=== PATIENT | female | born 1985 | race Caucasian/White ===

== ENCOUNTER 2017-06-01 13:13 | Emergency (ER) | payer SELFPAY ==
--- NOTE | 2017-06-01 13:37 | ER Document Report ---
ED General - General Chief Complaint: Chest Pain Stated Complaint: ARM NUMBNESS Time Seen by Provider: 06/01/17 13:20 Mode of Arrival: Ambulatory Information source: Patient Notes: 31 yr old female with hx of severe anxiety htn unctrolled since she ran out of her lisinopril hctz . pt admits to chest tightness, notes she is shaky , denies any neuro defitics TRAVEL OUTSIDE OF THE [place] IN LAST 30 DAYS: No - HPI Onset: Other - 2 day duration Onset/Duration: Persistent Quality of pain: Achy Severity: Mild Pain Level: 1 Associated symptoms: Chest pain, Other Exacerbated by: Denies Relieved by: Denies Similar symptoms previously: Yes Recently seen / treated by doctor: Yes - Related Data Allergies/Adverse Reactions: No Known Allergies Allergy (Verified 06/01/17 13:16) Past Medical History - Social History Smoking Status: Current Some Day Smoker Cigarette use (# per day): Yes Chew tobacco use (# tins/day): No Smoking Education Provided: No Frequency of alcohol use: Occasional Drug Abuse: None Family History: Reviewed & Not Pertinent, Hypertension - Past Medical History Cardiac Medical History: Reports: Hx Hypercholesterolemia, Hx Hypertension Pulmonary Medical History: Denies: Hx Tuberculosis Neurological Medical History: Denies: Hx Cerebrovascular Accident, Hx Seizures Endocrine Medical History: Denies: Hx Diabetes Mellitus Type 2, Hx Hypothyroidism Renal/ Medical History: Denies: Hx Peritoneal Dialysis, Hx Pelvic Inflammatory Disease GI Medical History: Reports: Hx Gastroesophageal Reflux Disease Psychiatric Medical History: Reports: Hx Anxiety Past Surgical History: Reports: Hx Abdominal Surgery - iud retrieval, hernia repair. Denies: Hx Pacemaker - Immunizations Hx Diphtheria, Pertussis, Tetanus Vaccination: Yes Review of Systems - Review of Systems Notes: REVIEW OF SYSTEMS: CONSTITUTIONAL : Denies fever, chills, or sweats. Denies recent illness. EENT: Denies eye, ear, throat, or mouth pain or symptoms. Denies nasal or sinus congestion or discharge. Denies throat, tongue, or mouth swelling or difficulty swallowing. CARDIOVASCULAR: admts to chest pain RESPIRATORY: Denies cough, cold, or chest congestion. Denies shortness of breath, difficulty breathing, or wheezing. GASTROINTESTINAL: Denies abdominal pain or distention. Denies nausea, vomiting , or diarrhea. Denies blood in vomitus, stools, or per rectum. Denies black, tarry stools. Denies constipation. GENITOURINARY: Denies difficulty urinating, painful urination, burning, frequency, blood in urine, or discharge. FEMALE GENITOURINARY: Denies vaginal bleeding, heavy or abnormal periods, irregular periods. Denies vaginal discharge or odor. MUSCULOSKELETAL: Denies back or neck pain or stiffness. Denies joint pain or swelling. SKIN: Denies rash, lesions or sores. HEMATOLOGIC : Denies easy bruising or bleeding. LYMPHATIC: Denies swollen, enlarged glands. NEUROLOGICAL: Denies confusion or altered mental status. Denies passing out or loss of consciousness. Denies dizziness or lightheadedness. Denies headache. Denies weakness or paralysis or loss of use of either side. Denies problems with gait or speech. Denies sensory loss, numbness, or tingling. Denies seizures. PSYCHIATRIC: admits ot shaking anxiety . ALL OTHER SYSTEMS REVIEWED AND NEGATIVE. PHYSICAL EXAMINATION: GENERAL: Well-appearing, well-nourished and in no acute distress. HEAD: Atraumatic, normocephalic. EYES: Pupils equal round and reactive to light, extraocular movements intact, conjunctiva are normal. ENT: Nares patent, oropharynx clear without exudates. Moist mucous membranes. NECK: Normal range of motion, supple without lymphadenopathy LUNGS: Breath sounds clear to auscultation bilaterally and equal. No wheezes rales or rhonchi. HEART: Regular rate and rhythm without murmurs ABDOMEN: Soft, nontender, nondistended abdomen. No guarding, no rebound. No masses appreciated. Female : deferred Musculoskeletal: Normal range of motion, no pitting or edema. No cyanosis. NEUROLOGICAL: Cranial nerves grossly intact. Normal speech, normal gait. Normal sensory, motor exams PSYCH: jittery SKIN: Warm, Dry, normal turgor, no rashes or lesions noted. Dictation was performed using [employer] voice recognition software Course - Re-evaluation Re-evalutation: 06/01/17 13:40 i have extremely low suspicion of any life threatening issues , but given 2 days of chest pain will order a set of enzymes. labs pending ekg is normal. 06/01/17 14:31 Lab work noted no significant abnormality patient will be discharged home with prescription After performing a Medical Screening Examination, I estimate there is LOW risk for RUPTURED ESOPHAGUS, PNEUMOTHORAX, PULMONARY EMBOLISM, ACUTE CORONARY SYNDROME, OR THORACIC AORTIC DISSECTION, thus I consider the discharge disposition reasonable. I have reevaluated this patient multiple times and no significant life threatening changes are noted. The patient and I have discussed the diagnosis and risks, and we agree with discharging home with close follow-up. We also discussed returning to the Emergency Department immediately if new or worsening symptoms occur. We have discussed the symptoms which are most concerning (e.g., bloody sputum, worsening pain or shortness of breath) that necessitate immediate return. - Laboratory Result Diagrams: 06/01/17 13:40 06/01/17 13:40 Laboratory results interpreted by me: 06/01/17 06/01/17 13:40 13:40 WBC 12.4 H MCV 99 H MCH 34.6 H RDW 14.5 H Absolute Neutrophils 8.7 H Carbon Dioxide 20 L Glucose 118 H AST 46 H Discharge - Discharge Clinical Impression: HTN (hypertension) Qualifiers: Hypertension type: essential hypertension Qualified Code(s): I10 - Essential ( primary) hypertension Condition: Stable Disposition: HOME, SELF-CARE Instructions: Chest Pain of Unclear Cause ([facility]) Prescriptions: Lisinopril/Hydrochlorothiazide [Lisinopril-Hctz 20-25 mg Tab] 1 each PO DAILY # 60 tablet Referrals: VICKY CHOUDHARY MD [ACTIVE STAFF] - Follow up tomorrow
[2017-06-01 13:56] LABS: ABSOLUTE BASOPHILS # (AUTO) 0.1 10^3/uL (0.0-0.2); ABSOLUTE EOSINOPHILS # (AUTO) 0.2 10^3/uL (0.0-0.6); ABSOLUTE LYMPHOCYTES (AUTO) 2.7 10^3/uL (0.5-4.7); ABSOLUTE MONOCYTES (AUTO) 0.6 10^3/uL (0.1-1.4); ABSOLUTE NEUT (AUTO) 8.7 10^3/uL (1.7-8.2); BASOPHILS % (AUTO) 1.2 % (0-2); EOSINOPHILS % (AUTO) 1.6 % (0-6); LYMPHOCYTES % (AUTO) 21.6 % (13-45); MEAN CORPUSCULAR HEMOGLOBIN 34.6 pg (27.0-33.4); MEAN CORPUSCULAR HGB CONC 34.9 g/dL (32.0-36.0); MEAN CORPUSCULAR VOLUME 99 fl (80-97); MONOCYTES % (AUTO) 5.1 % (3-13); RED BLOOD COUNT 4.04 10^6/uL (3.72-5.28); RED CELL DISTRIBUTION WIDTH 14.5 % (11.5-14.0); SEGMENTED NEUTROPHILS % (AUTO) 70.5 % (42-78); WHITE BLOOD COUNT 12.4 10^3/uL (4.0-10.5)
[2017-06-01 14:15] LABS: ALANINE AMINOTRANSFERASE 35 U/L (9-52); ALBUMIN 4.5 g/dL (3.5-5.0); ALKALINE PHOSPHATASE 108 U/L (38-126); ANION GAP 14 (5-19); ASPARTATE AMINO TRANSFERASE 46 U/L (14-36); BILIRUBIN,DIRECT 0.4 mg/dL (0.0-0.4); BILIRUBIN,TOTAL 0.6 mg/dL (0.2-1.3); BLOOD UREA NITROGEN 15 mg/dL (7-20); CALCIUM 9.6 mg/dL (8.4-10.2); CARBON DIOXIDE 20 mmol/L (22-30); CHLORIDE 104 mmol/L (98-107); CREATINE KINASE 35 U/L (30-135); CREATININE RESULT 0.68 mg/dL (0.52-1.25); GLUCOSE 118 mg/dL (75-110); SODIUM 137.7 mmol/L (137-145); TOTAL PROTEIN 7.2 g/dL (6.3-8.2)
[2017-06-01 14:25] LABS: CREATINE KINASE MB 0.56 ng/mL (<4.55)
[2017-06-01 14:27] LABS: TROPONIN I < 0.012 ng/mL
[2017-06-01 14:54] VITALS: BP 129/89
--- NOTE | 2017-06-01 16:24 | EKG REPORT ---
SEVERITY:- OTHERWISE NORMAL ECG - SINUS TACHYCARDIA : Confirmed by: Dangelo Truong MD 01-Jun-2017 16:23:56
== END 2017-06-01 14:39 | disposition home or self-care (01) ==
LOC: ER 13:13
DX: I10 Essential (primary) hypertension (principal); R07.9 Chest pain, unspecified; R20.0 Anesthesia of skin; F17.210 Nicotine dependence, cigarettes, uncomplicated; E78.00 Pure hypercholesterolemia, unspecified
CPT/HCPCS: 36415; 80053; 82550; 82553; 84484; 85025; 93005; 93010; 99284

== ENCOUNTER 2017-08-29 13:01 | Emergency (ER) | payer SELFPAY ==
--- NOTE | 2017-08-29 14:09 | ER Document Report ---
ED General - General Chief Complaint: Palpitations Stated Complaint: ELEVATED HEART RATE Time Seen by Provider: 08/29/17 13:34 Notes: The patient is a 32-year-old female, past medical history hypertension, anxiety , presents feeling like her heart is racing that is worse after she takes a few steps. She started noticing her symptoms a few days ago. Patient denies syncope, chest pain, shortness of breath, leg swelling, OCP use, recent travel, recent surgery, back pain or increased stress or anxiety. TRAVEL OUTSIDE OF THE [place] IN LAST 30 DAYS: No - Related Data Allergies/Adverse Reactions: No Known Allergies Allergy (Verified 08/29/17 13:02) Past Medical History - General Information source: Patient - Social History Smoking Status: Current Every Day Smoker Chew tobacco use (# tins/day): No Frequency of alcohol use: Occasional Drug Abuse: None Family History: Reviewed & Not Pertinent, Hypertension Patient has suicidal ideation: No Patient has homicidal ideation: No - Past Medical History Cardiac Medical History: Reports: Hx Hypercholesterolemia, Hx Hypertension Pulmonary Medical History: Denies: Hx Tuberculosis Neurological Medical History: Denies: Hx Cerebrovascular Accident, Hx Seizures Endocrine Medical History: Denies: Hx Diabetes Mellitus Type 2, Hx Hypothyroidism Renal/ Medical History: Denies: Hx Peritoneal Dialysis, Hx Pelvic Inflammatory Disease GI Medical History: Reports: Hx Gastroesophageal Reflux Disease Psychiatric Medical History: Reports: Hx Anxiety Past Surgical History: Reports: Hx Abdominal Surgery - iud retrieval, hernia repair. Denies: Hx Pacemaker - Immunizations Hx Diphtheria, Pertussis, Tetanus Vaccination: Yes Review of Systems - Review of Systems Notes: REVIEW OF SYSTEMS: CONSTITUTIONAL: -fevers, -chills EENT: -eye pain, -difficulty swallowing, -nasal congestion CARDIOVASCULAR:-chest pain, -syncope, +palpitations RESPIRATORY: -cough, -SOB GASTROINTESTINAL: -abdominal pain, - nausea, -vomiting, -diarrhea GENITOURINARY: -dysuria, -hematuria MUSCULOSKELETAL: -back pain, -neck pain SKIN: -rash or skin lesions. HEMATOLOGIC: -easy bruising or bleeding. LYMPHATIC: -swollen, enlarged glands. NEUROLOGICAL: -altered mental status or loss of consciousness, -headache, - neurologic symptoms PSYCHIATRIC: -anxiety, -depression. ALL OTHER SYSTEMS REVIEWED AND NEGATIVE. Physical Exam - Vital signs Vitals: Temp Pulse Resp BP Pulse Ox 98.4 F 102 H 20 126/90 H 100 12/22/17 13:18 08/29/17 13:18 08/29/17 13:18 08/29/17 13:18 08/29/17 13:18 - Notes Notes: PHYSICAL EXAMINATION: GENERAL: Well-appearing, well-nourished and in no acute distress. HEAD: Atraumatic, normocephalic. EYES: Pupils equal round and reactive to light, extraocular movements intact, sclera anicteric, conjunctiva are normal. ENT: nares patent, oropharynx clear without exudates. Moist mucous membranes. NECK: Normal range of motion, supple without lymphadenopathy LUNGS: Breath sounds clear to auscultation bilaterally and equal. No wheezes rales or rhonchi. HEART: Tachycardia, regular rhythm ABDOMEN: Soft, nontender, normoactive bowel sounds. No guarding, no rebound. No masses appreciated. EXTREMITIES: Normal range of motion, no pitting or edema. No cyanosis. NEUROLOGICAL: Cranial nerves grossly intact. Normal speech, normal gait. Normal sensory and motor exams. PSYCH: Normal mood, normal affect. SKIN: Warm, Dry, normal turgor, no rashes or lesions noted. Course - Re-evaluation Re-evalutation: Patient presents with tachycardia after she is walking that quickly resolves. Her d-dimer is negative and she is in the low risk category for PE, so PE is ruled out. Her thyroid is normal and rest of blood work is unremarkable. Patient ambulated in ER and she becomes slightly tachycardic, but this quickly resolves when she is at rest. She said that she used to take propranolol for the same issue in the past, but has run out. She is requesting a refill of her propranolol refill of her blood pressure medications. She said that she will follow-up with her primary care physician and bottom steep tender this week for further evaluation and treatment. Given very strict return precautions and she understands. - Vital Signs Vital signs: Temp Pulse Resp BP Pulse Ox 98.4 F 102 H 14 112/82 98 08/29/17 13:18 08/29/17 13:18 08/29/17 15:00 08/29/17 15:00 08/29/17 15:00 - Laboratory Result Diagrams: 08/29/17 14:27 08/29/17 14:27 Laboratory results interpreted by me: 08/29/17 08/29/17 14:27 14:27 MCV 101 H MCH 35.3 H RDW 14.3 H Calcium 10.3 H - EKG Interpretation by Me EKG shows normal: Sinus rhythm, [place], Intervals, QRS Complexes, ST-T Waves Rate: Tachycardia Discharge - Discharge Clinical Impression: Palpitations Condition: Stable Disposition: HOME, SELF-CARE Additional Instructions: Take the propranolol as instructed blood pressure medications. You must follow- up with the bottom steep tender for further evaluation and treatment. Stay away from caffeine. Return to the ER if you have any worsening symptoms or any other concerns. Palpitations (Irregular/Rapid Heartrate) Irregular or rapid heartbeat is called "palpitation." To diagnose the cause of palpitation, we have to "catch it in the act" with an EKG. Sinus Tachycardia: This is a rapid (but NORMAL) rhythm that can be due to fever, pain, anxiety, lack of sleep, over-exertion, or drugs. Cold medications, caffeine, and diet pills are particularly likely to cause tachycardia. Usually , all that's required is rest, reassurance, and avoiding caffeine, alcohol, nicotine, and unnecessary medicines. Paroxysmal Atrial Tachycardia (PAT): This abnormally rapid heartbeat is caused by a "short circuit" in the electrical system of the heart. It is not dangerous, unless other heart disease is present. These attacks of PAT may occur occasionally for years. Medication is available for treatment. Paroxysmal Atrial Fibrillation or Atrial Flutter: This is irregular electrical activity in the upper heart chamber. These abnormal rhythms often occur with valve disease or in hearts damaged by hardening of the arteries. These rhythms usually require further testing, for example a cardiac echo. Premature Beats: Extra beats occur more commonly after caffeine, nicotine , alcohol, cold pills, diet pills. Emotional stress or fatigue also provoke them. Extra beats are only dangerous when heart disease is present. They usually need no treatment. If they're frequent, or if evidence of heart disease develops, medication can be given to suppress them. If we were unable to "catch" the palpitations on EKG, you should try to get an EKG immediately if the symptoms begin again. Contact the physician at once if you develop persistent lightheadedness, shortness of breath, chest pain , or swelling of the ankles. Prescriptions: Lisinopril/Hydrochlorothiazide [Lisinopril-Hctz 06-19.5 mg Tab] 1 each PO DAILY #30 tablet Propranolol HCl [Propranolol HCl ER] 60 mg PO DAILY 30 Days cap.sa.24h Referrals: ELÍAS THOMAS MD [ACTIVE STAFF] - Follow up as needed
--- NOTE | 2017-08-29 14:16 | ER Document Report ---
ED Medical Screen (RME) - General Mode of Arrival: Ambulatory Information source: Patient TRAVEL OUTSIDE OF THE [place] IN LAST 30 DAYS: No <RAMIRO LY - Last Filed: 08/29/17 14:22> <FEDE SELF - Last Filed: 08/29/17 16:31> - General Chief Complaint: Palpitations Stated Complaint: ELEVATED HEART RATE Time Seen by Provider: 08/29/17 13:34 Notes: Patient is a 32 year old female presenting to the emergency department complaining of increased heart rated onset this week. Patient states she also has associated symptoms of headaches, light headedness, shortness of breath and diaphoresis when he heart rate has increased. Patient deneis a history of blood clots, recent travel, or hormones medications. I have greeted and performed a rapid initial assessment of this patient. A comprehensive ED assessment and evaluation of the patient, analysis of test results and completion of the medical decision making process will be conducted by additional ED providers. (RAMIRO LY) - Related Data Allergies/Adverse Reactions: No Known Allergies Allergy (Verified 08/29/17 13:02) Past Medical History - Social History Chew tobacco use (# tins/day): No Frequency of alcohol use: Occasional Drug Abuse: None - Past Medical History Cardiac Medical History: Reports: Hx Hypercholesterolemia, Hx Hypertension Pulmonary Medical History: Denies: Hx Tuberculosis Neurological Medical History: Denies: Hx Cerebrovascular Accident, Hx Seizures Endocrine Medical History: Denies: Hx Diabetes Mellitus Type 2, Hx Hypothyroidism Renal/ Medical History: Denies: Hx Peritoneal Dialysis, Hx Pelvic Inflammatory Disease GI Medical History: Reports: Hx Gastroesophageal Reflux Disease Psychiatric Medical History: Reports: Hx Anxiety Past Surgical History: Reports: Hx Abdominal Surgery - iud retrieval, hernia repair. Denies: Hx Pacemaker - Immunizations Hx Diphtheria, Pertussis, Tetanus Vaccination: Yes <RAMIRO LY - Last Filed: 08/29/17 14:22> Physical Exam <RAMIRO LY - Last Filed: 08/29/17 14:22> <FEDE SELF - Last Filed: 08/29/17 16:31> - Vital signs Vitals: Temp Pulse Resp BP Pulse Ox 98.4 F 102 H 20 126/90 H 100 08/29/17 13:18 08/29/17 13:18 08/29/17 13:18 08/29/17 13:18 08/29/17 13:18 - Notes Notes: GENERAL: Alert, interacts well. No acute distress. LUNGS: Clear to auscultation bilaterally, no wheezes, rales, or rhonchi. No respiratory distress. HEART: mild tachycardia. No murmurs, gallops, or rubs. ABDOMEN: Soft, non-tender. Non-distended. Bowel sounds present in all 4 quadrants. (RAMIRO LY) Course - Laboratory Result Diagrams: 08/29/17 14:27 08/29/17 14:27 <FEDE SELF - Last Filed: 08/29/17 16:31> - Vital Signs Vital signs: Temp Pulse Resp BP Pulse Ox 98.4 F 102 H 14 112/82 98 08/29/17 13:18 08/29/17 13:18 08/29/17 15:00 08/29/17 15:00 08/29/17 15:00 - Laboratory Laboratory results interpreted by me: 08/29/17 08/29/17 14:27 14:27 MCV 101 H MCH 35.3 H RDW 14.3 H Calcium 10.3 H Doctor's Discharge <RAMIRO LY - Last Filed: 08/29/17 14:22> <FEDE SELF - Last Filed: 08/29/17 16:31> - Discharge Clinical Impression: Palpitations Condition: Stable Disposition: HOME, SELF-CARE Additional Instructions: Take the propranolol as instructed blood pressure medications. You must follow- up with the blood bank manager for further evaluation and treatment. Stay away from caffeine. Return to the ER if you have any worsening symptoms or any other concerns. Palpitations (Irregular/Rapid Heartrate) Irregular or rapid heartbeat is called "palpitation." To diagnose the cause of palpitation, we have to "catch it in the act" with an EKG. Sinus Tachycardia: This is a rapid (but NORMAL) rhythm that can be due to fever, pain, anxiety, lack of sleep, over-exertion, or drugs. Cold medications, caffeine, and diet pills are particularly likely to cause tachycardia. Usually , all that's required is rest, reassurance, and avoiding caffeine, alcohol, nicotine, and unnecessary medicines. Paroxysmal Atrial Tachycardia (PAT): This abnormally rapid heartbeat is caused by a "short circuit" in the electrical system of the heart. It is not dangerous, unless other heart disease is present. These attacks of PAT may occur occasionally for years. Medication is available for treatment. Paroxysmal Atrial Fibrillation or Atrial Flutter: This is irregular electrical activity in the upper heart chamber. These abnormal rhythms often occur with valve disease or in hearts damaged by hardening of the arteries. These rhythms usually require further testing, for example a cardiac echo. Premature Beats: Extra beats occur more commonly after caffeine, nicotine , alcohol, cold pills, diet pills. Emotional stress or fatigue also provoke them. Extra beats are only dangerous when heart disease is present. They usually need no treatment. If they're frequent, or if evidence of heart disease develops, medication can be given to suppress them. If we were unable to "catch" the palpitations on EKG, you should try to get an EKG immediately if the symptoms begin again. Contact the physician at once if you develop persistent lightheadedness, shortness of breath, chest pain , or swelling of the ankles. Prescriptions: Lisinopril/Hydrochlorothiazide [Lisinopril-Hctz 10-12.5 mg Tab] 1 each PO DAILY #30 tablet Propranolol HCl [Propranolol HCl ER] 60 mg PO DAILY 30 Days cap.sa.24h Referrals: ELÍAS THOMAS MD [ACTIVE STAFF] - Follow up as needed Scribe Documentation - Scribe Written by Radha:: Radha Brooke, 08/29/2017 14:23 acting as scribe for :: Guillermina <RAMIRO LY - Last Filed: 08/29/17 14:22>
[2017-08-29 14:45] LABS: ABSOLUTE BASOPHILS # (AUTO) 0.1 10^3/uL (0.0-0.2); ABSOLUTE EOSINOPHILS # (AUTO) 0.1 10^3/uL (0.0-0.6); ABSOLUTE LYMPHOCYTES (AUTO) 1.8 10^3/uL (0.5-4.7); ABSOLUTE MONOCYTES (AUTO) 0.7 10^3/uL (0.1-1.4); ABSOLUTE NEUT (AUTO) 7.5 10^3/uL (1.7-8.2); EOSINOPHILS % (AUTO) 0.8 % (0-6); HEMATOCRIT 40.6 % (36.0-47.0); HEMOGLOBIN 14.1 g/dL (12.0-15.5); HGB HCT DIFFERENCE 1.7; LYMPHOCYTES % (AUTO) 17.3 % (13-45); MEAN CORPUSCULAR HEMOGLOBIN 35.3 pg (27.0-33.4); MEAN CORPUSCULAR HGB CONC 34.8 g/dL (32.0-36.0); MEAN CORPUSCULAR VOLUME 101 fl (80-97); MONOCYTES % (AUTO) 6.9 % (3-13); RED BLOOD COUNT 4.01 10^6/uL (3.72-5.28); RED CELL DISTRIBUTION WIDTH 14.3 % (11.5-14.0); WHITE BLOOD COUNT 10.2 10^3/uL (4.0-10.5)
[2017-08-29 15:04] LABS: ALANINE AMINOTRANSFERASE 25 U/L (9-52); ALKALINE PHOSPHATASE 83 U/L (38-126); ANION GAP 14 (5-19); ASPARTATE AMINO TRANSFERASE 32 U/L (14-36); BILIRUBIN,DIRECT 0.3 mg/dL (0.0-0.4); BILIRUBIN,TOTAL 0.7 mg/dL (0.2-1.3); BLOOD UREA NITROGEN 12 mg/dL (7-20); CALCIUM 10.3 mg/dL (8.4-10.2); CARBON DIOXIDE 25 mmol/L (22-30); CHLORIDE 99 mmol/L (98-107); CREATININE RESULT 0.72 mg/dL (0.52-1.25); GLUCOSE 96 mg/dL (75-110); POTASSIUM 3.7 mmol/L (3.6-5.0); TOTAL PROTEIN 7.8 g/dL (6.3-8.2)
[2017-08-29 15:13] VITALS: BP 112/82
[2017-08-29 15:21] LABS: FREE T3 3.73 pg/mL (2.77-5.27)
[2017-08-29 15:35] LABS: THYROID STIMULATING HORMONE 0.64 uIU/mL (0.47-4.68)
--- NOTE | 2017-08-29 18:52 | EKG REPORT ---
SEVERITY:- NORMAL ECG - SINUS RHYTHM : Confirmed by: Dangelo Truong MD 29-Aug-2017 18:51:30
== END 2017-08-29 16:27 | disposition home or self-care (01) ==
LOC: ER 13:01
DX: R00.2 Palpitations (principal); R42 Dizziness and giddiness; R51 Headache
CPT/HCPCS: 36415; 80053; 84439; 84443; 84481; 84703; 85025; 85379; 93005; 93010; 99285

== ENCOUNTER 2017-09-19 16:46 | Emergency (ER) | payer SELFPAY ==
[2017-09-19] MEDS ORDERED: ONDANSETRON ODT 4 MG TAB (6 TAB/ER DISP) PO PRN (17:47)
[2017-09-19] MEDS ORDERED: HYDROCODONE/ACETAMINOPHEN 5-325 MG (6 TAB/ER DISP) PO PRN (17:47)
--- NOTE | 2017-09-19 17:50 | ER Document Report ---
ED Oral Problem - General Chief Complaint: Toothache Stated Complaint: TOOTH PAIN Time Seen by Provider: 09/19/17 17:33 Mode of Arrival: Ambulatory Information source: Patient Notes: Patient is a 32-year-old female who presents to the ER today for right upper dental abscess. Patient states that she has a history of multiple dental abscesses frequently and that she just has not been able to get to the dentist to get antibiotics this time. Patient states she has been taking amoxicillin for 4 days that she had leftover. She denies any fevers, chills or drainage. TRAVEL OUTSIDE OF THE [place] IN LAST 30 DAYS: No - Related Data Allergies/Adverse Reactions: No Known Allergies Allergy (Verified 09/19/17 16:47) Past Medical History - General Information source: Patient - Social History Smoking Status: Current Every Day Smoker Chew tobacco use (# tins/day): No Frequency of alcohol use: Occasional Drug Abuse: None Family History: Reviewed & Not Pertinent, Hypertension Patient has suicidal ideation: No Patient has homicidal ideation: No - Past Medical History Cardiac Medical History: Reports: Hx Hypercholesterolemia, Hx Hypertension Pulmonary Medical History: Denies: Hx Tuberculosis Neurological Medical History: Denies: Hx Cerebrovascular Accident, Hx Seizures Endocrine Medical History: Denies: Hx Diabetes Mellitus Type 2, Hx Hypothyroidism Renal/ Medical History: Denies: Hx Peritoneal Dialysis, Hx Pelvic Inflammatory Disease GI Medical History: Reports: Hx Gastroesophageal Reflux Disease Psychiatric Medical History: Reports: Hx Anxiety Past Surgical History: Reports: Hx Abdominal Surgery - iud retrieval, hernia repair. Denies: Hx Pacemaker - Immunizations Hx Diphtheria, Pertussis, Tetanus Vaccination: Yes Review of Systems - Review of Systems Constitutional: No symptoms reported EENT: See HPI Cardiovascular: No symptoms reported Respiratory: No symptoms reported Gastrointestinal: No symptoms reported Genitourinary: No symptoms reported Female Genitourinary: No symptoms reported Musculoskeletal: No symptoms reported Skin: No symptoms reported Hematologic/Lymphatic: No symptoms reported Neurological/Psychological: No symptoms reported Physical Exam - Notes Notes: PHYSICAL EXAMINATION: GENERAL: Well-appearing and in no acute distress. HEAD: Atraumatic, normocephalic. EYES: Pupils equal round and reactive to light, extraocular movements intact, sclera anicteric, conjunctiva are normal. ENT: ear canals without erythema or foreign body, TMs pearly beebe with good bony landmarks, nares patent, oropharynx clear without exudates. Moist mucous membranes. Mild edema noted to the right upper gumline at tooth #5, tender to palpation NECK: Normal range of motion, supple without lymphadenopathy LUNGS: CTAB and equal. No wheezes rales or rhonchi. HEART: Regular rate and rhythm without murmurs EXTREMITIES: Normal range of motion, no pitting edema. No cyanosis. NEUROLOGICAL: Cranial nerves grossly intact. Normal sensory/motor exams. PSYCH: Normal mood, normal affect. SKIN: Warm, Dry, normal turgor, no rashes or lesions noted Course - Re-evaluation Re-evalutation: 09/19/17 17:55 patient will be given Bactrim as it is on the $4 list at [facility] and she has no insurance. Discharge - Discharge Clinical Impression: Dental infection Condition: Stable Disposition: HOME, SELF-CARE Additional Instructions: Return immediately for any new or worsening symptoms. Follow up with dentist, call tomorrow to make followup appointment. Prescriptions: Sulfamethoxazole/Trimethoprim [Bactrim Ds Tablet] 1 each PO BID #20 tablet Forms: Return to Work
[2017-09-19 18:07] VITALS: BP 128/76
== END 2017-09-19 18:04 | disposition home or self-care (01) ==
LOC: ER 16:46
DX: K04.7 Periapical abscess without sinus (principal); K08.89 Other specified disorders of teeth and supporting structures; F17.200 Nicotine dependence, unspecified, uncomplicated
CPT/HCPCS: 99282

== ENCOUNTER 2017-12-09 16:05 | Inpatient (IN) | payer BC ==
--- NOTE | 2017-12-09 16:40 | ER Document Report ---
ED Medical Screen (RME) - General Chief Complaint: Abdominal Pain Stated Complaint: STOMACH PAIN Time Seen by Provider: 12/09/17 16:26 Notes: 32-year-old female patient past medical history recurrent pancreatitis with no definite etiology. Happens about once a year. Did have a couple drinks over the weekend. Pain started 3 days ago diffusely epigastric. States it feels similar to her prior episodes of pancreatitis. She was admitted here 4 years ago for pancreatitis, and had slightly elevated triglycerides at that time. I have greeted and performed a rapid initial assessment of this patient. A comprehensive ED assessment and evaluation of the patient, analysis of test results and completion of the medical decision making process will be conducted by additional ED providers. TRAVEL OUTSIDE OF THE [place] IN LAST 30 DAYS: No - Related Data Allergies/Adverse Reactions: No Known Allergies Allergy (Verified 12/09/17 16:06) Past Medical History - Social History Frequency of alcohol use: Occasional Drug Abuse: None - Past Medical History Cardiac Medical History: Reports: Hx Hypercholesterolemia, Hx Hypertension Pulmonary Medical History: Denies: Hx Tuberculosis Neurological Medical History: Denies: Hx Cerebrovascular Accident, Hx Seizures Endocrine Medical History: Denies: Hx Diabetes Mellitus Type 2, Hx Hypothyroidism Renal/ Medical History: Denies: Hx Peritoneal Dialysis, Hx Pelvic Inflammatory Disease GI Medical History: Reports: Hx Gastroesophageal Reflux Disease Psychiatric Medical History: Reports: Hx Anxiety Past Surgical History: Reports: Hx Abdominal Surgery - iud retrieval, hernia repair. Denies: Hx Pacemaker - Immunizations Hx Diphtheria, Pertussis, Tetanus Vaccination: Yes Physical Exam - Vital signs Vitals: Temp Pulse Resp BP Pulse Ox 98.5 F 72 14 129/94 H 100 12/09/17 16:08 12/09/17 16:08 12/09/17 16:08 12/09/17 16:08 12/09/17 16:08 Course - Vital Signs Vital signs: Temp Pulse Resp BP Pulse Ox 98.5 F 72 14 129/94 H 100 12/09/17 16:08 12/09/17 16:08 12/09/17 16:08 12/09/17 16:08 12/09/17 16:08
[2017-12-09 17:03] LABS: ABSOLUTE BASOPHILS # (AUTO) 0.1 10^3/uL (0.0-0.2); ABSOLUTE EOSINOPHILS # (AUTO) 0.3 10^3/uL (0.0-0.6); ABSOLUTE MONOCYTES (AUTO) 0.7 10^3/uL (0.1-1.4); ABSOLUTE NEUT (AUTO) 6.7 10^3/uL (1.7-8.2); BASOPHILS % (AUTO) 0.9 % (0-2); EOSINOPHILS % (AUTO) 2.7 % (0-6); HEMATOCRIT 40.4 % (36.0-47.0); HEMOGLOBIN 13.9 g/dL (12.0-15.5); LYMPHOCYTES % (AUTO) 20.7 % (13-45); MEAN CORPUSCULAR HEMOGLOBIN 34.4 pg (27.0-33.4); MEAN CORPUSCULAR HGB CONC 34.5 g/dL (32.0-36.0); MEAN CORPUSCULAR VOLUME 100 fl (80-97); MONOCYTES % (AUTO) 7.4 % (3-13); PLATELET COUNT 304 10^3/uL (150-450); RED BLOOD COUNT 4.05 10^6/uL (3.72-5.28); RED CELL DISTRIBUTION WIDTH 14.5 % (11.5-14.0); SEGMENTED NEUTROPHILS % (AUTO) 68.3 % (42-78); TOTAL CELLS COUNTED % (AUTO) 100 %; WHITE BLOOD COUNT 9.9 10^3/uL (4.0-10.5)
[2017-12-09 17:08] LABS: APPEARANCE,URINE CLEAR; BILIRUBIN,URINE NEGATIVE (NEGATIVE); COLOR,URINE YELLOW; GLUCOSE, URINE NEGATIVE (NEGATIVE); KETONES,URINE TRACE mg/dL (NEGATIVE); LEUKOCYTE ESTERASE,URINE NEGATIVE (NEGATIVE); NITRITE,URINE NEGATIVE (NEGATIVE); PROTEIN,URINE NEGATIVE (NEGATIVE); URINE SPECIFIC GRAVITY 1.018; UROBILINOGEN,URINE NEGATIVE mg/dL (<2.0)
[2017-12-09 17:23] LABS: ALANINE AMINOTRANSFERASE 32 U/L (9-52); ALBUMIN 4.7 g/dL (3.5-5.0); ALKALINE PHOSPHATASE 82 U/L (38-126); ANION GAP 13 (5-19); ASPARTATE AMINO TRANSFERASE 52 U/L (14-36); BILIRUBIN,DIRECT 0.2 mg/dL (0.0-0.4); BILIRUBIN,TOTAL 0.7 mg/dL (0.2-1.3); BLOOD UREA NITROGEN 22 mg/dL (7-20); CALCIUM 9.7 mg/dL (8.4-10.2); CARBON DIOXIDE 22 mmol/L (22-30); CHLORIDE 102 mmol/L (98-107); CHOLESTEROL 225.91 mg/dL (0-200); GLUCOSE 124 mg/dL (75-110); LIPASE 1515.2 U/L (23-300); POTASSIUM 3.7 mmol/L (3.6-5.0); SODIUM 136.9 mmol/L (137-145); TOTAL PROTEIN 7.2 g/dL (6.3-8.2); TRIGLYCERIDES 307 mg/dL (<150)
[2017-12-09] MEDS ORDERED: ONDANSETRON HCL INJ/PF 4 MG/2 ML SDV IV ONE (17:31)
[2017-12-09] MEDS ORDERED: MORPHINE SULFATE 10 MG/ML INJ IV ONE (17:32)
--- NOTE | 2017-12-09 17:35 | ER Document Report ---
HPI - HPI Pain Level: 5 Notes: Patient is a 32-year-old female who presents to the ED complaining of epigastric pain 3 days. Patient states that she was drinking alcohol on Friday which precipitated her events. Patient states that she has had pancreatitis in the past and this feels similar. She states that the pain is epigastric and radiates around to her back. Patient states that she did have nausea and vomiting on Friday, but has had decreased solid food intake since then which resolved vomiting. Patient states that she has been maintaining fluid intake. She is still urinating normally and having normal bowel movements. She denies any drug allergies. Patient does admit to smoking but denies IV drug use. Denies any headache, fever, neck pain, URI, sore throat, chest pain, palpitations, syncope, cough, shortness of breath, wheeze, dyspnea, current nausea/vomiting/diarrhea, urinary retention, dysuria, hematuria, loss of control of bowel or bladder, numbness/tingling, saddle anesthesia, muscle paralysis/weakness, or rash. - ROS Systems Reviewed and Negative: Yes All other systems reviewed and negative - REPRODUCTIVE LMP: current Reproductive: REPORTS: : - DERM Skin Color: Pale Past Medical History - Social History Smoking Status: Current Every Day Smoker Frequency of alcohol use: Occasional Drug Abuse: None Family History: Reviewed & Not Pertinent, Hypertension Patient has suicidal ideation: No Patient has homicidal ideation: No - Past Medical History Cardiac Medical History: Reports: Hx Hypercholesterolemia, Hx Hypertension Pulmonary Medical History: Denies: Hx Tuberculosis Neurological Medical History: Denies: Hx Cerebrovascular Accident, Hx Seizures Endocrine Medical History: Denies: Hx Diabetes Mellitus Type 2, Hx Hypothyroidism Renal/ Medical History: Denies: Hx Peritoneal Dialysis, Hx Pelvic Inflammatory Disease GI Medical History: Reports: Hx Gastroesophageal Reflux Disease Psychiatric Medical History: Reports: Hx Anxiety Past Surgical History: Reports: Hx Abdominal Surgery - iud retrieval, hernia repair. Denies: Hx Pacemaker - Immunizations Hx Diphtheria, Pertussis, Tetanus Vaccination: Yes Vertical Provider Document - CONSTITUTIONAL Agree With Documented VS: Yes Notes: PHYSICAL EXAMINATION: GENERAL: Well-appearing, well-nourished and in no acute distress. HEAD: Atraumatic, normocephalic. EYES: Pupils equal round and reactive to light, extraocular movements intact, sclera anicteric, conjunctiva are normal. ENT: Nares patent and without discharge. oropharynx clear without exudates. No tonsilar hypertrophy or erythema. Moist mucous membranes. NECK: Normal range of motion, supple without lymphadenopathy LUNGS: Breath sounds clear to auscultation bilaterally and equal. No wheezes rales or rhonchi. HEART: Regular rate and rhythm without murmurs, rubs, gallops. ABDOMEN: Soft, nondistended abdomen. No guarding, no rebound. No masses appreciated. Normal bowel sounds present. No CVA tenderness bilaterally. + epigastric tenderness. McBurney negative. Neg Kelly. Extremities: No cyanosis, clubbing, or edema b/l. Peripheral pulses 2+. Capillary refill less than 3 seconds. NEUROLOGICAL: Normal speech, normal gait. Normal sensory, motor exams PSYCH: Normal mood, normal affect. SKIN: Warm, Dry, normal turgor, no rashes or lesions noted. - INFECTION CONTROL TRAVEL OUTSIDE OF THE [place] IN LAST 30 DAYS: No Course - Re-evaluation Re-evalutation: 12/09/17 19:09 Patient is an afebrile, well-hydrated, 32-year-old female who presents to the ED with pancreatitis, noninfectious/nonnecrotic. Vitals are acceptable. PE is otherwise unremarkable. CBC and CMP are relatively unremarkable. Lipase was elevated at 1515. Urinalysis was unremarkable as patient is on her menstrual period currently. HCG was negative. CT scan showed mild early pancreatitis. Patient is able to tolerate fluids. Patient was given Zofran and morphine. Patient has been receiving 2 L normal saline as well. Reviewed case with patient who is in agreement for admission. Night hospitalist, Dr. Gross, accepted patient for admission. - Vital Signs Vital signs: Temp Pulse Resp BP Pulse Ox 98.5 F 72 14 129/94 H 100 12/09/17 16:08 12/09/17 16:08 12/09/17 16:08 12/09/17 16:08 12/09/17 16:08 - Laboratory Result Diagrams: 12/09/17 16:40 12/09/17 16:40 Laboratory results interpreted by me: 12/09/17 12/09/17 12/09/17 16:40 16:40 16:40 MCV 100 H MCH 34.4 H RDW 14.5 H Sodium 136.9 L BUN 22 H Glucose 124 H AST 52 H Triglycerides 307 H Cholesterol 225.91 H Lipase 1515.2 H Urine Ketones TRACE H Urine Blood MODERATE H Discharge - Discharge Clinical Impression: Pancreatitis Qualifiers: Chronicity: acute Pancreatitis type: unspecified pancreatitis type Acute pancreatitis complication: no infection or necrosis Qualified Code(s): K85.90 - Acute pancreatitis without necrosis or infection, unspecified Condition: Stable Disposition: ADMITTED INPATIENT Admitting Provider: Hospitalist - Dr. Gross Unit Admitted: Telemetry
[2017-12-09] MEDS: NORMAL SALINE 1000 ML 1,000 ML IV PRN ×3 (17:58→21:57)
--- NOTE | 2017-12-09 18:43 | RADIOLOGY REPORT (SQ) ---
EXAM DESCRIPTION: CT ABD/PELVIS WITH IV ONLY COMPLETED DATE/TIME: 12/09/2017 6:13 pm REASON FOR STUDY: epigastric pain, elevated lipase COMPARISON: 09/24/2013 TECHNIQUE: CT scan of the abdomen and pelvis performed using helical scanning technique with dynamic intravenous contrast injection. No oral contrast. Images reviewed with lung, soft tissue, and bone windows. Reconstructed coronal and sagittal MPR images reviewed. Delayed images for evaluation of the urinary system also acquired. All images stored on PACS. All CT scanners at this facility use dose modulation, iterative reconstruction, and/or weight based d osing when appropriate to reduce radiation dose to as low as reasonably achievable (ALARA). [facility]: Dose Right [facility]: CareDose [facility]: Dose Right [facility]: Teradose 4D [facility]: XMOS CONTRAST TYPE AND DOSE: contrast/concentration: Isovue 370.00 mg/ml; Total Contrast Delivered: 53.0 ml; Total Saline Delivered: 45.0 ml RENAL FUNCTION: BUN 22 creatinine 1 RADIATION DOSE: CT Rad equipment meets quality standard of care and radiation dose reduction techniq ues were employed. CTDIvol: 4.8 - 4.8 mGy. DLP: 468 mGy-cm.. LIMITATIONS: None. FINDINGS: LOWER CHEST: No significant findings. No nodules or infiltrates. LIVER: Normal size. No masses. No dilated ducts. SPLEEN: Normal size. No focal lesions. PANCREAS: There appears to be mild stranding around the head of the pancreas. No pancreatic mass is seen. GALLBLADDER: No identified stones by CT criteria. No inflammatory changes to suggest cholecystitis. ADRENAL GLANDS: No significant masses or asymmetry. RIGHT KIDNEY AND URETER: No solid masses. No significant calcifications. No hydronephrosis or hyd roureter. LEFT KIDNEY AND URETER: No solid masses. There is a tiny nonobstructing intrarenal calculus. No h ydronephrosis or hydroureter. AORTA AND VESSELS: No aneurysm. No dissection. Renal arteries, SMA, celiac without stenosis. RETROPERITONEUM: No retroperitoneal adenopathy, hemorrhage or masses. BOWEL AND PERITONEAL CAVITY: No masses or inflammatory changes. No free fluid or peritoneal masses. APPENDIX: Normal. PELVIS: No mass. No free fluid. Normal bladder. ABDOMINAL WALL: No masses. No hernias. BONES: No significant or acute findings. OTHER: No other significant finding. IMPRESSION: Mild stranding around the head of the pancreas suggesting early pancreatitis. TECHNICAL DOCUMENTATION: JOB ID: [id number] Quality ID # [id number]: Final reports with documentation of one or more dose reduction techniques (e.g., Au tomated exposure control, adjustment of the mA and/or kV according to patient size, use of iterative reconstruction technique) 2010 [employer]- All Rights Reserved Reading location - IP/workstation name: [email or web address]
[2017-12-09] MEDS ORDERED: HYDROMORPHONE HCL INJ/PF 2 MG/ML AMPULE IV PRN (19:57)
--- NOTE | 2017-12-09 20:20 | PDOC H&P ---
History of Present Illness Admission Date/PCP: 12/09/17 19:54 LIAM UNGER DO History of Present Illness: NEREIDA JONES is a 32 year old female patient who was in her usual baseline state of health up until 3 days when she started to have nausea vomiting and abdominal pain. Patient is a known case of chronic pancreatitis due to alcohol. She claims that she has been sober for the last 6 months since and last Friday she drinks a couple of bottles of beer and since then she started to have the above-mentioned complaints. Examination to the social history patient is active smoker and her only past medical history is hypertension. Interestingly her triglycerides is about 300 but it does not explain her pancreatitis since she has past medical history of alcohol induced pancreatitis and triglyceride today will also is not significant enough to induce pancreatitis. Past Medical History Cardiac Medical History: Reports: Hyperlipidema, Hypertension Pulmonary Medical History: Denies: Tuberculosis Neurological Medical History: Denies: Seizures Endocrine Medical History: Denies: Diabetes Mellitus Type 2, Hypothyroidism GI Medical History: Reports: Gastroesophageal Reflux Disease Past Surgical History Past Surgical History: Denies: Pacemaker Social History Smoking Status: Current Every Day Smoker Frequency of Alcohol Use: None Hx Recreational Drug Use: No Hx Prescription Drug Abuse: No Family History Family History: Reviewed & Not Pertinent, Hypertension Parental Family History Reviewed: Yes Children Family History Reviewed: No Sibling(s) Family History Reviewed.: Yes Medication/Allergy Allergies/Adverse Reactions: No Known Allergies Allergy (Verified 12/09/17 16:06) Review of Systems Review of Systems: Patient denied any cough palpitation or diaphoresis. Patient has nausea and vomiting but she denied any change in her bowel habits no diarrhea no metallic stool or any urinary complaints. No history of headache, dizziness, blurring of vision or any seizure activity. No history of dyspnea, orthopnea or paroxysmal nocturnal dyspnea. Cardiovascular: ABSENT: chest pain Physical Exam Vital Signs: Temp Pulse Resp BP Pulse Ox 98.5 F 72 14 129/94 H 100 12/09/17 16:08 12/09/17 16:08 12/09/17 16:08 12/09/17 16:08 12/09/17 16:08 General appearance: PRESENT: no acute distress, well-developed, well-nourished Eye exam: PRESENT: conjunctiva pink, EOMI, PERRLA. ABSENT: scleral icterus Respiratory exam: PRESENT: clear to auscultation amanda. ABSENT: rales, rhonchi, wheezes Cardiovascular exam: PRESENT: RRR. ABSENT: diastolic murmur, rubs, systolic murmur GI/Abdominal exam: PRESENT: tenderness - Patient has epigastric tenderness on superficial palpation and lower abdominal tenderness on deep palpation. Results Impressions: Abdomen/Pelvis CT 12/09/17 17:30 IMPRESSION: Mild stranding around the head of the pancreas suggesting early pancreatitis. Assessment & Plan - Diagnosis (1) Acute on chronic pancreatitis Is this a current diagnosis for this admission?: Yes Plan: #1 we will keep the patient n.p.o. and rest her bowel will aggressively hydrated with normal saline at a rate of 150 mils per hour. For her severe abdominal pain will put on morphine sulfate on as needed basis. Patient strongly advised to avoid alcohol. Her triglyceride is 300 which may not explain her pancreatitis since patient has past medical history of alcohol induced pancreatitis her triglyceride level dosen't explain her pancreatitis. Annually patient advised to do lifestyle modification. (2) Hypertension Qualifiers: Hypertension type: unspecified Qualified Code(s): I10 - Essential (primary ) hypertension Is this a current diagnosis for this admission?: Yes Plan: Norvasc 5 mg p.o. daily - Time Time Spent: 30 to 50 Minutes Within: within 36 hours - Inpatient Certification Medical Necessity: Need For IV Fluids, Need For Continuous Telemetry Monitoring
[2017-12-09] MEDS: MORPHINE SULFATE 10 MG/ML INJ IV PRN (20:28)
[2017-12-09] MEDS ORDERED: (PENDING PHARMACY ID) (Lisinopril/Hydrochlorothiazide [Zestoretic 10-12.5 Mg Tablet] 1 TAB PO SCH (20:30)
[2017-12-09] MEDS ORDERED: AMLODIPINE BESYLATE 5 MG TABLET PO ONE (20:30)
[2017-12-09] MEDS ORDERED: HYDROCHLOROTHIAZIDE 12.5 MG CAPSULE PO ONE (21:30)
[2017-12-09] MEDS ORDERED: LISINOPRIL 10 MG TABLET PO ONE (21:30)
[2017-12-09] MEDS: PROPRANOLOL HCL 20 MG TABLET PO SCH (21:54)
[2017-12-10] MEDS: MORPHINE SULFATE 10 MG/ML INJ IV PRN ×5 (00:34→20:10)
[2017-12-10 03:52] LABS: ALANINE AMINOTRANSFERASE 23 U/L (9-52); ALBUMIN 3.8 g/dL (3.5-5.0); ALKALINE PHOSPHATASE 65 U/L (38-126); ANION GAP 9 (5-19); ASPARTATE AMINO TRANSFERASE 31 U/L (14-36); BILIRUBIN,DIRECT 0.1 mg/dL (0.0-0.4); BILIRUBIN,TOTAL 0.6 mg/dL (0.2-1.3); BLOOD UREA NITROGEN 12 mg/dL (7-20); CALCIUM 8.2 mg/dL (8.4-10.2); CARBON DIOXIDE 21 mmol/L (22-30); CHLORIDE 110 mmol/L (98-107); GLUCOSE 95 mg/dL (75-110); LIPASE 686.5 U/L (23-300); POTASSIUM 3.5 mmol/L (3.6-5.0); SODIUM 139.9 mmol/L (137-145); TOTAL PROTEIN 5.9 g/dL (6.3-8.2)
[2017-12-10] MEDS: NORMAL SALINE 1000 ML 1,000 ML IV PRN ×2 (04:59→20:10)
[2017-12-10] MEDS: LISINOPRIL 10 MG TABLET PO SCH (09:49)
[2017-12-10] MEDS: PROPRANOLOL HCL 20 MG TABLET PO SCH ×2 (09:49→20:12)
[2017-12-10] MEDS: HYDROCHLOROTHIAZIDE 12.5 MG CAPSULE PO SCH (09:49)
[2017-12-10] MEDS: NICOTINE 14 MG/24 HR PATCH.TD24 TD SCH (09:49)
[2017-12-10] MEDS: FAMOTIDINE 20 MG TABLET PO SCH (09:49)
[2017-12-10] MEDS ORDERED: AMLODIPINE BESYLATE 5 MG TABLET PO SCH (10:00)
--- NOTE | 2017-12-10 10:08 | PDOC PROGRESS REPORT ---
Subjective Progress Note for:: 12/10/17 Subjective:: Hungry. Reason For Visit: ACUTE ON CHRONIC PANCREATITIS Physical Exam Vital Signs: Temp Pulse Resp BP Pulse Ox 97.7 F 67 12 102/59 L 100 12/10/17 07:30 12/10/17 07:30 12/10/17 07:30 12/10/17 07:30 12/10/17 07:30 Intake & Output 12/09/17 12/10/17 12/11/17 06:59 06:59 06:59 Intake Total 10 Balance 10 Weight 51 kg General appearance: PRESENT: no acute distress, thin Head exam: PRESENT: atraumatic, normocephalic Eye exam: PRESENT: EOMI, PERRLA Respiratory exam: PRESENT: clear to auscultation amanda. ABSENT: rales, rhonchi, wheezes Cardiovascular exam: PRESENT: RRR. ABSENT: diastolic murmur, rubs, systolic murmur GI/Abdominal exam: PRESENT: normal bowel sounds, soft, tenderness - mild midepigastric. ABSENT: distended, guarding, rebound Neurological exam: PRESENT: alert, awake, oriented to person, oriented to place , oriented to time, oriented to situation, CN II-XII grossly intact. ABSENT: motor sensory deficit Skin exam: PRESENT: dry, intact, warm. ABSENT: cyanosis, rash Results Laboratory Results: 12/10/17 03:28 12/10/17 03:28 Sodium 139.9 Potassium 3.5 L Chloride 110 H Carbon Dioxide 21 L Anion Gap 9 BUN 12 Creatinine 0.74 Est GFR ( Amer) > 60 Est GFR (Non-Af Amer) > 60 Glucose 95 Calcium 8.2 L Total Bilirubin 0.6 AST 31 ALT 23 Alkaline Phosphatase 65 Total Protein 5.9 L Albumin 3.8 Lipase 686.5 H Impressions: Abdomen/Pelvis CT 12/09/17 17:30 IMPRESSION: Mild stranding around the head of the pancreas suggesting early pancreatitis. Assessment & Plan - Diagnosis (1) Acute on chronic pancreatitis Is this a current diagnosis for this admission?: Yes Plan: secondary to EtoH. Uneventful evening. recheck lipase this afternoon. If it continues to decrease, I will start a clear liquid diet. Continue IVFs. Repeat lipase in am. (2) Hypertension Qualifiers: Hypertension type: essential hypertension Qualified Code(s): I10 - Essential (primary) hypertension Is this a current diagnosis for this admission?: Yes Plan: Continue usual meds.
[2017-12-10] MEDS: MAGNESIUM OXIDE 400 MG TABLET PO SCH ×2 (11:00→17:47)
[2017-12-10] MEDS: POTASSIUM CHLORIDE 10 MEQ TABLET.SA PO SCH ×2 (11:01→17:47)
[2017-12-10] MEDS: SIMETHICONE 80 MG TAB.CHEW PO PRN (15:16)
[2017-12-11] MEDS: MORPHINE SULFATE 10 MG/ML INJ IV PRN ×4 (01:26→22:18)
[2017-12-11] MEDS: SIMETHICONE 80 MG TAB.CHEW PO PRN (02:08)
[2017-12-11] MEDS: POTASSIUM CHLORIDE 10 MEQ TABLET.SA PO SCH (02:09)
[2017-12-11 07:40] LABS: ANION GAP 6 (5-19); BLOOD UREA NITROGEN 5 mg/dL (7-20); CALCIUM 8.1 mg/dL (8.4-10.2); CARBON DIOXIDE 21 mmol/L (22-30); CHLORIDE 114 mmol/L (98-107); GLUCOSE 116 mg/dL (75-110); POTASSIUM 4.7 mmol/L (3.6-5.0); SODIUM 140.6 mmol/L (137-145)
[2017-12-11] MEDS: FAMOTIDINE 20 MG TABLET PO SCH (09:42)
[2017-12-11] MEDS: MAGNESIUM OXIDE 400 MG TABLET PO SCH ×2 (09:42→17:14)
[2017-12-11] MEDS: NICOTINE 14 MG/24 HR PATCH.TD24 TD SCH (09:42)
[2017-12-11] MEDS: NORMAL SALINE 1000 ML 1,000 ML IV PRN ×2 (09:43→17:15)
[2017-12-11] MEDS: LISINOPRIL 10 MG TABLET PO SCH (09:44)
[2017-12-11] MEDS: PROPRANOLOL HCL 20 MG TABLET PO SCH ×2 (09:44→22:18)
[2017-12-11] MEDS: HYDROCHLOROTHIAZIDE 12.5 MG CAPSULE PO SCH (09:44)
--- NOTE | 2017-12-11 11:11 | PDOC PROGRESS REPORT ---
Subjective Progress Note for:: 12/11/17 Subjective:: Feels gassy. No increase in pain. No n/v Reason For Visit: ACUTE ON CHRONIC PANCREATITIS Physical Exam Vital Signs: Temp Pulse Resp BP Pulse Ox 97.7 F 58 L 13 92/64 L 100 12/11/17 07:17 12/11/17 07:17 12/11/17 07:17 12/11/17 07:17 12/11/17 07:17 Intake & Output 12/10/17 12/11/17 12/12/17 06:59 06:59 06:59 Intake Total 10 4037 Balance 10 4037 Weight 51 kg 52.6 kg General appearance: PRESENT: no acute distress Cardiovascular exam: PRESENT: RRR. ABSENT: diastolic murmur, rubs, systolic murmur GI/Abdominal exam: PRESENT: diminished bowel sounds, soft, tenderness. ABSENT: distended, rebound Musculoskeletal exam: PRESENT: ambulatory Neurological exam: PRESENT: alert, awake, oriented to person, oriented to place , oriented to time, oriented to situation, CN II-XII grossly intact. ABSENT: motor sensory deficit Psychiatric exam: PRESENT: appropriate affect, normal mood. ABSENT: homicidal ideation, suicidal ideation Results Laboratory Results: 12/11/17 05:02 12/10/17 12/11/17 12/11/17 14:33 05:02 05:02 Sodium 140.6 Potassium 4.7 Chloride 114 H Carbon Dioxide 21 L Anion Gap 6 BUN 5 L Creatinine 0.59 Est GFR ( Amer) > 60 Est GFR (Non-Af Amer) > 60 Glucose 116 H Calcium 8.1 L Lipase 421.3 H 418.9 H Impressions: Abdomen/Pelvis CT 12/09/17 17:30 IMPRESSION: Mild stranding around the head of the pancreas suggesting early pancreatitis. Assessment & Plan - Diagnosis (1) Acute on chronic pancreatitis Is this a current diagnosis for this admission?: Yes Plan: secondary to EtoH. Uneventful evening. Lipase is still high today. continue IVFs and clear liquids. (2) Hypertension Qualifiers: Hypertension type: essential hypertension Qualified Code(s): I10 - Essential (primary) hypertension Is this a current diagnosis for this admission?: Yes Plan: BP low. she is asymptomatic. d/c lisinopril and amlodipine. - Time Time Spent with patient: 15-24 minutes Anticipated discharge: Home - Inpatient Certification Based on my medical assessment, after consideration of the patient's comorbidities, presenting symptoms, or acuity I expect that the services needed warrant INPATIENT care.: Yes I certify that my determination is in accordance with my understanding of Medicare's requirements for reasonable and necessary INPATIENT services [42 CFR 412.3e].: Yes Medical Necessity: Need For IV Fluids
[2017-12-12] MEDS: NORMAL SALINE 1000 ML 1,000 ML IV PRN (03:19)
[2017-12-12] MEDS: MORPHINE SULFATE 10 MG/ML INJ IV PRN ×2 (03:20→08:45)
[2017-12-12] MEDS ORDERED: LOPERAMIDE HCL 2 MG CAPSULE PO ONE (03:45)
[2017-12-12 06:39] LABS: BLOOD UREA NITROGEN 3 mg/dL (7-20); CALCIUM 8.4 mg/dL (8.4-10.2); CARBON DIOXIDE 19 mmol/L (22-30); GLUCOSE 93 mg/dL (75-110); LIPASE 243.3 U/L (23-300); POTASSIUM 4.3 mmol/L (3.6-5.0)
[2017-12-12 06:44] LABS: CHLORIDE 117 mmol/L (98-107); SODIUM 140.3 mmol/L (137-145)
[2017-12-12 06:48] LABS: ANION GAP 4 (5-19)
[2017-12-12] MEDS: MAGNESIUM OXIDE 400 MG TABLET PO SCH (08:45)
[2017-12-12] MEDS: SIMETHICONE 80 MG TAB.CHEW PO PRN (08:46)
[2017-12-12] MEDS: FAMOTIDINE 20 MG TABLET PO SCH (08:47)
[2017-12-12] MEDS: PROPRANOLOL HCL 20 MG TABLET PO SCH (08:47)
[2017-12-12] MEDS: NICOTINE 14 MG/24 HR PATCH.TD24 TD SCH (08:48)
[2017-12-12 12:08] VITALS: BP 98/67
--- NOTE | 2017-12-12 15:18 | PDOC DISCHARGE SUMMARY ---
General - Admit/Disc Date/PCP Admission Date/Primary Care Provider: 12/09/17 19:54 LIAM UNGER, Discharge Date: 12/12/17 - Discharge Diagnosis (1) Acute on chronic pancreatitis Is this a current diagnosis for this admission?: Yes Summary: Continue as needed analgesics and Zofran (2) Hypertension Is this a current diagnosis for this admission?: Yes Summary: Continue home medications - Additional Information Discharge Diet: Regular Discharge Activity: Activity As Tolerated Prescriptions: Hydrocodone/Acetaminophen [[place] 5-325 mg Tablet] 1 tab PO Q4HP PRN #20 tablet PRN Reason: Simethicone [Mylicon 80 mg Chewable Tablet] 80 mg PO Q6HP PRN #30 tab.chew PRN Reason: Famotidine [Pepcid 20 mg Tablet] 20 mg PO DAILY #14 tablet Ondansetron HCl [Zofran 4 mg Tablet] 1 - 2 tab PO Q4H PRN #10 tablet PRN Reason: Home Medications: Lisinopril/Hydrochlorothiazide [Zestoretic 10-12.5 mg Tablet] 1 tab PO DAILY 11/23 Propranolol HCl [Inderal 20 mg Tablet] 20 mg PO BID 12/09/17 Famotidine [Pepcid 20 mg Tablet] 20 mg PO DAILY #14 tablet 12/12/17 Hydrocodone/Acetaminophen [[place] 5-325 mg Tablet] 1 tab PO Q4HP PRN #20 tablet 12/12/17 Ondansetron HCl [Zofran 4 mg Tablet] 1 - 2 tab PO Q4H PRN #10 tablet 12/12/17 Simethicone [Mylicon 80 mg Chewable Tablet] 80 mg PO Q6HP PRN #30 tab.chew 12/12 History of Present Illness Patient complains of: Abdominal pain and nausea History of Present Illness: NEREIDA JONES is a 32 year old female patient who was in her usual baseline state of health up until 3 days when she started to have nausea vomiting and abdominal pain. Patient is a known case of chronic pancreatitis due to alcohol. She claims that she has been sober for the last 6 months since and last Friday she drinks a couple of bottles of beer and since then she started to have the above-mentioned complaints. Examination to the social history patient is active smoker and her only past medical history is hypertension. Interestingly her triglycerides is about 300 but it does not explain her pancreatitis since she has past medical history of alcohol induced pancreatitis and triglyceride today will also is not significant enough to induce pancreatitis. Hospital Course Hospital Course: Patient was admitted to [facility] on telemetry. She was started on IV hydration and made n.p.o. Lipase improved the following day to 400. Her abdominal pain improved as well. She was started on clear liquid diet. Today her lipase is back to normal. Her abdominal pain has resolved. She has only mild nausea at times. She is able to tolerate a regular diet. She would like to be discharged home. Physical Exam Vital Signs: Temp Pulse Resp BP Pulse Ox 98.7 F 63 16 98/67 L 100 12/12/17 12:07 12/12/17 12:07 12/12/17 12:07 12/12/17 12:07 12/12/17 12:07 Intake & Output 12/11/17 12/12/17 12/13/17 06:59 06:59 06:59 Intake Total 4037 5866 Output Total 200 Balance 4037 5666 Weight 52.6 kg 53.6 kg General appearance: PRESENT: no acute distress, well-developed, well-nourished Head exam: PRESENT: atraumatic, normocephalic Eye exam: PRESENT: conjunctiva pink, EOMI, PERRLA. ABSENT: scleral icterus Ear exam: PRESENT: normal external ear exam Mouth exam: PRESENT: moist, tongue midline Neck exam: ABSENT: carotid bruit, JVD, lymphadenopathy, thyromegaly Respiratory exam: PRESENT: clear to auscultation amanda. ABSENT: rales, rhonchi, wheezes Cardiovascular exam: PRESENT: RRR. ABSENT: diastolic murmur, rubs, systolic murmur Pulses: PRESENT: normal dorsalis pedis pul Vascular exam: PRESENT: normal capillary refill GI/Abdominal exam: PRESENT: normal bowel sounds, soft. ABSENT: distended, guarding, mass, organolmegaly, rebound, tenderness Rectal exam: PRESENT: deferred Extremities exam: PRESENT: full ROM. ABSENT: calf tenderness, clubbing, pedal edema Neurological exam: PRESENT: alert, awake, oriented to person, oriented to place , oriented to time, oriented to situation, CN II-XII grossly intact. ABSENT: motor sensory deficit Psychiatric exam: PRESENT: appropriate affect, normal mood. ABSENT: homicidal ideation, suicidal ideation Skin exam: PRESENT: dry, intact, warm. ABSENT: cyanosis, rash Results Laboratory Results: 12/12/17 05:20 12/12/17 05:20 Sodium 140.3 Potassium 4.3 Chloride 117 H Carbon Dioxide 19 L Anion Gap 4 L BUN 3 L Creatinine 0.54 Est GFR ( Amer) > 60 Est GFR (Non-Af Amer) > 60 Glucose 93 Calcium 8.4 Lipase 243.3 Impressions: Abdomen/Pelvis CT 12/09/17 17:30 IMPRESSION: Mild stranding around the head of the pancreas suggesting early pancreatitis. Qualifiers - * [place] BEING DISCHARGED WITH ANY OF THE FOLLOWING DIAGNOSIS?: No Plan Discharge Plan: Home Time Spent: Less than 30 Minutes
== END 2017-12-12 12:24 | disposition home or self-care (01) | DRG 440 ==
LOC: ER 16:05 → EH 19:54 → 3S 12-10 03:27
PROVIDERS: ADMIT Internal Medicine; ATTEND Internal Medicine
DX: K85.20 Alcohol induced acute pancreatitis without necrosis or infection (principal); I10 Essential (primary) hypertension; F17.210 Nicotine dependence, cigarettes, uncomplicated; K86.0 Alcohol-induced chronic pancreatitis; E78.00 Pure hypercholesterolemia, unspecified; K21.9 Gastro-esophageal reflux disease without esophagitis; F41.9 Anxiety disorder, unspecified; Z79.899 Other long term (current) drug therapy; Z82.49 Family history of ischemic heart disease and other diseases of the circulatory system
CPT/HCPCS: 36415; 74177; 80048; 80053; 80307; 81001; 82465; 83690; 83735; 84478; 84703; 85025; 96361; 96374; 96375; 99285; J2270; J2405; J3490; J7030

== ENCOUNTER 2018-03-22 18:40 | Emergency (ER) | payer BC ==
[2018-03-22 18:56] VITALS: BP 132/91
--- NOTE | 2018-03-22 19:09 | ER Document Report ---
ED General - General Chief Complaint: Diarrhea Stated Complaint: DIARRHEA, CRAMPING Time Seen by Provider: 03/22/18 19:06 Mode of Arrival: Ambulatory Information source: Patient Notes: 32-year-old female with hypertension, hyperlipidemia presents with concern for 1 day of diarrhea, leg cramping and bilateral hand paresthesia. Patient states that diarrhea started yesterday. She states that she has had over 7 episodes of nonbloody diarrhea. She denies any associated abdominal pain, nausea, vomiting, sick contacts. She states that she was concerned because 5 years ago she had similar symptoms after a week of diarrhea she was found to have very low magnesium and potassium. She has no other physical complaints at this time. She denies recent travel, or antibiotic use. TRAVEL OUTSIDE OF THE [place] IN LAST 30 DAYS: No - HPI Onset: Yesterday Onset/Duration: Sudden Quality of pain: No pain Associated symptoms: Body/muscle aches, Sweating Exacerbated by: Denies Relieved by: Denies Similar symptoms previously: Yes Recently seen / treated by doctor: No - Related Data Allergies/Adverse Reactions: No Known Allergies Allergy (Verified 03/22/18 19:00) Past Medical History - General Information source: Patient, [facility] Records - Social History Smoking Status: Current Every Day Smoker Cigarette use (# per day): Yes - 20 Chew tobacco use (# tins/day): No Smoking Education Provided: Yes - Patient counselled regarding cessation for 4 minutes Frequency of alcohol use: Occasional Drug Abuse: None Lives with: Family Family History: Reviewed & Not Pertinent, Hypertension Patient has suicidal ideation: No Patient has homicidal ideation: No - Past Medical History Cardiac Medical History: Reports: Hx Hypercholesterolemia, Hx Hypertension Pulmonary Medical History: Denies: Hx Tuberculosis Neurological Medical History: Denies: Hx Cerebrovascular Accident, Hx Seizures Endocrine Medical History: Denies: Hx Diabetes Mellitus Type 2, Hx Hypothyroidism Renal/ Medical History: Denies: Hx Peritoneal Dialysis, Hx Pelvic Inflammatory Disease GI Medical History: Reports: Hx Gastroesophageal Reflux Disease Psychiatric Medical History: Reports: Hx Anxiety Past Surgical History: Reports: Hx Abdominal Surgery - iud retrieval, hernia repair. Denies: Hx Pacemaker - Immunizations Hx Diphtheria, Pertussis, Tetanus Vaccination: Yes Review of Systems - Review of Systems Notes: REVIEW OF SYSTEMS: CONSTITUTIONAL : Denies fever, chills, or sweats. Denies recent illness. Denies weight loss, recent hospitalizations. EENT: Denies visual changes, eye pain. Denies nasal or sinus congestion or discharge. Denies sore throat, oral lesions, difficulty swallowing. CARDIOVASCULAR: Denies chest pain. Denies palpitations. Denies lower extremity edema. RESPIRATORY: Denies cough, cold, or chest congestion. Denies shortness of breath, wheezing. GASTROINTESTINAL: Denies abdominal pain or distention. Denies nausea, vomiting , Denies blood in vomitus, stools, or per rectum. Denies black, tarry stools. Denies constipation. GENITOURINARY: Denies difficulty urinating, painful urination, frequency, blood in urine, or vaginal discharge. MUSCULOSKELETAL: Denies back or neck pain or stiffness. Denies joint pain or swelling. SKIN: Denies rash, lesions or sores. HEMATOLOGIC : Denies easy bruising or bleeding. LYMPHATIC: Denies swollen glands. NEUROLOGICAL: Denies confusion or altered mental status. Denies passing out or loss of consciousness. Denies dizziness or lightheadedness. Denies headache. Denies weakness or paralysis. Denies problems difficulty with ambulation, slurred speech. Denies sensory loss, numbness, or tingling. Denies seizures. PSYCHIATRIC: Denies anxiety or stress. Denies depression, suicidal ideation, or homicidal ideation. Denies visual or auditory hallucinations. Physical Exam - Vital signs Vitals: Temp Pulse Resp BP Pulse Ox 97.8 F 82 16 132/91 H 100 03/22/18 18:50 03/22/18 18:50 03/22/18 18:50 03/22/18 18:50 03/22/18 18:50 - Notes Notes: PHYSICAL EXAMINATION: GENERAL: Well-appearing, well-nourished and in no acute distress. HEAD: Atraumatic, normocephalic. EYES: Pupils equal round and reactive to light, extraocular movements intact, conjunctiva are normal. ENT: Nares patent, oropharynx clear without exudates. Moist mucous membranes. NECK: Normal range of motion, supple without lymphadenopathy LUNGS: Breath sounds clear to auscultation bilaterally and equal. No wheezes rales or rhonchi. HEART: Regular rate and rhythm without murmurs ABDOMEN: Soft, nontender, nondistended abdomen. No guarding, no rebound. No masses appreciated. Female : deferred Musculoskeletal: Normal range of motion, no pitting or edema. No cyanosis. NEUROLOGICAL: Cranial nerves grossly intact. Normal speech, normal gait. Normal sensory, motor exams PSYCH: Normal mood, normal affect. SKIN: Warm, Dry, normal turgor, no rashes or lesions noted. Course - Re-evaluation Re-evalutation: Laboratory 03/22/18 19:27 Sodium 135.7 L Potassium 4.0 Chloride 99 Carbon Dioxide 21 L Anion Gap 16 BUN 15 Creatinine 0.71 Est GFR ( Amer) > 60 Est GFR (Non-Af Amer) > 60 Glucose 105 Calcium 10.0 Magnesium 1.3 L 03/22/18 19:08 32-year-old female presents after 1 day of diarrhea with concern of low potassium and low magnesium. She states that she started to experience leg cramping, bilateral hand paresthesias which is similar to when she was found to have markedly low potassium and magnesium back in 2012. At that time she had over 1 week of diarrhea. She denies any other physical complaints. Patient was seen by myself upon arrival. Vital signs were reviewed. Patient is afebrile , normotensive and not hypoxic. Patient does not appear toxic or dehydrated. They are in no acute distress. Previous medical records and nursing notes reviewed. BMP was obtained and shows normal potassium, mildly low magnesium. Patient was given magnesium in the department. She will be discharged home on 4 days of magnesium supplementation. I did discuss with her that magnesium alone can cause loose stools so that she should be taking Imodium over the last few days as well. Patient provided the opportunity to ask questions, and express concerns. Discharge instructions discussed. Patient is agreeable with discharge home. Return indications explained and discussed with the patient who displays understanding. Patient encouraged to return to the emergency department immediately with any concerns. 03/22/18 20:17 - Vital Signs Vital signs: Temp Pulse Resp BP Pulse Ox 97.8 F 82 16 132/91 H 100 03/22/18 18:50 03/22/18 18:50 03/22/18 18:50 03/22/18 18:50 03/22/18 18:50 - Laboratory Result Diagrams: 03/22/18 19:27 Laboratory results interpreted by me: 03/22/18 19:27 Sodium 135.7 L Carbon Dioxide 21 L Magnesium 1.3 L Discharge - Discharge Clinical Impression: Hypomagnesemia Diarrhea Qualifiers: Diarrhea type: unspecified type Qualified Code(s): R19.7 - Diarrhea, unspecified Condition: Good Disposition: HOME, SELF-CARE Instructions: Diarrhea, Nonspecific ([facility]) Additional Instructions: Your potassium today was normal. Your magnesium is mildly low. It is 1.3 and normal is 1.6. I will give you a supplement for this to take over the next few days but be aware that magnesium can cause loose stools which you are already suffering from. Please consider taking Imodium. Prescriptions: Loperamide HCl [Loperamide] 2 mg PO Q8H PRN #10 capsule PRN Reason: Diarrhea Magnesium Oxide 400 mg PO DAILY #5 tablet Referrals: LIAM UNGER, [Primary Care Provider] - Follow up as needed
[2018-03-22 20:03] LABS: ANION GAP 16 (5-19); BLOOD UREA NITROGEN 15 mg/dL (7-20); CARBON DIOXIDE 21 mmol/L (22-30); CHLORIDE 99 mmol/L (98-107); GLUCOSE 105 mg/dL (75-110); SODIUM 135.7 mmol/L (137-145)
[2018-03-22] MEDS ORDERED: MAGNESIUM OXIDE 400 MG TABLET PO ONE (20:09)
[2018-03-22] MEDS ORDERED: LOPERAMIDE HCL 2 MG CAPSULE PO ONE (20:18)
== END 2018-03-22 20:45 | disposition home or self-care (01) ==
LOC: ER 18:40
DX: E83.42 Hypomagnesemia (principal); R19.7 Diarrhea, unspecified; G47.62 Sleep related leg cramps; R20.0 Anesthesia of skin; I10 Essential (primary) hypertension; E78.5 Hyperlipidemia, unspecified; M79.1 Myalgia; F17.210 Nicotine dependence, cigarettes, uncomplicated
CPT/HCPCS: 36415; 80048; 83735; 99284

== ENCOUNTER 2018-06-13 10:27 | Emergency (ER) | payer SELFPAY ==
[2018-06-13] MEDS ORDERED: DOXYCYCLINE HYCLATE 100 MG TABLET PO ONE (10:44)
[2018-06-13] MEDS ORDERED: PREDNISONE 20 MG TABLET PO ONE (10:44)
[2018-06-13] MEDS ORDERED: GUAIFENESIN 600 MG TABLET.SA PO ONE (10:45)
--- NOTE | 2018-06-13 10:51 | ER Document Report ---
ED General - General Chief Complaint: Cough Stated Complaint: COUGH, DIARRHEA, VOMITING Time Seen by Provider: 06/13/18 10:35 Mode of Arrival: Ambulatory Information source: Patient, [facility] Records Notes: 32-year-old female with hypertension, hyperlipidemia, chronic bronchitis presents with complaint of cough. Patient states that she has had a nonproductive cough for approximately 1 month. Patient states that she began taking her medication that she was prescribed when she was diagnosed with bronchitis last year. Patient had associated nausea, vomiting and diarrhea which resolved prior to her presentation to the emergency department. Patient reports an episode of blurred vision yesterday which resolved. Patient does continue to use tobacco. She denies sick contacts. TRAVEL OUTSIDE OF THE [place] IN LAST 30 DAYS: No - HPI Onset: Other Onset/Duration: Gradual, Persistent Quality of pain: No pain Associated symptoms: Body/muscle aches, Chills, Nonproductive cough, Diarrhea - Resolved, Nausea, Vomiting - Resolved, Sinus pain/drainage. denies: Chest pain , Fever, Shortness of breath Exacerbated by: Denies Relieved by: Denies Similar symptoms previously: Yes Recently seen / treated by doctor: No - Related Data Allergies/Adverse Reactions: No Known Allergies Allergy (Verified 03/22/18 19:00) Past Medical History - General Information source: Patient, [facility] Records - Social History Smoking Status: Current Every Day Smoker Cigarette use (# per day): Yes - 15 Chew tobacco use (# tins/day): No Smoking Education Provided: Yes - Smoking cessation counseling was provided for 4 minutes at the bedside Frequency of alcohol use: Occasional Drug Abuse: None Lives with: Family, Spouse/Significant other Family History: Reviewed & Not Pertinent, Hypertension Patient has suicidal ideation: No Patient has homicidal ideation: No - Past Medical History Cardiac Medical History: Reports: Hx Hypercholesterolemia, Hx Hypertension Pulmonary Medical History: Denies: Hx Tuberculosis Neurological Medical History: Denies: Hx Cerebrovascular Accident, Hx Seizures Endocrine Medical History: Denies: Hx Diabetes Mellitus Type 2, Hx Hypothyroidism Renal/ Medical History: Denies: Hx Peritoneal Dialysis, Hx Pelvic Inflammatory Disease GI Medical History: Reports: Hx Gastroesophageal Reflux Disease Psychiatric Medical History: Reports: Hx Anxiety Past Surgical History: Reports: Hx Abdominal Surgery - iud retrieval, hernia repair. Denies: Hx Pacemaker - Immunizations Hx Diphtheria, Pertussis, Tetanus Vaccination: Yes Review of Systems - Review of Systems Constitutional: Chills, Recent illness EENT: Nose congestion, Sinus pressure. denies: Throat pain Cardiovascular: denies: Chest pain, Dizziness Respiratory: Cough. denies: Hurts to breathe, Hemoptysis, Wheezing Gastrointestinal: Diarrhea - Resolved, Nausea - Resolved, Vomiting - Resolved. denies: Abdominal pain Genitourinary: denies: Dysuria, Flank pain Female Genitourinary: denies: Musculoskeletal: denies: Back pain Skin: denies: Rash Hematologic/Lymphatic: denies: Blood clots Neurological/Psychological: denies: Confusion, Lost consciousness, Headaches -: Yes All other systems reviewed and negative Physical Exam - Vital signs Vitals: Temp Pulse Resp BP Pulse Ox 98.5 F 78 16 170/120 H 100 06/13/18 10:34 06/13/18 10:34 06/13/18 10:34 06/13/18 10:34 06/13/18 10:34 - Notes Notes: PHYSICAL EXAMINATION: GENERAL: Well-appearing, well-nourished and in no acute distress. HEAD: Atraumatic, normocephalic. EYES: Pupils equal round and reactive to light, extraocular movements intact, conjunctiva are normal. ENT: Nares patent, oropharynx clear without exudates. Moist mucous membranes. NECK: Normal range of motion, supple without lymphadenopathy LUNGS: Breath sounds clear to auscultation bilaterally and equal. No wheezes rales or rhonchi. HEART: Regular rate and rhythm without murmurs ABDOMEN: Soft, nontender, nondistended abdomen. No guarding, no rebound. No masses appreciated. Female : deferred Musculoskeletal: Normal range of motion, no pitting or edema. No cyanosis. NEUROLOGICAL: Cranial nerves grossly intact. Normal speech, normal gait. Normal sensory, motor exams PSYCH: Normal mood, normal affect. SKIN: Warm, Dry, normal turgor, no rashes or lesions noted. Course - Re-evaluation Re-evalutation: 06/13/18 10:55 Patient presents with a clinical history and exam most consistent with an acute viral bronchitis. Patient is overall well in appearance without tachypnea, hypoxemia, tachycardia, or difficulty with ambulation. Breath sounds are clear bilaterally. No fever. Patient does have additional signs of upper respiratory infection including nasal congestion, sore throat, and sinus pressure. Patient with normal neurologic exam. No indication for labs or imaging. Because of the patient's report of wheezing at home she will be started on prednisone. Patient also prescribed doxycycline and Robitussin. Patient found to have markedly elevated blood pressure. She states that she was taking lisinopril/HCTZ and propanolol but after a few episodes of hypotension she stopped taking the lisinopril. Smoking cessation advised. Patient was evaluated and treated as appropriate for the patient's presenting symptoms and complaint, with consideration of any critical or life threatening conditions that may be associated with their obtained history and exam as noted above. Patient was educated on treatments based on their presumed diagnosis as noted above. At this time we will discharge the patient with return precautions and follow-up recommendations. Verbal discharge instructions given a the bedside. Medication warnings reviewed. Patient is in agreement with this plan and has verbalized understanding of return precautions. After careful consideration I feel that that patient can be safely discharged from the emergency department, they were advised to followup with a primary care physician in 2-3 days. Dictation on this chart was performed using voice recognition software and may result in unintended grammatical, spelling, syntax or errors. - Vital Signs Vital signs: Temp Pulse Resp BP Pulse Ox 98.5 F 78 16 170/120 H 100 06/13/18 10:34 06/13/18 10:34 06/13/18 10:34 06/13/18 10:34 06/13/18 10:34 Discharge - Discharge Clinical Impression: Bronchitis, Tobacco use URI (upper respiratory infection) Qualifiers: URI type: unspecified URI Qualified Code(s): J06.9 - Acute upper respiratory infection, unspecified Hypertension Qualifiers: Hypertension type: unspecified Qualified Code(s): I10 - Essential (primary) hypertension Condition: Good Disposition: HOME, SELF-CARE Instructions: Upper Respiratory Illness ([facility]), Viral Syndrome ([facility]) Additional Instructions: You were seen for symptoms most consistent with bronchitis. This can take up to 12 weeks to fully resolve. This is generally due to a viral infection. Please follow-up with your primary doctor in the next 2-3 days. Return if you develop worsening cough, vomiting, fever >100.4, pass out, begin coughing blood, or have any other symptoms that are concerning to you. Please use the medications prescribed today as directed. Follow up with your [id number] hours for further care or return to the ED IMMEDIATELY if symptoms worsen or you have any concerns. If you cannot afford to follow up with your primary care physician a list of low cost clinics have been provided at the end of your discharge papers as well. Most prescribed medications have multiple side effects. The safest thing to do is when filling your prescription speak to your pharmacist regarding possible interactions with your normal home medications and over the counter medications such as Ibuprofen, Tylenol, Benadryl. If you experience any symptoms that cause you discomfort or concern you should discontinue the medication immediately and return to the emergency room or call your primary care physician. Prescriptions: Promethazine HCl/Codeine [Prometh-Codein 6.25-10 mg/5 ml] 5 ml PO QHS PRN #50 ml PRN Reason: Cough Albuterol Sulfate [Albuterol Sulfate 2.5mg/3 mL] 1 vial IH Q4 PRN #10 vial PRN Reason: Shortness Of Breath Prednisone 40 mg PO DAILY 5 Days #10 tablet Forms: Smoking Cessation Education, Elevated Blood Pressure
[2018-06-13 10:53] VITALS: BP 147/103
== END 2018-06-13 10:58 | disposition home or self-care (01) ==
LOC: ER 10:27
DX: J42 Unspecified chronic bronchitis (principal); J06.9 Acute upper respiratory infection, unspecified; R05 Cough; R19.7 Diarrhea, unspecified; R11.10 Vomiting, unspecified; I10 Essential (primary) hypertension; E78.5 Hyperlipidemia, unspecified; Z79.899 Other long term (current) drug therapy; R11.2 Nausea with vomiting, unspecified; H53.8 Other visual disturbances; F17.210 Nicotine dependence, cigarettes, uncomplicated
CPT/HCPCS: 99406; 99283; J7512

== ENCOUNTER 2018-11-04 19:37 | Emergency (ER) | payer SELFPAY ==
[2018-11-04 21:34] LABS: APPEARANCE,URINE SLIGHTLY-CLOUDY; BILIRUBIN,URINE NEGATIVE (NEGATIVE); COLOR,URINE YELLOW; GLUCOSE, URINE NEGATIVE (NEGATIVE); KETONES,URINE NEGATIVE (NEGATIVE); LEUKOCYTE ESTERASE,URINE TRACE (NEGATIVE); NITRITE,URINE NEGATIVE (NEGATIVE); PROTEIN,URINE NEGATIVE (NEGATIVE); UROBILINOGEN,URINE NEGATIVE mg/dL (<2.0)
[2018-11-04] MEDS ORDERED: NORMAL SALINE 1000 ML 1,000 ML IV ONE ×2 (21:49→22:45)
[2018-11-04] MEDS ORDERED: MORPHINE SULFATE 10 MG/ML INJ IV ONE (21:50)
[2018-11-04] MEDS ORDERED: LOPERAMIDE HCL 2 MG CAPSULE PO ONE (21:51)
--- NOTE | 2018-11-04 21:53 | ER Document Report ---
ED GI/ - General Chief Complaint: Nausea/Vomiting/Diarrhea Stated Complaint: ABDOMINAL PAIN Time Seen by Provider: 11/04/18 21:43 Primary Care Provider: PEDRO ORTIZ PA-C [Primary Care Provider] - Follow up as needed Mode of Arrival: Ambulatory Information source: Patient Notes: Patient presents complaining of vomiting and diarrhea for the past 3 days. Patient does report sick contacts with similar vomiting and diarrhea symptoms at home. Patient states she has since stopped vomiting but has had persistent diarrhea x3 episodes today. Patient reports abdominal pain that started yesterday. Patient is concerned that she is having a flareup of pancreatitis as she has had this in the past. Patient without any fever or urinary symptoms. TRAVEL OUTSIDE OF THE [place] IN LAST 30 DAYS: No - HPI Patient complains to provider of: Abdominal pain, Diarrhea, Vomiting Timing/Duration: Gradual Quality of pain: Sharp Pain Level: 4 Location: Epigastric, Other - Periumbilical Vaginal bleeding (Compared to normal period): None Menstrual period history: denies: Associated symptoms: Diarrhea, Vomiting - Yesterday, now resolved. denies: Blood in stool, Dysuria, Fever, Urinary hesitancy, Urinary frequency, Urinary retention Exacerbated by: Denies Relieved by: Denies Similar symptoms previously: Yes Recently seen / treated by doctor: No - Related Data Allergies/Adverse Reactions: No Known Allergies Allergy (Verified 03/22/18 19:00) Past Medical History - General Information source: Patient - Social History Smoking Status: Current Every Day Smoker Chew tobacco use (# tins/day): No Smoking Education Provided: Yes Frequency of alcohol use: Occasional Drug Abuse: None Occupation: None Lives with: Family Family History: Reviewed & Not Pertinent, Hypertension Patient has suicidal ideation: No Patient has homicidal ideation: No - Past Medical History Cardiac Medical History: Reports: Hx Hypercholesterolemia, Hx Hypertension Pulmonary Medical History: Denies: Hx Tuberculosis Neurological Medical History: Denies: Hx Cerebrovascular Accident, Hx Seizures Endocrine Medical History: Denies: Hx Diabetes Mellitus Type 2, Hx Hypothyroidism Renal/ Medical History: Denies: Hx Peritoneal Dialysis, Hx Pelvic Inflammatory Disease GI Medical History: Reports: Hx Gastroesophageal Reflux Disease, Hx Pancreatitis Psychiatric Medical History: Reports: Hx Anxiety Past Surgical History: Reports: Hx Abdominal Surgery - iud retrieval, hernia repair. Denies: Hx Pacemaker - Immunizations Hx Diphtheria, Pertussis, Tetanus Vaccination: Yes Review of Systems - Review of Systems Constitutional: No symptoms reported. denies: Fever EENT: No symptoms reported Cardiovascular: No symptoms reported. denies: Chest pain Respiratory: No symptoms reported. denies: Cough Gastrointestinal: Abdominal pain, Diarrhea Genitourinary: No symptoms reported. denies: Dysuria, Flank pain Female Genitourinary: No symptoms reported Musculoskeletal: No symptoms reported Skin: No symptoms reported Hematologic/Lymphatic: No symptoms reported Neurological/Psychological: No symptoms reported Physical Exam - Vital signs Vitals: Temp Pulse Resp BP Pulse Ox 100.0 F 83 16 130/99 H 100 11/04/18 20:38 11/04/18 20:38 11/04/18 20:38 11/04/18 20:38 11/04/18 20:38 - General General appearance: Appears well, Alert In distress: None - HEENT Head: Normocephalic Eyes: Normal Conjunctiva: Normal Nasal: Normal Mouth/Lips: Normal Neck: Normal, Supple. No: Lymphadenopathy - Respiratory Respiratory status: No respiratory distress Chest status: Nontender Breath sounds: Normal. No: Rales, Rhonchi, Stridor Chest palpation: Normal - Cardiovascular Rhythm: Regular Heart sounds: S1 appreciated, S2 appreciated - Abdominal Inspection: Normal Distension: No distension Bowel sounds: Hyperactive Tenderness: Tender - Periumbilical, epigastric Organomegaly: No organomegaly - Back Back: Normal, Nontender - Extremities General upper extremity: Normal inspection, Normal ROM General lower extremity: Normal inspection, Normal ROM - Neurological Neuro grossly intact: Yes Cognition: Normal Curly Coma Scale Eye Opening: Spontaneous Curly Coma Scale Verbal: Oriented Curly Coma Scale Motor: Obeys Commands [place] Coma Scale Total: 15 - Psychological Associated symptoms: Normal affect, Normal mood - Skin Skin Temperature: Warm Skin Moisture: Dry Skin Color: Normal Course - Re-evaluation Re-evalutation: 11/05/18 00:05 Patient nontoxic in appearance. Patient without any emesis or diarrhea while here. Patient with incidental hepatic hemangioma noted on ultrasound. Patient with family members with similar symptoms, suspect likely viral gastroenteritis at this time. Good return precautions discussed. Patient presents with abdominal pain without signs of peritonitis or other life-threatening or serious etiology. The patient has been instructed to return if the symptoms worsen or change in any way. - Vital Signs Vital signs: Temp Pulse Resp BP Pulse Ox 98.3 F 88 16 96/63 L 99 02/28/19 00:14 11/05/18 00:14 11/05/18 00:14 11/05/18 00:14 11/05/18 00:14 - Laboratory Result Diagrams: 11/04/18 22:10 11/04/18 22:10 Laboratory results interpreted by me: 11/04/18 11/04/18 11/04/18 21:21 22:10 22:10 MCV 100 H MCH 35.4 H RDW 15.3 H Seg Neutrophils % 85.7 H Lymphocytes % 8.9 L Absolute Neutrophils 8.5 H Carbon Dioxide 21 L Lipase 20.1 L Ur Leukocyte Esterase TRACE H 11/05/18 00:05 Labs- Entire Visit 11/04/18 11/04/18 11/04/18 21:21 22:10 22:10 WBC 9.9 RBC 3.72 Hgb 13.2 Hct 37.2 MCV 100 H MCH 35.4 H MCHC 35.5 RDW 15.3 H Plt Count 181 Seg Neutrophils % 85.7 H Lymphocytes % 8.9 L Monocytes % 4.6 Eosinophils % 0.2 Basophils % 0.6 Absolute Neutrophils 8.5 H Absolute Lymphocytes 0.9 Absolute Monocytes 0.5 Absolute Eosinophils 0.0 Absolute Basophils 0.1 Sodium 137.7 Potassium 3.9 Chloride 106 Carbon Dioxide 21 L Anion Gap 11 BUN 12 Creatinine 0.69 Est GFR ( Amer) > 60 Est GFR (Non-Af Amer) > 60 Glucose 102 Calcium 8.7 Total Bilirubin 0.6 Direct Bilirubin 0.3 Neonat Total Bilirubin Not Reportable Neonat Direct Bilirubin Not Reportable Neonat Indirect Bili Not Reportable AST 27 ALT 19 Alkaline Phosphatase 100 Total Protein 6.3 Albumin 3.9 Lipase 20.1 L Serum HCG, Qual Urine Color YELLOW Urine Appearance SLIGHTLY-CLOUDY Urine pH 6.0 Ur Specific [place] 1.020 Urine Protein NEGATIVE Urine Glucose (UA) NEGATIVE Urine Ketones NEGATIVE Urine Blood NEGATIVE Urine Nitrite NEGATIVE Urine Bilirubin NEGATIVE Urine Urobilinogen NEGATIVE Ur Leukocyte Esterase TRACE H Urine WBC (Auto) 2 Urine RBC (Auto) 1 U Hyaline Cast (Auto) 9 Squamous Epi Cells Auto 3 Urine Mucus (Auto) RARE Urine Ascorbic Acid NEGATIVE 11/04/18 22:10 WBC RBC Hgb Hct MCV MCH MCHC RDW Plt Count Seg Neutrophils % Lymphocytes % Monocytes % Eosinophils % Basophils % Absolute Neutrophils Absolute Lymphocytes Absolute Monocytes Absolute Eosinophils Absolute Basophils Sodium Potassium Chloride Carbon Dioxide Anion Gap BUN Creatinine Est GFR ( Amer) Est GFR (Non-Af Amer) Glucose Calcium Total Bilirubin Direct Bilirubin Neonat Total Bilirubin Neonat Direct Bilirubin Neonat Indirect Bili AST ALT Alkaline Phosphatase Total Protein Albumin Lipase Serum HCG, Qual NEGATIVE Urine Color Urine Appearance Urine pH Ur Specific [place] Urine Protein Urine Glucose (UA) Urine Ketones Urine Blood Urine Nitrite Urine Bilirubin Urine Urobilinogen Ur Leukocyte Esterase Urine WBC (Auto) Urine RBC (Auto) U Hyaline Cast (Auto) Squamous Epi Cells Auto Urine Mucus (Auto) Urine Ascorbic Acid - Diagnostic Test Radiology reviewed: Reports reviewed Discharge - Discharge Clinical Impression: Vomiting and diarrhea Abdominal pain Qualifiers: Abdominal location: unspecified location Qualified Code(s): R10.9 - Unspecified abdominal pain Condition: Stable Disposition: HOME, SELF-CARE Instructions: Abdominal Pain ([facility]), Antinausea Medication ([facility]), Antispasmodics ([facility]), Intravenous (IV) Fluids ([facility]) Additional Instructions: Return immediately for any new or worsening symptoms Followup with your primary care provider, call tomorrow to make a followup appointment Prescriptions: Dicyclomine HCl [Bentyl 20 mg Tablet] 20 mg PO QID PRN #12 tablet PRN Reason: Ondansetron HCl [Zofran 4 mg Tablet] 1 - 2 tab PO Q6 PRN #15 tablet PRN Reason: Forms: Smoking Cessation Education Referrals: PEDRO ORTIZ PA-C [Primary Care Provider] - Follow up as needed
[2018-11-04 22:28] LABS: ABSOLUTE BASOPHILS # (AUTO) 0.1 10^3/uL (0.0-0.2); ABSOLUTE LYMPHOCYTES (AUTO) 0.9 10^3/uL (0.5-4.7); ABSOLUTE MONOCYTES (AUTO) 0.5 10^3/uL (0.1-1.4); ABSOLUTE NEUT (AUTO) 8.5 10^3/uL (1.7-8.2); BASOPHILS % (AUTO) 0.6 % (0-2); EOSINOPHILS % (AUTO) 0.2 % (0-6); HEMATOCRIT 37.2 % (36.0-47.0); HEMOGLOBIN 13.2 g/dL (12.0-15.5); LYMPHOCYTES % (AUTO) 8.9 % (13-45); MEAN CORPUSCULAR HEMOGLOBIN 35.4 pg (27.0-33.4); MEAN CORPUSCULAR HGB CONC 35.5 g/dL (32.0-36.0); MEAN CORPUSCULAR VOLUME 100 fl (80-97); MONOCYTES % (AUTO) 4.6 % (3-13); PLATELET COUNT 181 10^3/uL (150-450); RED BLOOD COUNT 3.72 10^6/uL (3.72-5.28); RED CELL DISTRIBUTION WIDTH 15.3 % (11.5-14.0); SEGMENTED NEUTROPHILS % (AUTO) 85.7 % (42-78); TOTAL CELLS COUNTED % (AUTO) 100 %; WHITE BLOOD COUNT 9.9 10^3/uL (4.0-10.5)
[2018-11-04 22:43] LABS: ALANINE AMINOTRANSFERASE 19 U/L (9-52); ALBUMIN 3.9 g/dL (3.5-5.0); ALKALINE PHOSPHATASE 100 U/L (38-126); ANION GAP 11 (5-19); ASPARTATE AMINO TRANSFERASE 27 U/L (14-36); BILIRUBIN,DIRECT 0.3 mg/dL (0.0-0.4); BILIRUBIN,TOTAL 0.6 mg/dL (0.2-1.3); BLOOD UREA NITROGEN 12 mg/dL (7-20); CALCIUM 8.7 mg/dL (8.4-10.2); CARBON DIOXIDE 21 mmol/L (22-30); CHLORIDE 106 mmol/L (98-107); GLUCOSE 102 mg/dL (75-110); LIPASE 20.1 U/L (23-300); POTASSIUM 3.9 mmol/L (3.6-5.0); SODIUM 137.7 mmol/L (137-145); TOTAL PROTEIN 6.3 g/dL (6.3-8.2)
[2018-11-04] MEDS ORDERED: ACETAMINOPHEN 325 MG TABLET PO ONE (22:54)
[2018-11-04] MEDS ORDERED: DICYCLOMINE HCL 20 MG TABLET PO ONE (22:56)
--- NOTE | 2018-11-05 00:01 | RADIOLOGY REPORT (SQ) ---
US ABDOMEN LIMITED HISTORY: Right upper quadrant pain. COMPARISON: None. TECHNIQUE: Grayscale and color Doppler imaging of the right upper quadrant was performed. FINDINGS: The liver measures 13.3 cm and contains a 1.1 x 1.2 cm hyperechoic nodule which may represent a hemangioma. The main portal vein has normal hepatopetal flow. No shadowing gallstones are seen. No pericholecystic fluid or gallbladder wall thickening. The common bile duct is normal caliber. The pancreas is unremarkable. No hydronephrosis or shadowing renal stones are identified. The right kidney measures 9.8 cm in length. The visualized portions of the IVC and aorta are patent. IMPRESSION: 1. No gallstones or cholecystitis. 2. Likely 1.2 cm hepatic hemangioma.
[2018-11-05 00:21] VITALS: BP 96/63
== END 2018-11-05 00:21 | disposition home or self-care (01) ==
LOC: ER 19:37
DX: R11.2 Nausea with vomiting, unspecified (principal); R19.7 Diarrhea, unspecified; D18.03 Hemangioma of intra-abdominal structures; R10.33 Periumbilical pain; R10.13 Epigastric pain; I10 Essential (primary) hypertension; F17.200 Nicotine dependence, unspecified, uncomplicated; Z87.19 Personal history of other diseases of the digestive system
CPT/HCPCS: 99284; 96361; 96374; 36415; 83690; 84703; 85025; 80053; 81001; 76705; J3490; J2270; J7030

== ENCOUNTER 2018-11-08 11:55 | Emergency (ER) | payer SELFPAY ==
--- NOTE | 2018-11-08 12:12 | ER Document Report ---
ED Medical Screen (RME) - General Chief Complaint: Abdominal Pain Stated Complaint: ABDOMINAL PAIN Time Seen by Provider: 11/08/18 12:11 Primary Care Provider: PEDRO ORTIZ PA-C [Primary Care Provider] - Follow up as needed Mode of Arrival: Ambulatory Information source: Patient TRAVEL OUTSIDE OF THE [place] IN LAST 30 DAYS: No - HPI Patient complains to provider of: abd pain Onset: Yesterday - pt seen here last week for abd pain. States pain is worse now. - Related Data Allergies/Adverse Reactions: No Known Allergies Allergy (Verified 11/08/18 11:57) Past Medical History - Past Medical History Cardiac Medical History: Reports: Hx Hypercholesterolemia, Hx Hypertension Pulmonary Medical History: Denies: Hx Tuberculosis Neurological Medical History: Denies: Hx Cerebrovascular Accident, Hx Seizures Endocrine Medical History: Denies: Hx Diabetes Mellitus Type 2, Hx Hypothyroidism Renal/ Medical History: Denies: Hx Peritoneal Dialysis, Hx Pelvic Inflammatory Disease GI Medical History: Reports: Hx Gastroesophageal Reflux Disease, Hx Pancreatitis Psychiatric Medical History: Reports: Hx Anxiety Past Surgical History: Reports: Hx Abdominal Surgery - iud retrieval, hernia repair. Denies: Hx Pacemaker - Immunizations Hx Diphtheria, Pertussis, Tetanus Vaccination: Yes History of Influenza Vaccine for 06/2017 - 11/2017 Season: Refused Physical Exam - Vital signs Vitals: Temp Pulse Resp BP Pulse Ox 98.7 F 86 16 119/84 100 11/08/18 12:05 11/08/18 12:05 11/08/18 12:05 11/08/18 12:05 11/08/18 12:05 Course - Vital Signs Vital signs: Temp Pulse Resp BP Pulse Ox 98.7 F 86 16 119/84 100 11/08/18 12:05 11/08/18 12:05 11/08/18 12:05 11/08/18 12:05 11/08/18 12:05 Doctor's Discharge - Discharge Referrals: PEDRO ORTIZ PA-C [Primary Care Provider] - Follow up as needed
[2018-11-08 12:49] LABS: APPEARANCE,URINE CLEAR; BILIRUBIN,URINE NEGATIVE (NEGATIVE); COLOR,URINE YELLOW; GLUCOSE, URINE NEGATIVE (NEGATIVE); KETONES,URINE NEGATIVE (NEGATIVE); LEUKOCYTE ESTERASE,URINE NEGATIVE (NEGATIVE); NITRITE,URINE NEGATIVE (NEGATIVE); PROTEIN,URINE NEGATIVE (NEGATIVE); URINE SPECIFIC GRAVITY 1.014; UROBILINOGEN,URINE NEGATIVE mg/dL (<2.0)
[2018-11-08 12:51] LABS: ABSOLUTE EOSINOPHILS # (AUTO) 0.2 10^3/uL (0.0-0.6); ABSOLUTE LYMPHOCYTES (AUTO) 1.5 10^3/uL (0.5-4.7); ABSOLUTE MONOCYTES (AUTO) 0.7 10^3/uL (0.1-1.4); BASOPHILS % (AUTO) 0.7 % (0-2); EOSINOPHILS % (AUTO) 2.8 % (0-6); HEMATOCRIT 36.3 % (36.0-47.0); HEMOGLOBIN 12.7 g/dL (12.0-15.5); LYMPHOCYTES % (AUTO) 22.8 % (13-45); MEAN CORPUSCULAR HEMOGLOBIN 34.8 pg (27.0-33.4); MEAN CORPUSCULAR HGB CONC 35.1 g/dL (32.0-36.0); MEAN CORPUSCULAR VOLUME 99 fl (80-97); MONOCYTES % (AUTO) 11.7 % (3-13); PLATELET COUNT 230 10^3/uL (150-450); RED BLOOD COUNT 3.66 10^6/uL (3.72-5.28); RED CELL DISTRIBUTION WIDTH 15.2 % (11.5-14.0); TOTAL CELLS COUNTED % (AUTO) 100 %; WHITE BLOOD COUNT 6.4 10^3/uL (4.0-10.5)
[2018-11-08 13:03] LABS: ALANINE AMINOTRANSFERASE 21 U/L (9-52); ALBUMIN 3.9 g/dL (3.5-5.0); ALKALINE PHOSPHATASE 110 U/L (38-126); ANION GAP 9 (5-19); ASPARTATE AMINO TRANSFERASE 20 U/L (14-36); BILIRUBIN,DIRECT 0.2 mg/dL (0.0-0.4); BILIRUBIN,TOTAL 0.3 mg/dL (0.2-1.3); BLOOD UREA NITROGEN 10 mg/dL (7-20); CALCIUM 9.4 mg/dL (8.4-10.2); CARBON DIOXIDE 24 mmol/L (22-30); CHLORIDE 107 mmol/L (98-107); GLUCOSE 110 mg/dL (75-110); LIPASE 779.3 U/L (23-300); POTASSIUM 3.9 mmol/L (3.6-5.0); SODIUM 139.6 mmol/L (137-145); TOTAL PROTEIN 6.3 g/dL (6.3-8.2)
--- NOTE | 2018-11-08 13:26 | RADIOLOGY REPORT (SQ) ---
EXAM DESCRIPTION: CT ABD/PELVIS WITH IV ONLY COMPLETED DATE/TIME: 11/08/2018 1:12 pm REASON FOR STUDY: abd pain COMPARISON: 12/09/2017 TECHNIQUE: CT scan of the abdomen and pelvis performed using helical scanning technique with dynamic intravenous contrast injection. No oral contrast. Images reviewed with lung, soft tissue, and bone windows. Reconstructed coronal and sagittal MPR images reviewed. Delayed images for evaluation of the urinary system also acquired. All images stored on PACS. All CT scanners at this facility use dose modulation, iterative reconstruction, and/or weight based d osing when appropriate to reduce radiation dose to as low as reasonably achievable (ALARA). [facility]: Dose Right [facility]: CareDose [facility]: Dose Right [facility]: Teradose 4D [facility]: [employer] CONTRAST TYPE AND DOSE: contrast/concentration: Isovue 350.00 mg/ml; Total Contrast Delivered: 64.0 ml; Total Saline Delivered: 65.0 ml RENAL FUNCTION: None required. The patient is less than 50 years old. RADIATION DOSE: CT Rad equipment meets quality standard of care and radiation dose reduction techniq ues were employed. CTDIvol: NaN - NaN mGy. DLP: 0 mGy-cm.. LIMITATIONS: None. FINDINGS: LOWER CHEST: No significant findings. No nodules or infiltrates. LIVER: Normal size. No masses. No dilated ducts. SPLEEN: Normal size. No focal lesions. PANCREAS: No masses. No significant calcifications. No adjacent inflammation or peripancreatic fluid collections. Pancreatic duct not dilated. GALLBLADDER: No identified stones by CT criteria. No inflammatory changes to suggest cholecystitis. ADRENAL GLANDS: No significant masses or asymmetry. RIGHT KIDNEY AND URETER: No solid masses. No significant calcifications. No hydronephrosis or hyd roureter. LEFT KIDNEY AND URETER: No solid masses. No significant calcifications. No hydronephrosis or hydr oureter. AORTA AND VESSELS: No aneurysm. No dissection. Renal arteries, SMA, celiac without stenosis. RETROPERITONEUM: No retroperitoneal adenopathy, hemorrhage or masses. BOWEL AND PERITONEAL CAVITY: Generalized colonic mucosal edema throughout the colon. No pericolonic fat stranding. APPENDIX: Normal. PELVIS: Physiologic free fluid in the pelvis and right adnexa. Functional follicle in the left ovary . ABDOMINAL WALL: No masses. No hernias. BONES: No significant or acute findings. OTHER: No other significant finding. IMPRESSION: Generalize nonspecific colitis. TECHNICAL DOCUMENTATION: JOB ID: [id number] Quality ID # [id number]: Final reports with documentation of one or more dose reduction techniques (e.g., Au tomated exposure control, adjustment of the mA and/or kV according to patient size, use of iterative reconstruction technique) 2010 [employer]- All Rights Reserved Reading location - IP/workstation name: [email or web address]
--- NOTE | 2018-11-08 15:09 | ER Document Report ---
ED General - General Chief Complaint: Abdominal Pain Stated Complaint: ABDOMINAL PAIN Time Seen by Provider: 11/08/18 12:11 Primary Care Provider: [facility] [Provider Group] - Follow up as needed (This is the number the free clinic) PEDRO ORTIZ PA-C [Primary Care Provider] - Follow up as needed EDY ISSA MD [ACTIVE STAFF] - Follow up as needed (Is the number of a GI doctor) Mode of Arrival: Ambulatory Information source: Patient Notes: This is a 33-year-old female with a history of pancreatitis in the past, pancreatic pseudocysts (treated with surgical drainage as well as stents), tachycardia. Patient last alcohol was 3 months ago. Patient presents with abdominal discomfort which is generalized for the past week. Patient denies any nausea vomiting. Patient states it feels a little different from her pancreatitis episodes in the past. She was here a few days ago and her lipase was normal. Patient states she has had persistent pain. TRAVEL OUTSIDE OF THE [place] IN LAST 30 DAYS: No - HPI Onset: Last week Onset/Duration: Gradual Quality of pain: Dull Severity: Moderate Pain Level: 2 Associated symptoms: denies: Chest pain, Fever, Shortness of breath Exacerbated by: Denies Relieved by: Denies Similar symptoms previously: Yes Recently seen / treated by doctor: No - Related Data Allergies/Adverse Reactions: No Known Allergies Allergy (Verified 11/08/18 11:57) Past Medical History - General Information source: Patient - Social History Smoking Status: Current Every Day Smoker Cigarette use (# per day): Yes - Half a pack per day Chew tobacco use (# tins/day): No Frequency of alcohol use: Occasional Drug Abuse: None Lives with: Family Family History: Reviewed & Not Pertinent, Hypertension Patient has suicidal ideation: No Patient has homicidal ideation: No - Past Medical History Cardiac Medical History: Reports: Hx Hypercholesterolemia, Hx Hypertension Pulmonary Medical History: Denies: Hx Tuberculosis Neurological Medical History: Denies: Hx Cerebrovascular Accident, Hx Seizures Endocrine Medical History: Denies: Hx Diabetes Mellitus Type 2, Hx Hypothyroidism Renal/ Medical History: Denies: Hx Peritoneal Dialysis, Hx Pelvic Inflammatory Disease GI Medical History: Reports: Hx Gastroesophageal Reflux Disease, Hx Pancreatitis Psychiatric Medical History: Reports: Hx Anxiety Past Surgical History: Reports: Hx Abdominal Surgery - iud retrieval, hernia repair, Hx Tubal Ligation. Denies: Hx Pacemaker - Immunizations Hx Diphtheria, Pertussis, Tetanus Vaccination: Yes Review of Systems - Review of Systems Constitutional: denies: Chills, Fever EENT: No symptoms reported Cardiovascular: No symptoms reported Respiratory: No symptoms reported Gastrointestinal: See HPI Genitourinary: No symptoms reported Female Genitourinary: No symptoms reported Musculoskeletal: No symptoms reported Skin: No symptoms reported Hematologic/Lymphatic: No symptoms reported Neurological/Psychological: No symptoms reported Physical Exam - Vital signs Vitals: Temp Pulse Resp BP Pulse Ox 98.7 F 86 16 119/84 100 11/08/18 12:05 11/08/18 12:05 11/08/18 12:05 11/08/18 12:05 11/08/18 12:05 Notes: Physical exam: GENERAL: She is alert and oriented x3, no acute distress. Does complain of some generalized abdominal discomfort. HEAD: Atraumatic, normocephalic. EYES: Pupils equal round and reactive to light, extraocular movements intact, sclera anicteric, conjunctiva are normal. ENT: TMs normal, nares patent, oropharynx clear without exudates. Moist mucous membranes. NECK: Normal range of motion, supple without obvious mass or JVD. LUNGS: Breath sounds clear to auscultation bilaterally and equal. No wheezes rales or rhonchi. HEART: Regular rate and rhythm without murmurs, rubs or gallops. ABDOMEN: Soft, normoactive bowel sounds. No tenderness to palpation. No guarding, no rebound. No masses appreciated. EXTREMITIES: Normal range of motion, no pitting or edema. No clubbing or cyanosis. NEUROLOGICAL: Cranial nerves II through XII grossly intact. Normal speech, moving all extremities. PSYCH: Normal mood, normal affect. SKIN: Warm, Dry, normal turgor, no rashes or lesions noted. Course - Re-evaluation Re-evalutation: 11/08/18 15:17 Discussed the results of the lab tests with the patient. It does appear that she is had mild pancreatitis flare. Is no evidence of pancreatic pseudocyst or dilated biliary ducts. CT scan does show a nonspecific colitis and the patient does have a history of irritable bowel symptoms. At this time her abdomen is quite benign. She would prefer to go home because she has 3 children. I see no indication for an hospital admission given the fact that she is tolerating p.o. and her pain seems to be mild. I will give her some medicines just in case she has worsening pain. I have given her some dietary instructions. I gave her the number of a local GI doctor but also the number for the come [facility]. Dictation on this chart was performed using voice recognition software and may result in unintended grammatical errors. - Vital Signs Vital signs: Temp Pulse Resp BP Pulse Ox 98.4 F 71 16 108/67 100 11/08/18 15:41 11/08/18 15:41 11/08/18 12:05 11/08/18 15:41 11/08/18 15:41 - Laboratory Result Diagrams: 11/08/18 12:24 11/08/18 12:24 Laboratory results interpreted by me: 11/08/18 11/08/18 12:24 12:24 RBC 3.66 L MCV 99 H MCH 34.8 H RDW 15.2 H Lipase 779.3 H Discharge - Discharge Clinical Impression: Pancreatitis Condition: Stable Disposition: HOME, SELF-CARE Instructions: Pancreatitis ([facility]) Additional Instructions: Recommendations: Rest, drink plenty of fluids, advance diet slowly. Begin with clear liquids, then soups and advance. Try to avoid fried fatty foods or foods that bother your stomach. Take the Zofran for nausea. Return to the emergency room for worsening pain, not tolerating fluids, blood in the stool, fever temperature greater than 100.4. Follow-up in the [facility]. Did put the number of a local GI doctor. Prescriptions: Oxycodone HCl 5 mg PO Q6HP PRN #30 capsule PRN Reason: Referrals: PEDRO ORTIZ PA-C [Primary Care Provider] - Follow up as needed [facility] [Provider Group] - Follow up as needed (This is the number the free clinic) EDY ISSA MD [ACTIVE STAFF] - Follow up as needed (Is the number of a GI doctor)
[2018-11-08 15:44] VITALS: BP 108/67
== END 2018-11-08 15:47 | disposition home or self-care (01) ==
LOC: ER 11:55
DX: K85.90 Acute pancreatitis without necrosis or infection, unspecified (principal); K52.9 Noninfective gastroenteritis and colitis, unspecified; R10.84 Generalized abdominal pain; F17.210 Nicotine dependence, cigarettes, uncomplicated; I10 Essential (primary) hypertension; Z87.19 Personal history of other diseases of the digestive system
CPT/HCPCS: 36415; 74177; 80053; 81001; 81025; 83690; 85025; 99284

== ENCOUNTER 2019-01-14 17:53 | Emergency (ER) | payer SELFPAY ==
--- NOTE | 2019-01-14 19:14 | ER Document Report ---
ED Medical Screen (RME) - General Chief Complaint: Abdominal Pain Stated Complaint: ABDOMINAL PAIN Time Seen by Provider: 01/14/19 19:12 Primary Care Provider: PEDRO ORTIZ PA-C [Primary Care Provider] - Follow up as needed Mode of Arrival: Ambulatory Information source: Patient Notes: Patient presents complaining of upper abdominal pain that goes to the bilateral flank area for the past 3 days. Patient denies any urinary symptoms nausea vomiting or diarrhea. Patient denies any fever. Patient does have a history of pancreatitis and suspects the same today. Patient has a history of previous pseudocyst with stent placement. Patient also reports a history of frequent kidney infections although states that she has not had any dysuria symptoms I have greeted and performed a rapid initial assessment of this patient. A comprehensive ED assessment and evaluation of the patient, analysis of test results and completion of the medical decision making process will be conducted by additional ED providers. TRAVEL OUTSIDE OF THE [place] IN LAST 30 DAYS: No - Related Data Allergies/Adverse Reactions: No Known Allergies Allergy (Verified 11/08/18 11:57) Past Medical History - Past Medical History Cardiac Medical History: Reports: Hx Hypercholesterolemia, Hx Hypertension Pulmonary Medical History: Denies: Hx Tuberculosis Neurological Medical History: Denies: Hx Cerebrovascular Accident, Hx Seizures Endocrine Medical History: Denies: Hx Diabetes Mellitus Type 2, Hx Hypothyroidism Renal/ Medical History: Denies: Hx Peritoneal Dialysis, Hx Pelvic Inflammatory Disease GI Medical History: Reports: Hx Gastroesophageal Reflux Disease, Hx Pancreatitis Psychiatric Medical History: Reports: Hx Anxiety Past Surgical History: Reports: Hx Abdominal Surgery - iud retrieval, hernia repair, Hx Tubal Ligation. Denies: Hx Pacemaker - Immunizations Hx Diphtheria, Pertussis, Tetanus Vaccination: Yes History of Influenza Vaccine for 06/2017 - 11/2017 Season: Refused Physical Exam - Vital signs Vitals: Temp Pulse Resp BP Pulse Ox 98.7 F 75 16 125/91 H 100 01/14/19 18:03 01/14/19 18:03 01/14/19 18:03 01/14/19 18:03 01/14/19 18:03 - General General appearance: Alert In distress: None Notes: Upper abdominal tenderness bilateral flank tenderness Course - Vital Signs Vital signs: Temp Pulse Resp BP Pulse Ox 98.7 F 75 16 125/91 H 100 01/14/19 18:03 01/14/19 18:03 01/14/19 18:03 01/14/19 18:03 01/14/19 18:03 Doctor's Discharge - Discharge Referrals: PEDRO ORTIZ PA-C [Primary Care Provider] - Follow up as needed
[2019-01-14 20:58] LABS: ABSOLUTE EOSINOPHILS # (AUTO) 0.2 10^3/uL (0.0-0.6); ABSOLUTE LYMPHOCYTES (AUTO) 1.6 10^3/uL (0.5-4.7); ABSOLUTE MONOCYTES (AUTO) 0.7 10^3/uL (0.1-1.4); ABSOLUTE NEUT (AUTO) 4.4 10^3/uL (1.7-8.2); BASOPHILS % (AUTO) 0.7 % (0-2); EOSINOPHILS % (AUTO) 2.4 % (0-6); HEMATOCRIT 40.1 % (36.0-47.0); HEMOGLOBIN 13.8 g/dL (12.0-15.5); LYMPHOCYTES % (AUTO) 22.9 % (13-45); MEAN CORPUSCULAR HEMOGLOBIN 34.8 pg (27.0-33.4); MEAN CORPUSCULAR HGB CONC 34.4 g/dL (32.0-36.0); MEAN CORPUSCULAR VOLUME 101 fl (80-97); MONOCYTES % (AUTO) 9.6 % (3-13); PLATELET COUNT 243 10^3/uL (150-450); RED BLOOD COUNT 3.95 10^6/uL (3.72-5.28); RED CELL DISTRIBUTION WIDTH 17.4 % (11.5-14.0); SEGMENTED NEUTROPHILS % (AUTO) 64.4 % (42-78); TOTAL CELLS COUNTED % (AUTO) 100 %; WHITE BLOOD COUNT 6.8 10^3/uL (4.0-10.5)
[2019-01-14 21:02] LABS: APPEARANCE,URINE SLIGHTLY-CLOUDY; BILIRUBIN,URINE NEGATIVE (NEGATIVE); COLOR,URINE AMBER; GLUCOSE, URINE NEGATIVE (NEGATIVE); KETONES,URINE NEGATIVE (NEGATIVE); LEUKOCYTE ESTERASE,URINE MODERATE (NEGATIVE); NITRITE,URINE NEGATIVE (NEGATIVE); PROTEIN,URINE 30 mg/dL (NEGATIVE); URINE SPECIFIC GRAVITY 1.028
[2019-01-14 21:18] LABS: ALANINE AMINOTRANSFERASE 149 U/L (9-52); ALBUMIN 3.6 g/dL (3.5-5.0); ALKALINE PHOSPHATASE 179 U/L (38-126); ANION GAP 11 (5-19); ASPARTATE AMINO TRANSFERASE 246 U/L (14-36); BILIRUBIN,DIRECT 0.5 mg/dL (0.0-0.4); BILIRUBIN,TOTAL 0.7 mg/dL (0.2-1.3); BLOOD UREA NITROGEN 8 mg/dL (7-20); CALCIUM 9.7 mg/dL (8.4-10.2); CARBON DIOXIDE 24 mmol/L (22-30); CHLORIDE 104 mmol/L (98-107); GLUCOSE 94 mg/dL (75-110); LIPASE 196.2 U/L (23-300); POTASSIUM 3.5 mmol/L (3.6-5.0); SODIUM 139.1 mmol/L (137-145); TOTAL PROTEIN 6.3 g/dL (6.3-8.2)
[2019-01-14] MEDS ORDERED: KETOROLAC TROMETHAMINE 60 MG/2 ML SDV IM ONE (23:51)
--- NOTE | 2019-01-15 01:00 | RADIOLOGY REPORT (SQ) ---
EXAM DESCRIPTION: [facility]: US ABDOMEN LIMITED CLINICAL HISTORY: 33 years Female; RUQ and epigastric pain, elevated LFTs TECHNIQUE: Right upper quadrant ultrasound was performed. COMPARISON: CT 11/08/2018. FINDINGS: Pancreas: Visualized portions are unremarkable. Liver: 14.9 cm long Portal venous flow is hepatopedal, normal. Gallbladder: Possible small echogenic calculus at the neck. No wall thickening or pericholecystic edema. No Kelly sign. Common bile duct: Most of the duct is 3 mm diameter. There is a focal fusiform 10 mm segment of ductal distention. There is no correlate on the previous CT. . Right kidney: 9.8 cm long. Several echogenic foci without shadowing, indeterminate for calculi. No hydronephrosis. IMPRESSION: 1. Possible small gallstone at the gallbladder neck, but no sonographic evidence for acute cholecystitis. 2. Focal 10 mm distention of the common bile duct, new since 11/08/2018. Cannot exclude choledocholithiasis. 3. Depending on level of clinical suspicion for biliary disease, MRCP may be warranted. 4. No hydronephrosis. Possible punctate right renal calculi.
--- NOTE | 2019-01-15 02:15 | PDOC CONSULTATION ---
Consultation Consult Date: 01/15/19 Consult reason:: CBD dilatation with elevated LFTs History of Present Illness Admission Date/PCP: PEDRO ORTIZ PA-C History of Present Illness: NEREIDA JONES is a 33 year old female with history of pancreatitis c/o midback pains radiating to upper abdomen 3 days ago associated with nausea. Pains has been persistent but just before coming to ED yesterday c/o more severe pains at the epigastric area. US of abdomen showed a possible gallstone with focal dilatation of CBD to 10 mm with the rest of CBD at 3 mm. LFTs are elevated with a normal lipase. Denies any fever but may have warm and cold sensation. Past Medical History Cardiac Medical History: Reports: Hyperlipidema, Hypertension Pulmonary Medical History: Denies: Tuberculosis Neurological Medical History: Denies: Seizures Endocrine Medical History: Denies: Diabetes Mellitus Type 2, Hypothyroidism GI Medical History: Reports: Gastroesophageal Reflux Disease, Other - Pancr eatitis. Had a pancreatic stent placed at [facility] 5 years ago Past Surgical History Past Surgical History: Reports: Tubal Ligation, Other - Pancreatic stent placement Denies: Pacemaker Social History Smoking Status: Current Every Day Smoker Frequency of Alcohol Use: Rare Hx Recreational Drug Use: No Drugs: None Hx Prescription Drug Abuse: No Family History Family History: Reviewed & Not Pertinent, Hypertension Parental Family History Reviewed: Yes Children Family History Reviewed: No Sibling(s) Family History Reviewed.: No Medication/Allergy Home Medications: Lisinopril/Hydrochlorothiazide [Zestoretic 10-12.5 mg Tablet] 1 tab PO DAILY 12/09/17 Propranolol HCl [Inderal 20 mg Tablet] 20 mg PO BID 12/09/17 Famotidine [Pepcid 20 mg Tablet] 20 mg PO DAILY #14 tablet 12/12/17 Loperamide HCl [Loperamide] 2 mg PO Q8H PRN #10 capsule 03/22/18 Magnesium Oxide 400 mg PO DAILY #5 tablet 03/22/18 Potassium Chloride [Klor-Con M10] 10 meq PO DAILY PRN 03/22/18 Albuterol Sulfate [Albuterol Sulfate 2.5mg/3 mL] 1 vial IH Q4 PRN #10 vial 06/13/18 Prednisone 40 mg PO DAILY 5 Days #10 tablet 06/13/18 Promethazine HCl/Codeine [Prometh-Codein 6.25-10 mg/5 ml] 5 ml PO QHS PRN #50 ml 06/13/18 Dicyclomine HCl [Bentyl 20 mg Tablet] 20 mg PO QID PRN #12 tablet 11/05/18 Ondansetron HCl [Zofran 4 mg Tablet] 1 - 2 tab PO Q6 PRN #15 tablet 11/05/18 Oxycodone HCl 5 mg PO Q6HP PRN #30 capsule 11/08/18 Allergies/Adverse Reactions: No Known Allergies Allergy (Verified 11/08/18 11:57) Review of Systems Constitutional: PRESENT: as per HPI Eyes: PRESENT: other - no visual/hearing changes Cardiovascular: PRESENT: other - no chest pains/cough Gastrointestinal: PRESENT: abdominal pain, nausea Genitourinary: PRESENT: other - no dysuria Physical Exam Vital Signs: Temp Pulse Resp BP Pulse Ox 98.7 F 75 16 125/91 H 100 01/14/19 18:03 01/14/19 18:03 01/14/19 18:03 01/14/19 18:03 01/14/19 18:03 Intake & Output 01/13/19 01/14/19 01/15/19 06:59 06:59 06:59 Weight 52.7 kg General appearance: PRESENT: severe distress Head exam: PRESENT: atraumatic Eye exam: PRESENT: conjunctiva pink Mouth exam: PRESENT: moist Neck exam: PRESENT: full ROM Respiratory exam: PRESENT: clear to auscultation amanda Cardiovascular exam: PRESENT: RRR Pulses: PRESENT: normal radial pulses Vascular exam: PRESENT: normal capillary refill GI/Abdominal exam: PRESENT: soft, tenderness - epigastric and mild RUQ Rectal exam: PRESENT: deferred Extremities exam: PRESENT: full ROM Musculoskeletal exam: PRESENT: ambulatory Neurological exam: PRESENT: alert, oriented to person, oriented to place, oriented to time, oriented to situation Psychiatric exam: PRESENT: appropriate affect Skin exam: PRESENT: normal color, warm Results Laboratory Results: 01/14/19 20:15 01/14/19 20:15 01/14/19 01/14/19 01/14/19 20:15 20:15 20:15 WBC 6.8 RBC 3.95 Hgb 13.8 Hct 40.1 MCV 101 H MCH 34.8 H MCHC 34.4 RDW 17.4 H Plt Count 243 Seg Neutrophils % 64.4 Lymphocytes % 22.9 Monocytes % 9.6 Eosinophils % 2.4 Basophils % 0.7 Absolute Neutrophils 4.4 Absolute Lymphocytes 1.6 Absolute Monocytes 0.7 Absolute Eosinophils 0.2 Absolute Basophils 0.0 Sodium 139.1 Potassium 3.5 L Chloride 104 Carbon Dioxide 24 Anion Gap 11 BUN 8 Creatinine 0.74 Est GFR ( Amer) > 60 Est GFR (Non-Af Amer) > 60 Glucose 94 Calcium 9.7 Total Bilirubin 0.7 AST 246 H ALT 149 H Alkaline Phosphatase 179 H Total Protein 6.3 Albumin 3.6 Lipase 196.2 Urine Color GRICELDA Urine Appearance SLIGHTLY-CLOUDY Urine pH 5.0 Ur Specific [place] 1.028 Urine Protein 30 H Urine Glucose (UA) NEGATIVE Urine Ketones NEGATIVE Urine Blood NEGATIVE Urine Nitrite NEGATIVE Ur Leukocyte Esterase MODERATE H Urine WBC (Auto) 32 Urine RBC (Auto) 2 Impressions: Abdomen Ultrasound 01/14/19 23:51 IMPRESSION: 1. Possible small gallstone at the gallbladder neck, but no sonographic evidence for acute cholecystitis. 2. Focal 10 mm distention of the common bile duct, new since 11/08/2018. Cannot exclude choledocholithiasis. 3. Depending on level of clinical suspicion for biliary disease, MRCP may be warranted. 4. No hydronephrosis. Possible punctate right renal calculi. Assessment & Plan - Diagnosis (1) Elevated LFTs Is this a current diagnosis for this admission?: Yes (2) Dilated cbd, acquired Is this a current diagnosis for this admission?: Yes - Time Time Spent: 30 to 50 Minutes - Plan Summary Plan Summary: Will need an ERCP Unfortunately, we don't have a GI production editor to do ERCP Suggest transfer to a tertiary facility for ERCP then laparoscopic Cholecystectomy Can do MRCP this AM but will likely still need an ERCP for therapeutic management.
[2019-01-15] MEDS ORDERED: CEFTRIAXONE 1 GM/D5W RTU 1 GM/50 ML RTUPB IV ONE (02:30)
[2019-01-15] MEDS ORDERED: HYDROMORPHONE HCL INJ/PF 2 MG/ML AMPULE IV ONE ×2 (02:31→06:36)
--- NOTE | 2019-01-15 06:42 | ER Document Report ---
Entered by RAMIRO LY SCRIBE 01/15/19 0103 Acting as scribe for:FEDE SELF DO ED General - General Chief Complaint: Abdominal Pain Stated Complaint: ABDOMINAL PAIN Time Seen by Provider: 01/14/19 19:12 Primary Care Provider: PEDRO ORTIZ PA-C [Primary Care Provider] - Follow up as needed Mode of Arrival: Ambulatory Information source: Patient Notes: Patient is a 33-year-old female presenting to the emergency department complai saman of abdominal pain onset 3 days ago. Patient states the pain significantly worsened today around 1700. She states the pain is located at the center of her abdomen and radiates laterally as well as into her back. Patient states that exacerbated with p.o. intake, especially meats and cheese. She also complains of sweats and chills. She denies any diarrhea, vomiting, hematuria or blood in stool. Patient states she does have a history of pancreatic pseudocyst and pancreatitis further stating she was diagnosed with alcoholic pancreatitis approximately 4 years ago. She states her current symptoms feel similar although she had not had any alcohol in 1 month. TRAVEL OUTSIDE OF THE [place] IN LAST 30 DAYS: No - Related Data Allergies/Adverse Reactions: No Known Allergies Allergy (Verified 11/08/18 11:57) Past Medical History - General Information source: Patient - Social History Smoking Status: Current Every Day Smoker Frequency of alcohol use: None Drug Abuse: None Family History: Reviewed & Not Pertinent, Hypertension Patient has suicidal ideation: No Patient has homicidal ideation: No - Past Medical History Cardiac Medical History: Reports: Hx Hypercholesterolemia, Hx Hypertension GI Medical History: Reports: Hx Gastroesophageal Reflux Disease, Hx Pancreatitis Psychiatric Medical History: Reports: Hx Anxiety Past Surgical History: Reports: Hx Abdominal Surgery - iud retrieval, hernia repair, Hx Pancreatic Surgery - x2 placed a stent, Hx Tubal Ligation - Immunizations Hx Diphtheria, Pertussis, Tetanus Vaccination: Yes Review of Systems - Review of Systems Constitutional: No symptoms reported EENT: No symptoms reported Cardiovascular: No symptoms reported Respiratory: No symptoms reported Gastrointestinal: See HPI Genitourinary: No symptoms reported Female Genitourinary: No symptoms reported Musculoskeletal: See HPI, Back pain Skin: No symptoms reported Hematologic/Lymphatic: No symptoms reported Neurological/Psychological: No symptoms reported -: Yes All other systems reviewed and negative Physical Exam - Vital signs Vitals: Temp Pulse Resp BP Pulse Ox 98.7 F 75 16 125/91 H 100 01/14/19 18:03 01/14/19 18:03 01/14/19 18:03 01/14/19 18:03 01/14/19 18:03 - Notes Notes: GENERAL: Alert, interacts well. Tearful. HEAD: Normocephalic, atraumatic. EYES: Pupils equal, round, and reactive to light. Extraocular movements intact. ENT: Oral mucosa moist, tongue midline. NECK: Full range of motion. Supple. Trachea midline. LUNGS: Clear to auscultation bilaterally, no wheezes, rales, or rhonchi. No respiratory distress. HEART: Regular rate and rhythm. No murmurs, gallops, or rubs. ABDOMEN: Soft, suprapubic, RUQ and epigastric tenderness to palpation. Non- distended. Bowel sounds present in all 4 quadrants. No guarding, rigidity, or rebound. EXTREMITIES: Moves all 4 extremities spontaneously. No edema, radial and rusty salis pedis pulses 2/4 bilaterally. No cyanosis. NEUROLOGICAL: Alert and oriented x3. Normal speech. PSYCH: Tearful. SKIN: Warm, dry, normal turgor. No rashes or lesions noted. BACK: Left CVA tenderness to percussion. Course - Re-evaluation Re-evalutation: 01/15/19 02:[address] Yousif. After seeing the patient, recommends patient be transferred due to elevated LFTs and need of an MRCP. 01/15/19 03:09 [facility] Dr[facility], however he reports 24-48 hours before getting a bed assignment. Will contact [facility]. 01/15/19 06:39 Also discussed with case with Dr. Olivera at [facility] who also accepts the patient however he also states that they do not have any beds. Patient has been put on the wait list to both facilities. MRCP has been ordered in case the patient is still here in the morning. Rocephin was started for her urinary tract infection. 01/15/19 06:41 CBC grossly unremarkable, CMP shows slightly low potassium at 3.5, elevated direct bilirubin at 0.5, total bilirubin normal at 0.7, AST elevated at 246, ALT elevated 149, alkaline phosphatase elevated 179. Lipase is normal. Urinalysis shows moderate leukocyte esterase with 3+ bacteria and 32 WBCs. This was sent for culture. Patient was treated with Rocephin for her urinary tract infection. Patient is not . Given the elevated LFTs which are newly elevated ultrasound was performed which shows possible small echogenic calculus at the neck of the gallbladder, no wall thickening or pericholecystic edema, no Kelly sign, common bile duct shows that most of the duct is 3 mm in diameter but there is a focal fusiform 10 mm segment of ductal dilation concerning for possible choledocholithiasis. Discussed case with Dr. Yousif the surgeon on-call who came to the emergency department and evaluated the patient, he is concern for choledocholithiasis and feel she needs an ERCP. As we cannot perform an ERCP here and we cannot perform an MRCP at this time he recommends transfer to another facility. - Vital Signs Vital signs: Temp Pulse Resp BP Pulse Ox 98.4 F 75 17 102/74 94 01/15/19 18:00 01/14/19 18:03 01/15/19 18:00 01/15/19 18:00 01/15/19 18:01 - Laboratory Result Diagrams: 01/14/19 20:15 01/14/19 20:15 Laboratory results interpreted by me: 01/14/19 01/14/19 01/14/19 20:15 20:15 20:15 MCV 101 H MCH 34.8 H RDW 17.4 H Potassium 3.5 L Direct Bilirubin 0.5 H AST 246 H ALT 149 H Alkaline Phosphatase 179 H Urine Protein 30 H Urine Urobilinogen 2.0 H Ur Leukocyte Esterase MODERATE H Discharge - Discharge Clinical Impression: Elevated LFTs, Acute on chronic pancreatitis Pancreatitis Qualifiers: Chronicity: acute Pancreatitis type: unspecified pancreatitis type Acute pancreatitis complication: no infection or necrosis Qualified Code(s): K85.90 - Acute pancreatitis without necrosis or infection, unspecified Condition: Stable Disposition: [facility] Referrals: PEDRO ORTIZ PA-C [Primary Care Provider] - Follow up as needed I personally performed the services described in the documentation, reviewed and edited the documentation which was dictated to the scribe in my presence, and it accurately records my words and actions.
[2019-01-15] MEDS ORDERED: NICOTINE 14 MG/24 HR PATCH.TD24 TD ONE (06:47)
[2019-01-15] MEDS ORDERED: NORMAL SALINE 1000 ML 1,000 ML IV ONE (09:43)
[2019-01-15] MEDS ORDERED: HYDROMORPHONE HCL INJ/PF 2 MG/ML AMPULE IV PRN (10:49)
[2019-01-15] MEDS ORDERED: ONDANSETRON HCL INJ/PF 4 MG/2 ML SDV IV PRN (10:50)
--- NOTE | 2019-01-15 11:01 | RADIOLOGY REPORT (SQ) ---
EXAM DESCRIPTION: MRI ABDOMEN WITHOUT COMPLETED DATE/TIME: 01/15/2019 10:23 am REASON FOR STUDY: MRCP, possible choledocolithiasis COMPARISON: Abdominal ultrasound 01/15/2019 CT abdomen pelvis 11/08/2018 Abdominal ultrasound 11/04/2018 CT abdomen pelvis 12/09/2017 MRI abdomen 08/23/2013 TECHNIQUE: Noncontrast MRCP. Source and MIP images reviewed. LIMITATIONS: None. FINDINGS: GALLBLADDER: Normal. No gallbladder wall thickening or pericholecystic fluid. No stones. INTRAHEPATIC DUCTS: Nondilated. EXTRAHEPATIC DUCTS: Common hepatic duct is normal caliber. The mid to distal common duct is narrowed , from extrinsic compression from inflammation in the mone hepatis likely from acute pancreatitis. No gross common bile duct filling defects on the maximum intensity projected images. PANCREAS: There is inflammation in the mone hepatis, and in the retroperitoneum around the pancreati c head. Pancreatic neck body and tail are unremarkable. No pancreatic duct dilatation. LIVER, SPLEEN, KIDNEYS, ADRENALS: No significant abnormality. VESSELS: No evidence of aneurysm. Grossly appropriate flow voids in the major vascular structures. LUNG BASES: Grossly clear. OTHER: No other significant finding. IMPRESSION: Inflammation along the pancreatic head worrisome for acute pancreatitis. There is narrowing of the distal 3rd of the common bile duct as it passes by the pancreatic head. Co mmon duct is otherwise well visualized without filling defects on the re- projected images. No gallstones in the gallbladder. No pericholecystic fluid. TECHNICAL DOCUMENTATION: JOB ID: [id number] [employer]- All Rights Reserved Reading location - IP/workstation name: [email or web address]
--- NOTE | 2019-01-15 11:46 | ER Document Report ---
Doctor's Note Notes: 01/15/19 11:45 Patient's MRCP shows bile duct narrowing with no cholelithiasis. I discussed her MRCP results with Dr. Yousif who feels that she still likely is requiring ERCP given the narrowing in the biliary duct. He does still recommend for her to be transferred for outside facility where she can have a GI consult and ERCP done. Patient has been ordered another dose of pain medicine but has otherwise remained hemodynamically stable. Plan to transfer when bed becomes available at [facility].
[2019-01-15] MEDS ORDERED: HYDROMORPHONE HCL INJ/PF 2 MG/ML AMPULE IV SCH (16:15)
[2019-01-15 18:27] VITALS: BP 102/74
== END 2019-01-15 19:13 | disposition short-term general hospital (02) ==
LOC: ER 17:53
DX: K85.90 Acute pancreatitis without necrosis or infection, unspecified (principal); K86.1 Other chronic pancreatitis; K83.8 Other specified diseases of biliary tract; N39.0 Urinary tract infection, site not specified; R74.0 Nonspecific elevation of levels of transaminase and lactic acid dehydrogenase [LDH]; R74.8 Abnormal levels of other serum enzymes; R61 Generalized hyperhidrosis; R68.83 Chills (without fever); F17.200 Nicotine dependence, unspecified, uncomplicated; I10 Essential (primary) hypertension; M54.9 Dorsalgia, unspecified
CPT/HCPCS: 96376; 99285; 96372; 96361; 96375; 96365; 36415 ×2; 87040; 87086; 83690; 85025; 81025; 87088; 80053; 81001; 87186; 74181; 76705; J1885; J1170; J2405; J7030; J0696

== ENCOUNTER 2019-03-04 13:08 | Emergency (ER) | payer OTHER ==
--- NOTE | 2019-03-04 14:51 | ER Document Report ---
ED Medical Screen (RME) - General Chief Complaint: Vaginal Bleeding Stated Complaint: ABDOMINAL PAIN Time Seen by Provider: 03/04/19 14:48 Primary Care Provider: PEDRO ORTIZ PA-C [Primary Care Provider] - Follow up as needed Mode of Arrival: Ambulatory Information source: Patient Notes: 33-year-old female presented to ED for complaint of right pelvic pain x3 days. She states 3 days ago she started with heavy vaginal bleeding which has continued for the last 3 days. She stated 2 days ago she had some vomiting fever and chills. She states that lasted for 1 day she had 4 emesis and then it stopped. She states the pelvic pain cramping sharp and vaginal bleeding have continued. Patient is alert oriented respirations regular and unlabored speaking in full sentences. She is a 8 para 7 with 1 miscarriage. She states she has also had a bilateral tubal ligation. I have greeted and performed a rapid initial assessment of this patient. A comprehensive ED assessment and evaluation of the patient, analysis of test results and completion of medical decision making process will be conducted by an additional ED providers. Dictation of this chart was performed using voice recognition software; therefore, there may be some unintended grammatical errors. TRAVEL OUTSIDE OF THE [place] IN LAST 30 DAYS: No - Related Data Allergies/Adverse Reactions: No Known Allergies Allergy (Verified 03/04/19 13:30) Past Medical History - Social History Chew tobacco use (# tins/day): No Frequency of alcohol use: None Drug Abuse: None - Past Medical History Cardiac Medical History: Reports: Hx Hypercholesterolemia, Hx Hypertension Pulmonary Medical History: Denies: Hx Tuberculosis Neurological Medical History: Denies: Hx Cerebrovascular Accident, Hx Seizures Endocrine Medical History: Denies: Hx Diabetes Mellitus Type 2, Hx Hypothyroidism Renal/ Medical History: Denies: Hx Peritoneal Dialysis, Hx Pelvic Inflammatory Disease GI Medical History: Reports: Hx Gastroesophageal Reflux Disease, Hx Pancreatitis Psychiatric Medical History: Reports: Hx Anxiety Past Surgical History: Reports: Hx Abdominal Surgery - iud retrieval, hernia repair, Hx Pancreatic Surgery - x2 placed a stent, Hx Tubal Ligation, Other - Pancreatic stent placement. Denies: Hx Pacemaker - Immunizations Hx Diphtheria, Pertussis, Tetanus Vaccination: Yes History of Influenza Vaccine for 06/2017 - 11/2017 Season: Refused Physical Exam - Vital signs Vitals: Temp Pulse Resp BP Pulse Ox 98.6 F 66 18 123/99 H 99 03/04/19 13:44 03/04/19 13:44 03/04/19 13:44 03/04/19 13:44 03/04/19 13:44 Course - Vital Signs Vital signs: Temp Pulse Resp BP Pulse Ox 98.6 F 66 18 123/99 H 99 03/04/19 13:44 03/04/19 13:44 03/04/19 13:44 03/04/19 13:44 03/04/19 13:44 Doctor's Discharge - Discharge Referrals: PEDRO ORTIZ PA-C [Primary Care Provider] - Follow up as needed
[2019-03-04 15:34] LABS: ABSOLUTE BASOPHILS # (AUTO) 0.1 10^3/uL (0.0-0.2); ABSOLUTE EOSINOPHILS # (AUTO) 0.2 10^3/uL (0.0-0.6); ABSOLUTE NEUT (AUTO) 7.7 10^3/uL (1.7-8.2); EOSINOPHILS % (AUTO) 1.5 % (0-6); HEMATOCRIT 42.1 % (36.0-47.0); LYMPHOCYTES % (AUTO) 18.1 % (13-45); MEAN CORPUSCULAR HEMOGLOBIN 33.8 pg (27.0-33.4); MEAN CORPUSCULAR HGB CONC 33.3 g/dL (32.0-36.0); MEAN CORPUSCULAR VOLUME 102 fl (80-97); MONOCYTES % (AUTO) 9.4 % (3-13); PLATELET COUNT 231 10^3/uL (150-450); RED BLOOD COUNT 4.15 10^6/uL (3.72-5.28); RED CELL DISTRIBUTION WIDTH 15.9 % (11.5-14.0); TOTAL CELLS COUNTED % (AUTO) 100 %; WHITE BLOOD COUNT 11.1 10^3/uL (4.0-10.5)
[2019-03-04 15:42] LABS: APPEARANCE,URINE SLIGHTLY-CLOUDY; BILIRUBIN,URINE SMALL (NEGATIVE); COLOR,URINE AMBER; GLUCOSE, URINE NEGATIVE (NEGATIVE); KETONES,URINE NEGATIVE (NEGATIVE); LEUKOCYTE ESTERASE,URINE TRACE (NEGATIVE); NITRITE,URINE NEGATIVE (NEGATIVE); PROTEIN,URINE 100 mg/dL (NEGATIVE); URINE SPECIFIC GRAVITY 1.031
[2019-03-04 15:44] LABS: ALANINE AMINOTRANSFERASE 154 U/L (9-52); ALBUMIN 4.1 g/dL (3.5-5.0); ALKALINE PHOSPHATASE 176 U/L (38-126); ANION GAP 10 (5-19); ASPARTATE AMINO TRANSFERASE 225 U/L (14-36); BILIRUBIN,DIRECT 0.6 mg/dL (0.0-0.4); BLOOD UREA NITROGEN 10 mg/dL (7-20); CALCIUM 9.4 mg/dL (8.4-10.2); CARBON DIOXIDE 24 mmol/L (22-30); CHLORIDE 106 mmol/L (98-107); GLUCOSE 104 mg/dL (75-110); POTASSIUM 3.7 mmol/L (3.6-5.0); SODIUM 140.2 mmol/L (137-145); TOTAL PROTEIN 6.9 g/dL (6.3-8.2)
--- NOTE | 2019-03-04 17:04 | RADIOLOGY REPORT (SQ) ---
EXAM DESCRIPTION: U/S NON-OB PELVIS TV W/O DOP COMPLETED DATE/TIME: 03/04/2019 4:32 pm REASON FOR STUDY: Right pelvic pain with heavy vaginal bleeding COMPARISON: MRI abdomen 01/15/2019 Abdominal ultrasound 01/15/2019 CT abdomen pelvis 11/08/2018 TECHNIQUE: Dynamic and static grayscale images acquired of the pelvis via transvaginal approach and recorded on PACS. Additional selected color Doppler and spectral images recorded. LIMITATIONS: None. FINDINGS: UTERUS: Contour normal. No mass. Uterus is 8 x 5 x 4 cm in size ENDOMETRIAL STRIPE: No focal or generalized thickening. No masses. Endometrial stripe 1 cm in thickn ess. CERVIX: Closed, 2.4 cm in length. No nabothian cysts. RIGHT OVARY AND DOPPLER: The right ovary is 1.6 x 1.4 x 1.4 cm in size with a small follicular cyst 1 cm in size. There is also an echogenic shadowing tubal ligation clip adjacent to the right ovary. LEFT OVARY AND DOPPLER: The left ovary is 1.9 x 1.4 x 1.1 cm in size. No worrisome masses. Normal art erial vascular flow without evidence for torsion. FREE FLUID: Trace cul-de-sac pelvic fluid. OTHER: No other significant finding. IMPRESSION: Trace pelvic cul-de-sac fluid. 1 cm right ovary follicular cyst Otherwise unremarkable endovaginal pelvic ultrasound TECHNICAL DOCUMENTATION: JOB ID: [id number]- All Rights Reserved Rev-01/23 Reading location - IP/workstation name: [email or web address]
--- NOTE | 2019-03-04 17:57 | ER Document Report ---
ED General - General Chief Complaint: Vaginal Bleeding Stated Complaint: ABDOMINAL PAIN Time Seen by Provider: 03/04/19 14:48 Primary Care Provider: PEDRO ORTIZ PA-C [Primary Care Provider] - Follow up as needed Mode of Arrival: Ambulatory Information source: Patient TRAVEL OUTSIDE OF THE [place] IN LAST 30 DAYS: No - HPI Patient complains to provider of: Heavy vaginal bleeding, pelvic pain, pain in the right ovary area Onset: Other - 2 days ago Onset/Duration: Sudden, Persistent Quality of pain: Sharp Severity: Severe Pain Level: 4 Associated symptoms: None Exacerbated by: Movement, Walking Relieved by: Denies Similar symptoms previously: No Recently seen / treated by doctor: No Notes: 33-year-old female coming in today with 2 days of severe pelvic pain, heavy vaginal bleeding, pain in her "right ovary". States she gets irregular periods. No fevers or chills. No nausea vomiting or diarrhea. - Related Data Allergies/Adverse Reactions: No Known Allergies Allergy (Verified 03/04/19 13:30) Past Medical History - General Information source: Patient - Social History Smoking Status: Current Every Day Smoker Chew tobacco use (# tins/day): No Frequency of alcohol use: None Drug Abuse: None Family History: Reviewed & Not Pertinent, Hypertension Patient has suicidal ideation: No Patient has homicidal ideation: No - Past Medical History Cardiac Medical History: Reports: Hx Hypercholesterolemia, Hx Hypertension Pulmonary Medical History: Denies: Hx Tuberculosis Neurological Medical History: Denies: Hx Cerebrovascular Accident, Hx Seizures Endocrine Medical History: Denies: Hx Diabetes Mellitus Type 2, Hx Hyp othyroidism Renal/ Medical History: Denies: Hx Peritoneal Dialysis, Hx Pelvic Inflammatory Disease GI Medical History: Reports: Hx Gastroesophageal Reflux Disease, Hx Pancreatitis Psychiatric Medical History: Reports: Hx Anxiety Past Surgical History: Reports: Hx Abdominal Surgery - iud retrieval, hernia repair, Hx Pancreatic Surgery - x2 placed a stent, Hx Tubal Ligation, Other - Pancreatic stent placement. Denies: Hx Pacemaker - Immunizations Hx Diphtheria, Pertussis, Tetanus Vaccination: Yes Review of Systems - Review of Systems Notes: Constitutional: No fevers. No chills. EENT: No eye redness. No eye pain. No ear pain. No sore throat. Cardiovascular: No chest pain. No palpitations. Respiratory: No cough. No shortness of breath. No respiratory distress. Gastrointestinal: Positive for nausea and vomiting Genitourinary: Pelvic pain, vaginal bleeding Musculoskeletal: Atraumatic. No swelling. No deformities. Skin: No rash or lesions. Lymphatic: No swollen lymph nodes. Neurologic: No headache. No syncope. Psychiatric: No suicidal or homicidal ideation. Physical Exam - Vital signs Vitals: Temp Pulse Resp BP Pulse Ox 98.6 F 66 18 123/99 H 99 03/04/19 13:44 03/04/19 13:44 03/04/19 13:44 03/04/19 13:44 03/04/19 13:44 - Notes Notes: General: Well-developed, well-nourished. In no acute distress. Non-toxic appearing. Cardiac: Well-perfused. Regular rate and rhythm. No murmurs, rubs, or gallops. Pulmonary: No respiratory distress. No cyanosis. Bilateral lung fiels are clear to auscultation. Abdominal: Non-distended. Non-rigid. Bowels sounds are present in all four quadrants. No guarding or rebound. HEENT: Head is atraumatic. Conjunctivae not reddened. No tearing. PERRL. EOMI. Orbits atraumatic. No periorbital swelling or erythema. Oropharynx is without erythema, swelling, or exudates. Neck: Supple. No adenopathy. No meningismus. Dermatologic: Warm with good turgor. No rash. Atraumatic. Chest: Atraumatic. No chest wall tenderness to palpation. Musculoskeletal: Moves all extremities well. No range of motion deficits. no muscular or joint tenderness. No paraspinal muscle tenderness. no midline spinal tenderness or step-off. Genitourinary: Examination deferred Neurologic: No gross neurologic deficits. Psychiatric: Normal mood. Course - Re-evaluation Re-evalutation: 03/04/19 17:56 Reviewed labs and ultrasound. No source for infection. We will go ahead and treat as irregular period, Dysfunctional uterine bleeding. - Vital Signs Vital signs: Temp Pulse Resp BP Pulse Ox 98.6 F 66 18 123/99 H 99 03/04/19 13:44 03/04/19 13:44 03/04/19 13:44 03/04/19 13:44 03/04/19 13:44 - Laboratory Result Diagrams: 03/04/19 15:10 03/04/19 15:10 Laboratory results interpreted by me: 03/04/19 03/04/19 03/04/19 15:10 15:10 15:10 WBC 11.1 H MCV 102 H MCH 33.8 H RDW 15.9 H Direct Bilirubin 0.6 H AST 225 H ALT 154 H Alkaline Phosphatase 176 H Urine Protein 100 H Urine Blood LARGE H Urine Bilirubin SMALL H Urine Urobilinogen 2.0 H Ur Leukocyte Esterase TRACE H Discharge - Discharge Clinical Impression: Irregular periods, Dysfunctional uterine bleeding, Elevated blood pressure reading Condition: Good Disposition: HOME, SELF-CARE Instructions: Dysfunctional Uterine Bleeding ([facility]) Additional Instructions: Continue taking her ibuprofen as needed. [place] 1 tab every 6 hours only as needed for severe pain. Forms: Elevated Blood Pressure Referrals: PEDRO ORTIZ PA-C [Primary Care Provider] - Follow up as needed
[2019-03-04] MEDS ORDERED: HYDROCODONE/ACETAMINOPHEN 5-325 MG (6 TAB/ER DISP) PO PRN (17:58)
[2019-03-04 18:22] VITALS: BP 98/69
== END 2019-03-04 18:16 | disposition home or self-care (01) ==
LOC: ER 13:08
DX: N93.8 Other specified abnormal uterine and vaginal bleeding (principal); N92.6 Irregular menstruation, unspecified; R10.2 Pelvic and perineal pain; R11.2 Nausea with vomiting, unspecified; I10 Essential (primary) hypertension; F17.200 Nicotine dependence, unspecified, uncomplicated; Z98.51 Tubal ligation status
CPT/HCPCS: 36415; 76830; 80053; 81001; 84703; 85025; 99284

== ENCOUNTER 2019-07-23 00:19 | Inpatient (IN) | payer OTHER ==
[2019-07-23 08:08] LABS: ABSOLUTE BASOPHILS # (AUTO) 0.1 10^3/uL (0.0-0.2); ABSOLUTE EOSINOPHILS # (AUTO) 0.3 10^3/uL (0.0-0.6); ABSOLUTE LYMPHOCYTES (AUTO) 1.6 10^3/uL (0.5-4.7); ABSOLUTE MONOCYTES (AUTO) 0.7 10^3/uL (0.1-1.4); ABSOLUTE NEUT (AUTO) 6.5 10^3/uL (1.7-8.2); BASOPHILS % (AUTO) 0.7 % (0-2); EOSINOPHILS % (AUTO) 3.5 % (0-6); HEMATOCRIT 38.2 % (36.0-47.0); HEMOGLOBIN 13.1 g/dL (12.0-15.5); LYMPHOCYTES % (AUTO) 17.6 % (13-45); MEAN CORPUSCULAR HEMOGLOBIN 33.6 pg (27.0-33.4); MEAN CORPUSCULAR HGB CONC 34.4 g/dL (32.0-36.0); MEAN CORPUSCULAR VOLUME 98 fl (80-97); MONOCYTES % (AUTO) 7.6 % (3-13); PLATELET COUNT 222 10^3/uL (150-450); RED CELL DISTRIBUTION WIDTH 15.8 % (11.5-14.0); SEGMENTED NEUTROPHILS % (AUTO) 70.6 % (42-78); TOTAL CELLS COUNTED % (AUTO) 100 %; WHITE BLOOD COUNT 9.1 10^3/uL (4.0-10.5)
[2019-07-23] MEDS ORDERED: ONDANSETRON HCL INJ/PF 4 MG/2 ML SDV IV ONE (08:16)
[2019-07-23] MEDS ORDERED: KETOROLAC TROMETHAMINE INJ/PF 30 MG/1 ML SDV IV ONE (08:17)
[2019-07-23] MEDS ORDERED: NORMAL SALINE 1000 ML 1,000 ML IV ONE ×2 (08:18→09:34)
[2019-07-23 08:24] LABS: ALBUMIN 4.4 g/dL (3.5-5.0); ALKALINE PHOSPHATASE 107 U/L (38-126); ANION GAP 13 (5-19); ASPARTATE AMINO TRANSFERASE 25 U/L (14-36); BILIRUBIN,DIRECT 0.2 mg/dL (0.0-0.4); BILIRUBIN,TOTAL 0.5 mg/dL (0.2-1.3); BLOOD UREA NITROGEN 10 mg/dL (7-20); CALCIUM 9.8 mg/dL (8.4-10.2); CARBON DIOXIDE 18 mmol/L (22-30); CHLORIDE 108 mmol/L (98-107); GLUCOSE 115 mg/dL (75-110); POTASSIUM 3.7 mmol/L (3.6-5.0); TOTAL PROTEIN 7.5 g/dL (6.3-8.2)
--- NOTE | 2019-07-23 08:57 | ER Document Report ---
Entered by TERI VILLEGAS SCRIBE 07/23/19 0749 Acting as scribe for:JORGE LINARES IV, MD ED GI/ - General Chief Complaint: Abdominal Pain Stated Complaint: ABDOMINAL PAIN,NAUSEA,DIARRHEA Time Seen by Provider: 07/23/19 07:22 Primary Care Provider: PEDRO ORTIZ PA-C [Primary Care Provider] - Follow up as needed Mode of Arrival: Ambulatory Information source: Patient Notes: Patient is a 34-year-old female with a somewhat complicated GI history including chronic pancreatitis from former EtOH abuse that presents to the emergency dep artment today with complaints of upper abdominal pain with associated nausea and back pain. 6 months ago the patient was seen here and had an MRCP performed, it was felt that the patient also needed an ERCP so she was shipped to [facility]. Patient states when she got to [facility] they had "planned on doing surgery to remove the gallstones but they did a CT scan the following day which showed the stones had moved on their own and no surgery was performed". Patient states that the back pain began about 3 days ago and the nausea started last night. Patient states she tried "dumping icy hot all over her body" last night with no relief. Patient states her last normal bowel movement was 1 week ago. Patient denies any recent EtOH abuse stating that she might have "one wine cooler a celia h now". TRAVEL OUTSIDE OF THE [place] IN LAST 30 DAYS: No - Related Data Allergies/Adverse Reactions: No Known Allergies Allergy (Verified 03/04/19 13:30) Home Medications: propranolol, Past Medical History - General Information source: Patient - Social History Smoking Status: Current Every Day Smoker Cigarette use (# per day): Yes Frequency of alcohol use: None Drug Abuse: None Lives with: Family Family History: Reviewed & Not Pertinent, Hypertension Patient has suicidal ideation: No Patient has homicidal ideation: No - Past Medical History Cardiac Medical History: Reports: Hx Hypercholesterolemia, Hx Hypertension GI Medical History: Reports: Hx Gastroesophageal Reflux Disease, Hx Pancreatitis Psychiatric Medical History: Reports: Hx Anxiety Past Surgical History: Reports: Hx Abdominal Surgery - iud retrieval, hernia repair, Hx Pancreatic Surgery - x2 placed a stent, Hx Tubal Ligation, Other - Pancreatic stent placement - Immunizations Hx Diphtheria, Pertussis, Tetanus Vaccination: Yes Review of Systems - Review of Systems Constitutional: No symptoms reported EENT: No symptoms reported Cardiovascular: No symptoms reported Respiratory: No symptoms reported Gastrointestinal: See HPI, Abdominal pain - radiating to the back, Nausea. denies: Vomiting Genitourinary: No symptoms reported Female Genitourinary: No symptoms reported Musculoskeletal: No symptoms reported Skin: No symptoms reported Hematologic/Lymphatic: No symptoms reported Neurological/Psychological: No symptoms reported -: Yes All other systems reviewed and negative Physical Exam - Vital signs Vitals: Temp Pulse Resp BP Pulse Ox 98.1 F 78 20 140/103 H 100 07/23/19 00:53 07/23/19 00:53 07/23/19 00:53 07/23/19 00:53 07/23/19 00:53 - Notes Notes: Physical Exam: General: Alert, appears well. HEENT: Normocephalic. Atraumatic. PERRL. Extraocular movements intact. Oropharynx clear. Neck: Supple. Non-tender. Respiratory: No respiratory distress. Clear and equal breath sounds bilaterally. Cardiovascular: Regular rate and rhythm. Abdominal: Epigastric and RUQ tenderness to minimal palpation. No distension. Normal Bowel Sounds. Back: No gross abnormalities. Extremities: Moves all four extremities. Upper extremities: Normal inspection. Normal ROM. Lower extremities: Normal inspection. No edema. Normal ROM. Neurological: Normal cognition. AAOx4. Normal speech. Psychological: Normal affect. Normal Mood. Skin: Warm. Dry. Normal color. Course - Re-evaluation Re-evalutation: 07/23/19 11:18 Patient is complaining of return of epigastric pain. Medical decision making: Given patient's findings on her lab work and her recurrence of pain this MD has decided to admit the patient for acute pancreatitis. - Vital Signs Vital signs: Temp Pulse Resp BP Pulse Ox 98.1 F 78 17 127/88 H 100 07/23/19 00:53 07/23/19 00:53 07/23/19 08:01 07/23/19 08:00 07/23/19 08:01 - Laboratory Result Diagrams: 07/23/19 07:59 07/23/19 07:59 Laboratory results interpreted by me: 07/23/19 07/23/19 07:59 07:59 MCV 98 H MCH 33.6 H RDW 15.8 H Chloride 108 H Carbon Dioxide 18 L Glucose 115 H Lipase 9327.6 H - Diagnostic Test Radiology reviewed: Reports reviewed - Consults PEDRO EATON NP Time consulted: 11:20 Reason for consultation: 07/23/19 11:20 ACUTE PANCREATITIS Consulted provider: will come to ER Discharge - Discharge Clinical Impression: Acute on chronic pancreatitis Condition: Fair Disposition: ADMITTED INPATIENT Admitting Provider: Rasta (Hospitalist) Unit Admitted: Medical Floor Referrals: PEDRO ORTIZ PA-C [Primary Care Provider] - Follow up as needed I personally performed the services described in the documentation, reviewed and edited the documentation which was dictated to the scribe in my presence, and it accurately records my words and actions.
--- NOTE | 2019-07-23 11:03 | RADIOLOGY REPORT (SQ) ---
EXAM DESCRIPTION: CT ABD/PELVIS WITH IV ONLY COMPLETED DATE/TIME: 07/23/2019 10:43 am REASON FOR STUDY: epigastric pain, elevated lipase COMPARISON: None. TECHNIQUE: CT scan of the abdomen and pelvis performed using helical scanning technique with dynamic intravenous contrast injection. No oral contrast. Images reviewed with lung, soft tissue, and bone windows. Reconstructed coronal and sagittal MPR images reviewed. Delayed images for evaluation of the urinary system also acquired. All images stored on PACS. All CT scanners at this facility use dose modulation, iterative reconstruction, and/or weight based d osing when appropriate to reduce radiation dose to as low as reasonably achievable (ALARA). [facility]: Dose Right [facility]: CareDose [facility]: Dose Right [facility]: Teradose 4D [facility]: Grovo CONTRAST TYPE AND DOSE: Contrast/concentration: Isovue 350.00 mg/ml; Total Contrast Delivered: 59.0 ml; Total Saline Delivered: 57.0 ml RENAL FUNCTION: CT of the abdomen with contrast from 11/08/2018. RADIATION DOSE: CT Rad equipment meets quality standard of care and radiation dose reduction techniq ues were employed. CTDIvol: 4.9 - 5.6 mGy. DLP: 500 mGy-cm.. LIMITATIONS: None. FINDINGS: LOWER CHEST: No acute findings LIVER: The geographic/punctate areas of hypoattenuation along the falciform ligament are unchanged. The portal veins are patent. SPLEEN: No splenomegaly. PANCREAS: There is mild peripancreatic stranding. The punctate calcifications in the pancreatic pare nchyma are unchanged. The pancreatic duct is normal in caliber. There is no peripancreatic collecti on. GALLBLADDER: No abnormality that is apparent on CT. ADRENAL GLANDS: No abnormality. RIGHT KIDNEY AND URETER: No solid mass, hydronephrosis, nephrolithiasis, hydroureter or ureterolithia sis. LEFT KIDNEY AND URETER: 2 mm calculus within an upper pole calyx. There is no associated hydronephro sis, hydroureter or ureterolithiasis. There is no solid mass. AORTA AND VESSELS: No aneurysm or dissection of the abdominal aorta. The portal vein is patent. RETROPERITONEUM: No retroperitoneal adenopathy, hemorrhage or mass. BOWEL AND PERITONEAL CAVITY: No bowel obstruction, bowel wall thickening or pericolonic/ perienteric inflammation. No mesenteric adenopathy, free intraperitoneal fluid or mesenteric/ peritoneal mass. APPENDIX: Normal. PELVIS: The wall of the urinary bladder is circumferentially thickened and there is stranding of the perivesicular fat. There there is a 1.2 cm hypodense lesion in the right adnexa that could represent a functional ovarian cyst. There are tubal ligation clips in place. ABDOMINAL WALL: No masses or hernias. BONES: No acute findings. OTHER: No other finding. IMPRESSION: 1. Mild peripancreatic stranding without a peripancreatic collection. Correlate with li pase to exclude an acute pancreatitis. 2. Circumferential thickening of the wall of the urinary bladder associated with stranding of the pe rivesicular fat. Correlate with urinalysis to exclude an infection. 3. 2 mm left upper pole caliceal calculus. There is no associated hydronephrosis. TECHNICAL DOCUMENTATION: JOB ID: [id number] Quality ID # [id number]: Final reports with documentation of one or more dose reduction techniques (e.g., Au tomated exposure control, adjustment of the mA and/or kV according to patient size, use of iterative reconstruction technique) 2010 [employer]- All Rights Reserved Reading location - IP/workstation name: [email or web address]-
[2019-07-23] MEDS ORDERED: HYDROMORPHONE HCL INJ/PF 2 MG/ML AMPULE IV ONE (11:12)
--- NOTE | 2019-07-23 11:36 | PDOC H&P ---
History of Present Illness Admission Date/PCP: 07/23/19 11:30 PEDRO ORTIZ PA-C Patient complains of: Abdominal pain, nausea, diarrhea History of Present Illness: NEREIDA JONES is a 34 year old female presents the ER with abdominal pain, nausea and diarrhea. Patient states she does have a history of chronic pancreatitis for EtOH abuse. Patient states this all began about 3 days ago and has progressively worsened. Patient on no treatment prior to arrival all oral intake been aggravating factor. Past Medical History Cardiac Medical History: Reports: Hyperlipidema, Hypertension Pulmonary Medical History: Denies: Tuberculosis Neurological Medical History: Denies: Seizures Endocrine Medical History: Denies: Diabetes Mellitus Type 2, Hypothyroidism GI Medical History: Reports: Gastroesophageal Reflux Disease Past Surgical History Past Surgical History: Reports: Tubal Ligation, Other - Pancreatic stent placement Denies: Pacemaker Social History Information Source: Patient Lives with: Family Smoking Status: Current Every Day Smoker Electronic Cigarette use?: No Frequency of Alcohol Use: Rare Hx Recreational Drug Use: No Drugs: None Hx Prescription Drug Abuse: No - Advance Directive Resuscitation Status: Full Code Family History Family History: Hypertension Parental Family History Reviewed: Yes Children Family History Reviewed: Yes Sibling(s) Family History Reviewed.: Yes Medication/Allergy Home Medications: Lisinopril/Hydrochlorothiazide [Zestoretic 10-12.5 mg Tablet] 1 tab PO DAILY 12/09/17 Propranolol HCl [Inderal 20 mg Tablet] 20 mg PO BID 12/09/17 Famotidine [Pepcid 20 mg Tablet] 20 mg PO DAILY #14 tablet 12/12/17 Loperamide HCl [Loperamide] 2 mg PO Q8H PRN #10 capsule 03/22/18 Magnesium Oxide 400 mg PO DAILY #5 tablet 03/22/18 Potassium Chloride [Klor-Con M10] 10 meq PO DAILY PRN 03/22/18 Albuterol Sulfate [Albuterol Sulfate 2.5mg/3 mL] 1 vial IH Q4 PRN #10 vial 06/13/18 Prednisone 40 mg PO DAILY 5 Days #10 tablet 06/13/18 Promethazine HCl/Codeine [Prometh-Codein 6.25-10 mg/5 ml] 5 ml PO QHS PRN #50 ml 06/13/18 Dicyclomine HCl [Bentyl 20 mg Tablet] 20 mg PO QID PRN #12 tablet 11/05/18 Ondansetron HCl [Zofran 4 mg Tablet] 1 - 2 tab PO Q6 PRN #15 tablet 11/05/18 Oxycodone HCl 5 mg PO Q6HP PRN #30 capsule 11/08/18 Allergies/Adverse Reactions: No Known Allergies Allergy (Verified 03/04/19 13:30) Review of Systems Constitutional: ABSENT: chills, fever(s), headache(s), weight gain, weight loss Eyes: ABSENT: visual disturbances Ears: ABSENT: hearing changes Cardiovascular: ABSENT: chest pain, dyspnea on exertion, edema, orthropnea, palpitations Respiratory: ABSENT: cough, hemoptysis Gastrointestinal: PRESENT: abdominal pain, diarrhea, nausea. ABSENT: constipation, hematemesis, hematochezia, vomiting Genitourinary: ABSENT: dysuria, hematuria Musculoskeletal: ABSENT: joint swelling Integumentary: ABSENT: rash, wounds Neurological: ABSENT: abnormal gait, abnormal speech, confusion, dizziness, focal weakness, syncope Psychiatric: ABSENT: anxiety, depression, homidical ideation, suicidal ideation Endocrine: ABSENT: cold intolerance, heat intolerance, polydipsia, polyuria Hematologic/Lymphatic: ABSENT: easy bleeding, easy bruising Physical Exam Vital Signs: Temp Pulse Resp BP Pulse Ox 98.1 F 78 24 H 107/74 99 07/23/19 00:53 07/23/19 00:53 07/23/19 11:26 07/23/19 10:00 07/23/19 11:26 Intake & Output 07/22/19 07/23/19 07/24/19 06:59 06:59 06:59 Intake Total 1000 Balance 1000 Weight 54.9 kg General appearance: PRESENT: no acute distress, well-developed, well-nourished Head exam: PRESENT: atraumatic, normocephalic Eye exam: PRESENT: conjunctiva pink, EOMI, PERRLA. ABSENT: scleral icterus Ear exam: PRESENT: normal external ear exam Mouth exam: PRESENT: moist, tongue midline Neck exam: ABSENT: carotid bruit, JVD, lymphadenopathy, thyromegaly Respiratory exam: PRESENT: clear to auscultation amanda. ABSENT: rales, rhonchi, wheezes Cardiovascular exam: PRESENT: RRR. ABSENT: diastolic murmur, rubs, systolic m urmur Pulses: PRESENT: normal dorsalis pedis pul Vascular exam: PRESENT: normal capillary refill GI/Abdominal exam: PRESENT: normal bowel sounds, soft, tenderness. ABSENT: distended, guarding, mass, organolmegaly, rebound Rectal exam: PRESENT: deferred Extremities exam: PRESENT: full ROM. ABSENT: calf tenderness, clubbing, pedal edema Neurological exam: PRESENT: alert, awake, oriented to person, oriented to place, oriented to time, oriented to situation, CN II-XII grossly intact. ABSENT: motor sensory deficit Psychiatric exam: PRESENT: appropriate affect, normal mood. ABSENT: homicidal ideation, suicidal ideation Skin exam: PRESENT: dry, intact, warm. ABSENT: cyanosis, rash Results Laboratory Results: 07/23/19 07:59 07/23/19 07:59 07/23/19 07/23/19 07/23/19 07:59 07:59 07:59 WBC 9.1 RBC 3.90 Hgb 13.1 Hct 38.2 MCV 98 H MCH 33.6 H MCHC 34.4 RDW 15.8 H Plt Count 222 Seg Neutrophils % 70.6 Sodium 138.9 Potassium 3.7 Chloride 108 H Carbon Dioxide 18 L Anion Gap 13 BUN 10 Creatinine 0.62 Est GFR ( Amer) > 60 Glucose 115 H Calcium 9.8 Total Bilirubin 0.5 AST 25 Alkaline Phosphatase 107 Total Protein 7.5 Albumin 4.4 Lipase 9327.6 H Serum HCG, Qual NEGATIVE Impressions: Abdomen/Pelvis CT 07/23/19 09:34 IMPRESSION: 1. Mild peripancreatic stranding without a peripancreatic collection. Correlate with lipase to exclude an acute pancreatitis. 2. Circumferential thickening of the wall of the urinary bladder associated with stranding of the perivesicular fat. Correlate with urinalysis to exclude an infection. 3. 2 mm left upper pole caliceal calculus. There is no associated hydronephrosis. Assessment and Plan - Diagnosis (1) Acute on chronic pancreatitis Is this a current diagnosis for this admission?: Yes Plan: 07/23/2019-admit to [facility]. N.p.o. Normal saline at 175 mL/h. Dilaudid 1 mg IV every 2 hours as needed pain. Reassess lipase in the morning initiate diet as soon as patient can tolerate (2) Hyperglycemia Is this a current diagnosis for this admission?: Yes Plan: -A1c. Change treatment plan is appropriate (3) Tobacco abuse Is this a current diagnosis for this admission?: Yes Plan: -continue to educate about the positive benefits of smoking cessation (4) Nausea & vomiting Is this a current diagnosis for this admission?: Yes Plan: 07/23/2019-Zofran 4 mill grams IV every 4 hours. - Time Time Spent with patient: 35 or more minutes - Inpatient Certification Based on my medical assessment, after consideration of the patient's comorbidities, presenting symptoms, or acuity I expect that the services needed warrant INPATIENT care.: Yes I certify that my determination is in accordance with my understanding of Medicare's requirements for reasonable and necessary INPATIENT services [42 CFR 412.3e].: Yes Medical Necessity: Need For IV Fluids, Need for Pain Control
[2019-07-23 11:51] LABS: APPEARANCE,URINE SLIGHTLY-CLOUDY; BILIRUBIN,URINE NEGATIVE (NEGATIVE); COLOR,URINE STRAW; GLUCOSE, URINE NEGATIVE (NEGATIVE); KETONES,URINE 20 mg/dL (NEGATIVE); LEUKOCYTE ESTERASE,URINE NEGATIVE (NEGATIVE); NITRITE,URINE NEGATIVE (NEGATIVE); PROTEIN,URINE NEGATIVE (NEGATIVE); URINE SPECIFIC GRAVITY 1.006; UROBILINOGEN,URINE NEGATIVE mg/dL (<2.0)
[2019-07-23] MEDS: HYDROMORPHONE HCL INJ/PF 2 MG/ML AMPULE IV PRN ×3 (15:09→21:22)
[2019-07-23] MEDS: NORMAL SALINE 1000 ML 1,000 ML IV PRN ×2 (15:10→21:22)
[2019-07-23] MEDS ORDERED: INFLUENZA QUAD (6MOS+) 2019-20 VAC 0.5 ML SYR IM ONE (15:36)
[2019-07-23] MEDS: KETOROLAC TROMETHAMINE INJ/PF 30 MG/1 ML SDV IV PRN (18:09)
[2019-07-24] MEDS: KETOROLAC TROMETHAMINE INJ/PF 30 MG/1 ML SDV IV PRN ×4 (00:15→19:20)
[2019-07-24] MEDS: HYDROMORPHONE HCL INJ/PF 2 MG/ML AMPULE IV PRN ×8 (00:15→22:30)
[2019-07-24] MEDS: NORMAL SALINE 1000 ML 1,000 ML IV PRN ×4 (03:40→23:03)
[2019-07-24 05:33] LABS: HEMATOCRIT 36.1 % (36.0-47.0); HEMOGLOBIN 12.2 g/dL (12.0-15.5); MEAN CORPUSCULAR HEMOGLOBIN 33.5 pg (27.0-33.4); MEAN CORPUSCULAR HGB CONC 33.7 g/dL (32.0-36.0); MEAN CORPUSCULAR VOLUME 99 fl (80-97); PLATELET COUNT 205 10^3/uL (150-450); RED BLOOD COUNT 3.63 10^6/uL (3.72-5.28); RED CELL DISTRIBUTION WIDTH 15.5 % (11.5-14.0)
[2019-07-24 05:50] LABS: ANION GAP 7 (5-19); BLOOD UREA NITROGEN 8 mg/dL (7-20); CALCIUM 8.2 mg/dL (8.4-10.2); CARBON DIOXIDE 18 mmol/L (22-30); CHLORIDE 113 mmol/L (98-107); GLUCOSE 95 mg/dL (75-110); PHOSPHORUS 2.7 mg/dL (2.5-4.5); POTASSIUM 3.6 mmol/L (3.6-5.0)
[2019-07-24] MEDS: ONDANSETRON HCL INJ/PF 4 MG/2 ML SDV IV PRN ×2 (07:02→22:38)
--- NOTE | 2019-07-24 09:17 | PDOC PROGRESS REPORT ---
Subjective Progress Note for:: 07/24/19 Subjective:: 07/24/2019-improved abdominal pain Reason For Visit: ACUTE PANCREATITIS Physical Exam Vital Signs: Temp Pulse Resp BP Pulse Ox 98.5 F 65 16 128/93 H 100 07/23/19 23:00 07/23/19 23:00 07/23/19 23:00 07/23/19 23:00 07/23/19 23:00 Intake & Output 07/23/19 07/24/19 07/25/19 06:59 06:59 06:59 Intake Total 4000 Balance 4000 Weight 54.9 kg 55.3 kg General appearance: PRESENT: no acute distress, well-developed, well-nourished Head exam: PRESENT: atraumatic, normocephalic Eye exam: PRESENT: conjunctiva pink, EOMI, PERRLA. ABSENT: scleral icterus Ear exam: PRESENT: normal external ear exam Mouth exam: PRESENT: moist, tongue midline Neck exam: ABSENT: carotid bruit, JVD, lymphadenopathy, thyromegaly Respiratory exam: PRESENT: clear to auscultation amanda. ABSENT: rales, rhonchi, wheezes Cardiovascular exam: PRESENT: RRR. ABSENT: diastolic murmur, rubs, systolic murmur Pulses: PRESENT: normal dorsalis pedis pul Vascular exam: PRESENT: normal capillary refill GI/Abdominal exam: PRESENT: normal bowel sounds, soft. ABSENT: distended, guarding, mass, organolmegaly, rebound, tenderness Rectal exam: PRESENT: deferred Extremities exam: PRESENT: full ROM. ABSENT: calf tenderness, clubbing, pedal edema Neurological exam: PRESENT: alert, awake, oriented to person, oriented to place, oriented to time, oriented to situation, CN II-XII grossly intact. ABSENT: motor sensory deficit Psychiatric exam: PRESENT: appropriate affect, normal mood. ABSENT: homicidal ideation, suicidal ideation Skin exam: PRESENT: dry, intact, warm. ABSENT: cyanosis, rash Results Laboratory Results: 07/24/19 03:52 07/24/19 03:52 07/23/19 07/23/19 07/24/19 07:59 10:42 03:52 WBC 7.0 RBC 3.63 L Hgb 12.2 Hct 36.1 MCV 99 H MCH 33.5 H MCHC 33.7 RDW 15.5 H Plt Count 205 Sodium 138.9 Potassium 3.7 Chloride 108 H Carbon Dioxide 18 L Anion Gap 13 BUN 10 Creatinine 0.62 Est GFR ( Amer) > 60 Glucose 115 H Calcium 9.8 Phosphorus Magnesium Total Bilirubin 0.5 AST 25 Alkaline Phosphatase 107 Total Protein 7.5 Albumin 4.4 Lipase 9327.6 H Urine Color STRAW Urine Appearance SLIGHTLY-CLOUDY Urine pH 7.0 Ur Specific [place] 1.006 Urine Protein NEGATIVE Urine Glucose (UA) NEGATIVE Urine Ketones 20 H Urine Blood NEGATIVE Urine Nitrite NEGATIVE Ur Leukocyte Esterase NEGATIVE Urine WBC (Auto) 3 Urine RBC (Auto) 1 07/24/19 03:52 WBC RBC Hgb Hct MCV MCH MCHC RDW Plt Count Sodium 138.3 Potassium 3.6 Chloride 113 H Carbon Dioxide 18 L Anion Gap 7 BUN 8 Creatinine 0.49 L Est GFR ( Amer) > 60 Glucose 95 Calcium 8.2 L Phosphorus 2.7 Magnesium 1.6 Total Bilirubin AST Alkaline Phosphatase Total Protein Albumin Lipase 5044.5 H Urine Color Urine Appearance Urine pH Ur Specific [place] Urine Protein Urine Glucose (UA) Urine Ketones Urine Blood Urine Nitrite Ur Leukocyte Esterase Urine WBC (Auto) Urine RBC (Auto) Impressions: Abdomen/Pelvis CT 07/23/19 09:34 IMPRESSION: 1. Mild peripancreatic stranding without a peripancreatic collection. Correlate with lipase to exclude an acute pancreatitis. 2. Circumferential thickening of the wall of the urinary bladder associated with stranding of the perivesicular fat. Correlate with urinalysis to exclude an infection. 3. 2 mm left upper pole caliceal calculus. There is no associated hydronephrosis. Assessment and Plan - Diagnosis (1) Acute on chronic pancreatitis Is this a current diagnosis for this admission?: Yes Plan: 07/23/2019-admit to [facility]. N.p.o. Normal saline at 175 mL/h. Dilaudid 1 mg IV every 2 hours as needed pain. Reassess lipase in the morning initiate diet as soon as patient can tolerate 07/24/2019-lipase down to 5000. Abdominal pain is improved. I will give patient a clear liquid diet at this time we will continue fluids and pain medication as needed. Repeat lipase in a.m. (2) Hyperglycemia Is this a current diagnosis for this admission?: Yes Plan: -A1c. Change treatment plan is appropriate 07/24/2019-A1c 4.8 no changes plan of care (3) Tobacco abuse Is this a current diagnosis for this admission?: Yes Plan: -continue to educate about the positive benefits of smoking cessation 07/24/2019-continue tobacco cessation education (4) Nausea & vomiting Is this a current diagnosis for this admission?: Yes Plan: 07/23/2019-Zofran 4 mill grams IV every 4 hours. 07/24/2019-continue antiemetics as necessary
[2019-07-24] MEDS: PROPRANOLOL HCL 20 MG TABLET PO SCH ×2 (11:59→22:30)
[2019-07-24] MEDS: HYDRALAZINE HCL INJ/PF 20 MG/1 ML SDV IV PRN (14:14)
[2019-07-25] MEDS: KETOROLAC TROMETHAMINE INJ/PF 30 MG/1 ML SDV IV PRN ×4 (01:23→22:27)
[2019-07-25] MEDS: HYDROMORPHONE HCL INJ/PF 2 MG/ML AMPULE IV PRN ×8 (01:23→22:26)
[2019-07-25] MEDS: NORMAL SALINE 1000 ML 1,000 ML IV PRN ×3 (04:33→19:51)
[2019-07-25] MEDS: ONDANSETRON HCL INJ/PF 4 MG/2 ML SDV IV PRN ×2 (06:47→16:14)
--- NOTE | 2019-07-25 08:19 | PDOC PROGRESS REPORT ---
Subjective Progress Note for:: 07/25/19 Subjective:: 07/24/2019-improved abdominal pain 07/25/2019-continues improvement abdominal pain no complaints this a.m. taking a regular diet this morning. Reason For Visit: ACUTE PANCREATITIS Physical Exam Vital Signs: Temp Pulse Resp BP Pulse Ox 98.0 F 77 16 119/87 H 100 07/24/19 23:00 07/24/19 23:00 07/24/19 23:00 07/24/19 23:00 07/24/19 23:00 Intake & Output 07/24/19 07/25/19 07/26/19 06:59 06:59 06:59 Intake Total 4000 4835 Balance 4000 4835 Weight 55.3 kg 55.9 kg General appearance: PRESENT: no acute distress, well-developed, well-nourished Head exam: PRESENT: atraumatic, normocephalic Eye exam: PRESENT: conjunctiva pink, EOMI, PERRLA. ABSENT: scleral icterus Ear exam: PRESENT: normal external ear exam Mouth exam: PRESENT: moist, tongue midline Neck exam: ABSENT: carotid bruit, JVD, lymphadenopathy, thyromegaly Respiratory exam: PRESENT: clear to auscultation amanda. ABSENT: rales, rhonchi, wheezes Cardiovascular exam: PRESENT: RRR. ABSENT: diastolic murmur, rubs, systolic murmur Pulses: PRESENT: normal dorsalis pedis pul Vascular exam: PRESENT: normal capillary refill GI/Abdominal exam: PRESENT: normal bowel sounds, soft, tenderness. ABSENT: distended, guarding, mass, organolmegaly, rebound Rectal exam: PRESENT: deferred Extremities exam: PRESENT: full ROM. ABSENT: calf tenderness, clubbing, pedal edema Neurological exam: PRESENT: alert, awake, oriented to person, oriented to place, oriented to time, oriented to situation, CN II-XII grossly intact. ABSENT: m otor sensory deficit Psychiatric exam: PRESENT: appropriate affect, normal mood. ABSENT: homicidal ideation, suicidal ideation Skin exam: PRESENT: dry, intact, warm. ABSENT: cyanosis, rash Results Laboratory Results: 07/24/19 03:52 07/24/19 03:52 07/25/19 04:02 Lipase 3944.2 H Impressions: Abdomen/Pelvis CT 07/23/19 09:34 IMPRESSION: 1. Mild peripancreatic stranding without a peripancreatic collection. Correlate with lipase to exclude an acute pancreatitis. 2. Circumferential thickening of the wall of the urinary bladder associated with stranding of the perivesicular fat. Correlate with urinalysis to exclude an infection. 3. 2 mm left upper pole caliceal calculus. There is no associated hydronephrosis. Assessment and Plan - Diagnosis (1) Acute on chronic pancreatitis Is this a current diagnosis for this admission?: Yes Plan: 07/23/2019-admit to [facility]. N.p.o. Normal saline at 175 mL/h. Dilaudid 1 mg IV every 2 hours as needed pain. Reassess lipase in the morning initiate diet as soon as patient can tolerate 07/24/2019-lipase down to 5000. Abdominal pain is improved. I will give patient a clear liquid diet at this time we will continue fluids and pain medication as needed. Repeat lipase in a.m. 07/25/2019-lipase down to 3000 range. Abdominal pain is improved patient is taking a diet at this time. We will continue fluids repeat lipase in the a.m. (2) Hyperglycemia Is this a current diagnosis for this admission?: Yes Plan: -A1c. Change treatment plan is appropriate 07/24/2019-A1c 4.8 no changes plan of care 07/25/2019-stable (3) Tobacco abuse Is this a current diagnosis for this admission?: Yes Plan: -continue to educate about the positive benefits of smoking cessation 07/24/2019-continue tobacco cessation education . 07/25/2019-continue education about tobacco cessation (4) Nausea & vomiting Is this a current diagnosis for this admission?: Yes Plan: 07/23/2019-Zofran 4 mill grams IV every 4 hours. 07/24/2019-continue antiemetics as necessary 07/25/2019-antiemetics as necessary - Time Time Spent with patient: 15-24 minutes - Inpatient Certification Based on my medical assessment, after consideration of the patient's comorbidities, presenting symptoms, or acuity I expect that the services needed warrant INPATIENT care.: Yes I certify that my determination is in accordance with my understanding of Medicare's requirements for reasonable and necessary INPATIENT services [42 CFR 412.3e].: Yes Medical Necessity: Need for Pain Control, Need for IV Antibiotics
[2019-07-25] MEDS: PROPRANOLOL HCL 20 MG TABLET PO SCH ×2 (10:10→22:27)
[2019-07-25] MEDS: DOCUSATE SODIUM 100 MG CAPSULE PO SCH (17:17)
[2019-07-25] MEDS ORDERED: FUROSEMIDE INJ/PF 20 MG/2 ML SDV IV ONE (18:00)
[2019-07-25] MEDS: ZOLPIDEM TARTRATE 5 MG TABLET PO PRN (23:04)
[2019-07-26] MEDS: NORMAL SALINE 1000 ML 1,000 ML IV PRN ×2 (08:15→19:57)
[2019-07-26] MEDS: HYDROMORPHONE HCL INJ/PF 2 MG/ML AMPULE IV PRN ×4 (08:18→22:10)
[2019-07-26] MEDS: KETOROLAC TROMETHAMINE INJ/PF 30 MG/1 ML SDV IV PRN ×3 (08:22→22:10)
--- NOTE | 2019-07-26 10:13 | PDOC PROGRESS REPORT ---
Subjective Progress Note for:: 07/26/19 Subjective:: 07/24/2019-improved abdominal pain 07/25/2019-continues improvement abdominal pain no complaints this a.m. taking a regular diet this morning. 07/26/2019-continues improvement however diet has made her stomach pain continue. I have decreased her back down to a clear liquid at this time. P lipase in a.m. Reason For Visit: ACUTE PANCREATITIS Physical Exam Vital Signs: Temp Pulse Resp BP Pulse Ox 98.7 F 87 17 135/90 H 99 07/26/19 07:23 07/26/19 07:23 07/26/19 07:23 07/26/19 07:23 07/26/19 07:23 Intake & Output 07/25/19 07/26/19 07/27/19 06:59 06:59 06:59 Intake Total 4835 5000 Balance 4835 5000 Weight 55.9 kg 56.4 kg Results Laboratory Results: 07/24/19 03:52 07/24/19 03:52 07/26/19 04:34 Lipase 3420.0 H Impressions: Abdomen/Pelvis CT 07/23/19 09:34 IMPRESSION: 1. Mild peripancreatic stranding without a peripancreatic collection. Correlate with lipase to exclude an acute pancreatitis. 2. Circumferential thickening of the wall of the urinary bladder associated with stranding of the perivesicular fat. Correlate with urinalysis to exclude an infection. 3. 2 mm left upper pole caliceal calculus. There is no associated hydronephrosis. Assessment and Plan - Diagnosis (1) Acute on chronic pancreatitis Is this a current diagnosis for this admission?: Yes Plan: 07/23/2019-admit to [facility]. N.p.o. Normal saline at 175 mL/h. Dilaudid 1 mg IV every 2 hours as needed pain. Reassess lipase in the morning initiate diet as soon as patient can tolerate 07/24/2019-lipase down to 5000. Abdominal pain is improved. I will give patient a clear liquid diet at this time we will continue fluids and pain medication as needed. Repeat lipase in a.m. 07/25/2019-lipase down to 3000 range. Abdominal pain is improved patient is taking a diet at this time. We will continue fluids repeat lipase in the a.m. . 07/26/2019-lipase still in the 3000 range. Decreased diet back down to clear liquid. Continue fluids repeat lipase in the a.m. (2) Hyperglycemia Is this a current diagnosis for this admission?: Yes Plan: -A1c. Change treatment plan is appropriate 07/24/2019-A1c 4.8 no changes plan of care 07/25/2019-stable 07/26/2019-stable (3) Tobacco abuse Is this a current diagnosis for this admission?: Yes Plan: -continue to educate about the positive benefits of smoking cessation 07/24/2019-continue tobacco cessation education . 07/25/2019-continue education about tobacco cessation 8018-tobacco cessation education (4) Nausea & vomiting Is this a current diagnosis for this admission?: Yes Plan: 07/23/2019-Zofran 4 mill grams IV every 4 hours. 07/24/2019-continue antiemetics as necessary 07/25/2019-antiemetics as necessary 07/26/2019-continue antiemetics as necessary - Time Time Spent with patient: 15-24 minutes - Inpatient Certification Based on my medical assessment, after consideration of the patient's comorbidities, presenting symptoms, or acuity I expect that the services needed warrant INPATIENT care.: Yes I certify that my determination is in accordance with my understanding of Medicare's requirements for reasonable and necessary INPATIENT services [42 CFR 412.3e].: Yes Medical Necessity: Need For IV Fluids, Need for Pain Control
[2019-07-26] MEDS: DOCUSATE SODIUM 100 MG CAPSULE PO SCH ×2 (10:18→17:47)
[2019-07-26] MEDS: PROPRANOLOL HCL 20 MG TABLET PO SCH ×2 (10:18→22:09)
[2019-07-26] MEDS: HYDRALAZINE HCL INJ/PF 20 MG/1 ML SDV IV PRN (16:01)
[2019-07-26] MEDS: HYDROXYZINE HCL 10 MG TABLET PO PRN (16:04)
[2019-07-26] MEDS: ZOLPIDEM TARTRATE 5 MG TABLET PO PRN (23:03)
[2019-07-27] MEDS: NORMAL SALINE 1000 ML 1,000 ML IV PRN ×4 (02:12→22:44)
[2019-07-27] MEDS: HYDROMORPHONE HCL INJ/PF 2 MG/ML AMPULE IV PRN ×5 (02:18→20:35)
[2019-07-27] MEDS: ONDANSETRON HCL INJ/PF 4 MG/2 ML SDV IV PRN ×2 (02:18→11:23)
[2019-07-27 05:34] LABS: ANION GAP 6 (5-19); BLOOD UREA NITROGEN 4 mg/dL (7-20); CALCIUM 8.2 mg/dL (8.4-10.2); CARBON DIOXIDE 20 mmol/L (22-30); CHLORIDE 114 mmol/L (98-107); GLUCOSE 85 mg/dL (75-110); POTASSIUM 3.7 mmol/L (3.6-5.0)
[2019-07-27] MEDS: KETOROLAC TROMETHAMINE INJ/PF 30 MG/1 ML SDV IV PRN ×3 (07:28→22:44)
[2019-07-27] MEDS: DOCUSATE SODIUM 100 MG CAPSULE PO SCH ×2 (09:26→17:11)
[2019-07-27] MEDS: PROPRANOLOL HCL 20 MG TABLET PO SCH ×2 (09:28→21:19)
--- NOTE | 2019-07-27 14:05 | PDOC PROGRESS REPORT ---
Subjective Progress Note for:: 07/27/19 Subjective:: Patient states that pain has improved. Patient states she was found to have cholelithiasis on last pancreatitis flare however no cholecystectomy was performed. Denies any triggers or drinking any significant amount of alcohol before current flare. Reason For Visit: ACUTE PANCREATITIS Physical Exam Vital Signs: Temp Pulse Resp BP Pulse Ox 98.3 F 59 L 15 142/88 H 100 07/27/19 11:38 07/27/19 11:38 07/27/19 11:38 07/27/19 11:38 07/27/19 11:38 Intake & Output 07/26/19 07/27/19 07/28/19 06:59 06:59 06:59 Intake Total 5000 4936 1925 Balance 5000 4936 1925 Weight 56.4 kg 56.5 kg General appearance: PRESENT: no acute distress, cooperative Neck exam: ABSENT: JVD Respiratory exam: PRESENT: clear to auscultation amanda, unlabored. ABSENT: chest wall tenderness, retraction, tachypnea, wheezes Cardiovascular exam: PRESENT: RRR, +S1, +S2. ABSENT: diastolic murmur, systolic murmur, tachycardia GI/Abdominal exam: PRESENT: normal bowel sounds, soft, tenderness. ABSENT: guarding - Urine for years, rebound, rigid Neurological exam: PRESENT: alert, awake, oriented to person, oriented to place, oriented to time, oriented to situation - Likely Results Laboratory Results: 07/24/19 03:52 07/27/19 03:19 07/27/19 03:19 Sodium 140.0 Potassium 3.7 Chloride 114 H Carbon Dioxide 20 L Anion Gap 6 BUN 4 L Creatinine 0.50 L Est GFR ( Amer) > 60 Glucose 85 Calcium 8.2 L Lipase 2034.8 H Impressions: Abdomen/Pelvis CT 07/23/19 09:34 IMPRESSION: 1. Mild peripancreatic stranding without a peripancreatic collection. Correlate with lipase to exclude an acute pancreatitis. 2. Circumferential thickening of the wall of the urinary bladder associated with stranding of the perivesicular fat. Correlate with urinalysis to exclude an infection. 3. 2 mm left upper pole caliceal calculus. There is no associated hydronephrosis. Assessment and Plan - Diagnosis (1) Acute on chronic pancreatitis Is this a current diagnosis for this admission?: Yes Plan: Continue aggressive IV fluids hydration and IV pain medication We will check right upper quadrant ultrasound for biliary tract evaluation No need to continue trending lipase (2) Hyperglycemia Is this a current diagnosis for this admission?: Yes Plan: Resolved (3) Tobacco abuse Is this a current diagnosis for this admission?: Yes Plan: Counseled on smoking cessation - Time Time Spent with patient: 15-24 minutes
[2019-07-27] MEDS: HYDROXYZINE HCL 10 MG TABLET PO PRN (16:27)
[2019-07-27] MEDS: HYDRALAZINE HCL INJ/PF 20 MG/1 ML SDV IV PRN (18:29)
[2019-07-27] MEDS: ZOLPIDEM TARTRATE 5 MG TABLET PO PRN (22:44)
[2019-07-28] MEDS: HYDROMORPHONE HCL INJ/PF 2 MG/ML AMPULE IV PRN ×5 (00:53→17:44)
[2019-07-28] MEDS: KETOROLAC TROMETHAMINE INJ/PF 30 MG/1 ML SDV IV PRN ×2 (04:53→12:22)
[2019-07-28] MEDS: ONDANSETRON HCL INJ/PF 4 MG/2 ML SDV IV PRN (04:58)
--- NOTE | 2019-07-28 05:05 | RADIOLOGY REPORT (SQ) ---
EXAM DESCRIPTION: US ABDOMEN DOPPLER LIMITED COMPLETED DATE/TME: 07/28/2019 00:00 CLINICAL HISTORY: 34 years, Female, RUQ. Biliary tract evaluation. Pancreatitis. COMPARISON: CT dated 07/23/2019 TECHNIQUE: Grayscale and Doppler sonogram of the abdomen. LIMITATIONS: None. FINDINGS: Calcifications are noted within the pancreas. No definite peripancreatic fluid is identified. The visualized portions of the abdominal aorta and IVC appear unremarkable. The liver is normal in size, shape, and echotexture. The liver measures 14.0 cm. There is a mild amount of fluid around the liver. The main portal vein demonstrates normal hepatopedal flow. There is a 1.2 cm echogenic lesion within the right hepatic lobe, likely representing a hemangioma. The gallbladder demonstrates thickened rubi measuring up to 6 mm in thickness. No evidence of cholelithiasis. There is a trace amount of pericholecystic fluid. A positive sonographic Kelly sign was elicited. The common bile duct is normal in caliber measuring up to 4 mm. The right kidney measures 10.9 x 3.8 x 5.4 cm. No hydronephrosis. IMPRESSION: Thickened gallbladder wall with a small amount of pericholecystic fluid and positive sonographic Kelly sign. No evidence of cholelithiasis. These findings are concerning for acute acalculous cholecystitis. Calcifications within the pancreas, likely related to chronic pancreatitis. Recommend correlation with amylase and lipase if there is concern for acute pancreatitis. copyright 2010 [employer]- All Rights Reserved
[2019-07-28] MEDS ORDERED: GLUCAGON,HUMAN RECOMB 1 MG INJ SUBCUT PRN (05:23)
[2019-07-28] MEDS ORDERED: DEXTROSE 50%-WATER 25 GM/50 ML DISP.SYRIN IV PRN ×2 (05:23)
[2019-07-28] MEDS ORDERED: DEXTROSE 40% GEL 15 GM TUBE PO PRN ×2 (05:23)
[2019-07-28 05:59] LABS: ABSOLUTE BASOPHILS # (AUTO) 0.1 10^3/uL (0.0-0.2); ABSOLUTE EOSINOPHILS # (AUTO) 0.2 10^3/uL (0.0-0.6); ABSOLUTE LYMPHOCYTES (AUTO) 1.9 10^3/uL (0.5-4.7); ABSOLUTE MONOCYTES (AUTO) 0.6 10^3/uL (0.1-1.4); BASOPHILS % (AUTO) 0.9 % (0-2); EOSINOPHILS % (AUTO) 2.5 % (0-6); HEMATOCRIT 29.6 % (36.0-47.0); HEMOGLOBIN 10.1 g/dL (12.0-15.5); LYMPHOCYTES % (AUTO) 28.1 % (13-45); MEAN CORPUSCULAR HEMOGLOBIN 33.9 pg (27.0-33.4); MEAN CORPUSCULAR HGB CONC 34.2 g/dL (32.0-36.0); MEAN CORPUSCULAR VOLUME 99 fl (80-97); MONOCYTES % (AUTO) 9.2 % (3-13); PLATELET COUNT 269 10^3/uL (150-450); RED BLOOD COUNT 2.98 10^6/uL (3.72-5.28); RED CELL DISTRIBUTION WIDTH 15.7 % (11.5-14.0); SEGMENTED NEUTROPHILS % (AUTO) 59.3 % (42-78); TOTAL CELLS COUNTED % (AUTO) 100 %; WHITE BLOOD COUNT 6.7 10^3/uL (4.0-10.5)
[2019-07-28 06:16] LABS: ALBUMIN 2.9 g/dL (3.5-5.0); ALKALINE PHOSPHATASE 70 U/L (38-126); ANION GAP 8 (5-19); ASPARTATE AMINO TRANSFERASE 26 U/L (14-36); BILIRUBIN,DIRECT 0.1 mg/dL (0.0-0.4); BILIRUBIN,TOTAL 0.2 mg/dL (0.2-1.3); BLOOD UREA NITROGEN 8 mg/dL (7-20); CALCIUM 8.8 mg/dL (8.4-10.2); CARBON DIOXIDE 19 mmol/L (22-30); CHLORIDE 111 mmol/L (98-107); GLUCOSE 85 mg/dL (75-110); POTASSIUM 3.6 mmol/L (3.6-5.0); TOTAL PROTEIN 5.5 g/dL (6.3-8.2)
[2019-07-28] MEDS: NORMAL SALINE 1000 ML 1,000 ML IV PRN (06:17)
--- NOTE | 2019-07-28 06:18 | PDOC CONSULTATION ---
Consultation Consult Date: 07/28/19 Provider Consulted: SONA MOELLER Consult reason:: Thickened gallbladder wall on ultrasound History of Present Illness Admission Date/PCP: 07/25/19 11:36 PEDRO ORTIZ PA-C History of Present Illness: NEREIDA JONES is a 34 year old female who was admitted to the medical service on 07/25/2019 for pancreatitis with a lipase of about 9000. She did have fatty meal prior to admission. She did complain of pains in the epigastric area radiating to the upper abdomen and back on admission. Her lipase is been trending down but continued to have epigastric and more of right upper quadrant pains and therefore an ultrasound of the gallbladder was obtained early this morning. This showed thickened gallbladder wall but no gallstones. Patient was transferred to [facility] where she apparently passed the stone and had a subsequent MRCP which showed no stone in the common bile duct and subsequently discharged without any operation. She also had a history of alcoholic pancreatitis in the past though she claims she stopped drinking about 4 years ago and only drinks about once a month with wine. Past Medical History Cardiac Medical History: Reports: Hyperlipidema, Hypertension Pulmonary Medical History: Denies: Tuberculosis Neurological Medical History: Denies: Seizures Endocrine Medical History: Denies: Diabetes Mellitus Type 2, Hypothyroidism GI Medical History: Reports: Gastroesophageal Reflux Disease Past Surgical History Past Surgical History: Reports: Tubal Ligation, Other - Pancreatic stent placement Denies: Pacemaker Social History Lives with: Family Smoking Status: Current Every Day Smoker Cigarettes Packs Per Day: 1 Electronic Cigarette use?: No Number of Years Smokin Frequency of Alcohol Use: Occasional Hx Recreational Drug Use: No Drugs: None Hx Prescription Drug Abuse: No - Advance Directive Resuscitation Status: Full Code Family History Family History: Hypertension Parental Family History Reviewed: Yes - Father with borderline diabetes mellitus Children Family History Reviewed: No Sibling(s) Family History Reviewed.: No Medication/Allergy Home Medications: Hydroxyzine HCl [Atarax 10 mg Tablet] 10 mg PO Q6HP PRN 07/23/19 Propranolol HCl [Inderal 20 mg Tablet] 20 mg PO Q12 07/23/19 Allergies/Adverse Reactions: No Known Allergies Allergy (Verified 03/04/19 13:30) Review of Systems Constitutional: PRESENT: fever(s) - Claims she had a fever the day prior to admission but no fever while in the hospital Cardiovascular: PRESENT: other - No chest pains nor cough Gastrointestinal: PRESENT: abdominal pain, nausea Musculoskeletal: PRESENT: back pain Physical Exam Vital Signs: Temp Pulse Resp BP Pulse Ox 98.8 F 73 14 115/79 100 07/28/19 00:02 07/28/19 00:02 07/28/19 00:02 07/28/19 00:02 07/28/19 00:02 Intake & Output 07/26/19 07/27/19 07/28/19 06:59 06:59 06:59 Intake Total 5000 4936 5079 Balance 5000 4936 5079 Weight 56.4 kg 56.5 kg General appearance: PRESENT: mild distress Head exam: PRESENT: atraumatic Eye exam: PRESENT: conjunctiva pink Neck exam: PRESENT: full ROM Respiratory exam: PRESENT: clear to auscultation amanda Cardiovascular exam: PRESENT: RRR Pulses: PRESENT: normal radial pulses Vascular exam: PRESENT: normal capillary refill GI/Abdominal exam: PRESENT: soft, tenderness - Right upper quadrant and mild epigastric area Rectal exam: PRESENT: deferred Extremities exam: PRESENT: full ROM Musculoskeletal exam: PRESENT: ambulatory Neurological exam: PRESENT: alert, oriented to person, oriented to place, oriented to time, oriented to situation Psychiatric exam: PRESENT: appropriate affect Skin exam: PRESENT: normal color, warm Results Impressions: Abdomen/Pelvis CT 07/23/19 09:34 IMPRESSION: 1. Mild peripancreatic stranding without a peripancreatic collection. Correlate with lipase to exclude an acute pancreatitis. 2. Circumferential thickening of the wall of the urinary bladder associated with stranding of the perivesicular fat. Correlate with urinalysis to exclude an infection. 3. 2 mm left upper pole caliceal calculus. There is no associated hydroneph rosis. Abdomen Ultrasound 07/28/19 00:00 IMPRESSION: Thickened gallbladder wall with a small amount of pericholecystic fluid and positive sonographic Kelly sign. No evidence of cholelithiasis. These findings are concerning for acute acalculous cholecystitis. Calcifications within the pancreas, likely related to chronic pancreatitis. Recommend correlation with amylase and lipase if there is concern for acute pancreatitis. copyright 2010 [employer]- All Rights Reserved Assessment & Plan - Diagnosis (1) Acalculous cholecystitis Is this a current diagnosis for this admission?: Yes (2) Pancreatitis Qualifiers: Chronicity: acute Pancreatitis type: unspecified pancreatitis type Acute pancreatitis complication: no infection or necrosis Qualified Code(s): K85.90 - Acute pancreatitis without necrosis or infection, unspecified Is this a current diagnosis for this admission?: Yes - Time Time Spent: 30 to 50 Minutes - Inpatient Certification Medical Necessity: Need For IV Fluids, Need for Pain Control, Need for Surgery - Plan Summary Plan Summary: Assessment This is a 34-year-old female with history of hypertension and alcoholic pancreatitis. History of possible parasites of common bile duct stone and January of this year. This was confirmed with an MRCP done at [facility] and did not have any ERCP or surgery. She came in on 07/25/2019 for epigastric and right upper quadrant pains radiating to the back. Her lipase was elevated to 9000 but the LFTs were normal. An ultrasound of the gallbladder was performed earlier this morning which showed a thickened gallbladder wall but no stones. There was a concern for acute acalculous cholecystitis and therefore surgery is being consulted. She is tender in the right upper quadrant and mildly tender in the epigastric area Impression is acute acalculous cholecystitis with gallstone pancreatitis. She may have passed a small stone causing her pancreatitis Plans: We will repeat all the CBC with differential, LFTs as well as lipase We will keep her n.p.o. for possible laparoscopic cholecystectomy with cholangiogram Will inform Dr. Garza who is the incoming surgeon
[2019-07-28] MEDS: HYDROXYZINE HCL 10 MG TABLET PO PRN (09:09)
[2019-07-28] MEDS: PROPRANOLOL HCL 20 MG TABLET PO SCH ×2 (09:13→22:14)
[2019-07-28] MEDS: DOCUSATE SODIUM 100 MG CAPSULE PO SCH ×2 (09:13→17:25)
[2019-07-28] MEDS ORDERED: LIDOCAINE 2% INJ-PF (20 MG/ML) 2 ML AMPUL ONE (09:32)
[2019-07-28] MEDS ORDERED: GLYCOPYRROLATE 1 MG/5 ML VIAL ONE (09:32)
[2019-07-28] MEDS ORDERED: DEXAMETHASONE SOD PHOSPHATE INJ 4 MG/1 ML VIAL ONE (09:32)
[2019-07-28] MEDS ORDERED: ONDANSETRON HCL INJ/PF 4 MG/2 ML SDV ONE (09:32)
[2019-07-28] MEDS ORDERED: ROCURONIUM BROMIDE INJ 50 MG/5 ML VIAL IV ONE (09:32)
[2019-07-28] MEDS ORDERED: NEOSTIGMINE METHYLSULFATE 10 MG/10 ML VIAL ONE (09:32)
--- NOTE | 2019-07-28 10:44 | Progress Note ---
Provider Note Provider Note: Pt with a h/o gallstones, seen on previous GB u/s. She has recurrent pancreatitis. She does have scattered alcohol intake. It is reasonable to consider cholecystectomy for her due to her h/o gallstones and recurrent pancreatitis. I have also counselled her that medications and alcohol are potential causes of pancreatitis. She should refrain from all alcohol intake in the future. Risks/benefits of cholecystectomy discussed, informed consent obtained, and all questions answered.
[2019-07-28] MEDS: HYDRALAZINE HCL INJ/PF 20 MG/1 ML SDV IV PRN (12:21)
[2019-07-28] MEDS ORDERED: RINGERS SOLUTION,LACTATED 1,000 ML IV PRN (12:40)
--- NOTE | 2019-07-28 12:47 | PDOC PROGRESS REPORT ---
Subjective Subjective:: Patient endorses some improvement in abdominal pain today. Denies any shortness of breath. Patient was able to tolerate a regular diet yesterday without nausea. Reason For Visit: ACUTE PANCREATITIS Physical Exam Vital Signs: Temp Pulse Resp BP Pulse Ox 98.7 F 63 17 130/90 H 100 07/28/19 07:46 07/28/19 07:46 07/28/19 07:46 07/28/19 07:46 07/28/19 07:46 Intake & Output 07/27/19 07/28/19 07/29/19 06:59 06:59 06:59 Intake Total 4936 6079 700 Balance 4936 6079 700 Weight 56.5 kg 62.9 kg General appearance: PRESENT: no acute distress, cooperative Respiratory exam: PRESENT: clear to auscultation amanda, symmetrical, unlabored. ABSENT: tachypnea, wheezes Cardiovascular exam: PRESENT: RRR, +S1, +S2. ABSENT: systolic murmur, tachycardia GI/Abdominal exam: PRESENT: normal bowel sounds, soft, tenderness. ABSENT: firm, guarding, rebound, rigid Neurological exam: PRESENT: alert, awake, oriented to person, oriented to place, oriented to time, oriented to situation Results Laboratory Results: 07/28/19 04:50 07/28/19 04:50 07/28/19 07/28/19 04:50 04:50 WBC 6.7 RBC 2.98 L Hgb 10.1 L Hct 29.6 L MCV 99 H MCH 33.9 H MCHC 34.2 RDW 15.7 H Plt Count 269 Seg Neutrophils % 59.3 Sodium 138.3 Potassium 3.6 Chloride 111 H Carbon Dioxide 19 L Anion Gap 8 BUN 8 Creatinine 0.65 Est GFR ( Amer) > 60 Glucose 85 Calcium 8.8 Total Bilirubin 0.2 AST 26 Alkaline Phosphatase 70 Total Protein 5.5 L Albumin 2.9 L Lipase 1973.9 H Impressions: Abdomen/Pelvis CT 07/23/19 09:34 IMPRESSION: 1. Mild peripancreatic stranding without a peripancreatic collection. Correlate with lipase to exclude an acute pancreatitis. 2. Circumferential thickening of the wall of the urinary bladder associated with stranding of the perivesicular fat. Correlate with urinalysis to exclude an infection. 3. 2 mm left upper pole caliceal calculus. There is no associated hydronephrosis. Abdomen Ultrasound 07/28/19 00:00 IMPRESSION: Thickened gallbladder wall with a small amount of pericholecystic fluid and positive sonographic Kelly sign. No evidence of cholelithiasis. These findings are concerning for acute acalculous cholecystitis. Calcifications within the pancreas, likely related to chronic pancreatitis. Recommend correlation with amylase and lipase if there is concern for acute pancreatitis. copyright 2011 [employer]- All Rights Reserved Assessment and Plan - Diagnosis (1) Acute on chronic pancreatitis Is this a current diagnosis for this admission?: Yes Plan: RUQ ultrasound done yesterday shows thickened gallbladder wall with senait- cholecystic fluid and positive Kelly sign suggestive of cholecystitis. No gallstones were noted. However it is possible that patient could have had an obstructing gallstone which has currently passed. Continue aggressive IV fluids hydration and IV pain medication Surgery consulted and will be taking patient to the OR for cholecystectomy. I do think that patient would ultimately benefit from cholecystectomy as there is a strong possibility, given history of gallstones, that a gallstone could have been present and could have triggered both of pancreatitis and cholecystitis. Of course, there is no way of telling for sure if there was an obstructing gal lstone present prior. (2) Hyperglycemia Is this a current diagnosis for this admission?: Yes Plan: Resolved (3) Tobacco abuse Is this a current diagnosis for this admission?: Yes Plan: Counseled on smoking cessation (4) Acalculous cholecystitis Is this a current diagnosis for this admission?: Yes Plan: Refer to problem #1 for plan - Time Time Spent with patient: 15-24 minutes
[2019-07-28] MEDS: DEXTROSE 5%-1/2 NORMAL SALINE 1,000 ML IV PRN ×2 (14:15→21:53)
[2019-07-28] MEDS ORDERED: FENTANYL CITRATE INJ/PF 100 MCG/2 ML AMPUL ONE ×2 (17:16→21:02)
[2019-07-28] MEDS ORDERED: PROPOFOL INJ 200 MG/20 ML VIAL IV ONE (17:16)
[2019-07-28] MEDS ORDERED: MIDAZOLAM 2 MG/2 ML INJ ONE (17:16)
[2019-07-28] MEDS ORDERED: KETOROLAC TROMETHAMINE INJ/PF 30 MG/1 ML SDV IV ONE (17:30)
[2019-07-28] MEDS ORDERED: METOCLOPRAMIDE HCL INJ/PF 10 MG/2 ML SDV IV ONE (17:30)
[2019-07-28] MEDS ORDERED: CEFAZOLIN INJ 1 GM VIAL ONE (17:38)
[2019-07-28] MEDS ORDERED: BUPIVACAINE HCL 0.25 % INJ/PF (2.5 MG/1 ML) 30 ML VIAL ONE (17:55)
[2019-07-28] MEDS ORDERED: DIPHENHYDRAMINE HCL 50 MG/ML VIAL IV PRN (19:11)
[2019-07-28] MEDS ORDERED: PROMETHAZINE HCL INJ 25 MG/1 ML VIAL IV PRN (19:11)
[2019-07-28] MEDS ORDERED: MORPHINE SULFATE 10 MG/ML INJ IV PRN (19:11)
[2019-07-28] MEDS ORDERED: FENTANYL CITRATE INJ/PF 100 MCG/2 ML AMPUL IV PRN ×3 (19:11)
[2019-07-28] MEDS ORDERED: BUPIVACAINE HCL 0.25 % INJ/PF (2.5 MG/1 ML) 30 ML VIAL INJ ONE (20:15)
[2019-07-28] MEDS ORDERED: MEPERIDINE HCL/PF INJ 25 MG/1 ML DISP.SYRIN ONE (20:34)
[2019-07-28] MEDS: MEPERIDINE HCL/PF INJ 25 MG/1 ML DISP.SYRIN IV PRN ×2 (20:35→20:40)
--- NOTE | 2019-07-28 20:43 | Operative Report ---
Nonrecallable Operative Report DATE OF SURGERY: 07/28/19 PREOPERATIVE DIAGNOSIS: Biliary pancreatitis POSTOPERATIVE DIAGNOSIS: Same as above OPERATION: Laparoscopic cholecystectomy SURGEON: ABDI NYE ANESTHESIA: GA TISSUE REMOVED OR ALTERED: Gallbladder COMPLICATIONS: None apparent ESTIMATED BLOOD LOSS: Minimal PROCEDURE: Drains/implants: Surgicel within the gallbladder fossa. Procedure in detail: After informed consent was obtained, the patient was brought to the operating room and laid supine position. The area of the abdomen was prepped and draped in a normal sterile fashion. An infraumbilical incision was created with a 15 blade scalpel. This was deepened through the use of sharp and blunt dissection. The cicatrix was identified, grasped with a Philly clamp, and retracted upwards. The linea alba fascia was incised sharply, the abdomen was entered sharply. The balloon trocar was inserted, and pneumoperitoneum was achieved. A subxiphoid 5 mm port was then placed under direct laparoscopic visualization. 2 more 5 mm ports were placed in the right upper quadrant in similar fashion. Atraumatic graspers were placed through the 5 mm ports. The gallbladder was retracted cephalad and laterally. Dissection was begun in the triangle of Calot. The cystic duct and cystic artery were fully visualized and skeletonized, seeing the liver through the triangle. Once the critical view of safety was obtained, the cystic artery was clipped and cut with laparoscopic instruments. The cystic duct was short and wide, and was felt not amenable to clip placement. Secondary to this it was felt that a PDS Endoloop would be required. The gallbladder was then mobilized away from the liver bed using a mixture of sharp dissection, blunt dissection, and electrocautery. After the gallbladder was free a PDS Endoloop was secured around the infundibulum of the gallbladder, just distal to the infundibulum/cystic duct junction. The gallbladder was then amputated and placed into an Endo Catch bag. The camera was reinserted. There was a small amount of oozing in and around the hilum. There was no arterial bleeding noted. Secondary to this, Surgicel was packed into the gallbladder fossa as a hemostatic agent. This was successful in limiting the oozing. The Surgicel was left in situ. The 5 mm trochars were then removed under direct laparoscopic visualization. The infraumbilical trocar was removed, and pneumoperitoneum was relieved. The infraumbilical fascia was then closed using 0 Vicryl suture in [id number] fashion. The overlying skin was closed using 4-0 Vicryl Rapide suture in subcuticular fashion. Dressings were placed, and the procedure was concluded. All sponge, instrument, needle counts were correct x2. Condition: Stable.
[2019-07-28] MEDS: HYDROCODONE/ACETAMINOPHEN 10-325 MG TABLET PO PRN (22:17)
[2019-07-29] MEDS: ZOLPIDEM TARTRATE 5 MG TABLET PO PRN (00:18)
[2019-07-29] MEDS: HYDROCODONE/ACETAMINOPHEN 10-325 MG TABLET PO PRN ×2 (02:39→08:02)
[2019-07-29] MEDS: DEXTROSE 5%-1/2 NORMAL SALINE 1,000 ML IV PRN (06:13)
[2019-07-29 10:20] LABS: ABSOLUTE BASOPHILS # (AUTO) 0.1 10^3/uL (0.0-0.2); ABSOLUTE MONOCYTES (AUTO) 0.9 10^3/uL (0.1-1.4); ABSOLUTE NEUT (AUTO) 6.7 10^3/uL (1.7-8.2); BASOPHILS % (AUTO) 1.2 % (0-2); EOSINOPHILS % (AUTO) 0.1 % (0-6); LYMPHOCYTES % (AUTO) 11.3 % (13-45); MEAN CORPUSCULAR HEMOGLOBIN 33.8 pg (27.0-33.4); MEAN CORPUSCULAR HGB CONC 34.5 g/dL (32.0-36.0); MEAN CORPUSCULAR VOLUME 98 fl (80-97); PLATELET COUNT 281 10^3/uL (150-450); RED BLOOD COUNT 2.96 10^6/uL (3.72-5.28); RED CELL DISTRIBUTION WIDTH 15.7 % (11.5-14.0); SEGMENTED NEUTROPHILS % (AUTO) 77.4 % (42-78); TOTAL CELLS COUNTED % (AUTO) 100 %; WHITE BLOOD COUNT 8.6 10^3/uL (4.0-10.5)
[2019-07-29] MEDS: PROPRANOLOL HCL 20 MG TABLET PO SCH (10:36)
[2019-07-29] MEDS: DOCUSATE SODIUM 100 MG CAPSULE PO SCH (10:36)
[2019-07-29 10:49] LABS: ALKALINE PHOSPHATASE 61 U/L (38-126); ANION GAP 8 (5-19); ASPARTATE AMINO TRANSFERASE 31 U/L (14-36); BILIRUBIN,DIRECT 0.1 mg/dL (0.0-0.4); BILIRUBIN,TOTAL 0.2 mg/dL (0.2-1.3); BLOOD UREA NITROGEN 3 mg/dL (7-20); CARBON DIOXIDE 19 mmol/L (22-30); CHLORIDE 110 mmol/L (98-107); GLUCOSE 159 mg/dL (75-110); POTASSIUM 3.7 mmol/L (3.6-5.0); TOTAL PROTEIN 5.5 g/dL (6.3-8.2)
--- NOTE | 2019-07-29 12:22 | PDOC DISCHARGE SUMMARY ---
Impression - Admit/DC Date/PCP Admission Date/Primary Care Provider: 07/25/19 11:36 PEDRO ORTIZ PA-C Discharge Date: 07/29/19 - Discharge Diagnosis (1) Acute on chronic pancreatitis Is this a current diagnosis for this admission?: Yes (2) Hyperglycemia Is this a current diagnosis for this admission?: Yes (3) Tobacco abuse Is this a current diagnosis for this admission?: Yes (4) Acalculous cholecystitis Is this a current diagnosis for this admission?: Yes (5) Nausea & vomiting Is this a current diagnosis for this admission?: Yes - Assessment Summary: Patient was admitted to the hospital for concerns of acute recurrent pancreatitis. On presentation she had complained of abdominal pain in her epigastric and right upper quadrant region which radiation to the back. Hemodynamically stable. Lab work revealed very elevated lipase of over 9000. She was also noted to be hyperglycemic. CT scan of the abdomen showed peripancreatic fat stranding without any collection. No gallstones were noted. Patient was thus treated for acute pancreatitis with aggressive IV fluids and IV pain medication as well as antiemetics. During her hospitalization her abdominal pain persisted, right upper quadrant ultrasound was performed which showed normal common bile duct but showed evidence of acalculus cholecystitis. Surgery was also consulted and performed a cholecystectomy. Patient was given antibiotics prior to the procedure and patient has been scheduled to continue Levaquin and Flagyl for 4 more days as there has been source control. Patient's abdominal pain has almost resolved completely following the surgery removal. Patient has nausea vomiting has resolved and patient is able to tolerate a diet. Patient is scheduled to follow-up with Dr. [facility] in 2 weeks. - Additional Information Resuscitation Status: Full Code Discharge Diet: As Tolerated, Other (Comments) - Low-fat low-cholesterol diet Discharge Activity: Activity As Tolerated Referrals: ABDI GARZA MD [ACTIVE STAFF] - 08/09/19 8:00 am (2 WEEKS) Prescriptions: Metronidazole [Flagyl 500 mg Tablet] 500 mg PO TID 4 Days Levofloxacin [Levaquin 750 mg Tablet] 750 mg PO DAILY #4 tablet Ibuprofen [Motrin 400 mg Tablet] 400 mg PO MEALS PRN #14 tablet PRN Reason: Ondansetron HCl [Zofran 4 mg Tablet] 1 - 2 tab PO Q6H PRN #10 tablet PRN Reason: Home Medications: Hydroxyzine HCl [Atarax 10 mg Tablet] 10 mg PO Q6HP PRN 07/23/19 Propranolol HCl [Inderal 20 mg Tablet] 20 mg PO Q12 07/23/19 Ibuprofen [Motrin 400 mg Tablet] 400 mg PO MEALS PRN #14 tablet 07/29/19 Levofloxacin [Levaquin 750 mg Tablet] 750 mg PO DAILY #4 tablet 07/29/19 Metronidazole [Flagyl 500 mg Tablet] 500 mg PO TID 4 Days 07/29/19 Ondansetron HCl [Zofran 4 mg Tablet] 1 - 2 tab PO Q6H PRN #10 tablet 07/29/19 History of Present Illiness History of Present Illness: NEREIDA JONES is a 34 year old female presents the ER with abdominal pain, nausea and diarrhea. Patient states she does have a history of chronic pancreat itis for EtOH abuse. Patient states this all began about 3 days ago and has progressively worsened. Patient on no treatment prior to arrival all oral intake been aggravating factor. Physical Exam Vital Signs: Temp Pulse Resp BP Pulse Ox 98.3 F 91 16 130/72 H 99 07/29/19 07:41 07/29/19 07:41 07/29/19 07:41 07/29/19 07:41 07/29/19 07:41 Intake & Output 07/28/19 07/29/19 07/30/19 06:59 06:59 06:59 Intake Total 6079 4815 Output Total 1500 Balance 6079 3315 Weight 62.9 kg 62.8 kg General appearance: PRESENT: no acute distress, cooperative Head exam: PRESENT: normocephalic Neck exam: ABSENT: JVD Respiratory exam: PRESENT: clear to auscultation amanda, symmetrical, unlabored. ABSENT: rhonchi, tachypnea, wheezes Cardiovascular exam: PRESENT: RRR, +S1, +S2. ABSENT: systolic murmur, tachycardia GI/Abdominal exam: PRESENT: normal bowel sounds, soft, tenderness - Minimal tenderness in right upper quadrant and epigastric which is significantly much improved from prior, other - Clean incision sites without drainage joint erythema. ABSENT: ascites, distended, firm, guarding, rebound, rigid Musculoskeletal exam: PRESENT: ambulatory Neurological exam: PRESENT: alert, awake, oriented to person, oriented to place, oriented to time Results Laboratory Results: WBC 8.6 10^3/uL (4.0-10.5) 07/29/19 10:00 RBC 2.96 10^6/uL (3.72-5.28) L 07/29/19 10:00 Hgb 10.0 g/dL (12.0-15.5) L 07/29/19 10:00 Hct 29.0 % (36.0-47.0) L 07/29/19 10:00 MCV 98 fl (80-97) H 07/29/19 10:00 MCH 33.8 pg (27.0-33.4) H 07/29/19 10:00 MCHC 34.5 g/dL (32.0-36.0) 07/29/19 10:00 RDW 15.7 % (11.5-14.0) H 07/29/19 10:00 Plt Count 281 10^3/uL (150-450) 07/29/19 10:00 Lymph % (Auto) 11.3 % (13-45) L 07/29/19 10:00 [place] % (Auto) 10.0 % (3-13) 07/29/19 10:00 Eos % (Auto) 0.1 % (0-6) 07/29/19 10:00 Baso % (Auto) 1.2 % (0-2) 07/29/19 10:00 Absolute Neuts (auto) 6.7 10^3/uL (1.7-8.2) 07/29/19 10:00 Absolute Lymphs (auto) 1.0 10^3/uL (0.5-4.7) 07/29/19 10:00 Absolute Monos (auto) 0.9 10^3/uL (0.1-1.4) 07/29/19 10:00 Absolute Eos (auto) 0.0 10^3/uL (0.0-0.6) 07/29/19 10:00 Absolute Basos (auto) 0.1 10^3/uL (0.0-0.2) 07/29/19 10:00 Seg Neutrophils % 77.4 % (42-78) 07/29/19 10:00 Sodium 137.3 mmol/L (137-145) 07/29/19 10:00 Potassium 3.7 mmol/L (3.6-5.0) 07/29/19 10:00 Chloride 110 mmol/L (98-107) H 07/29/19 10:00 Carbon Dioxide 19 mmol/L (22-30) L 07/29/19 10:00 Anion Gap 8 (5-19) 07/29/19 10:00 BUN 3 mg/dL (7-20) L 07/29/19 10:00 Creatinine 0.61 mg/dL (0.52-1.25) 07/29/19 10:00 Est GFR ( Amer) > 60 (>60) 07/29/19 10:00 Est GFR (MDRD) Non-Af > 60 (>60) 07/29/19 10:00 Glucose 159 mg/dL (75-110) H 07/29/19 10:00 Hemoglobin A1c % 4.8 % (4.7-6.0) 07/24/19 03:52 Calcium 9.0 mg/dL (8.4-10.2) 07/29/19 10:00 Phosphorus 2.7 mg/dL (2.5-4.5) 07/24/19 03:52 Magnesium 1.4 mg/dL (1.6-2.3) L 07/29/19 10:00 Total Bilirubin 0.2 mg/dL (0.2-1.3) 07/29/19 10:00 Direct Bilirubin 0.1 mg/dL (0.0-0.4) 07/29/19 10:00 Neonat Total Bilirubin Not Reportable 07/29/19 10:00 Neonat Direct Bilirubin Not Reportable 07/29/19 10:00 Neonat Indirect Bili Not Reportable 07/29/19 10:00 AST 31 U/L (14-36) 07/29/19 10:00 ALT 16 U/L (<35) 07/29/19 10:00 Alkaline Phosphatase 61 U/L (38-126) 07/29/19 10:00 Total Protein 5.5 g/dL (6.3-8.2) L 07/29/19 10:00 Albumin 3.0 g/dL (3.5-5.0) L 07/29/19 10:00 Lipase 1973.9 U/L (23-300) H 07/28/19 04:50 Serum HCG, Qual NEGATIVE (NEGATIVE) 07/23/19 07:59 Urine Color STRAW 07/23/19 10:42 Urine Appearance SLIGHTLY-CLOUDY 07/23/19 10:42 Urine pH 7.0 (5.0-9.0) 07/23/19 10:42 Ur Specific [place] 1.006 07/23/19 10:42 Urine Protein NEGATIVE mg/dL (NEGATIVE) 07/23/19 10:42 Urine Glucose (UA) NEGATIVE mg/dL (NEGATIVE) 07/23/19 10:42 Urine Ketones 20 mg/dL (NEGATIVE) H 07/23/19 10:42 Urine Blood NEGATIVE (NEGATIVE) 07/23/19 10:42 Urine Nitrite NEGATIVE (NEGATIVE) 07/23/19 10:42 Urine Bilirubin NEGATIVE (NEGATIVE) 07/23/19 10:42 Urine Urobilinogen NEGATIVE mg/dL (<2.0) 07/23/19 10:42 Ur Leukocyte Esterase NEGATIVE (NEGATIVE) 07/23/19 10:42 Urine WBC (Auto) 3 /HPF 07/23/19 10:42 Urine RBC (Auto) 1 /HPF 07/23/19 10:42 Urine Bacteria (Auto) TRACE /HPF 07/23/19 10:42 Squamous Epi Cells Auto 7 /HPF 07/23/19 10:42 Urine Ascorbic Acid NEGATIVE (NEGATIVE) 07/23/19 10:42 Serum Alcohol < 10 mg/dL (NONE DETECTED) 07/23/19 07:59 Impressions: Abdomen/Pelvis CT 07/23/19 09:34 IMPRESSION: 1. Mild peripancreatic stranding without a peripancreatic collection. Correlate with lipase to exclude an acute pancreatitis. 2. Circumferential thickening of the wall of the urinary bladder associated with stranding of the perivesicular fat. Correlate with urinalysis to exclude an infection. 3. 2 mm left upper pole caliceal calculus. There is no associated hydronephrosis. Abdomen Ultrasound 07/28/19 00:00 IMPRESSION: Thickened gallbladder wall with a small amount of pericholecystic fluid and positive sonographic Kelly sign. No evidence of cholelithiasis. These findings are concerning for acute acalculous cholecystitis. Calcifications within the pancreas, likely related to chronic pancreatitis. Recommend correlation with amylase and lipase if there is concern for acute pancreatitis. copyright 2011 [email or web address]- All Rights Reserved Plan Time Spent: Less than 30 Minutes Stroke Is this a Stroke Patient?: No Acute Heart Failure - Is this a Heart Failure Patient?: No
[2019-07-29] MEDS ORDERED: MAGNESIUM OXIDE 400 MG TABLET PO ONE (12:30)
[2019-07-29 12:49] VITALS: BP 138/92
--- NOTE | 2019-07-29 14:17 | PDOC PROGRESS REPORT ---
Subjective Progress Note for:: 07/29/19 Subjective:: Normal right upper quadrant pains. Just complaining of some mild pains along the umbilical port. Tolerating regular diet well Reason For Visit: ACUTE PANCREATITIS Physical Exam Vital Signs: Temp Pulse Resp BP Pulse Ox 98.1 F 79 19 138/92 H 100 07/29/19 12:00 07/29/19 12:00 07/29/19 12:00 07/29/19 12:00 07/29/19 12:00 Intake & Output 07/28/19 07/29/19 07/30/19 06:59 06:59 06:59 Intake Total 6079 4815 750 Output Total 1500 2300 Balance 6079 3315 -1550 Weight 62.9 kg 62.8 kg Exam: Abdomen is soft and all the dressings are dry. No abdominal tenderness Results Laboratory Results: 07/29/19 10:00 07/29/19 10:00 07/29/19 07/29/19 10:00 10:00 WBC 8.6 RBC 2.96 L Hgb 10.0 L Hct 29.0 L MCV 98 H MCH 33.8 H MCHC 34.5 RDW 15.7 H Plt Count 281 Seg Neutrophils % 77.4 Sodium 137.3 Potassium 3.7 Chloride 110 H Carbon Dioxide 19 L Anion Gap 8 BUN 3 L Creatinine 0.61 Est GFR ( Amer) > 60 Glucose 159 H Calcium 9.0 Magnesium 1.4 L Total Bilirubin 0.2 AST 31 Alkaline Phosphatase 61 Total Protein 5.5 L Albumin 3.0 L Impressions: Abdomen/Pelvis CT 07/23/19 09:34 IMPRESSION: 1. Mild peripancreatic stranding without a peripancreatic collection. Correlate with lipase to exclude an acute pancreatitis. 2. Circumferential thickening of the wall of the urinary bladder associated with stranding of the perivesicular fat. Correlate with urinalysis to exclude an infection. 3. 2 mm left upper pole caliceal calculus. There is no associated hydronephrosis. Abdomen Ultrasound 07/28/19 00:00 IMPRESSION: Thickened gallbladder wall with a small amount of pericholecystic fluid and positive sonographic Kelly sign. No evidence of cholelithiasis. These findings are concerning for acute acalculous cholecystitis. Calcifications within the pancreas, likely related to chronic pancreatitis. Recommend correlation with amylase and lipase if there is concern for acute pancreatitis. copyright 2011 [employer]- All Rights Reserved Assessment & Plan - Diagnosis (1) Acalculous cholecystitis Is this a current diagnosis for this admission?: Yes (2) Pancreatitis Qualifiers: Chronicity: acute Pancreatitis type: unspecified pancreatitis type Acute pancreatitis complication: no infection or necrosis Qualified Code(s): K85.90 - Acute pancreatitis without necrosis or infection, unspecified Is this a current diagnosis for this admission?: Yes - Time Time Spent with patient: 15-24 minutes - Plan Summary Plan Summary: 34-year-old female who had a laparoscopic cholecystectomy done yesterday by . Postoperatively the right upper quadrant pains have subsided and just complaining of mild umbilical port pains. She is tolerating regular diet Patient can be discharged from the surgical viewpoint. I ordered arrangements to be made for surgical follow-up in 2weeks. She was advised not to do any lifting more than 10 to 15 pounds until seen in the office in 2 weeks. No need for any antibiotic therapy at this time Discussed with hospitalist
== END 2019-07-29 15:30 | disposition home or self-care (01) | DRG 418 ==
LOC: ER 00:19 → EH 11:30 → INTOOBSV 11:30 → 4N 14:52 → OBSVTOIN 07-25 11:36
PROVIDERS: ADMIT Hospitalist; ATTEND Hospitalist
PROC: 0FT44ZZ Resection of Gallbladder, Percutaneous Endoscopic Approach (ICD-10-PCS; principal; 2019-07-28 15:00)
PROC: 3E0234Z Introduction of Serum, Toxoid and Vaccine into Muscle, Percutaneous Approach (ICD-10-PCS; 2019-07-29)
DX: K85.90 Acute pancreatitis without necrosis or infection, unspecified (principal); K80.10 Calculus of gallbladder with chronic cholecystitis without obstruction; K86.0 Alcohol-induced chronic pancreatitis; E78.00 Pure hypercholesterolemia, unspecified; I10 Essential (primary) hypertension; K21.9 Gastro-esophageal reflux disease without esophagitis; R73.9 Hyperglycemia, unspecified; F41.9 Anxiety disorder, unspecified; F17.210 Nicotine dependence, cigarettes, uncomplicated; Z79.891 Long term (current) use of opiate analgesic; Z79.51 Long term (current) use of inhaled steroids; Z79.899 Other long term (current) drug therapy; Z23 Encounter for immunization
CPT/HCPCS: 36415; 74177; 76705; 790; 80048; 80053; 80307; 81001; 83036; 83690; 83735; 84100; 84703; 85025; 85027; 87070; 88304; 90686; 93976; 96361; 96374; 96375; 99285; G0378; J0360; J0690; J1100; J1170; J1885; J1940; J2175; J2250; J2405; J2704; J2710; J2765; J3010; J3490; J7030; J7120

== ENCOUNTER 2019-12-29 17:18 | Emergency (ER) | payer SELFPAY ==
--- NOTE | 2019-12-29 17:31 | ER Document Report ---
ED Medical Screen (RME) - General Chief Complaint: Abdominal Pain Stated Complaint: ABDOMINAL PAIN Time Seen by Provider: 12/29/19 17:31 Primary Care Provider: PEDRO ORTIZ PA-C [Primary Care Provider] - Follow up as needed Mode of Arrival: Ambulatory Information source: Patient Notes: 34-year-old female presented to ED for what she thinks is another cryptitis fla re. She has had pancreatitis since 2012. She states at that time she stopped drinking all hard alcohol. She states she did have her gallbladder removed in July 2019. She states she had a CT and ultrasound at that time. She states she started having the pain. She states she has a constant dull ache with intermittent sharp stabbing pain right now her pain is a 3 or 4 out of 5. Patient is alert oriented respirations regular nonlabored speaking in full sentences. She does have a history of pancreatitis, anxiety, high blood pressure, she has had surgeries for pancreatic stents, bilateral tubal ligation, umbilical hernia repair, cholecystectomy, and IUD removed from her stomach next to her spleen. I have greeted and performed a rapid initial assessment of this patient. A comprehensive ED assessment and evaluation of the patient, analysis of test results and completion of medical decision making process will be conducted by an additional ED providers. TRAVEL OUTSIDE OF THE [place] IN LAST 30 DAYS: No - Related Data Allergies/Adverse Reactions: No Known Allergies Allergy (Verified 12/29/19 17:23) Past Medical History - Past Medical History Cardiac Medical History: Reports: Hx Hypercholesterolemia, Hx Hypertension Pulmonary Medical History: Denies: Hx Tuberculosis Neurological Medical History: Denies: Hx Cerebrovascular Accident, Hx Seizures Endocrine Medical History: Denies: Hx Diabetes Mellitus Type 2, Hx Hypothyroidism Renal/ Medical History: Denies: Hx Peritoneal Dialysis, Hx Pelvic Inflammatory Disease GI Medical History: Reports: Hx Gastroesophageal Reflux Disease, Hx Pancreatitis Psychiatric Medical History: Reports: Hx Anxiety Past Surgical History: Reports: Hx Abdominal Surgery - iud retrieval, hernia repair, Hx Pancreatic Surgery - x2 placed a stent, Hx Tubal Ligation, Other - Pancreatic stent placement. Denies: Hx Pacemaker - Immunizations Hx Diphtheria, Pertussis, Tetanus Vaccination: Yes Physical Exam - Vital signs Vitals: Temp Pulse Resp BP Pulse Ox 97.9 F 82 19 132/93 H 100 12/29/19 17:21 12/29/19 17:21 12/29/19 17:21 12/29/19 17:21 12/29/19 17:21 Course - Vital Signs Vital signs: Temp Pulse Resp BP Pulse Ox 97.9 F 82 19 132/93 H 100 12/29/19 17:23 12/29/19 17:21 12/29/19 17:21 12/29/19 17:21 12/29/19 17:21 Doctor's Discharge - Discharge Referrals: PEDRO ORTIZ PA-C [Primary Care Provider] - Follow up as needed
[2019-12-29] MEDS ORDERED: NORMAL SALINE 1000 ML 1,000 ML IV ONE ×2 (17:32→20:29)
[2019-12-29 18:08] LABS: APPEARANCE,URINE CLEAR; BILIRUBIN,URINE NEGATIVE (NEGATIVE); COLOR,URINE YELLOW; GLUCOSE, URINE NEGATIVE (NEGATIVE); KETONES,URINE 80 mg/dL (NEGATIVE); PROTEIN,URINE 30 mg/dL (NEGATIVE); UROBILINOGEN,URINE NEGATIVE mg/dL (<2.0)
[2019-12-29 19:13] LABS: ALCOHOL < 10 mg/dL (NONE DETECTED)
[2019-12-29] MEDS ORDERED: FENTANYL CITRATE INJ/PF 100 MCG/2 ML AMPUL IV ONE ×2 (19:21→21:30)
[2019-12-29] MEDS ORDERED: PROMETHAZINE HCL INJ 25 MG/1 ML VIAL IV ONE ×2 (19:21→20:29)
--- NOTE | 2019-12-29 20:07 | ER Document Report ---
ED General - General Chief Complaint: Abdominal Pain Stated Complaint: ABDOMINAL PAIN Time Seen by Provider: 12/29/19 17:31 Primary Care Provider: PEDRO ORTIZ PA-C [Primary Care Provider] - Follow up as needed Mode of Arrival: Ambulatory Information source: Patient Notes: dental receptionist note pt comes to ed from home via pov brought by self for c/o abdominal pain. Pt has hx of pancreatitis. reports she drank 3 wine coolers this past friday. +nausea/vomiting. unable to have Bm, last 2 days ago. describes pain as constant ache with intermittent sharp stabbing pain. Mary Alice notes 34-year-old female presented to ED for what she thinks is another cryptitis flare. She has had pancreatitis since 2012. She states at that time she stopped drinking all hard alcohol. She states she did have her gallbladder removed in July 2019. She states she had a CT and ultrasound at that time. She states she started having the pain. She states she has a constant dull ache with intermittent sharp stabbing pain right now her pain is a 3 or 4 out of 5. Patient is alert oriented respirations regular nonlabored speaking in full sentences. She does have a history of pancreatitis, anxiety, high blood pressure, she has had surgeries for pancreatic stents, bilateral tubal ligation, umbilical hernia repair, cholecystectomy, and IUD removed from her stomach next to her spleen. my notes 34-year-old female arrives with chief complaint of 7-year history of alcoholic pancreatitis and history of pseudocyst. She was last seen late last year for similar problems. Patient reports she had some wine coolers several days ago and since then has had diffuse upper abdominal pain. She ate some food yesterday morning and has been attempting to drink fluids but has had nausea and vomiting since then. Fentanyl IV and Phenergan IV did help her with her pain and nausea. We will give her IV fluids and send her home with hydrocodone which she cannot tolerate in the past as well as Phenergan take-home pack. TRAVEL OUTSIDE OF THE [place] IN LAST 30 DAYS: No - Related Data Allergies/Adverse Reactions: No Known Allergies Allergy (Verified 12/29/19 17:23) Home Medications: lisinopril, propanolol Past Medical History - General Information source: Patient - Social History Smoking Status: Current Every Day Smoker Cigarette use (# per day): Yes Chew tobacco use (# tins/day): No Smoking Education Provided: Yes Frequency of alcohol use: Rare Drug Abuse: None Lives with: Family - took the children at home Family History: Reviewed & Not Pertinent, Hypertension Patient has suicidal ideation: No Patient has homicidal ideation: No - Past Medical History Cardiac Medical History: Reports: Hx Hypercholesterolemia, Hx Hypertension Pulmonary Medical History: Denies: Hx Tuberculosis Neurological Medical History: Denies: Hx Cerebrovascular Accident, Hx Seizures Endocrine Medical History: Denies: Hx Diabetes Mellitus Type 2, Hx Hypothyroidism Renal/ Medical History: Denies: Hx Peritoneal Dialysis, Hx Pelvic Inflammatory Disease GI Medical History: Reports: Hx Gastroesophageal Reflux Disease, Hx Pancreatitis Psychiatric Medical History: Reports: Hx Anxiety Past Surgical History: Reports: Hx Abdominal Surgery - iud retrieval, hernia repair, Hx Cholecystectomy - , Hx Pancreatic Surgery - x2 placed a stent, Hx Tubal Ligation, Other - Pancreatic stent placement. Denies: Hx Pacemaker - Immunizations Hx Diphtheria, Pertussis, Tetanus Vaccination: Yes Review of Systems - Review of Systems Constitutional: See HPI, Malaise, Weakness, Recent illness EENT: No symptoms reported Cardiovascular: No symptoms reported Respiratory: No symptoms reported Gastrointestinal: See HPI, Abdominal pain, Nausea, Vomiting Genitourinary: No symptoms reported Female Genitourinary: No symptoms reported Musculoskeletal: No symptoms reported Skin: No symptoms reported Hematologic/Lymphatic: No symptoms reported Neurological/Psychological: No symptoms reported Physical Exam - Vital signs Vitals: Temp Pulse Resp BP Pulse Ox 97.9 F 82 19 132/93 H 100 12/29/19 17:21 12/29/19 17:21 12/29/19 17:21 12/29/19 17:21 12/29/19 17:21 Interpretation: Normal - General General appearance: Alert - HEENT Head: Normocephalic, Atraumatic Eyes: Normal Pupils: PERRL Ears: Normal Sinus: Normal Nasal: Normal Mouth/Lips: Normal Mucous membranes: Dry Pharynx: Normal Neck: Normal - Respiratory Respiratory status: No respiratory distress Chest status: Nontender Breath sounds: Normal Chest palpation: Normal - Cardiovascular Rhythm: Regular Heart sounds: Normal auscultation Murmur: No - Abdominal Inspection: Normal - Back Back: Normal - Extremities General upper extremity: Normal inspection General lower extremity: Normal inspection - Neurological Neuro grossly intact: Yes Cognition: Normal Orientation: AAOx4 Curly Coma Scale Eye Opening: Spontaneous Curly Coma Scale Verbal: Oriented Curly Coma Scale Motor: Obeys Commands [place] Coma Scale Total: 15 Speech: Normal Motor strength normal: LUE, RUE, LLE, RLE Sensory: Normal - Psychological Associated symptoms: Normal affect - Skin Skin Temperature: Warm Skin Moisture: Dry Course - Vital Signs Vital signs: Temp Pulse Resp BP Pulse Ox 97.9 F 82 19 132/93 H 100 12/29/19 17:23 12/29/19 17:21 12/29/19 17:21 12/29/19 17:21 12/29/19 17:21 - Laboratory Laboratory results interpreted by me: 12/29/19 12/29/19 17:44 17:44 Lipase 5523.4 H Urine Protein 30 H Urine Ketones 80 H 12/29/19 20:25 I reviewed labs and discussed these with pt; she feels much improved after ivf and meds by 1999 Critical Care Note - Critical Care Note Total time excluding time spent on procedures (mins): 90 Discharge - Discharge Clinical Impression: Vomiting Qualifiers: Vomiting type: unspecified Vomiting Intractability: non-intractable Nausea presence: with nausea Qualified Code(s): R11.2 - Nausea with vomiting, unspecified Pancreatitis Qualifiers: Chronicity: acute Pancreatitis type: alcohol induced Acute pancreatitis complication: unspecified Qualified Code(s): K85.20 - Alcohol induced acute pancreatitis without necrosis or infection Condition: Good Disposition: HOME, SELF-CARE Additional Instructions: Follow-up with personal doctor this week stop drinking any alcohol take medicines as directed encourage fluids Prescriptions: Chlorzoxazone [Parafon Forte Dsc 500 Mg Tablet] 500 mg PO BID PRN #14 tablet PRN Reason: Promethazine HCl [Phenergan 25 mg Tablet] 1 tab PO Q6H PRN #15 tablet PRN Reason: Forms: Return to Work Referrals: PEDRO ORTIZ PA-C [Primary Care Provider] - Follow up as needed
[2019-12-29 22:51] VITALS: BP 131/85
== END 2019-12-29 22:50 | disposition home or self-care (01) ==
LOC: ER 17:18
DX: K85.20 Alcohol induced acute pancreatitis without necrosis or infection (principal); R11.2 Nausea with vomiting, unspecified; R10.9 Unspecified abdominal pain; F17.210 Nicotine dependence, cigarettes, uncomplicated; I10 Essential (primary) hypertension
CPT/HCPCS: 96376; 99285; 96361; 96374; 96375; 36415; 80307; 83690; 81001; J3010; J2550; J7030

== ENCOUNTER 2019-12-30 19:04 | Emergency (ER) | payer SELFPAY ==
[2019-12-30] MEDS ORDERED: NORMAL SALINE 1000 ML 1,000 ML IV ONE (20:21)
--- NOTE | 2019-12-30 20:23 | ER Document Report ---
ED Medical Screen (RME) - General Chief Complaint: Abdominal Pain Stated Complaint: ABDOMINAL/FLANK PAIN Time Seen by Provider: 12/30/19 20:20 Primary Care Provider: PEDRO ORTIZ PA-C [Primary Care Provider] - Follow up as needed Mode of Arrival: Ambulatory Information source: Patient Notes: 34-year-old female presented to ED for complaint of upper abdominal pain. She states the nausea and vomiting and pain is worse than yesterday. She states that her levels were high yesterday and they sent her home and the pain is increased since then. Patient is alert oriented respirations regular nonlabored speaking in full sentences. I have greeted and performed a rapid initial assessment of this patient. A comprehensive ED assessment and evaluation of the patient, analysis of test results and completion of medical decision making process will be conducted by an additional ED providers. TRAVEL OUTSIDE OF THE [place] IN LAST 30 DAYS: No - Related Data Allergies/Adverse Reactions: No Known Allergies Allergy (Verified 12/29/19 17:23) Past Medical History - Past Medical History Cardiac Medical History: Reports: Hx Hypercholesterolemia, Hx Hypertension Pulmonary Medical History: Denies: Hx Tuberculosis Neurological Medical History: Denies: Hx Cerebrovascular Accident, Hx Seizures Endocrine Medical History: Denies: Hx Diabetes Mellitus Type 2, Hx Hypothyroidism Renal/ Medical History: Denies: Hx Peritoneal Dialysis, Hx Pelvic Inflammatory Disease GI Medical History: Reports: Hx Gastroesophageal Reflux Disease, Hx Pancreatitis Psychiatric Medical History: Reports: Hx Anxiety Past Surgical History: Reports: Hx Abdominal Surgery - iud retrieval, hernia repair, Hx Cholecystectomy - , Hx Pancreatic Surgery - x2 placed a stent, Hx Tubal Ligation, Other - Pancreatic stent placement. Denies: Hx Pacemaker - Immunizations Hx Diphtheria, Pertussis, Tetanus Vaccination: Yes Physical Exam - Vital signs Vitals: Temp Pulse Resp BP Pulse Ox 98.2 F 82 14 121/91 H 99 12/30/19 19:31 12/30/19 19:31 12/30/19 19:31 12/30/19 19:31 12/30/19 19:31 Course - Vital Signs Vital signs: Temp Pulse Resp BP Pulse Ox 98.2 F 82 14 121/91 H 99 12/30/19 20:15 12/30/19 19:31 12/30/19 19:31 12/30/19 19:31 04/23/20 19:31 Doctor's Discharge - Discharge Referrals: PEDRO ORTIZ PA-C [Primary Care Provider] - Follow up as needed
[2019-12-30 20:45] LABS: ABSOLUTE BASOPHILS # (AUTO) 0.1 10^3/uL (0.0-0.2); ABSOLUTE EOSINOPHILS # (AUTO) 0.2 10^3/uL (0.0-0.6); ABSOLUTE LYMPHOCYTES (AUTO) 1.7 10^3/uL (0.5-4.7); ABSOLUTE MONOCYTES (AUTO) 0.7 10^3/uL (0.1-1.4); ABSOLUTE NEUT (AUTO) 9.4 10^3/uL (1.7-8.2); BASOPHILS % (AUTO) 0.6 % (0-2); EOSINOPHILS % (AUTO) 1.8 % (0-6); HEMATOCRIT 39.6 % (36.0-47.0); HEMOGLOBIN 13.5 g/dL (12.0-15.5); LYMPHOCYTES % (AUTO) 14.1 % (13-45); MEAN CORPUSCULAR HEMOGLOBIN 32.6 pg (27.0-33.4); MEAN CORPUSCULAR HGB CONC 34.2 g/dL (32.0-36.0); MEAN CORPUSCULAR VOLUME 95 fl (80-97); MONOCYTES % (AUTO) 5.9 % (3-13); PLATELET COUNT 286 10^3/uL (150-450); RED BLOOD COUNT 4.15 10^6/uL (3.72-5.28); RED CELL DISTRIBUTION WIDTH 15.5 % (11.5-14.0); SEGMENTED NEUTROPHILS % (AUTO) 77.6 % (42-78); TOTAL CELLS COUNTED % (AUTO) 100 %; WHITE BLOOD COUNT 12.1 10^3/uL (4.0-10.5)
[2019-12-30 20:49] LABS: APPEARANCE,URINE CLEAR; BILIRUBIN,URINE NEGATIVE (NEGATIVE); COLOR,URINE STRAW; GLUCOSE, URINE NEGATIVE (NEGATIVE); KETONES,URINE 20 mg/dL (NEGATIVE); PROTEIN,URINE NEGATIVE (NEGATIVE); URINE SPECIFIC GRAVITY 1.006; UROBILINOGEN,URINE NEGATIVE mg/dL (<2.0)
[2019-12-30 21:05] LABS: ALBUMIN 4.4 g/dL (3.5-5.0); ALKALINE PHOSPHATASE 90 U/L (38-126); ANION GAP 12 (5-19); ASPARTATE AMINO TRANSFERASE 18 U/L (14-36); BILIRUBIN,TOTAL 0.7 mg/dL (0.2-1.3); BLOOD UREA NITROGEN 8 mg/dL (7-20); CARBON DIOXIDE 20 mmol/L (22-30); CHLORIDE 103 mmol/L (98-107); GLUCOSE 88 mg/dL (75-110); POTASSIUM 4.3 mmol/L (3.6-5.0)
--- NOTE | 2019-12-30 22:08 | ER Document Report ---
ED General - General Chief Complaint: Abdominal Pain Stated Complaint: ABDOMINAL/FLANK PAIN Time Seen by Provider: 12/30/19 20:20 Primary Care Provider: PEDRO ORTIZ PA-C [Primary Care Provider] - Follow up as needed Mode of Arrival: Ambulatory Information source: Patient Notes: kiln stoker note 29 Dec 2019 pt comes to ed from home via pov brought by self for c/o abdominal pain. Pt has hx of pancreatitis. reports she drank 3 wine coolers this past friday. +nause a/vomiting. unable to have Bm, last 2 days ago. describes pain as constant ache with intermittent sharp stabbing pain. Mary Alice notes 34-year-old female presented to ED for what she thinks is anothe r cryptitis flare. She has had pancreatitis since 2012. She states at that time she stopped drinking all hard alcohol. She states she did have her gallbladder removed in July 2019. She states she had a CT and ultrasound at that time. She states she started having the pain. She states she has a constant dull ache with intermittent sharp stabbing pain right now her pain is a 3 or 4 out of 5. Patient is alert oriented respirations regular nonlabored speaking in full sentences. She does have a history of pancreatitis, anxiety, high blood pressure, she has had surgeries for pancreatic stents, bilateral tubal ligation, umbilical hernia repair, cholecystectomy, and IUD removed from her stomach next to her spleen. my notes 29 Dec 2019 34-year-old female arrives with chief complaint of 7-year history of alcoholic pancreatitis and history of pseudocyst. She was last seen late last year for similar problems. Patient reports she had some wine coolers several days ago and since then has had diffuse upper abdominal pain. She ate some food yesterday morning and has been attempting to drink fluids but has had nausea and vomiting since then. Fentanyl IV and Phenergan IV did help her with her pain and nausea. We will give her IV fluids and send her home with hydrocodone which she cannot tolerate in the past as well as Phenergan take-home pack. my notes Dec 34-year-old white female arrives with chief complaint of 4 days of nausea vomiting abdominal pain and pancreatitis after she began on some wine coolers several days ago.Pt advised vomiting x 3 over 24 hours. Patient reports her is a designated driver trainee and she trusts is driving. Patient will be given IV fluids at least 2 to 3 L fentanyl and Phenergan IV. Patient had amylase 288 and lipase 1922 down from 5500 the prior day. TRAVEL OUTSIDE OF THE [place] IN LAST 30 DAYS: No - Related Data Allergies/Adverse Reactions: No Known Allergies Allergy (Verified 12/29/19 17:23) Past Medical History - General Information source: Patient - Social History Smoking Status: Current Every Day Smoker Cigarette use (# per day): Yes Chew tobacco use (# tins/day): No Smoking Education Provided: Yes Frequency of alcohol use: Heavy Drug Abuse: None Lives with: Family Family History: Reviewed & Not Pertinent, Hypertension Patient has suicidal ideation: No Patient has homicidal ideation: No - Past Medical History Cardiac Medical History: Reports: Hx Hypercholesterolemia, Hx Hypertension Pulmonary Medical History: Denies: Hx Tuberculosis Neurological Medical History: Denies: Hx Cerebrovascular Accident, Hx Seizures Endocrine Medical History: Denies: Hx Diabetes Mellitus Type 2, Hx Hypothyroidism Renal/ Medical History: Denies: Hx Peritoneal Dialysis, Hx Pelvic Inflammatory Disease GI Medical History: Reports: Hx Gastroesophageal Reflux Disease, Hx Pancreatitis Psychiatric Medical History: Reports: Hx Anxiety Past Surgical History: Reports: Hx Abdominal Surgery - iud retrieval, hernia repair, Hx Cholecystectomy - , Hx Pancreatic Surgery - x2 placed a stent, Hx Tubal Ligation, Other - Pancreatic stent placement. Denies: Hx Pacemaker - Immunizations Hx Diphtheria, Pertussis, Tetanus Vaccination: Yes Review of Systems - Review of Systems Constitutional: See HPI, Weakness, Recent illness Gastrointestinal: See HPI, Abdominal pain, Nausea, Vomiting Physical Exam - Vital signs Vitals: Temp Pulse Resp BP Pulse Ox 98.2 F 82 14 121/91 H 99 12/30/19 19:31 12/30/19 19:31 12/30/19 19:31 12/30/19 19:31 12/30/19 19:31 Interpretation: Normal - General General appearance: Alert - HEENT Head: Normocephalic, Atraumatic Eyes: Normal Pupils: PERRL Sinus: Normal Nasal: Normal Mouth/Lips: Normal Pharynx: Normal Neck: Normal - Respiratory Respiratory status: No respiratory distress Chest status: Nontender Breath sounds: Normal Chest palpation: Normal - Cardiovascular Rhythm: Regular Heart sounds: Normal auscultation Murmur: No - Abdominal Inspection: Normal Distension: No distension Bowel sounds: Hyperactive Tenderness: Tender Organomegaly: No organomegaly - Back Back: Normal - Extremities General upper extremity: Normal inspection General lower extremity: Normal inspection - Neurological Neuro grossly intact: Yes Cognition: Normal Orientation: AAOx4 Curly Coma Scale Eye Opening: Spontaneous Curly Coma Scale Verbal: Oriented [place] Coma Scale Motor: Obeys Commands Curly Coma Scale Total: 15 Speech: Normal Motor strength normal: LUE, RUE, LLE, RLE Sensory: Normal - Psychological Associated symptoms: Anxious - Skin Skin Temperature: Warm Skin Moisture: Dry Course - Vital Signs Vital signs: Temp Pulse Resp BP Pulse Ox 97.6 F 80 16 125/88 H 100 12/30/19 23:50 12/30/19 23:50 12/30/19 23:50 12/30/19 23:50 12/30/19 23:50 - Laboratory Result Diagrams: 12/30/19 20:35 12/30/19 20:35 Laboratory results interpreted by me: 12/30/19 12/30/19 12/30/19 20:35 20:35 20:35 WBC 12.1 H RDW 15.5 H Absolute Neuts (auto) 9.4 H Sodium 134.8 L Carbon Dioxide 20 L Amylase Lipase 1922.3 H Urine Ketones 20 H 12/30/19 20:35 WBC RDW Absolute Neuts (auto) Sodium Carbon Dioxide Amylase 288 H Lipase Urine Ketones Critical Care Note - Critical Care Note Total time excluding time spent on procedures (mins): 90 Comments: Patient's vital signs much improved as well as decreased ketones specific gravity of urine from 1.030-1.009 and her lipase decreased by more than half. Patient was questioning whether she should be admitted but I advised against this. Her labs belie her desire for admission. Discharge - Discharge Clinical Impression: Acute on chronic pancreatitis Vomiting Qualifiers: Vomiting type: unspecified Vomiting Intractability: unspecified Nausea presence: with nausea Qualified Code(s): R11.2 - Nausea with vomiting, unspecifi ed Condition: Good Disposition: HOME, SELF-CARE Instructions: Abdominal Pain ([facility]), Vomiting ([facility]), Intravenous (IV) Fluids ([facility]) Additional Instructions: Continue with same medications return to ER if symptoms persist encourage fluids avoid any milk or meat products for at least 5 days. Also encourage fluids like tea or diluted Gatorade and advance to brat diet that is bananas rice applesauce toast michael ying crackers and avoid alcohol of any type including vinegar mouthwash wine coolers beer wine or liquor vodka whiskey bourbon Referrals: PEDRO ORTIZ PA-C [Primary Care Provider] - Follow up as needed
[2019-12-30] MEDS ORDERED: PROMETHAZINE HCL INJ 25 MG/1 ML VIAL IV ONE (22:11)
[2019-12-30] MEDS ORDERED: FENTANYL CITRATE INJ/PF 100 MCG/2 ML AMPUL IV ONE (22:11)
[2019-12-30] MEDS: NORMAL SALINE 1000 ML 1,000 ML IV PRN (23:56)
[2019-12-31] MEDS ORDERED: FENTANYL CITRATE INJ/PF 100 MCG/2 ML AMPUL IV ONE (01:25)
[2019-12-31] MEDS: NORMAL SALINE 1000 ML 1,000 ML IV PRN (01:34)
[2019-12-31 04:08] VITALS: BP 146/95
== END 2019-12-31 03:00 | disposition home or self-care (01) ==
LOC: ER 19:04
DX: K85.90 Acute pancreatitis without necrosis or infection, unspecified (principal); K86.1 Other chronic pancreatitis; R11.2 Nausea with vomiting, unspecified; R53.1 Weakness; I10 Essential (primary) hypertension; F17.210 Nicotine dependence, cigarettes, uncomplicated; Z98.51 Tubal ligation status; Z90.49 Acquired absence of other specified parts of digestive tract
CPT/HCPCS: 96376; 99285; 96361; 96374; 96375; 36415; 82150; 83690; 85025; 80053; 81001; J3010 ×2; J2550; J7030 ×2

== ENCOUNTER 2020-01-03 02:27 | Emergency (ER) | payer SELFPAY ==
[2020-01-03 02:55] LABS: ABSOLUTE BASOPHILS # (AUTO) 0.2 10^3/uL (0.0-0.2); ABSOLUTE EOSINOPHILS # (AUTO) 0.3 10^3/uL (0.0-0.6); ABSOLUTE LYMPHOCYTES (AUTO) 2.1 10^3/uL (0.5-4.7); ABSOLUTE MONOCYTES (AUTO) 1.1 10^3/uL (0.1-1.4); ABSOLUTE NEUT (AUTO) 6.1 10^3/uL (1.7-8.2); BASOPHILS % (AUTO) 1.8 % (0-2); EOSINOPHILS % (AUTO) 2.7 % (0-6); HEMATOCRIT 41.2 % (36.0-47.0); HEMOGLOBIN 14.5 g/dL (12.0-15.5); MEAN CORPUSCULAR HEMOGLOBIN 32.8 pg (27.0-33.4); MEAN CORPUSCULAR HGB CONC 35.1 g/dL (32.0-36.0); MEAN CORPUSCULAR VOLUME 93 fl (80-97); MONOCYTES % (AUTO) 11.2 % (3-13); PLATELET COUNT 366 10^3/uL (150-450); RED BLOOD COUNT 4.42 10^6/uL (3.72-5.28); RED CELL DISTRIBUTION WIDTH 15.5 % (11.5-14.0); SEGMENTED NEUTROPHILS % (AUTO) 62.3 % (42-78); TOTAL CELLS COUNTED % (AUTO) 100 %; WHITE BLOOD COUNT 9.7 10^3/uL (4.0-10.5)
[2020-01-03 03:07] LABS: APPEARANCE,URINE CLEAR; BILIRUBIN,URINE NEGATIVE (NEGATIVE); COLOR,URINE YELLOW; GLUCOSE, URINE NEGATIVE (NEGATIVE); KETONES,URINE 20 mg/dL (NEGATIVE); LEUKOCYTE ESTERASE,URINE NEGATIVE (NEGATIVE); NITRITE,URINE NEGATIVE (NEGATIVE); PROTEIN,URINE NEGATIVE (NEGATIVE); URINE SPECIFIC GRAVITY 1.018; UROBILINOGEN,URINE NEGATIVE mg/dL (<2.0)
[2020-01-03 03:19] LABS: ALBUMIN 4.8 g/dL (3.5-5.0); ALKALINE PHOSPHATASE 93 U/L (38-126); ANION GAP 12 (5-19); ASPARTATE AMINO TRANSFERASE 18 U/L (14-36); BILIRUBIN,TOTAL 0.4 mg/dL (0.2-1.3); BLOOD UREA NITROGEN 4 mg/dL (7-20); CALCIUM 10.8 mg/dL (8.4-10.2); CARBON DIOXIDE 25 mmol/L (22-30); CHLORIDE 95 mmol/L (98-107); GLUCOSE 140 mg/dL (75-110); POTASSIUM 3.1 mmol/L (3.6-5.0); TOTAL PROTEIN 7.6 g/dL (6.3-8.2)
[2020-01-03] MEDS ORDERED: ONDANSETRON HCL INJ/PF 4 MG/2 ML SDV IV ONE (04:17)
[2020-01-03] MEDS ORDERED: NORMAL SALINE 1000 ML 1,000 ML IV ONE (04:17)
[2020-01-03] MEDS ORDERED: FENTANYL CITRATE INJ/PF 100 MCG/2 ML AMPUL IV ONE (04:51)
--- NOTE | 2020-01-03 05:18 | RADIOLOGY REPORT (SQ) ---
CT abdomen and pelvis with contrast on 01/03/2020 4:49 AM CLINICAL INDICATION: Epigastric pain, question pancreatic pseudocyst TECHNIQUE: Multiple axial images are obtained throughout the abdomen and pelvis following the administration of IV contrast, 61 mL of Omnipaque 350contrast was administered intravenously without complication. This exam was performed according to our departmental dose-optimization program, which includes automated exposure control, adjustment of the mA and/or kV according to patient size and/or use of iterative reconstruction technique. Total DLP is 470.15 mGy*cm. COMPARISON: 07/23/2019 FINDINGS: Abdomen: The lung bases are clear. The patient is status post cholecystectomy. There are multiple calcifications in the pancreas consistent with changes of chronic pancreatitis. There is peripancreatic stranding around the pancreas consistent with component of acute pancreatitis as well. There has been development of a 1.5 cm cystic lesion in the pancreatic body most consistent with small pseudocyst. There is new narrowing of the splenic vein and SMV near the portal confluence but there is no evidence of occlusion or thrombosis. There is a small nonobstructing left renal stone. Tiny bilateral renal cysts are noted. There is some urothelial thickening of the right proximal ureter that may be related to infection, recommend correlation with urinalysis. The solid abdominal organs are otherwise unremarkable. There is no abdominal adenopathy. There is no free fluid or free air within the abdomen. Colon is fluid-filled suggesting a diarrheal illness and may be related to gastroenteritis. The abdominal portion of the GI tract is otherwise unremarkable. Pelvis: No free fluid is noted in the pelvis. There is no pelvic adenopathy. Pelvic portion of the GI tract including the appendix is unremarkable. No bony abnormality is noted. IMPRESSION: 1. Findings consistent with acute on chronic pancreatitis with likely a small pseudocyst within the pancreatic body. There is some new narrowing of the splenic vein and SMV near the portal confluence likely sequela from the pancreatitis. 2. New urothelial thickening of the right proximal ureter that may be related to infection, recommend correlation with urinalysis. 3. Left nephrolithiasis.
[2020-01-03] MEDS ORDERED: HYDROCODONE/ACETAMINOPHEN 5-325 MG (6 TAB/ER DISP) PO PRN (05:26)
[2020-01-03] MEDS ORDERED: ONDANSETRON ODT 4 MG TAB (6 TAB/ER DISP) PO PRN (05:26)
--- NOTE | 2020-01-03 05:43 | ER Document Report ---
ED General - General Chief Complaint: Abdominal Pain Stated Complaint: ABDOMINAL PAIN Time Seen by Provider: 01/03/20 03:49 Primary Care Provider: PEDRO ORTIZ PA-C [Primary Care Provider] - Follow up as needed TRAVEL OUTSIDE OF THE [place] IN LAST 30 DAYS: No - Related Data Allergies/Adverse Reactions: No Known Allergies Allergy (Verified 12/29/19 17:23) Home Medications: lisinopril, propranolol, vistaril prn, trazadone Past Medical History - Social History Smoking Status: Current Every Day Smoker Family History: Reviewed & Not Pertinent, Hypertension Patient has suicidal ideation: No Patient has homicidal ideation: No - Past Medical History Cardiac Medical History: Reports: Hx Hypercholesterolemia, Hx Hypertension Pulmonary Medical History: Denies: Hx Tuberculosis Neurological Medical History: Denies: Hx Cerebrovascular Accident, Hx Seizures Endocrine Medical History: Denies: Hx Diabetes Mellitus Type 2, Hx Hypothyroidism Renal/ Medical History: Denies: Hx Peritoneal Dialysis, Hx Pelvic Inflammatory Disease GI Medical History: Reports: Hx Gastroesophageal Reflux Disease, Hx Pancreatitis Psychiatric Medical History: Reports: Hx Anxiety Past Surgical History: Reports: Hx Abdominal Surgery - iud retrieval, hernia repair, Hx Cholecystectomy - , Hx Pancreatic Surgery - x2 placed a stent, Hx Tubal Ligation, Other - Pancreatic stent placement. Denies: Hx Pacemaker - Immunizations Hx Diphtheria, Pertussis, Tetanus Vaccination: Yes Physical Exam - Vital signs Vitals: Temp Pulse Resp BP Pulse Ox 97.7 F 114 H 16 140/98 H 99 01/03/20 02:31 01/03/20 02:31 01/03/20 02:31 01/03/20 02:31 01/03/20 02:31 Course - Re-evaluation Re-evalutation: 01/03/20 05:46 Patient presents with clinical history and exam and labs to suggest acute pancreatitis. Lipase is markedly elevated today. Patient admits to alcohol use as the trigger for the acute episode of pancreatitis and has a history of the same in the past. At time of arrival, patient's vitals are within normal limit s, they are well-appearing and in no acute distress. The patient has tolerated oral intake without difficulty and has not had any vomiting with today's presentation. Pain was able to be controlled here in the emergency department with oral medications. [place] score is 0. Patient is an appropriate candidate for outpatient management of this acute episode of pancreatitis using oral pain medications, antiemetics, and recommendations for a clear liquid diet until pain has resolved. At this time will discharge with return precautions and follow-up recommendations. Verbal discharge instructions given a the bedside and opportunity for questions given. Medication warnings reviewed. Patient is in agreement with this plan and has verbalized understanding of return precautions and the need for primary care follow-up in the next 24-72 hours. - Vital Signs Vital signs: Temp Pulse Resp BP Pulse Ox 97.7 F 114 H 16 140/98 H 99 01/03/20 02:31 01/03/20 02:31 01/03/20 02:31 01/03/20 02:31 01/03/20 02:31 - Laboratory Result Diagrams: 01/03/20 02:45 01/03/20 02:45 Laboratory results interpreted by me: 01/03/20 01/03/20 01/03/20 02:45 02:45 02:50 RDW 15.5 H Sodium 132.2 L Potassium 3.1 L Chloride 95 L BUN 4 L Glucose 140 H Calcium 10.8 H Lipase 684.8 H Urine Ketones 20 H Discharge - Discharge Clinical Impression: Acute on chronic pancreatitis Abdominal pain Qualifiers: Abdominal location: upper abdomen, unspecified Qualified Code(s): R10.10 - Upper abdominal pain, unspecified Condition: Good Disposition: HOME, SELF-CARE Additional Instructions: You were seen today for pancreatitis. Please avoid alcohol in any quantity in the future as this could cause a recurrence of your pancreatitis. Please keep in mind that pancreatitis can be a very serious condition that can even result in . Your case today appears very mild and it is safe for you to go home today with medications for pain and nausea. Please drink plenty of fluids over the next several days and try to avoid food ingestion until your pain is resolved. Please return to the emergency department immediately if you develop persistent vomiting that prohibits you from taking your medications or keeping fluids down, you develop a fever of greater than 101F, you have worsening pain, you become confused, you become short of breath, or have any other symptoms that are worrisome to you. Please follow-up with your primary care doctor in the next 24-48 hours. Referrals: PEDRO ORTIZ PA-C [Primary Care Provider] - Follow up as needed
[2020-01-03 05:44] VITALS: BP 99/70
== END 2020-01-03 06:05 | disposition home or self-care (01) ==
LOC: ER 02:27
DX: K85.90 Acute pancreatitis without necrosis or infection, unspecified (principal); K86.1 Other chronic pancreatitis; R10.13 Epigastric pain; F17.200 Nicotine dependence, unspecified, uncomplicated; I10 Essential (primary) hypertension; F41.9 Anxiety disorder, unspecified; Z79.899 Other long term (current) drug therapy; Z87.19 Personal history of other diseases of the digestive system; Z90.49 Acquired absence of other specified parts of digestive tract
CPT/HCPCS: 99284; 96361; 96374; 96375; 36415; 83690; 85025; 81025; 80053; 81001; 74177; J3010; J2405; J7030

== ENCOUNTER 2020-01-10 18:37 | Inpatient (IN) | payer OTHER ==
--- NOTE | 2020-01-10 19:56 | ER Document Report ---
ED Medical Screen (RME) - General Chief Complaint: Abdominal Pain Stated Complaint: ABDOMINAL PAIN Time Seen by Provider: 01/10/20 19:52 Primary Care Provider: PEDRO ORTIZ PA-C [Primary Care Provider] - Follow up as needed Mode of Arrival: Ambulatory Information source: Patient Notes: 34-year-old female presented to ED for complaint of severe upper abdominal pain. She states she has a history of pancreatitis. I did see her in December and she did have a lipase of 1900 the first time and last the second time. She has followed up with her primary care doctor who told her that she did have acute on chronic pancreatitis the last time she was seen. The second time she was seen it was lower than the first. Patient is alert oriented respirations regular nonlabored speaking in full sentences walks with even steady gait. She states she is not nauseated this time like she was earlier. She states she is also constipated when she usually has diarrhea. I have greeted and performed a rapid initial assessment of this patient. A comprehensive ED assessment and evaluation of the patient, analysis of test results and completion of medical decision making process will be conducted by an additional ED providers. TRAVEL OUTSIDE OF THE [place] IN LAST 30 DAYS: No - Related Data Allergies/Adverse Reactions: No Known Allergies Allergy (Verified 12/29/19 17:23) Past Medical History - Social History Frequency of alcohol use: None Drug Abuse: None - Past Medical History Cardiac Medical History: Reports: Hx Hypercholesterolemia, Hx Hypertension Pulmonary Medical History: Denies: Hx Tuberculosis Neurological Medical History: Denies: Hx Cerebrovascular Accident, Hx Seizures Endocrine Medical History: Denies: Hx Diabetes Mellitus Type 2, Hx Hypothyroidism Renal/ Medical History: Denies: Hx Peritoneal Dialysis, Hx Pelvic Inflammatory Disease GI Medical History: Reports: Hx Gastroesophageal Reflux Disease, Hx Pancreatitis Psychiatric Medical History: Reports: Hx Anxiety Past Surgical History: Reports: Hx Abdominal Surgery - iud retrieval, hernia repair, Hx Cholecystectomy - , Hx Pancreatic Surgery - x2 placed a stent, Hx Tubal Ligation, Other - Pancreatic stent placement. Denies: Hx Pacemaker - Immunizations Hx Diphtheria, Pertussis, Tetanus Vaccination: Yes Physical Exam - Vital signs Vitals: Temp Pulse Resp BP Pulse Ox 99.2 F 107 H 18 133/94 H 99 01/10/20 18:40 01/10/20 18:40 01/10/20 18:40 01/10/20 18:40 01/10/20 18:40 Course - Vital Signs Vital signs: Temp Pulse Resp BP Pulse Ox 99.2 F 107 H 18 133/94 H 99 01/10/20 19:47 01/10/20 18:40 01/10/20 18:40 01/10/20 18:40 01/10/20 18:40 Doctor's Discharge - Discharge Referrals: PEDRO ORTIZ PA-C [Primary Care Provider] - Follow up as needed
[2020-01-10 20:18] LABS: ABSOLUTE BASOPHILS # (AUTO) 0.1 10^3/uL (0.0-0.2); ABSOLUTE EOSINOPHILS # (AUTO) 0.1 10^3/uL (0.0-0.6); ABSOLUTE LYMPHOCYTES (AUTO) 1.7 10^3/uL (0.5-4.7); BASOPHILS % (AUTO) 1.4 % (0-2); EOSINOPHILS % (AUTO) 1.5 % (0-6); HEMATOCRIT 36.6 % (36.0-47.0); HEMOGLOBIN 12.9 g/dL (12.0-15.5); MEAN CORPUSCULAR HEMOGLOBIN 32.7 pg (27.0-33.4); MEAN CORPUSCULAR HGB CONC 35.1 g/dL (32.0-36.0); MEAN CORPUSCULAR VOLUME 93 fl (80-97); MONOCYTES % (AUTO) 10.7 % (3-13); PLATELET COUNT 446 10^3/uL (150-450); RED BLOOD COUNT 3.94 10^6/uL (3.72-5.28); RED CELL DISTRIBUTION WIDTH 15.6 % (11.5-14.0); SEGMENTED NEUTROPHILS % (AUTO) 67.4 % (42-78); TOTAL CELLS COUNTED % (AUTO) 100 %; WHITE BLOOD COUNT 8.9 10^3/uL (4.0-10.5)
--- NOTE | 2020-01-10 20:32 | RADIOLOGY REPORT (SQ) ---
CLINICAL INDICATION: Upper abdominal pain and constipation hx pancreati. TECHNIQUE: 2 image(s) of the abdomen. Single image(s) of the chest. COMPARISON: Chest radiography April 11, 2014. CORRELATION: None. FINDINGS: A nonspecific gas pattern is identified. No evidence of high grade obstruction. No evidence of free air. Postsurgical change from tubal ligation. The cardiomediastinal silhouette is normal. The lungs are grossly clear. No evidence of effusion or pneumothorax. The visualized bones are unremarkable. IMPRESSION: No acute intra-abdominal process is identified. No evidence of active intrathoracic disease.
[2020-01-10 20:34] LABS: ALBUMIN 3.9 g/dL (3.5-5.0); ALKALINE PHOSPHATASE 340 U/L (38-126); ANION GAP 7 (5-19); BILIRUBIN,DIRECT 2.1 mg/dL (0.0-0.4); BILIRUBIN,TOTAL 2.5 mg/dL (0.2-1.3); BLOOD UREA NITROGEN 18 mg/dL (7-20); CALCIUM 9.9 mg/dL (8.4-10.2); CARBON DIOXIDE 27 mmol/L (22-30); CHLORIDE 102 mmol/L (98-107); GLUCOSE 129 mg/dL (75-110); POTASSIUM 3.4 mmol/L (3.6-5.0); TOTAL PROTEIN 6.7 g/dL (6.3-8.2)
[2020-01-10 20:41] LABS: ASPARTATE AMINO TRANSFERASE 801 U/L (14-36)
[2020-01-10] MEDS: NORMAL SALINE 1000 ML 1,000 ML IV PRN ×2 (20:53→22:45)
[2020-01-10 21:02] LABS: APPEARANCE,URINE SLIGHTLY-CLOUDY; BILIRUBIN,URINE MODERATE (NEGATIVE); COLOR,URINE DARK YELLOW; GLUCOSE, URINE NEGATIVE (NEGATIVE); KETONES,URINE TRACE mg/dL (NEGATIVE); PROTEIN,URINE 100 mg/dL (NEGATIVE); URINE SPECIFIC GRAVITY 1.043
--- NOTE | 2020-01-10 21:03 | ER Document Report ---
ED General - General Mode of Arrival: Ambulatory Information source: Patient TRAVEL OUTSIDE OF THE [place] IN LAST 30 DAYS: No <PATRICIO WHEELER - Last Filed: 01/10/20 20:58> <CARLOSROYA - Last Filed: 01/11/20 01:44> - General Chief Complaint: Abdominal Pain Stated Complaint: ABDOMINAL PAIN Time Seen by Provider: 01/10/20 19:52 Primary Care Provider: PEDRO ORTIZ PA-C [Primary Care Provider] - Follow up as needed - HPI Notes: Patient has a history of chronic pancreatitis. She states that originally was from drinking alcohol. She states she has not had any alcohol to drink now in approximately 2 weeks. Her last drink was 2 weeks ago and it was 2 wine coolers. She denies any drug use. She does smoke tobacco. She states that over the last week to 2 weeks she has had progressively increasing epigastric pain. She states she was here a week ago and told that she had pancreatitis and she has tried managing at home with clear liquids and pain medication but is getting worse. She states the pain is severe and goes into her back and chest. She states it is sharp. It is worse with movement and better with rest. No shortness of breath. No cough cold or congestion. (PATRICIO WHEELER) - Related Data Allergies/Adverse Reactions: No Known Allergies Allergy (Verified 12/29/19 17:23) Past Medical History - General Information source: Patient - Social History Smoking Status: Current Every Day Smoker Frequency of alcohol use: None Drug Abuse: None Family History: Reviewed & Not Pertinent, Hypertension Patient has homicidal ideation: No - Past Medical History Cardiac Medical History: Reports: Hx Hypercholesterolemia, Hx Hypertension Pulmonary Medical History: Denies: Hx Tuberculosis Neurological Medical History: Denies: Hx Cerebrovascular Accident, Hx Seizures Endocrine Medical History: Denies: Hx Diabetes Mellitus Type 2, Hx Hypothyroidism Renal/ Medical History: Denies: Hx Peritoneal Dialysis, Hx Pelvic Inflammatory Disease GI Medical History: Reports: Hx Gastroesophageal Reflux Disease, Hx Pancreatitis Psychiatric Medical History: Reports: Hx Anxiety Past Surgical History: Reports: Hx Abdominal Surgery - iud retrieval, hernia repair, Hx Cholecystectomy - , Hx Pancreatic Surgery - x2 placed a stent, Hx Tubal Ligation, Other - Pancreatic stent placement. Denies: Hx Pacemaker - Immunizations Hx Diphtheria, Pertussis, Tetanus Vaccination: Yes <PATRICIO WHEELER - Last Filed: 01/10/20 20:58> Review of Systems - Review of Systems Constitutional: Malaise, Weakness. denies: Chills, Fever Cardiovascular: Chest pain. denies: Palpitations Respiratory: denies: Cough, Short of breath -: Yes All other systems reviewed and negative <PATRICIO WHEELER Bertha - Last Filed: 01/10/20 20:58> Physical Exam - Vital signs Interpretation: Tachycardic - General General appearance: Appears well, Alert - HEENT Head: Normocephalic, Atraumatic Eyes: Normal Pupils: PERRL - Respiratory Respiratory status: No respiratory distress Chest status: Nontender Breath sounds: Normal Chest palpation: Normal - Cardiovascular Rhythm: Regular Heart sounds: Normal auscultation Murmur: No - Abdominal Inspection: Normal Distension: No distension Bowel sounds: Normal Tenderness: Tender Organomegaly: No organomegaly - Back Back: Normal, Nontender - Extremities General upper extremity: Normal inspection, Nontender, Normal color, Normal ROM, Normal temperature General lower extremity: Normal inspection, Nontender, Normal color, Normal ROM, Normal temperature, Normal weight bearing. No: Tex's sign - Neurological Neuro grossly intact: Yes Cognition: Normal Orientation: AAOx4 [place] Coma Scale Eye Opening: Spontaneous [place] Coma Scale Verbal: Oriented [place] Coma Scale Motor: Obeys Commands Curly Coma Scale Total: 15 Speech: Normal Motor strength normal: LUE, RUE, LLE, RLE Sensory: Normal - Psychological Associated symptoms: Normal affect, Normal mood - Skin Skin Temperature: Warm Skin Moisture: Dry Skin Color: Normal <PATRICIO WHEELER - Last Filed: 01/10/20 20:58> - Vital signs Vitals: Temp Pulse Resp BP Pulse Ox 99.2 F 107 H 18 133/94 H 99 01/10/20 18:40 01/10/20 18:40 01/10/20 18:40 01/10/20 18:40 01/10/20 18:40 Course - Laboratory Result Diagrams: 01/10/20 20:00 01/10/20 20:00 <PATRICIO WHEELER - Last Filed: 01/10/20 20:58> - Laboratory Result Diagrams: 01/10/20 20:00 01/10/20 20:00 - Diagnostic Test Radiology reviewed: Image reviewed, Reports reviewed - CT scan abdomen and pelvis with oral and IV contrast: Inflammatory changes of the pancreas are noted with periportal edema and inflammatory changes of the liver, extrinsic compression of the splenic vein with no evidence of thrombosis. <ROYA GONZALEZ - Last Filed: 01/11/20 01:44> - Re-evaluation Re-evalutation: 01/11/20 01:[address] scan results revealed inflammatory changes of the pancreas with a increased size cyst. There are also inflammatory periportal changes in the liver with evidence of extrinsic compression of the splenic vein no thrombosis was noted. Given the patient's increasing lipase and abdominal pain admission to the hospital with bowel rest and post monitoring of response is indicated. Dr Perez, hospitalist is contacted and a review of the laboratory data as well as the CT findings were discussed. Will admit the patient to the hospital for medical management. (ROYA GONZALEZ) - Vital Signs Vital signs: Temp Pulse Resp BP Pulse Ox 99.2 F 107 H 18 133/94 H 99 01/10/20 19:47 01/10/20 18:40 01/10/20 18:40 01/10/20 18:40 01/10/20 18:40 - Laboratory Laboratory results interpreted by me: 01/10/20 01/10/20 01/10/20 20:00 20:00 20:00 RDW 15.6 H Sodium 136.2 L Potassium 3.4 L Glucose 129 H Total Bilirubin 2.5 H Direct Bilirubin 2.1 H AST 801 H ALT 412 H Alkaline Phosphatase 340 H Lipase 1903.0 H Urine Protein 100 H Urine Ketones TRACE H Urine Bilirubin MODERATE H Urine Urobilinogen 4.0 H Leukocyte Esterase Rfl SMALL H Critical Care Note - Critical Care Note Total time excluding time spent on procedures (mins): 60 - Critical care time spent obtaining history from patient or surrogate, discussions with consultants, development of treatment plan with patient or surrogate, evaluation of patient's response to treatment, examination of patient, ordering and performing saba atments and interventions, ordering and review of laboratory studies, re- evaluation of patient's condition, ordering and review of radiographic studies and review of old charts <ROYA GONZALEZ - Last Filed: 01/11/20 01:44> Discharge <PATRICIO WHEELER - Last Filed: 01/10/20 20:58> - Discharge Admitting Provider: Chris (Hospitalist) Unit Admitted: Medical Floor <ROYA GONZALEZ - Last Filed: 01/11/20 01:44> - Discharge Clinical Impression: Acute on chronic pancreatitis, Elevated LFTs Abdominal pain Qualifiers: Abdominal location: generalized Qualified Code(s): R10.84 - Generalized abdominal pain Condition: Good Disposition: ADMITTED INPATIENT Referrals: PEDRO ORTIZ PA-C [Primary Care Provider] - Follow up as needed
[2020-01-10] MEDS ORDERED: ONDANSETRON HCL INJ/PF 4 MG/2 ML SDV IV ONE ×3 (21:17→23:44)
[2020-01-10] MEDS ORDERED: MORPHINE SULFATE 10 MG/ML INJ IV ONE ×2 (21:17→23:43)
--- NOTE | 2020-01-11 00:58 | RADIOLOGY REPORT (SQ) ---
CLINICAL INDICATION: epi pain/vomit/elev lft's. . TECHNIQUE: Contrast enhanced spiral axial CT imaging was obtained of the abdomen and pelvis with multiplanar reconstructions. This exam was performed according to our departmental dose-optimization program, which includes automated exposure control, adjustment of the mA and/or kV according to patient size and/or use of iterative reconstruction techniques. Additional delayed phase imaging COMPARISON: January 03, 2020. CORRELATION: None. FINDINGS: Abdomen: The lung bases are grossly clear. The heart is of normal size. No evidence of pleural or pericardial fluid. The liver demonstrate progressive hepatic steatosis and mild periportal edema. The gallbladder is surgically absent. The pancreas again demonstrates inflammatory change. A cyst is noted in the proximal body of the pancreas measuring 2.1 cm (previously 1.6 cm). Presumed postinflammatory. Mild surrounding Inflammatory change. The spleen is unremarkable. The adrenals are unremarkable. The kidneys demonstrate a 2 mm nonobstructing calculus left kidney. No obstructive uropathy. Symmetric nephrograms.. Portal vein is patent. Inflammatory changes are extrinsically compressing the splenic vein. There is no evidence of free air. No free fluid. No bulky adenopathy. Abdominal aorta is nonaneurysmal. Pelvis: The bowel is nonobstructed. Colon is unopacified.. Pelvic contents are unremarkable. The appendix is not seen. Very mild thickening of the distal colon Visualized bones are unremarkable. IMPRESSION: Pancreatitis, similar to prior. The small cyst within the pancreas, presumed related to inflammatory change, is larger than it was in December 2016. There also appears be progressive low-attenuation of the liver and progressive periportal edema, consistent with inflammatory change.. 2 mm nonobstructing calculus left kidney. Although there is extrinsic compression of the splenic vein, there is no evidence of thrombosis of the portal venous system
[2020-01-11] MEDS ORDERED: MAG HYDROX/AL HYDROX/SIMETH SUSP 30 ML UDCUP PO PRN (02:17)
[2020-01-11] MEDS ORDERED: MAGNESIUM HYDROXIDE SUSP 30 ML UDCUP PO PRN (02:17)
[2020-01-11] MEDS ORDERED: LORAZEPAM INJ 2 MG/1 ML VIAL IV PRN (02:22)
[2020-01-11] MEDS ORDERED: MORPHINE SULFATE 10 MG/ML INJ IV PRN ×3 (02:22→09:40)
[2020-01-11] MEDS ORDERED: GUAIFENESIN SYRP 200 MG/10 ML UDC PO PRN (02:22)
[2020-01-11] MEDS ORDERED: ACETAMINOPHEN 325 MG TABLET PO PRN (02:22)
[2020-01-11] MEDS ORDERED: NICOTINE 21 MG/24 HR PATCH.TD24 TD PRN (02:22)
[2020-01-11] MEDS ORDERED: MAGNESIUM SULFATE/D5W 1 GM/100 ML RTUPB IV ONE (02:26)
[2020-01-11] MEDS ORDERED: PROMETHAZINE HCL INJ 25 MG/1 ML VIAL IV PRN (03:41)
[2020-01-11] MEDS: DEXTROSE 5%-LACTATED RINGERS 1,000 ML IV PRN ×3 (03:50→23:49)
[2020-01-11] MEDS: MORPHINE SULFATE 10 MG/ML INJ IV PRN ×6 (03:56→23:45)
[2020-01-11] MEDS: METOCLOPRAMIDE HCL INJ/PF 10 MG/2 ML SDV IV SCH ×5 (04:01→21:28)
[2020-01-11] MEDS: HEPARIN SOD (PORCINE) 5,000 UNIT/ML 1 ML VIAL SUBCUT SCH ×3 (05:46→21:29)
[2020-01-11] MEDS: POTASSI CL 20 MEQ/50 ML RIDER 20 MEQ/50 ML RTUPB IV SCH ×2 (05:48→07:21)
--- NOTE | 2020-01-11 06:39 | PDOC H&P ---
History of Present Illness Admission Date/PCP: 01/11/2020 01:47 PEDRO ORTIZ PA-C Patient complains of: Abdominal pain History of Present Illness: NEREIDA MILAN is a 34 year old female who presented to the emergency room with a 2-week history of abdominal pain. She admits developing continuous sharp epigastric abdominal pain 2 weeks ago which has progressively worsened in intensity becoming severe today. The pain is worsened by activity, eating/drinking and radiates into her back and lower chest. She was seen in the [facility] ER on 01/03/2020 and was treated as an outpatient with a clear liquid diet and pain medication. Because of her progressively worsening pain she has returned having failed outpatient therapy. She admits that her pain has been accompanied by nausea and is associated with generalized malaise. She denies other accompanying or associated signs and symptoms. She admits numerous prior similar episodes, acknowledging chronic recurrent alcoholic pancreatitis as the diagnosis. She insists that her last alcohol intake was 2 weeks ago. She denies unification of any additional aggravating or ameliorating factors for her abdominal pain. In the emergency room she was found to have a lipase of 1903 which is increased from 684 on 01/03/2020. A CT scan of her abdomen showed acute pancreatic inflammation with a 2.1 cm pancreatic cyst that was felt to be sligh tly larger than it appeared on the previous study. Patient was subsequently admitted to the hospital for further evaluation and treatment. Past Medical History Cardiac Medical History: Reports: Hyperlipidema, Hypertension Denies: Atrial Fibrillation, Coronary Artery Disease, DVT, Myocardial Infarction, Pulmonary Embolism Pulmonary Medical History: Denies: Asthma, Chronic Obstructive Pulmonary Disease (COPD), Tuberculosis EENT Medical History: Denies: Cataracts, Ears - Hearing Neurological Medical History: Denies: Hemorrhagic CVA, Ischemic CVA, Seizures Endocrine Medical History: Denies: Diabetes Mellitus Type 1, Diabetes Mellitus Type 2, Hyperthyroidism, Hypothyroidism, Obesity Renal/ Medical History: Denies: Chronic Kidney Disease, Nephrolithiasis Malignancy Medical History: Reports: None GI Medical History: Reports: Cirrhosis - Hepatic steatosis, Gastroesophageal Reflux Disease, Other - Chronic recurrent alcoholic pancreatitis Denies: Crohn's Disease, Peptic Ulcer Disease, Ulcerative Colitis Musculoskeltal Medical History: Denies: Arthritis, Gout Skin Medical History: Denies: Eczema, Psoriasis Psychiatric Medical History: Denies: Alcohol Dependency, Substance Abuse, Tobacco Dependency Traumatic Medical History: Reports: None Hematology: Denies: Anemia, Bleeding Tendencies Infectious Medical History: Reports: None Past Surgical History Past Surgical History: Reports: Cholecystectomy - 07/27, Herniorrhaphy, Tubal Ligation, Other - Pancreatic surgery x2, pancreatic stent, laparoscopic IUD retrieval Social History Information Source: Patient Lives with: Family, Spouse/Significant other Smoking Status: Current Every Day Smoker Electronic Cigarette use?: No Frequency of Alcohol Use: Occasional Hx Recreational Drug Use: No Drugs: None Hx Prescription Drug Abuse: No - Advance Directive Resuscitation Status: Full Code Surrogate healthcare decision maker:: Blas Milan Family History Family History: CAD, CVA - TIAs, Hypertension, Other - Endometriosis. denies: DM, Malignancy Parental Family History Reviewed: Yes Children Family History Reviewed: No Sibling(s) Family History Reviewed.: Yes Medication/Allergy Home Medications: Hydroxyzine HCl [Atarax 10 mg Tablet] 10 mg PO Q6HP PRN 07/23/19 Propranolol HCl [Inderal 20 mg Tablet] 20 mg PO Q12 07/23/19 Ibuprofen [Motrin 400 mg Tablet] 400 mg PO MEALS PRN #14 tablet 07/29/19 Levofloxacin [Levaquin 750 mg Tablet] 750 mg PO DAILY #4 tablet 07/29/19 Metronidazole [Flagyl 500 mg Tablet] 500 mg PO TID 4 Days 07/29/19 Ondansetron HCl [Zofran 4 mg Tablet] 1 - 2 tab PO Q6H PRN #10 tablet 07/29/19 Chlorzoxazone [Parafon Forte Dsc 500 Mg Tablet] 500 mg PO BID PRN #14 tablet 12/29/19 Promethazine HCl [Phenergan 25 mg Tablet] 1 tab PO Q6H PRN #15 tablet 12/29/19 Allergies/Adverse Reactions: No Known Allergies Allergy (Verified 12/29/19 17:23) Review of Systems Constitutional: ABSENT: chills, fever(s) Eyes: ABSENT: visual disturbances, other - Eye pain Ears: ABSENT: hearing changes, other - Ear pain Nose, Mouth, and Throat: ABSENT: headache(s), sore throat Cardiovascular: ABSENT: chest pain, palpitations Respiratory: ABSENT: cough, dyspnea Gastrointestinal: PRESENT: as per HPI, abdominal pain, nausea. ABSENT: constip ation, diarrhea, vomiting Genitourinary: ABSENT: difficulty urinating, dysuria, hematuria Musculoskeletal: ABSENT: joint swelling, muscle weakness Integumentary: ABSENT: diaphoresis, pruritus, rash Neurological: ABSENT: confusion, convulsions, focal weakness, memory loss, syncope Psychiatric: ABSENT: anxiety, depression Endocrine: ABSENT: cold intolerance, heat intolerance, polydipsia, polyphagia, polyuria Hematologic/Lymphatic: ABSENT: easy bleeding, easy bruising Allergic/Immunologic: ABSENT: seasonal rhinorrhea Physical Exam Vital Signs: Temp Pulse Resp BP Pulse Ox 99.2 F 107 H 18 133/94 H 99 01/10/20 19:47 01/10/20 18:40 01/10/20 18:40 01/10/20 18:40 01/10/20 18:40 Intake & Output 01/09/20 01/10/20 01/11/20 23:59 23:59 23:59 Intake Total 1999 Balance 1999 Weight 52.6 kg General appearance: PRESENT: cooperative, mild distress - Secondary to abdominal pain Head exam: PRESENT: atraumatic, normocephalic Eye exam: PRESENT: conjunctiva pink, scleral icterus - Mild scleral icterus is noted. ABSENT: conjunctival injection Ear exam: PRESENT: normal external ear exam. ABSENT: bleeding, drainage Mouth exam: PRESENT: dry mucosa, neck supple Neck exam: ABSENT: thyromegaly, tracheal deviation Respiratory exam: PRESENT: clear to auscultation amanda, symmetrical, unlabored Cardiovascular exam: PRESENT: RRR. ABSENT: clicks, gallop, rubs Pulses: PRESENT: normal radial pulses, normal dorsalis pedis pul Vascular exam: PRESENT: normal capillary refill. ABSENT: pallor GI/Abdominal exam: PRESENT: guarding - Moderate voluntary guarding, normal bowel sounds, soft, tenderness - Moderate to severe tenderness to epigastric palpation Rectal exam: PRESENT: deferred Extremities exam: ABSENT: joint swelling, pedal edema Musculoskeletal exam: ABSENT: deformity, dislocation Neurological exam: PRESENT: alert, oriented to person, oriented to place, oriented to time, oriented to situation, CN II-XII grossly intact. ABSENT: motor sensory deficit Psychiatric exam: PRESENT: appropriate affect, normal mood Skin exam: PRESENT: dry, intact, warm. ABSENT: jaundice, rash, urticaria Results Laboratory Results: 01/10/20 20:00 01/10/20 20:00 01/10/20 01/10/20 01/10/20 20:00 20:00 20:00 WBC 8.9 RBC 3.94 Hgb 12.9 Hct 36.6 MCV 93 MCH 32.7 MCHC 35.1 RDW 15.6 H Plt Count 446 Seg Neutrophils % 67.4 Sodium 136.2 L Potassium 3.4 L Chloride 102 Carbon Dioxide 27 Anion Gap 7 BUN 18 Creatinine 0.84 Est GFR ( Amer) > 60 Glucose 129 H Calcium 9.9 Total Bilirubin 2.5 H AST 801 H Alkaline Phosphatase 340 H Total Protein 6.7 Albumin 3.9 Lipase 1903.0 H Serum HCG, Qual NEGATIVE Urine Color Urine Appearance Urine pH Ur Specific [place] Urine Protein Urine Glucose (UA) Urine Ketones Urine Blood Urine RBC (Auto) 01/10/20 20:00 WBC RBC Hgb Hct MCV MCH MCHC RDW Plt Count Seg Neutrophils % Sodium Potassium Chloride Carbon Dioxide Anion Gap BUN Creatinine Est GFR ( Amer) Glucose Calcium Total Bilirubin AST Alkaline Phosphatase Total Protein Albumin Lipase Serum HCG, Qual Urine Color DARK YELLOW Urine Appearance SLIGHTLY-CLOUDY Urine pH 5.0 Ur Specific [place] 1.043 Urine Protein 100 H Urine Glucose (UA) NEGATIVE Urine Ketones TRACE H Urine Blood NEGATIVE Urine RBC (Auto) 0 Impressions: Abdomen/Pelvis CT 01/10/20 00:00 IMPRESSION: Pancreatitis, similar to prior. The small cyst within the pancreas, presumed related to inflammatory change, is larger than it was in December 2016. There also appears be progressive low-attenuation of the liver and progressive periportal edema, consistent with inflammatory change.. 2 mm nonobstructing calculus left kidney. Although there is extrinsic compression of the splenic vein, there is no evidence of thrombosis of the portal venous system Acute Abdomen Series 01/10/20 19:54 IMPRESSION: No acute intra-abdominal process is identified. No evidence of active intrathoracic disease. Assessment and Plan - Diagnosis (1) Acute on chronic pancreatitis Is this a current diagnosis for this admission?: Yes (2) Abdominal pain Qualifiers: Abdominal location: epigastric Qualified Code(s): R10.13 - Epigastric pain Is this a current diagnosis for this admission?: Yes (3) Pancreatic cyst Is this a current diagnosis for this admission?: Yes (4) Hepatic steatosis Is this a current diagnosis for this admission?: Yes (5) Hypertension Is this a current diagnosis for this admission?: Yes (6) Hyperlipidemia Is this a current diagnosis for this admission?: Yes (7) Tobacco abuse Is this a current diagnosis for this admission?: Yes - Plan Summary Summary: Patient is admitted to the medical floor where she received routine supportive and symptomatic cares. She will be maintained with IV fluid and will receive analgesia utilizing morphine 2 to 4 mg IV every 2 hours on a as needed basis using a sliding scale for pain. She received Ativan 1 mg IV every 4 hours as needed for anxiety or restlessness. She received a clear liquid diet as tolerat ed with pancreatic enzyme supplementation. She received Reglan 10 mg IV before meals and at bedtime. Receive famotidine 20 mg IV every 12 hours. CBCs, metabolic profiles, magnesium levels, amylase and lipase levels as well as additional radiographic investigation will be obtained as needed. Surgical consultation will be considered if the patient's response is suboptimal. Smoking cessation is advised and counseled briefly at the bedside. A nicotine replacement patch is available for the patient's use, if she desires. - Time Time Spent with patient: 15-24 minutes Smoking Cessation Education: 3 to 10 minutes Medications reviewed and adjusted accordingly: Yes Anticipated discharge: Home - Inpatient Certification Based on my medical assessment, after consideration of the patient's comorbidities, presenting symptoms, or acuity I expect that the services needed warrant INPATIENT care.: Yes I certify that my determination is in accordance with my understanding of Medicare's requirements for reasonable and necessary INPATIENT services [42 CFR 412.3e].: Yes Medical Necessity: Failure to Improve With Outpatient Therapy, Need Close Monitoring Due to Risk of Patient Decompensation, Need For IV Fluids, Need for Pain Control
--- NOTE | 2020-01-11 07:56 | EKG REPORT ---
SEVERITY:- BORDERLINE ECG - SINUS RHYTHM NONSPECIFIC ST-T CHANGES- INFERIOR LEADS : Confirmed by: Dangelo Truong MD 11-Jan-2020 07:56:07
[2020-01-11] MEDS ORDERED: METOCLOPRAMIDE HCL INJ/PF 10 MG/2 ML SDV IV SCH (08:00)
[2020-01-11] MEDS ORDERED: HYDROXYZINE HCL 10 MG TABLET PO PRN (09:40)
[2020-01-11] MEDS ORDERED: CHLORZOXAZONE 500 MG TABLET PO PRN (09:40)
[2020-01-11] MEDS: DOCUSATE SODIUM 100 MG/10 ML UDC PO SCH ×2 (09:47→17:15)
[2020-01-11] MEDS: FAMOTIDINE INJ/PF 20 MG/2 ML SDV IV SCH ×2 (09:47→21:29)
[2020-01-11] MEDS: HYDROCHLOROTHIAZIDE 12.5 MG TABLET PO SCH (10:16)
[2020-01-11] MEDS: PROPRANOLOL HCL 20 MG TABLET PO SCH ×2 (10:16→21:29)
[2020-01-11] MEDS: LISINOPRIL 10 MG TABLET PO SCH (10:16)
[2020-01-11] MEDS: KETOROLAC TROMETHAMINE INJ/PF 30 MG/1 ML SDV IV PRN ×2 (11:01→17:14)
[2020-01-11] MEDS: TRAZODONE HCL 50 MG TABLET PO SCH (21:29)
[2020-01-12] MEDS: MORPHINE SULFATE 10 MG/ML INJ IV PRN ×4 (03:47→19:43)
[2020-01-12 05:55] LABS: MEAN CORPUSCULAR HEMOGLOBIN 31.7 pg (27.0-33.4); MEAN CORPUSCULAR HGB CONC 34.2 g/dL (32.0-36.0); MEAN CORPUSCULAR VOLUME 93 fl (80-97); PLATELET COUNT 331 10^3/uL (150-450); RED BLOOD COUNT 3.77 10^6/uL (3.72-5.28); RED CELL DISTRIBUTION WIDTH 15.6 % (11.5-14.0)
[2020-01-12] MEDS: HEPARIN SOD (PORCINE) 5,000 UNIT/ML 1 ML VIAL SUBCUT SCH ×3 (05:59→21:43)
[2020-01-12 06:13] LABS: ALBUMIN 2.9 g/dL (3.5-5.0); ALKALINE PHOSPHATASE 337 U/L (38-126); ANION GAP 6 (5-19); ASPARTATE AMINO TRANSFERASE 241 U/L (14-36); BILIRUBIN,DIRECT 1.2 mg/dL (0.0-0.4); BILIRUBIN,TOTAL 1.7 mg/dL (0.2-1.3); CALCIUM 9.2 mg/dL (8.4-10.2); CARBON DIOXIDE 28 mmol/L (22-30); CHLORIDE 103 mmol/L (98-107); CHOLESTEROL 158.12 mg/dL (0-200); GLUCOSE 133 mg/dL (75-110); POTASSIUM 3.6 mmol/L (3.6-5.0); TOTAL PROTEIN 5.2 g/dL (6.3-8.2); TRIGLYCERIDES 204 mg/dL (<150)
[2020-01-12 06:24] LABS: BLOOD UREA NITROGEN < 2 mg/dL (7-20); DIRECT LDL 60 mg/dL (<100); VLDL CHOLESTEROL 40.8 mg/dL (10-31)
[2020-01-12 06:32] LABS: FREE T3 4.5 pg/mL (2.77-5.27); FREE T4 (FREE THYROXINE) 1.53 ng/dL (0.78-2.19)
[2020-01-12 07:38] LABS: HEPATITS B SURFACE ANTIGEN Negative (Negative)
[2020-01-12] MEDS: DEXTROSE 5%-LACTATED RINGERS 1,000 ML IV PRN ×2 (07:56→13:24)
[2020-01-12 09:11] LABS: HEPATITIS C VIRUS ANTIBODY 0.3 s/co ratio (0.0-0.9)
[2020-01-12] MEDS: HYDROCHLOROTHIAZIDE 12.5 MG TABLET PO SCH (09:18)
[2020-01-12] MEDS: METOCLOPRAMIDE HCL INJ/PF 10 MG/2 ML SDV IV SCH ×4 (09:18→21:42)
[2020-01-12] MEDS: PROPRANOLOL HCL 20 MG TABLET PO SCH ×2 (09:18→21:43)
[2020-01-12] MEDS: LISINOPRIL 10 MG TABLET PO SCH (09:18)
[2020-01-12] MEDS: FAMOTIDINE INJ/PF 20 MG/2 ML SDV IV SCH ×2 (09:19→21:43)
[2020-01-12] MEDS: DOCUSATE SODIUM 100 MG/10 ML UDC PO SCH ×2 (09:19→17:01)
[2020-01-12] MEDS: MAGNESIUM SULFATE/D5W 1 GM/100 ML RTUPB IV SCH ×2 (09:23→10:56)
[2020-01-12] MEDS: KETOROLAC TROMETHAMINE INJ/PF 30 MG/1 ML SDV IV PRN ×3 (09:25→23:09)
--- NOTE | 2020-01-12 10:21 | PDOC PROGRESS REPORT ---
Subjective Progress Note for:: 01/12/20 Subjective:: Patient states that the pain is improved but still gets aggravated with meal. She states that she would like to stay on a liquid diet for today. Nausea has improved as well. Patient thinks that the aggravating factor of her recent pancreatitis episode was consuming wine a few weeks ago. Otherwise denies any history of pancreatitis in her family but states that her grandparent of pancreatic cancer. Complains of not having a bowel movement the past 3-4 days Reason For Visit: ACUTE ON CHRONIC/RECURRENT ALCOHOLIC PANCREATITIS Physical Exam Vital Signs: Temp Pulse Resp BP Pulse Ox 98.1 F 87 16 142/99 H 100 01/11/20 19:43 01/11/20 19:43 01/11/20 19:43 01/11/20 19:43 01/11/20 19:43 Intake & Output 01/11/20 01/12/20 01/13/20 06:59 06:59 06:59 Intake Total 2100 3719 Balance 2100 3719 Weight 52.6 kg 54.7 kg General appearance: PRESENT: no acute distress, cooperative Neck exam: ABSENT: JVD Respiratory exam: PRESENT: clear to auscultation amanda, unlabored. ABSENT: tachypnea, wheezes Cardiovascular exam: PRESENT: RRR, +S1, +S2. ABSENT: tachycardia GI/Abdominal exam: PRESENT: soft, tenderness - Epigastric mostly. ABSENT: distended, firm, guarding, rebound, rigid Neurological exam: PRESENT: alert, awake, oriented to person, oriented to place, oriented to time, oriented to situation Results Laboratory Results: 01/12/20 05:10 01/12/20 05:10 01/12/20 01/12/20 01/12/20 05:10 05:10 05:10 WBC 6.0 RBC 3.77 Hgb 12.0 Hct 35.0 L MCV 93 MCH 31.7 MCHC 34.2 RDW 15.6 H Plt Count 331 Sodium 136.7 L Potassium 3.6 Chloride 103 Carbon Dioxide 28 Anion Gap 6 BUN < 2 L Creatinine 0.49 L Est GFR ( Amer) > 60 Glucose 133 H Calcium 9.2 Magnesium 1.5 L Total Bilirubin 1.7 H AST 241 H Alkaline Phosphatase 337 H Total Protein 5.2 L Albumin 2.9 L Triglycerides 204 H Cholesterol 158.12 LDL Cholesterol Direct 60 VLDL Cholesterol 40.8 H HDL Cholesterol 46 Free T4 1.53 Free T3 pg/mL 4.50 Impressions: Abdomen/Pelvis CT 01/10/20 00:00 IMPRESSION: Pancreatitis, similar to prior. The small cyst within the pancreas, presumed related to inflammatory change, is larger than it was in December 2016. There also appears be progressive low-attenuation of the liver and progressive periportal edema, consistent with inflammatory change.. 2 mm nonobstructing calculus left kidney. Although there is extrinsic compression of the splenic vein, there is no evidence of thrombosis of the portal venous system Acute Abdomen Series 01/10/20 19:54 IMPRESSION: No acute intra-abdominal process is identified. No evidence of active intrathoracic disease. Assessment and Plan - Diagnosis (1) Recurrent acute pancreatitis Is this a current diagnosis for this admission?: Yes Plan: Abdominal CT also showing 2 cm pancreatic cyst. Continue IV fluids. IV pain medications with morphine and Toradol. Antiemetics. Diet advanced to full liquid. Thought to have been precipitated by wine consumption a few weeks ago. We will get focal RUQ abdominal ultrasound to evaluate etiology further especially in setting of significantly elevated transaminases (2) Hepatic steatosis Is this a current diagnosis for this admission?: Yes Plan: Likely nonalcoholic fatty liver disease. Patient is not a heavy drinker. Potentially this may be the etiology of patient's significant transaminitis. I have counseled her to completely abstain from any alcohol consumption. Lifestyle modifications and weight loss recommended. Will also start patient on omega-3 fatty acid. (3) Hypertension Is this a current diagnosis for this admission?: Yes Plan: Continue lisinopril and hydrochlorothiazide (4) Pancreatic cyst Is this a current diagnosis for this admission?: Yes Plan: 2 cm cyst noted on CT. No current intervention needed. May require surveillance imaging in the future. (5) Tobacco abuse Is this a current diagnosis for this admission?: Yes Plan: Nicotine replacement therapy offered (6) Elevated liver enzymes Is this a current diagnosis for this admission?: Yes Plan: Likely secondary to URIOSTEGUI. Viral hepatitis panel is negative. Further eval uation with focused abdominal ultrasound. - Time Time Spent with patient: Less than 15 minutes
[2020-01-12] MEDS ORDERED: POLYETHYLENE GLYCOL 3350 POWDER 17 GM/1 PACKET PO ONE (10:30)
--- NOTE | 2020-01-12 11:34 | RADIOLOGY REPORT (SQ) ---
EXAM DESCRIPTION: U/S ABDOMEN LIMITED W/O DOP IMAGES COMPLETED DATE/TIME: 01/12/2020 10:55 am REASON FOR STUDY: transaminitis,pancreatitis. biliary tree eval COMPARISON: 01/10/2020 CT, 07/28/2019 ultrasound TECHNIQUE: Dynamic and static grayscale images acquired of the abdomen and recorded on PACS. Additio nal selected color Doppler and spectral images recorded. LIMITATIONS: None. FINDINGS: PANCREAS: Partially evaluated cystic lesion within the body of the pancreas measuring appr oximately 2.1 x 2.0 x 81.8 cm, similar to prior CT. LIVER: No focal lesions. Normal size. Heterogeneous echotexture, nonspecific. LIVER VASCULATURE: Normal directional flow of the main portal vein and hepatic veins. GALLBLADDER: Surgically absent. ULTRASOUND-DETECTED PEDERSEN'S SIGN: Not applicable. INTRAHEPATIC DUCTS AND COMMON DUCT: CBD is dilated measuring up to 11 mm. There is mild intrahepatic ductal dilation INFERIOR VENA CAVA: Normal flow. AORTA: No aneurysm. RIGHT KIDNEY: Normal size measuring 9.8 cm. Normal echogenicity. No solid or suspicious masses. Mil d fullness of the renal pelvis. No caliceal dilation. No calcifications. PERITONEAL AND RIGHT PLEURAL SPACE: No ascites or effusions. OTHER: No other significant findings. IMPRESSION: 1. Status post cholecystectomy. Dilation of the CBD with prominent intrahepatic ducts, similar to prior CT. No obstructing lesion identified. Recommend correlation with LFTs. MRCP or [employer] could be considered for further characterization if clinically indicated. 2. Complex cystic lesion within the pancreatic body measuring 2.2 cm, stable from 01/03/2020. Findin gs may represent sequelae from prior pancreatitis although cystic pancreatic lesion is not entirely e xcluded. Recommend attention on follow-up. 3. Coarse hepatic echotexture which can be seen with intrinsic liver disease. TECHNICAL DOCUMENTATION: JOB ID: [id number] 2010 [employer]- All Rights Reserved Reading location - IP/workstation name: [email or web address]
[2020-01-12] MEDS: NORMAL SALINE 1000 ML 1,000 ML IV PRN ×2 (16:15→21:44)
[2020-01-12] MEDS: TRAZODONE HCL 50 MG TABLET PO SCH (21:43)
[2020-01-13] MEDS: MORPHINE SULFATE 10 MG/ML INJ IV PRN ×4 (01:42→19:58)
[2020-01-13] MEDS: KETOROLAC TROMETHAMINE INJ/PF 30 MG/1 ML SDV IV PRN ×3 (05:33→18:50)
[2020-01-13] MEDS: HEPARIN SOD (PORCINE) 5,000 UNIT/ML 1 ML VIAL SUBCUT SCH ×3 (05:33→21:58)
[2020-01-13] MEDS: NORMAL SALINE 1000 ML 1,000 ML IV PRN ×3 (05:34→21:56)
[2020-01-13 06:45] LABS: ALBUMIN 2.7 g/dL (3.5-5.0); ALKALINE PHOSPHATASE 382 U/L (38-126); ASPARTATE AMINO TRANSFERASE 93 U/L (14-36); BILIRUBIN,TOTAL 2.5 mg/dL (0.2-1.3); BLOOD UREA NITROGEN 2 mg/dL (7-20); CALCIUM 8.4 mg/dL (8.4-10.2); CARBON DIOXIDE 26 mmol/L (22-30); CHLORIDE 105 mmol/L (98-107); GLUCOSE 97 mg/dL (75-110); POTASSIUM 3.7 mmol/L (3.6-5.0); TOTAL PROTEIN 4.9 g/dL (6.3-8.2)
[2020-01-13 07:47] LABS: ANION GAP 4 (5-19)
[2020-01-13] MEDS: OMEGA-3 ACID ETHYL ESTERS 1 GM CAPSULE PO SCH (09:12)
[2020-01-13] MEDS: PROPRANOLOL HCL 20 MG TABLET PO SCH ×2 (09:12→21:58)
[2020-01-13] MEDS: LISINOPRIL 10 MG TABLET PO SCH (09:12)
[2020-01-13] MEDS: HYDROCHLOROTHIAZIDE 12.5 MG TABLET PO SCH (09:12)
--- NOTE | 2020-01-13 09:12 | PDOC PROGRESS REPORT ---
Subjective Progress Note for:: 01/13/20 Subjective:: Discussed with patient about her fatty liver disease. She states she has been told this before. Discussed with her the importance of completely stopping any kind of alcohol consumption or at least minimizing it. She states that she drinks only occasional once every 1 to 2 months but that she will completely stop. She also complained of right upper quadrant pain today after eating breakfast. States that he felt worse than yesterday. However nausea has improv ed. Reason For Visit: ACUTE ON CHRONIC/RECURRENT ALCOHOLIC PANCREATITIS Physical Exam Vital Signs: Temp Pulse Resp BP Pulse Ox 98.7 F 83 16 132/91 H 99 01/13/20 00:08 01/13/20 00:08 01/13/20 00:08 01/13/20 00:08 01/13/20 00:08 Intake & Output 01/12/20 01/13/20 01/14/20 06:59 06:59 06:59 Intake Total 3719 4798 Balance 3719 4798 Weight 54.7 kg 55.2 kg General appearance: PRESENT: no acute distress, cooperative Head exam: PRESENT: normocephalic Eye exam: ABSENT: scleral icterus Mouth exam: PRESENT: neck supple Neck exam: ABSENT: JVD Respiratory exam: PRESENT: unlabored. ABSENT: accessory muscle use, retraction, tachypnea GI/Abdominal exam: PRESENT: soft, tenderness. ABSENT: distended, firm, rebound, rigid Extremities exam: ABSENT: pedal edema Neurological exam: PRESENT: alert, awake, oriented to person, oriented to place, oriented to time Focused psych exam: ABSENT: pressured speech Skin exam: ABSENT: jaundice Results Laboratory Results: 01/12/20 05:10 01/13/20 05:31 01/13/20 01/13/20 05:31 05:31 Sodium 135.2 L Potassium 3.7 Chloride 105 Carbon Dioxide 26 Anion Gap 4 L BUN 2 L Creatinine 0.47 L Est GFR ( Amer) > 60 Glucose 97 Calcium 8.4 Magnesium 1.7 Total Bilirubin 2.5 H GGT 883 H AST 93 H Alkaline Phosphatase 382 H Total Protein 4.9 L Albumin 2.7 L Impressions: Abdomen/Pelvis CT 01/10/20 00:00 IMPRESSION: Pancreatitis, similar to prior. The small cyst within the pancreas, presumed related to inflammatory change, is larger than it was in December 2016. There also appears be progressive low-attenuation of the liver and progressive periportal edema, consistent with inflammatory change.. 2 mm nonobstructing calculus left kidney. Although there is extrinsic compression of the splenic vein, there is no evidence of thrombosis of the portal venous system Acute Abdomen Series 01/10/20 19:54 IMPRESSION: No acute intra-abdominal process is identified. No evidence of active intrathoracic disease. Abdomen Ultrasound 01/12/20 00:00 IMPRESSION: 1. Status post cholecystectomy. Dilation of the CBD with prominent intrahepatic ducts, similar to prior CT. No obstructing lesion identified. Recommend correlation with LFTs. MRCP or ERCP could be considered for further characterization if clinically indicated. 2. Complex cystic lesion within the pancreatic body measuring 2.2 cm, stable from 01/03/2020. Findings may represent sequelae from prior pancreatitis although cystic pancreatic lesion is not entirely excluded. Recommend attention on follow-up. 3. Coarse hepatic echotexture which can be seen with intrinsic liver disease. Assessment and Plan - Diagnosis (1) Recurrent acute pancreatitis Is this a current diagnosis for this admission?: Yes Plan: IV fluids, IV pain medications and antiemetics. Continue full liquid diet. Thought to have been precipitated by wine consumption a few weeks ago. Right upper quadrant ultrasound showing CBD dilation of 11 mm but no clear obstructive stone. Patient endorses history of pancreatic stent few years ago Will check MRCP given persistent elevation of ALP as well. (2) Hepatic steatosis Is this a current diagnosis for this admission?: Yes Plan: Likely nonalcoholic fatty liver disease. Patient is not a heavy/frequent drinker. Potentially this may be the etiology of patient's significant transaminitis. I have counseled her to completely abstain from any alcohol consumption, on ifestyle modifications and weight loss. omega-3 fatty acid. CMP today shows continued improvement of transaminitis. (3) Hypertension Is this a current diagnosis for this admission?: Yes Plan: Continue lisinopril and hydrochlorothiazide (4) Pancreatic cyst Is this a current diagnosis for this admission?: Yes Plan: 2 [address] noted on [address]. No current intervention needed. May require surveillance imaging in the future. (5) Tobacco abuse Is this a current diagnosis for this admission?: Yes Plan: Nicotine replacement therapy offered (6) Elevated liver enzymes Is this a current diagnosis for this admission?: Yes Plan: Likely secondary to URIOSTEGUI. Viral hepatitis panel is negative. MRCP to follow. Continue to monitor liver enzymes. - Time Time Spent with patient: 15-24 minutes
[2020-01-13] MEDS: FAMOTIDINE INJ/PF 20 MG/2 ML SDV IV SCH ×2 (09:13→21:58)
[2020-01-13] MEDS: POLYETHYLENE GLYCOL 3350 POWDER 17 GM/1 PACKET PO SCH (09:14)
[2020-01-13] MEDS: METOCLOPRAMIDE HCL INJ/PF 10 MG/2 ML SDV IV SCH ×4 (09:14→21:58)
[2020-01-13] MEDS: DOCUSATE SODIUM 100 MG/10 ML UDC PO SCH (09:15)
[2020-01-13] MEDS ORDERED: MAGNESIUM OXIDE 400 MG TABLET PO ONE (09:30)
[2020-01-13] MEDS: DOCUSATE SODIUM 100 MG CAPSULE PO SCH ×2 (09:57→17:33)
--- NOTE | 2020-01-13 16:59 | RADIOLOGY REPORT (SQ) ---
EXAM DESCRIPTION: MRI ABDOMEN WITHOUT IMAGES COMPLETED DATE/TIME: 01/13/2020 4:36 pm REASON FOR STUDY: MRCP. CBD dilation. transaminitis, pancre ruq pain COMPARISON: CT dated 01/10/2020, prior MRI dated 01/15/2019 TECHNIQUE: Noncontrast MRCP. Source and MIP images reviewed. LIMITATIONS: None. FINDINGS: GALLBLADDER: Gallbladder has been removed. INTRAHEPATIC DUCTS: Dilated intrahepatic ducts most prominent centrally. EXTRAHEPATIC DUCTS: Common bile duct is dilated measuring up to 1.3 cm. No filling defects. There d oes appear to be narrowing distally. PANCREAS: Pancreatic duct is irregular. There is a focal cystic lesion at the junction of the body a nd tail the pancreas this is grossly stable in size measure approximately 2.5 cm. This may represent a simple pancreatic cyst or cystic dilatation of the duct itself. LIVER, SPLEEN, KIDNEYS, ADRENALS: No significant abnormality. VESSELS: No evidence of aneurysm. Grossly appropriate flow voids in the major vascular structures. LUNG BASES: Grossly clear. OTHER: No other significant finding. IMPRESSION: Dilated intra and extrahepatic bile ducts as described. There appears to be narrowing o f the common bile duct distally. Cystic lesion at the junction of the body and tail the pancreas is unchanged. The pancreatic duct is irregular throughout its course. TECHNICAL DOCUMENTATION: JOB ID: [id number] 2010 [employer]- All Rights Reserved Reading location - IP/workstation name: [email or web address]
[2020-01-13] MEDS: TRAZODONE HCL 50 MG TABLET PO SCH (21:58)
[2020-01-14] MEDS: MORPHINE SULFATE 10 MG/ML INJ IV PRN ×5 (00:35→21:40)
[2020-01-14] MEDS: NORMAL SALINE 1000 ML 1,000 ML IV PRN ×3 (05:15→21:40)
[2020-01-14] MEDS: HEPARIN SOD (PORCINE) 5,000 UNIT/ML 1 ML VIAL SUBCUT SCH ×3 (05:16→21:37)
[2020-01-14 06:48] LABS: ALBUMIN 2.6 g/dL (3.5-5.0); ALKALINE PHOSPHATASE 463 U/L (38-126); ANION GAP 5 (5-19); ASPARTATE AMINO TRANSFERASE 77 U/L (14-36); BILIRUBIN,TOTAL 3.5 mg/dL (0.2-1.3); BLOOD UREA NITROGEN 3 mg/dL (7-20); CALCIUM 8.6 mg/dL (8.4-10.2); CARBON DIOXIDE 25 mmol/L (22-30); CHLORIDE 104 mmol/L (98-107); GLUCOSE 97 mg/dL (75-110); POTASSIUM 3.6 mmol/L (3.6-5.0)
[2020-01-14] MEDS: OMEGA-3 ACID ETHYL ESTERS 1 GM CAPSULE PO SCH (09:27)
[2020-01-14] MEDS: HYDROCHLOROTHIAZIDE 12.5 MG TABLET PO SCH (09:27)
[2020-01-14] MEDS: PROPRANOLOL HCL 20 MG TABLET PO SCH ×2 (09:27→21:36)
[2020-01-14] MEDS: LISINOPRIL 10 MG TABLET PO SCH (09:28)
[2020-01-14] MEDS: DOCUSATE SODIUM 100 MG CAPSULE PO SCH ×2 (09:28→17:24)
[2020-01-14] MEDS: FAMOTIDINE INJ/PF 20 MG/2 ML SDV IV SCH ×2 (09:28→21:37)
[2020-01-14] MEDS: METOCLOPRAMIDE HCL INJ/PF 10 MG/2 ML SDV IV SCH ×2 (09:28→12:30)
[2020-01-14] MEDS: POLYETHYLENE GLYCOL 3350 POWDER 17 GM/1 PACKET PO SCH (09:29)
[2020-01-14] MEDS ORDERED: METOCLOPRAMIDE HCL INJ/PF 10 MG/2 ML SDV IV PRN (13:53)
--- NOTE | 2020-01-14 14:03 | PDOC PROGRESS REPORT ---
Subjective Progress Note for:: 01/14/20 Subjective:: Discussed findings of MRI results with patient. Patient states nausea has improved. However she still gets pain in her abdomen whenever she eats. Will need to attempt escalating diet to soft diet. Reason For Visit: ACUTE ON CHRONIC/RECURRENT ALCOHOLIC PANCREATITIS Physical Exam Vital Signs: Temp Pulse Resp BP Pulse Ox 98.0 F 86 18 131/89 H 97 01/14/20 10:56 01/14/20 10:56 01/14/20 10:56 01/14/20 10:56 01/14/20 10:56 Intake & Output 01/13/20 01/14/20 01/15/20 06:59 06:59 06:59 Intake Total 4798 4406 1000 Balance 4798 4406 1000 Weight 55.2 kg 55.6 kg General appearance: PRESENT: no acute distress, cooperative Eye exam: ABSENT: scleral icterus Neck exam: ABSENT: JVD Respiratory exam: PRESENT: symmetrical, unlabored. ABSENT: accessory muscle use, retraction, tachypnea GI/Abdominal exam: PRESENT: normal bowel sounds, soft, tenderness. ABSENT: distended, firm, guarding, rebound, rigid Neurological exam: PRESENT: alert, awake, oriented to person, oriented to place, oriented to time, oriented to situation Skin exam: ABSENT: jaundice Results Laboratory Results: 01/12/20 05:10 01/14/20 05:24 01/14/20 05:24 Sodium 134.3 L Potassium 3.6 Chloride 104 Carbon Dioxide 25 Anion Gap 5 BUN 3 L Creatinine 0.41 L Est GFR ( Amer) > 60 Glucose 97 Calcium 8.6 Magnesium 1.5 L Total Bilirubin 3.5 H AST 77 H Alkaline Phosphatase 463 H Total Protein 5.0 L Albumin 2.6 L Impressions: Abdomen/Pelvis CT 01/10/20 00:00 IMPRESSION: Pancreatitis, similar to prior. The small cyst within the pancreas, presumed related to inflammatory change, is larger than it was in December 2016. There also appears be progressive low-attenuation of the liver and progressive periportal edema, consistent with inflammatory change.. 2 mm nonobstructing calculus left kidney. Although there is extrinsic compression of the splenic vein, there is no evidence of thrombosis of the portal venous system Acute Abdomen Series 01/10/20 19:54 IMPRESSION: No acute intra-abdominal process is identified. No evidence of active intrathoracic disease. Abdomen Ultrasound 01/12/20 00:00 IMPRESSION: 1. Status post cholecystectomy. Dilation of the CBD with promi nent intrahepatic ducts, similar to prior CT. No obstructing lesion identified. Recommend correlation with LFTs. MRCP or ERCP could be considered for further characterization if clinically indicated. 2. Complex cystic lesion within the pancreatic body measuring 2.2 cm, stable from 01/03/2020. Findings may represent sequelae from prior pancreatitis although cystic pancreatic lesion is not entirely excluded. Recommend attention on follow-up. 3. Coarse hepatic echotexture which can be seen with intrinsic liver disease. Abdomen MRI 01/13/20 00:00 IMPRESSION: Dilated intra and extrahepatic bile ducts as described. There appears to be narrowing of the common bile duct distally. Cystic lesion at the junction of the body and tail the pancreas is unchanged. The pancreatic duct is irregular throughout its course. Assessment and Plan - Diagnosis (1) Recurrent acute pancreatitis Is this a current diagnosis for this admission?: Yes Plan: IV fluids, IV pain medications and antiemetics. Advance to soft diet. Thought to have been precipitated by wine consumption a few weeks ago. Patient endorses history of pancreatic stent few years ago. Right upper quadrant ultrasound showing CBD dilation of 11 mm but no clear obstructive stone. MRCP showing intra-and extrahepatic duct dilation with narrowing of the distal CBD. ALP and GGT elevated Will discussed with GI see if there is any need for ERCP. Will also send serology for IgG, anti-smooth muscle and antimitochondrial antibodies. (2) Hepatic steatosis Is this a current diagnosis for this admission?: Yes Plan: Likely nonalcoholic fatty liver disease. Patient is not a heavy/frequent drinker. Potentially this may be the etiology of patient's significant transaminitis. I have counseled her to completely abstain from any alcohol consumption, on ifestyle modifications and weight loss. omega-3 fatty acid. Continue to monitor CMP (3) Hypertension Is this a current diagnosis for this admission?: Yes Plan: Continue lisinopril and hydrochlorothiazide (4) Pancreatic cyst Is this a current diagnosis for this admission?: Yes Plan: [address] noted on [address]. No current intervention needed. May require surveillance imaging in the future. (5) Tobacco abuse Is this a current diagnosis for this admission?: Yes Plan: Nicotine replacement therapy offered (6) Elevated liver enzymes Is this a current diagnosis for this admission?: Yes Plan: Likely secondary to URIOSTEGUI. Viral hepatitis panel is negative. Rest of plan including serologies as above. - Time Time Spent with patient: Less than 15 minutes
[2020-01-14] MEDS: TRAZODONE HCL 50 MG TABLET PO SCH (21:36)
[2020-01-15] MEDS: MORPHINE SULFATE 10 MG/ML INJ IV PRN ×3 (02:17→21:16)
[2020-01-15] MEDS: HEPARIN SOD (PORCINE) 5,000 UNIT/ML 1 ML VIAL SUBCUT SCH ×3 (06:35→21:17)
[2020-01-15] MEDS: NORMAL SALINE 1000 ML 1,000 ML IV PRN ×2 (06:36→12:39)
[2020-01-15 09:28] LABS: ALBUMIN 2.9 g/dL (3.5-5.0); ALKALINE PHOSPHATASE 529 U/L (38-126); ANION GAP 5 (5-19); ASPARTATE AMINO TRANSFERASE 87 U/L (14-36); BILIRUBIN,TOTAL 1.8 mg/dL (0.2-1.3); BLOOD UREA NITROGEN 2 mg/dL (7-20); CALCIUM 8.5 mg/dL (8.4-10.2); CARBON DIOXIDE 26 mmol/L (22-30); CHLORIDE 105 mmol/L (98-107); GLUCOSE 98 mg/dL (75-110); POTASSIUM 3.6 mmol/L (3.6-5.0); TOTAL PROTEIN 5.8 g/dL (6.3-8.2)
[2020-01-15] MEDS: LISINOPRIL 10 MG TABLET PO SCH (12:33)
[2020-01-15] MEDS: DOCUSATE SODIUM 100 MG CAPSULE PO SCH ×2 (12:34→18:34)
[2020-01-15] MEDS: OMEGA-3 ACID ETHYL ESTERS 1 GM CAPSULE PO SCH (12:34)
[2020-01-15] MEDS: PROPRANOLOL HCL 20 MG TABLET PO SCH ×2 (12:34→21:18)
[2020-01-15] MEDS: HYDROCHLOROTHIAZIDE 12.5 MG TABLET PO SCH (12:34)
[2020-01-15] MEDS: POLYETHYLENE GLYCOL 3350 POWDER 17 GM/1 PACKET PO SCH (12:35)
[2020-01-15] MEDS: FAMOTIDINE INJ/PF 20 MG/2 ML SDV IV SCH ×2 (12:35→21:17)
--- NOTE | 2020-01-15 14:44 | PDOC PROGRESS REPORT ---
Subjective Progress Note for:: 01/15/20 Subjective:: Patient feels better today in terms of nausea and vomiting as well as pain. However ALP continues to go up. Tolerated diet yesterday. Reason For Visit: ACUTE ON CHRONIC/RECURRENT ALCOHOLIC PANCREATITIS Physical Exam Vital Signs: Temp Pulse Resp BP Pulse Ox 98.7 F 71 15 133/92 H 97 01/15/20 11:12 01/15/20 11:12 01/15/20 11:12 01/15/20 11:12 01/15/20 11:12 Intake & Output 01/14/20 01/15/20 01/16/20 06:59 06:59 06:59 Intake Total 4406 3621 1120 Balance 4406 3621 1120 Weight 55.6 kg 55.6 kg General appearance: PRESENT: no acute distress, cooperative Neck exam: ABSENT: JVD Respiratory exam: PRESENT: clear to auscultation amanda, unlabored. ABSENT: tachyp geoff, wheezes Cardiovascular exam: PRESENT: RRR, +S1, +S2. ABSENT: tachycardia GI/Abdominal exam: PRESENT: soft, tenderness. ABSENT: distended, firm, guarding, rebound, rigid Neurological exam: PRESENT: alert, awake, oriented to person, oriented to place, oriented to time Psychiatric exam: ABSENT: agitated, anxious Results Laboratory Results: 01/12/20 05:10 01/15/20 08:27 01/15/20 08:27 Sodium 136.2 L Potassium 3.6 Chloride 105 Carbon Dioxide 26 Anion Gap 5 BUN 2 L Creatinine 0.46 L Est GFR ( Amer) > 60 Glucose 98 Calcium 8.5 Magnesium 1.5 L Total Bilirubin 1.8 H AST 87 H Alkaline Phosphatase 529 H Total Protein 5.8 L Albumin 2.9 L Impressions: Abdomen/Pelvis CT 01/10/20 00:00 IMPRESSION: Pancreatitis, similar to prior. The small cyst within the pancreas, presumed related to inflammatory change, is larger than it was in December 2016. There also appears be progressive low-attenuation of the liver and progressive periportal edema, consistent with inflammatory change.. 2 mm nonobstructing calculus left kidney. Although there is extrinsic compression of the splenic vein, there is no evidence of thrombosis of the portal venous system Acute Abdomen Series 01/10/20 19:54 IMPRESSION: No acute intra-abdominal process is identified. No evidence of active intrathoracic disease. Abdomen Ultrasound 01/12/20 00:00 IMPRESSION: 1. Status post cholecystectomy. Dilation of the CBD with prominent intrahepatic ducts, similar to prior CT. No obstructing lesion id entified. Recommend correlation with LFTs. MRCP or ERCP could be considered for further characterization if clinically indicated. 2. Complex cystic lesion within the pancreatic body measuring 2.2 cm, stable from 01/03/2020. Findings may represent sequelae from prior pancreatitis although cystic pancreatic lesion is not entirely excluded. Recommend attention on follow-up. 3. Coarse hepatic echotexture which can be seen with intrinsic liver disease. Abdomen MRI 01/13/20 00:00 IMPRESSION: Dilated intra and extrahepatic bile ducts as described. There appears to be narrowing of the common bile duct distally. Cystic lesion at the junction of the body and tail the pancreas is unchanged. The pancreatic duct is irregular throughout its course. Assessment and Plan - Diagnosis (1) Recurrent acute pancreatitis Is this a current diagnosis for this admission?: Yes Plan: IV fluids, IV pain medications and antiemetics. Thought to have been precipitated by wine consumption a few weeks ago. Patient endorses history of pancreatic stent few years ago. RUQ US showing CBD dilation of 11 mm but no clear obstructive stone. MRCP showing intra-and extrahepatic duct dilation with narrowing of the distal CBD. ALP still trending up. Awaiting results for serology for IgG, anti-smooth muscle antibody, antimitochondrial antibody and ELYSSA. Patient is planned to undergo ERCP today. (2) Hepatic steatosis Is this a current diagnosis for this admission?: Yes Plan: Likely nonalcoholic fatty liver disease. Patient is not a heavy/frequent drinker. Potentially this may be the etiology of patient's significant transaminitis. I have counseled her to completely abstain from any alcohol cons umption, on ifestyle modifications and weight loss. omega-3 fatty acid. Continue to monitor CMP (3) Hypertension Is this a current diagnosis for this admission?: Yes Plan: Continue lisinopril and hydrochlorothiazide (4) Pancreatic cyst Is this a current diagnosis for this admission?: Yes Plan: 2 [address] noted on CT. No current intervention needed. May require surveillance imaging in the future. (5) Tobacco abuse Is this a current diagnosis for this admission?: Yes Plan: Nicotine replacement therapy offered (6) Elevated liver enzymes Is this a current diagnosis for this admission?: Yes Plan: Likely secondary to URIOSTEGUI. Viral hepatitis panel is negative. Rest of plan including serologies as above. - Time Time Spent with patient: Less than 15 minutes
[2020-01-15] MEDS ORDERED: DEXAMETHASONE SOD PHOSPHATE INJ 4 MG/1 ML VIAL ONE (15:26)
[2020-01-15] MEDS ORDERED: ONDANSETRON HCL INJ/PF 4 MG/2 ML SDV ONE (15:26)
[2020-01-15] MEDS ORDERED: MIDAZOLAM 2 MG/2 ML INJ ONE (15:26)
[2020-01-15] MEDS ORDERED: FENTANYL CITRATE INJ/PF 100 MCG/2 ML AMPUL ONE (15:26)
[2020-01-15] MEDS ORDERED: LIDOCAINE 2% INJ-PF (20 MG/ML) 10 ML AMPUL ONE (15:26)
[2020-01-15] MEDS ORDERED: PROPOFOL INJ 200 MG/20 ML VIAL IV ONE (15:26)
[2020-01-15] MEDS ORDERED: EPINEPHRINE INJ 1 MG/10 ML DISP.SYRIN ONE (15:41)
--- NOTE | 2020-01-15 16:42 | PDOC CONSULTATION ---
Consultation Consult Date: 01/14/20 Provider Consulted: ARMINDA SOLOMON History of Present Illness Admission Date/PCP: 01/11/20 01:56 PEDRO ORTIZ PA-C History of Present Illness: NEREIDA JONES is a 34 year old female Patient who was admitted with acute pancreatitis and abnormal liver function tests. Consultation was requested for ERCP. Patient started having upper abdominal pain back on 12/29/2019 after drinking some alcohol. She was evaluated at emergency room when her lipase was 5500 with a normal LFT on 12/29/2019. She was discharged but continued to have abdominal pain which made her present back to the emergency room on 01/03/2020. She had a CAT scan at that time that showed pancreatic calcification, 1.5 cm pancreatic cyst and narrowing in the splenic vein and SMV with no evidence of thrombosis. She came back on 01/10/2020 with persistent pain and was admitted. This time her lipase was 1900 and her LFTs were abnormal. Her initial bilirubin was 2.5 with alkaline phosphatase of 340, AST 800 and ALT of 400. She had an MRCP on 01/13/2020 that showed a dilated CBD of 1.3 cm, irregular pancreatic duct, 2.5 cm pancreatic cyst and narrowing in the distal part of the common bile duct. I reviewed her old records which indicated her initial pancreatitis was diagnosed in 2012. According to the patient she was transferred to [place] at that time and eventually had an ERCP with placement of a pancreatic stent. Her pancreatitis then was thought to be from alcohol as she was drinking heavily. According to the patient she stopped drinking heavily but still drinks a few days every month. She has had 4-5 other episodes of pancreatitis and has had multiple imaging in the hospital. She had an MRI in January 2019 showing evidence of acute pancreatitis with narrowing of the distal third of the common bile duct though the CBD size was normal. She was admitted in July 2019 with abdominal pain and a CAT scan showed mild stranding of her pancreas, ultrasound was consistent with acalculus cholecystitis and her LFTs were normal. She eventually had cholecystectomy in July and her pathology showed no gallstones. Past Medical History Cardiac Medical History: Reports: Hyperlipidema, Hypertension Denies: Atrial Fibrillation, Coronary Artery Disease, DVT, Myocardial Infarction, Pulmonary Embolism Pulmonary Medical History: Denies: Asthma, Chronic Obstructive Pulmonary Disease (COPD), Tuberculosis EENT Medical History: Denies: Cataracts, Ears - Hearing Neurological Medical History: Denies: Hemorrhagic CVA, Ischemic CVA, Seizures Endocrine Medical History: Denies: Diabetes Mellitus Type 1, Diabetes Mellitus Type 2, Hyperthyroidism, Hypothyroidism, Obesity Renal/ Medical History: Denies: Chronic Kidney Disease, Nephrolithiasis Malignancy Medical History: Reports: None GI Medical History: Reports: Cirrhosis - Hepatic steatosis, Gastroesophageal Reflux Disease, Other - Chronic recurrent alcoholic pancreatitis Denies: Crohn's Disease, Peptic Ulcer Disease, Ulcerative Colitis Musculoskeltal Medical History: Denies: Arthritis, Gout Skin Medical History: Denies: Eczema, Psoriasis Psychiatric Medical History: Denies: Alcohol Dependency, Depression, Substance Abuse, Tobacco Dependency Traumatic Medical History: Reports: None Hematology: Denies: Anemia, Bleeding Tendencies Infectious Medical History: Reports: None Past Surgical History Past Surgical History: Reports: Cholecystectomy - 07/27, Herniorrhaphy, Tubal Ligation, Other - Pancreatic surgery x2, pancreatic stent, laparoscopic IUD retrieval Denies: Pacemaker Social History Lives with: Family, Spouse/Significant other Smoking Status: Current Every Day Smoker Cigarettes Packs Per Day: 1 Electronic Cigarette use?: No Frequency of Alcohol Use: Occasional Hx Recreational Drug Use: No Drugs: None Hx Prescription Drug Abuse: No - Advance Directive Resuscitation Status: Full Code Family History Family History: CAD, CVA - TIAs, Hypertension, Other - Endometriosis. denies: DM, Malignancy Parental Family History Reviewed: No Children Family History Reviewed: NA Sibling(s) Family History Reviewed.: NA Medication/Allergy Home Medications: Hydroxyzine HCl [Atarax 10 mg Tablet] 10 mg PO Q6HP PRN 07/23/19 Propranolol HCl [Inderal 20 mg Tablet] 20 mg PO Q12 07/23/19 Promethazine HCl [Phenergan 25 mg Tablet] 1 tab PO Q6H PRN #15 tablet 12/29/19 Chlorzoxazone [Parafon Forte Dsc 500 Mg Tablet] 500 mg PO BIDP PRN 01/11/20 Lisinopril/Hydrochlorothiazide [Lisinopril-Hctz 10-12.5 mg Tab] 1 tab PO DAILY 01/11/20 Trazodone HCl 50 mg PO QHS 01/11/20 Allergies/Adverse Reactions: No Known Allergies Allergy (Verified 12/29/19 17:23) Review of Systems All systems: reviewed and no additional remarkable complaints except as stated Physical Exam Vital Signs: Temp Pulse Resp BP Pulse Ox 98.7 F 71 15 133/92 H 97 01/15/20 11:12 01/15/20 11:12 01/15/20 11:12 01/15/20 11:12 01/15/20 11:12 Intake & Output 01/14/20 01/15/20 01/16/20 06:59 06:59 06:59 Intake Total 4406 3621 1120 Balance 4406 3621 1120 Weight 55.6 kg 55.6 kg Exam: General: Patient is alert and looks well. HEENT: There is no pallor or jaundice. PERRLA. Oropharynx normal Respiratory: No chest deformity. No respiratory distress. Chest wall palpitation was unremarkable. Breath sounds were normal Cardiovascular: Heart sounds 1 and 2 normal with no murmurs. Abdominal: Not distended. Soft with mild epigastric tenderness. Liver and spleen not palpable. No ascites demonstrated. Bowel sounds active. Rectal examination was deferred. Extremities: No edema Neurological: Alert and oriented x4. Grossly nonfocal. Normal speech Skin: No significant rash Psychological: Normal affect Results Laboratory Results: 01/12/20 05:10 01/15/20 08:27 01/15/20 08:27 Sodium 136.2 L Potassium 3.6 Chloride 105 Carbon Dioxide 26 Anion Gap 5 BUN 2 L Creatinine 0.46 L Est GFR ( Amer) > 60 Glucose 98 Calcium 8.5 Magnesium 1.5 L Total Bilirubin 1.8 H AST 87 H Alkaline Phosphatase 529 H Total Protein 5.8 L Albumin 2.9 L Impressions: Abdomen/Pelvis CT 01/10/20 00:00 IMPRESSION: Pancreatitis, similar to prior. The small cyst within the pancreas, presumed related to inflammatory change, is larger than it was in December 2016. There also appears be progressive low-attenuation of the liver and progressive periportal edema, consistent with inflammatory change.. 2 mm nonobstructing calculus left kidney. Although there is extrinsic compression of the splenic vein, there is no evidence of thrombosis of the portal venous system Acute Abdomen Series 01/10/20 19:54 IMPRESSION: No acute intra-abdominal process is identified. No evidence of active intrathoracic disease. Abdomen Ultrasound 01/12/20 00:00 IMPRESSION: 1. Status post cholecystectomy. Dilation of the CBD with prominent intrahepatic ducts, similar to prior CT. No obstructing lesion identified. Recommend correlation with LFTs. MRCP or ERCP could be considered for further characterization if clinically indicated. 2. Complex cystic lesion within the pancreatic body measuring 2.2 cm, stable from 01/03/2020. Findings may represent sequelae from prior pancreatitis although cystic pancreatic lesion is not entirely excluded. Recommend attention on follow-up. 3. Coarse hepatic echotexture which can be seen with intrinsic liver disease. Abdomen MRI 01/13/20 00:00 IMPRESSION: Dilated intra and extrahepatic bile ducts as described. There appears to be narrowing of the common bile duct distally. Cystic lesion at the junction of the body and tail the pancreas is unchanged. The pancreatic duct is irregular throughout its course. Assessment & Plan - Diagnosis (1) Acute on chronic pancreatitis Is this a current diagnosis for this admission?: Yes Plan: She has had multiple episodes of acute pancreatitis since 2012 and also has chronic calcific pancreatitis. She was abusing alcohol prior to her first episode though she claims not to have been abusing alcohol since then. Her pancreatic disease could still be alcoholic in etiology but autoimmune pancreatitis should also be ruled out. She has diffuse irregularity along the course of her pancreatic duct on her most recent MRI though previous CAT scan and MRI over the last few years did not show days. She has been sent for immunoglobulin levels and the result is pending. I will refer her to [place] or [place] for further management of her pancreatic disease including EUS and possibly surgery. She will need to avoid alcohol completely. (2) Biliary obstruction Plan: She has evidence of biliary obstruction with jaundice, dilated common bile duct which has developed over the last year. Her MRI in January 2019 showed narrowing in the distal common bile duct. Obstruction is likely related to her chronic pancreatitis. She did not have gallstones at her cholecystectomy specimen. She will undergo an ERCP with stent placement. Further management will depend on management of her pancreatic disease. (4) Elevated liver enzymes Is this a current diagnosis for this admission?: Yes (5) Pancreatic cyst Is this a current diagnosis for this admission?: Yes Plan: She has had a cyst identified in her pancreas since 2012 and the largest size has been 2.5 cm. This is likely pseudocyst related to her recurrent pancreatitis but an EUS will further evaluate this in the future
--- NOTE | 2020-01-15 17:28 | Operative Report ---
Operative Report DATE OF SURGERY: 01/15/20 Operative Report: Pre-op diagnosis: Acute on chronic pancreatitis with biliary obstruction Post-op diagnosis: 1. Distal smooth common bile duct stricture 2. Dilated common bile duct and intrahepatic ducts Surgery: ERCP with sphincterotomy, brushing and stent placement Medications: As per anesthesia Tissue removed: Distal common bile duct brushing Procedure: After informed consent obtained from patient, patient was placed under general anesthesia. The ERCP endoscope was then inserted into the esophagus blindly and advanced into the stomach. The duodenum was entered and the ampulla was identified. Using the triple-lumen sphincterotomy catheter the common bile duct was freely cannulated. A cholangiogram was obtained showing markedly dilated common bile duct with a distal stricture. A good sized sphincterotomy was then performed using the endocut mode. A brushing of the common bile duct was performed over the guidewire. A 7 [place] 5 cm stent was then placed without any difficulty. Patient tolerated procedure well. Findings Common bile duct: 1 to 2 cm smooth stricture at the distal common bile duct with proximal dilation. Intrahepatic ducts: Dilated Pancreatic duct: Not cannulated Plan: Follow-up LFTs. Refer patient for endoscopic ultrasound and further management of chronic pancreatitis OPERATION: .
--- NOTE | 2020-01-15 18:18 | RADIOLOGY REPORT (SQ) ---
EXAM DESCRIPTION: CHOLANGIOGRAM OPERATIVE IMAGES COMPLETED DATE/TIME: 01/15/2020 6:08 pm REASON FOR STUDY: LAPCHOLE COMPARISON: None. FLUOROSCOPY TIME: 5 minutes 31 images saved to PACS. TECHNIQUE: Intra-operative images acquired during surgical procedure to evaluate progress. NUMBER OF IMAGES: 31 LIMITATIONS: None. FINDINGS: Retrograde injection of the common duct. Placement of a biliary stent. IMPRESSION: IMAGE(S) OBTAINED DURING PROCEDURE. COMMENT: Quality ID [id number]: Final reports for procedures using fluoroscopy that document radiation exp osure indices, or exposure time and number of fluorographic images (if radiation exposure indices are not available) Please consult full operative report of the attending physician for description of the procedure. TECHNICAL DOCUMENTATION: JOB ID: [id number] 2010 [employer]- All Rights Reserved Reading location - IP/workstation name: [email or web address]
[2020-01-15] MEDS: IBUPROFEN 400 MG TABLET PO PRN (18:34)
[2020-01-15] MEDS: TRAZODONE HCL 50 MG TABLET PO SCH (21:18)
[2020-01-16] MEDS: IBUPROFEN 400 MG TABLET PO PRN (03:01)
[2020-01-16] MEDS: HEPARIN SOD (PORCINE) 5,000 UNIT/ML 1 ML VIAL SUBCUT SCH (05:38)
[2020-01-16] MEDS: MORPHINE SULFATE 10 MG/ML INJ IV PRN (06:02)
[2020-01-16 09:31] LABS: ALBUMIN 2.9 g/dL (3.5-5.0); ALKALINE PHOSPHATASE 466 U/L (38-126); ANION GAP 6 (5-19); ASPARTATE AMINO TRANSFERASE 42 U/L (14-36); BILIRUBIN,DIRECT 0.6 mg/dL (0.0-0.4); BILIRUBIN,TOTAL 1.2 mg/dL (0.2-1.3); BLOOD UREA NITROGEN 3 mg/dL (7-20); CALCIUM 8.8 mg/dL (8.4-10.2); CARBON DIOXIDE 22 mmol/L (22-30); CHLORIDE 106 mmol/L (98-107); GLUCOSE 118 mg/dL (75-110); POTASSIUM 3.8 mmol/L (3.6-5.0); TOTAL PROTEIN 5.5 g/dL (6.3-8.2)
--- NOTE | 2020-01-16 10:28 | PDOC DISCHARGE SUMMARY ---
Impression - Admit/DC Date/PCP Admission Date/Primary Care Provider: 01/11/20 01:56 PEDRO ORTIZ PA-C Discharge Date: 01/16/20 - Discharge Diagnosis (1) Recurrent acute pancreatitis Is this a current diagnosis for this admission?: Yes (2) Common bile duct (CBD) stricture Is this a current diagnosis for this admission?: Yes (3) Hepatic steatosis Is this a current diagnosis for this admission?: Yes (4) Hypertension Is this a current diagnosis for this admission?: Yes (5) Pancreatic cyst Is this a current diagnosis for this admission?: Yes (6) Tobacco abuse Is this a current diagnosis for this admission?: Yes (7) Elevated liver enzymes Is this a current diagnosis for this admission?: Yes - Additional Information Resuscitation Status: Full Code Discharge Diet: As Tolerated, Other (Comments) - Low-fat low-cholesterol diet Discharge Activity: Activity As Tolerated Referrals: PEDRO ORTIZ PA-C [Primary Care Provider] - (Follow up within 2 weeks ) Prescriptions: Docusate Sodium [Colace 100 mg Capsule] 100 mg PO BID 15 Days capsule [place]-3 Acid Ethyl Esters [Lovaza 1 gm Capsule] 1 gm PO DAILY #30 capsule Magnesium Oxide 500 mg PO BID 15 Days #30 capsule Oxycodone HCl/Acetaminophen [Percocet 5-325 mg Tablet] 1 - 2 tab PO Q8HP PRN #14 tab PRN Reason: For Breakthrough Pain Home Medications: Hydroxyzine HCl [Atarax 10 mg Tablet] 10 mg PO Q6HP PRN 07/23/19 Propranolol HCl [Inderal 20 mg Tablet] 20 mg PO Q12 07/23/19 Promethazine HCl [Phenergan 25 mg Tablet] 1 tab PO Q6H PRN #15 tablet 12/29/19 Chlorzoxazone [Parafon Forte Dsc 500 mg Tablet] 500 mg PO BIDP PRN 01/11/20 Lisinopril/Hydrochlorothiazide [Lisinopril-Hctz 10-12.5 mg Tab] 1 tab PO DAILY 01/11/20 Trazodone HCl 50 mg PO QHS 01/11/20 Acetaminophen [Tylenol 325 mg Tablet] 650 mg PO Q6HP PRN tablet 01/16/20 Docusate Sodium [Colace 100 mg Capsule] 100 mg PO BID 15 Days capsule 01/16/20 Magnesium Oxide 500 mg PO BID 15 Days #30 capsule 01/16/20 [place]-3 Acid Ethyl Esters [Lovaza 1 gm Capsule] 1 gm PO DAILY #30 capsule 01/16/20 Oxycodone HCl/Acetaminophen [Percocet 5-325 mg Tablet] 1 - 2 tab PO Q8HP PRN #14 tab 01/16/20 History of Present Illiness History of Present Illness: NEREIDA JONES is a 34 year old female who presented to the emergency room with a 2-week history of abdominal pain. She admits developing continuous sharp epigastric abdominal pain 2 weeks ago which has progressively worsened in intensity becoming severe today. The pain is worsened by activity, eating/drinking and radiates into her back and lower chest. She was seen in the [facility] ER on 01/03/2020 and was treated as an outpatient with a clear liquid diet and pain medication. Because of her progressively worsening pain she has returned having failed outpatient therapy. She admits that her pain has been accompanied by nausea and is associated with generalized malaise. She denies other accompanying or associated signs and symptoms. She admits numerous prior similar episodes, acknowledging chronic recurrent alcoholic pancreatitis as the diagnosis. She insists that her last alcohol intake was 2 weeks ago. She denies unification of any additional aggravating or ameliorating factors for her abdominal pain. In the emergency room she was found to have a lipase of 1903 which is increased from 684 on 01/03/2020. A CT scan of her abdomen showed acute pancreatic inflammation with a 2.1 cm pancreatic cyst that was felt to be slightly larger than it appeared on the previous study. Patient was subsequently admitted to the hospital for further evaluation and treatment. Hospital Course Hospital Course: Recurrent acute pancreatitis Is this a current diagnosis for this admission?: Yes Plan: Thought to have been precipitated by wine consumption a few weeks ago. RUQ US showing CBD dilation of 11 mm but no clear obstructive stone. MRCP showing intra-and extrahepatic duct dilation with narrowing of the distal CBD. ALP elevated ERCP showed distal CBD stricture [likely contributed to pancreatitis flare], intrahepatic duct dilation. Sphincterectomy performed and CBD stent placed. Tolerated diet post procedure. Symptoms improved. Patient referred for EUS in outpatient. Outpatient GI referral. She will follow-up for pending results for IgG, anti-smooth muscle antibody, antimitochondrial antibody and ELYSSA. Hepatic steatosis Is this a current diagnosis for this admission?: Yes Plan: Likely nonalcoholic fatty liver disease. Patient is not a heavy/frequent drinker. Potentially this may be the etiology of patient's significant transaminitis. I have counseled her to completely abstain from any alcohol consumption, on lifestyle modifications and weight loss. omega-3 fatty acid. Hypertension Is this a current diagnosis for this admission?: Yes Plan: Continue lisinopril and hydrochlorothiazide Pancreatic cyst Is this a current diagnosis for this admission?: Yes Plan: [address] cyst noted on CT. No current intervention needed. May require surveillance imaging in the future. Elevated liver enzymes Is this a current diagnosis for this admission?: Yes Plan: Likely secondary to cholestasis from common bile duct obstruction from stricture and URIOSTEGUI. Viral hepatitis panel is negative. Liver enzymes later trended down. Physical Exam Vital Signs: Temp Pulse Resp BP Pulse Ox 98.3 F 76 17 141/94 H 98 01/16/20 07:21 01/16/20 07:21 01/16/20 07:21 01/16/20 07:21 01/16/20 07:21 Intake & Output 01/15/20 01/16/20 01/17/20 06:59 06:59 06:59 Intake Total 3621 4520 Output Total 0 Balance 3621 4520 Weight 55.6 kg 56.7 kg General appearance: PRESENT: no acute distress, cooperative Neck exam: ABSENT: JVD Respiratory exam: PRESENT: unlabored Neurological exam: PRESENT: alert, awake Results Laboratory Results: WBC 6.0 10^3/uL (4.0-10.5) 01/12/20 05:10 RBC 3.77 10^6/uL (3.72-5.28) 01/12/20 05:10 Hgb 12.0 g/dL (12.0-15.5) 01/12/20 05:10 Hct 35.0 % (36.0-47.0) L 01/12/20 05:10 MCV 93 fl (80-97) 01/12/20 05:10 MCH 31.7 pg (27.0-33.4) 01/12/20 05:10 MCHC 34.2 g/dL (32.0-36.0) 01/12/20 05:10 RDW 15.6 % (11.5-14.0) H 01/12/20 05:10 Plt Count 331 10^3/uL (150-450) 01/12/20 05:10 Lymph % (Auto) 19.0 % (13-45) 01/10/20 20:00 [place] % (Auto) 10.7 % (3-13) 01/10/20 20:00 Eos % (Auto) 1.5 % (0-6) 01/10/20 20:00 Baso % (Auto) 1.4 % (0-2) 01/10/20 20:00 Absolute Neuts (auto) 6.0 10^3/uL (1.7-8.2) 01/10/20 20:00 Absolute Lymphs (auto) 1.7 10^3/uL (0.5-4.7) 01/10/20 20:00 Absolute Monos (auto) 1.0 10^3/uL (0.1-1.4) 01/10/20 20:00 Absolute Eos (auto) 0.1 10^3/uL (0.0-0.6) 01/10/20 20:00 Absolute Basos (auto) 0.1 10^3/uL (0.0-0.2) 01/10/20 20:00 Seg Neutrophils % 67.4 % (42-78) 01/10/20 20:00 Sodium 133.5 mmol/L (137-145) L 01/16/20 08:59 Potassium 3.8 mmol/L (3.6-5.0) 01/16/20 08:59 Chloride 106 mmol/L (98-107) 01/16/20 08:59 Carbon Dioxide 22 mmol/L (22-30) 01/16/20 08:59 Anion Gap 6 (5-19) 01/16/20 08:59 BUN 3 mg/dL (7-20) L 01/16/20 08:59 Creatinine 0.45 mg/dL (0.52-1.25) L 01/16/20 08:59 Est GFR ( Amer) > 60 (>60) 01/16/20 08:59 Est GFR (MDRD) Non-Af > 60 (>60) 01/16/20 08:59 Glucose 118 mg/dL (75-110) H 01/16/20 08:59 Calcium 8.8 mg/dL (8.4-10.2) 01/16/20 08:59 Magnesium 1.4 mg/dL (1.6-2.3) L 01/16/20 08:59 Total Bilirubin 1.2 mg/dL (0.2-1.3) 01/16/20 08:59 Direct Bilirubin 0.6 mg/dL (0.0-0.4) H 01/16/20 08:59 Neonat Total Bilirubin Not Reportable 01/16/20 08:59 Neonat Direct Bilirubin Not Reportable 01/16/20 08:59 Neonat Indirect Bili Not Reportable 01/16/20 08:59 GGT 883 U/L (8-78) H 01/13/20 05:31 AST 42 U/L (14-36) H 01/16/20 08:59 ALT 98 U/L (<35) H 01/16/20 08:59 Alkaline Phosphatase 466 U/L (38-126) H 01/16/20 08:59 Total Protein 5.5 g/dL (6.3-8.2) L 01/16/20 08:59 Albumin 2.9 g/dL (3.5-5.0) L 01/16/20 08:59 Triglycerides 204 mg/dL (<150) H 01/12/20 05:10 Cholesterol 158.12 mg/dL (0-200) 01/12/20 05:10 LDL Cholesterol Direct 60 mg/dL (<100) 01/12/20 05:10 VLDL Cholesterol 40.8 mg/dL (10-31) H 01/12/20 05:10 HDL Cholesterol 46 mg/dL (>40) 01/12/20 05:10 Lipase 1903.0 U/L (23-300) H 01/10/20 20:00 TSH 0.37 uIU/mL (0.47-4.68) L 01/10/20 20:00 Free T4 1.53 ng/dL (0.78-2.19) 01/12/20 05:10 Free T3 pg/mL 4.50 pg/mL (2.77-5.27) 01/12/20 05:10 Serum HCG, Qual NEGATIVE (NEGATIVE) 01/10/20 20:00 Urine Color DARK YELLOW 01/10/20 20:00 Urine Appearance SLIGHTLY-CLOUDY 01/10/20 20:00 Urine pH 5.0 (5.0-9.0) 01/10/20 20:00 Ur Specific [place] 1.043 01/10/20 20:00 Urine Protein 100 mg/dL (NEGATIVE) H 01/10/20 20:00 Urine Glucose (UA) NEGATIVE mg/dL (NEGATIVE) 01/10/20 20:00 Urine Ketones TRACE mg/dL (NEGATIVE) H 01/10/20 20:00 Urine Blood NEGATIVE (NEGATIVE) 01/10/20 20:00 Urine Nitrite (Reflex) NEGATIVE (NEGATIVE) 01/10/20 20:00 Urine Bilirubin MODERATE (NEGATIVE) H 01/10/20 20:00 Urine Urobilinogen 4.0 mg/dL (<2.0) H 01/10/20 20:00 Leukocyte Esterase Rfl SMALL (NEGATIVE) H 01/10/20 20:00 Urine RBC (Auto) 0 /HPF 01/10/20 20:00 Urine Bacteria (Auto) TRACE /HPF 01/10/20 20:00 Urine WBC (Reflex) 6 /HPF 01/10/20 20:00 Squamous Epi Cells Auto 13 /HPF 01/10/20 20:00 Urine Mucus (Auto) RARE /LPF 01/10/20 20:00 Urine Ascorbic Acid NEGATIVE (NEGATIVE) 01/10/20 20:00 Urine HCG, Qual NEGATIVE (NEGATIVE) 01/15/20 15:40 Hepatitis A IgM Ab Negative (Negative) 01/10/20 21:14 Hep Bs Antigen Negative (Negative) 01/10/20 21:14 Hep B Core IgM Ab Negative (Negative) 01/10/20 21:14 Hepatitis C Antibody 0.3 s/co ratio (0.0-0.9) 01/10/20 21:14 Impressions: Abdomen/Pelvis CT 01/10/20 00:00 IMPRESSION: Pancreatitis, similar to prior. The small cyst within the pancreas, presumed related to inflammatory change, is larger than it was in December 2016. There also appears be progressive low-attenuation of the liver and progressive periportal edema, consistent with inflammatory change.. 2 mm nonobstructing calculus left kidney. Although there is extrinsic compression of the splenic vein, there is no evidence of thrombosis of the portal venous system Acute Abdomen Series 01/10/20 19:54 IMPRESSION: No acute intra-abdominal process is identified. No evidence of active intrathoracic disease. Abdomen Ultrasound 01/12/20 00:00 IMPRESSION: 1. Status post cholecystectomy. Dilation of the CBD with prominent intrahepatic ducts, similar to prior CT. No obstructing lesion identified. Recommend correlation with LFTs. MRCP or ERCP could be considered for further characterization if clinically indicated. 2. Complex cystic lesion within the pancreatic body measuring 2.2 cm, stable from 01/03/2020. Findings may represent sequelae from prior pancreatitis although cystic pancreatic lesion is not entirely excluded. Recommend attention on follow-up. 3. Coarse hepatic echotexture which can be seen with intrinsic liver disease. Abdomen MRI 01/13/20 00:00 IMPRESSION: Dilated intra and extrahepatic bile ducts as described. There appears to be narrowing of the common bile duct distally. Cystic lesion at the junction of the body and tail the pancreas is unchanged. The pancreatic duct is irregular throughout its course. Cholangiogram 01/15/20 00:00 IMPRESSION: IMAGE(S) OBTAINED DURING PROCEDURE. Plan Time Spent: Less than 30 Minutes Stroke Is this a Stroke Patient?: No Acute Heart Failure - Is this a Heart Failure Patient?: No
[2020-01-16] MEDS: FAMOTIDINE INJ/PF 20 MG/2 ML SDV IV SCH (10:31)
[2020-01-16] MEDS: HYDROCHLOROTHIAZIDE 12.5 MG TABLET PO SCH (10:31)
[2020-01-16] MEDS: PROPRANOLOL HCL 20 MG TABLET PO SCH (10:31)
[2020-01-16] MEDS: LISINOPRIL 10 MG TABLET PO SCH (10:31)
[2020-01-16] MEDS: OMEGA-3 ACID ETHYL ESTERS 1 GM CAPSULE PO SCH (10:31)
[2020-01-16] MEDS: DOCUSATE SODIUM 100 MG CAPSULE PO SCH (10:34)
[2020-01-16] MEDS: POLYETHYLENE GLYCOL 3350 POWDER 17 GM/1 PACKET PO SCH (10:34)
[2020-01-16 11:25] VITALS: BP 133/92
[2020-01-16 18:02] LABS: IMMUNOGLOBULIN G 604 mg/dL (586-1602)
[2020-01-17 14:07] LABS: ANTINUCLEAR ANTIBODIES Negative (Negative)
[2020-01-18 07:06] LABS: ACTIN (SMOOTH MUSCLE) ANTIBODY 6 Units (0-19); MITOCHONDRIAL (M2) ANTIBODY <20.0 Units (0.0-20.0)
== END 2020-01-16 12:04 | disposition home or self-care (01) | DRG 438 ==
LOC: ER 20:21 → EH 01-11 01:56 → 4N 01-11 02:51
PROVIDERS: ADMIT Emergency Medicine; ATTEND Internal Medicine
PROC: 0F798DZ Dilation of Common Bile Duct with Intraluminal Device, Via Natural or Artificial Opening Endoscopic (ICD-10-PCS; principal; 2020-01-15 16:00)
PROC: BF101ZZ Fluoroscopy of Bile Ducts using Low Osmolar Contrast (ICD-10-PCS; 2020-01-15 16:00)
DX: K85.20 Alcohol induced acute pancreatitis without necrosis or infection (principal); K83.1 Obstruction of bile duct; K86.2 Cyst of pancreas; K86.0 Alcohol-induced chronic pancreatitis; K76.0 Fatty (change of) liver, not elsewhere classified; E78.5 Hyperlipidemia, unspecified; I10 Essential (primary) hypertension; Z90.49 Acquired absence of other specified parts of digestive tract; Z79.899 Other long term (current) drug therapy; F17.210 Nicotine dependence, cigarettes, uncomplicated; Z83.2 Family history of diseases of the blood and blood-forming organs and certain disorders involving the immune mechanism
CPT/HCPCS: 36415; 732; 74022; 74177; 74181; 74300; 76705; 80048; 80053; 80061; 80074; 80076; 81001; 81025; 82784; 82977; 83690; 83735; 84439; 84443; 84481; 84703; 85025; 85027; 86038; 86235; 86256; 86704; 86706; 93005; 93010; 96361; 96374; 96375; 96376; 99140; 99291; J0171; J1100; J1644; J1885; J2250; J2270; J2405; J2550; J2704; J2765; J3010; J3475; J3480; J3490; J7030; J7121; S0028

== ENCOUNTER 2020-02-07 07:30 | Day surgery (SDC) | payer OTHER ==
[~2020-02-07 07:30] MED LIST: PROPOFOL INJ 200 MG/20 ML VIAL IV ONE
[2020-02-07 11:11] VITALS: BP 100/65
--- NOTE | 2020-02-07 11:36 | Operative Report ---
Operative Report DATE OF SURGERY: 02/07/20 Operative Report: The risks benefits and alternatives of the procedure explained to the patient in detail and informed consent is obtained.A GIF Olympus video scope was inserted into the patient's mouth and hypopharynx, the esophagus is identified intubated and insufflated, the scope was then advanced through the esophagus stomach and duodenum ,retroflexion maneuver is done the esophagus stomach and first and second portions of the duodenum examined. PREOPERATIVE DIAGNOSIS: Abdominal pain rule out peptic ulcer disease POSTOPERATIVE DIAGNOSIS: Clean-based gastric ulcer status post biopsy. common bile duct stent is still present OPERATION: EGD with biopsy SURGEON: EDY ISSA ANESTHESIA: LMAC TISSUE REMOVED OR ALTERED: As noted above. COMPLICATIONS: None. ESTIMATED BLOOD LOSS: None. INTRAOPERATIVE FINDINGS: As noted above. PROCEDURE: Patient tolerated the procedure well. No immediate postprocedure complications are noted. Patient is discharged in good condition. Discharge date 02/07/2020. Discharge diet: Regular. Discharge activity: Regular. 2 to 3-week follow-up to discuss findings. Patient is instructed to call the office or proceed to the emergency room should there be any further problems or questions. Wait on the pathology.
== END 2020-02-07 11:55 | disposition home or self-care (01) ==
LOC: OROUT 07:30
PROVIDERS: ATTEND Internal Medicine Gastroenterology
DX: K29.50 Unspecified chronic gastritis without bleeding (principal); I10 Essential (primary) hypertension; Z86.73 Personal history of transient ischemic attack (TIA), and cerebral infarction without residual deficits; Z03.818 Encounter for observation for suspected exposure to other biological agents ruled out; Z87.891 Personal history of nicotine dependence; Z79.899 Other long term (current) drug therapy
CPT/HCPCS: 43239; 36415; 84132; 87635; 88342 ×2; 88305 ×2; J2704; C9803; 731

== ENCOUNTER 2020-05-07 13:44 | Emergency (ER) | payer OTHER ==
--- NOTE | 2020-05-07 14:52 | ER Document Report ---
ED Medical Screen (RME) - General Chief Complaint: Abdominal Pain Stated Complaint: ABDOMIAL PAIN/CONSTIPATION Time Seen by Provider: 05/07/20 14:51 Primary Care Provider: PEDRO ORTIZ PA-C [Primary Care Provider] - Follow up as needed Mode of Arrival: Ambulatory Information source: Patient Notes: 34-year-old female presented to ED for upper abdominal pain and possible constipation. She states she was it is the same pain she had last year when she came in and she ended up with a stent in her common bile duct. She states she has had pancreatitis and has a stent in the pancreas as well as the one in the common bile duct. She is also had umbilical hernia repair bilateral tubal rogation and IUD removed from her stomach. She states she does smoke half pack does not drink does use marijuana. She is alert oriented respirations regular nonlabored speaking in full sentences. We will get blood urine and a CT IV contrasted of the abdomen pelvis. I have greeted and performed a rapid initial assessment of this patient. A comprehensive ED assessment and evaluation of the patient, analysis of test results and completion of medical decision making process will be conducted by an additional ED providers. TRAVEL OUTSIDE OF THE [place] IN LAST 30 DAYS: No - Related Data Allergies/Adverse Reactions: No Known Allergies Allergy (Verified 05/07/20 14:46) Past Medical History - Social History Drug Abuse: Marijuana - Past Medical History Cardiac Medical History: Reports: Hx Hypercholesterolemia, Hx Hypertension Denies: Hx Atrial Fibrillation, Hx Coronary Artery Disease, Hx DVT, Hx Heart Attack, Hx Pulmonary Embolism Pulmonary Medical History: Denies: Hx Asthma, Hx Bronchitis, Hx COPD, Hx Pneumonia, Hx Tuberculosis Neurological Medical History: Denies: Hx Cerebrovascular Accident, Hx Seizures Endocrine Medical History: Denies: Hx Diabetes Mellitus Type 1, Hx Diabetes Mellitus Type 2, Hx Hyperthyroidism, Hx Hypothyroidism Renal/ Medical History: Denies: Hx Peritoneal Dialysis, Hx Pelvic Inflammatory Disease GI Medical History: Reports: Hx Cirrhosis - Hepatic steatosis, Hx Gastroesophageal Reflux Disease, Hx Pancreatitis. Denies: Hx Crohn's Disease, Hx Ulcerative Colitis Musculoskeltal Medical History: Denies Hx Arthritis, Denies Hx Gout Skin Medical History: Denies Hx Eczema, Denies Hx Psoriasis Psychiatric Medical History: Reports: Hx Anxiety Denies: Hx Depression Past Surgical History: Reports: Hx Abdominal Surgery - iud retrieval, hernia repair, Hx Cholecystectomy - 07/27, Hx Herniorrhaphy, Hx Pancreatic Surgery - x2 placed a stent, Hx Tubal Ligation, Other - Pancreatic surgery x2, pancreatic stent, laparoscopic IUD retrieval. Denies: Hx Pacemaker - Immunizations Hx Diphtheria, Pertussis, Tetanus Vaccination: Yes Physical Exam - Vital signs Vitals: Temp Pulse Resp BP Pulse Ox 98.5 F 73 18 141/90 H 99 05/07/20 14:06 05/07/20 14:06 05/07/20 14:06 05/07/20 14:06 05/07/20 14:06 Course - Vital Signs Vital signs: Temp Pulse Resp BP Pulse Ox 98.5 F 73 18 141/90 H 99 05/07/20 14:06 05/07/20 14:06 05/07/20 14:06 05/07/20 14:06 05/07/20 14:06 Doctor's Discharge - Discharge Referrals: PEDRO ORTIZ PA-C [Primary Care Provider] - Follow up as needed
[2020-05-07 15:18] LABS: APPEARANCE,URINE SLIGHTLY-CLOUDY; BILIRUBIN,URINE MODERATE (NEGATIVE); COLOR,URINE AMBER; GLUCOSE, URINE NEGATIVE (NEGATIVE); KETONES,URINE NEGATIVE (NEGATIVE); LEUKOCYTE ESTERASE,URINE TRACE (NEGATIVE); NITRITE,URINE NEGATIVE (NEGATIVE); PROTEIN,URINE 30 mg/dL (NEGATIVE)
[2020-05-07 16:18] LABS: ABSOLUTE BASOPHILS # (AUTO) 0.1 10^3/uL (0.0-0.2); ABSOLUTE EOSINOPHILS # (AUTO) 0.3 10^3/uL (0.0-0.6); ABSOLUTE LYMPHOCYTES (AUTO) 1.7 10^3/uL (0.5-4.7); ABSOLUTE MONOCYTES (AUTO) 0.7 10^3/uL (0.1-1.4); ABSOLUTE NEUT (AUTO) 7.1 10^3/uL (1.7-8.2); BASOPHILS % (AUTO) 0.9 % (0-2); HEMATOCRIT 37.1 % (36.0-47.0); HEMOGLOBIN 12.7 g/dL (12.0-15.5); LYMPHOCYTES % (AUTO) 17.2 % (13-45); MEAN CORPUSCULAR HEMOGLOBIN 29.7 pg (27.0-33.4); MEAN CORPUSCULAR HGB CONC 34.2 g/dL (32.0-36.0); MEAN CORPUSCULAR VOLUME 87 fl (80-97); MONOCYTES % (AUTO) 7.1 % (3-13); PLATELET COUNT 317 10^3/uL (150-450); RED BLOOD COUNT 4.27 10^6/uL (3.72-5.28); RED CELL DISTRIBUTION WIDTH 17.7 % (11.5-14.0); SEGMENTED NEUTROPHILS % (AUTO) 71.8 % (42-78); TOTAL CELLS COUNTED % (AUTO) 100 %; WHITE BLOOD COUNT 9.9 10^3/uL (4.0-10.5)
[2020-05-07 16:34] LABS: ALBUMIN 3.9 g/dL (3.5-5.0); ALKALINE PHOSPHATASE 82 U/L (38-126); ANION GAP 10 (5-19); ASPARTATE AMINO TRANSFERASE 16 U/L (14-36); BILIRUBIN,DIRECT 0.4 mg/dL (0.0-0.4); BILIRUBIN,TOTAL 0.5 mg/dL (0.2-1.3); BLOOD UREA NITROGEN 14 mg/dL (7-20); CALCIUM 9.6 mg/dL (8.4-10.2); CARBON DIOXIDE 21 mmol/L (22-30); CHLORIDE 108 mmol/L (98-107); GLUCOSE 128 mg/dL (75-110); POTASSIUM 3.9 mmol/L (3.6-5.0); TOTAL PROTEIN 6.4 g/dL (6.3-8.2)
[2020-05-07] MEDS ORDERED: NORMAL SALINE 1000 ML 1,000 ML IV ONE (17:06)
[2020-05-07] MEDS ORDERED: KETOROLAC TROMETHAMINE INJ/PF 30 MG/1 ML SDV IV ONE (17:12)
--- NOTE | 2020-05-07 17:17 | RADIOLOGY REPORT (SQ) ---
EXAM DESCRIPTION: CT ABD/PELVIS WITH IV ONLY IMAGES COMPLETED DATE/TIME: 05/07/2020 4:56 pm REASON FOR STUDY: Upper abdominal pain hx pancreatitis, stent in cbd COMPARISON: MRI abdomen 01/13/2020 Abdominal ultrasound 01/12/2020 CT abdomen pelvis 01/10/2020 TECHNIQUE: CT scan of the abdomen and pelvis performed using helical scanning technique with dynamic intravenous contrast injection. No oral contrast. Images reviewed with lung, soft tissue, and bone windows. Reconstructed coronal and sagittal MPR images reviewed. Delayed images for evaluation of the urinary system also acquired. All images stored on PACS. All CT scanners at this facility use dose modulation, iterative reconstruction, and/or weight based d osing when appropriate to reduce radiation dose to as low as reasonably achievable (ALARA). [facility]: Dose Right [facility]: CareDose [facility]: Dose Right [facility]: Teradose 4D [facility]: Quikly CONTRAST TYPE AND DOSE: contrast/concentration: Isovue 350.00 mmol/ml; Total Contrast Delivered: 59. 0 ml; Total Saline Delivered: 65.0 ml RENAL FUNCTION: Creatinine 0.7 RADIATION DOSE: 11 mGy LIMITATIONS: None. FINDINGS: LOWER CHEST: No significant findings. No nodules or infiltrates. LIVER: Normal size. No masses. No dilated ducts. SPLEEN: Normal size. No focal lesions. PANCREAS: Resolved pancreatic ductal dilatation, resolved pancreatic cyst compared to MRI 01/13/2020. Minimal inflammatory change along the uncinate process of pancreas, best shown on coronal images 18-2 0. Tiny pancreatic head calcifications from prior pancreatitis. No large peripancreatic fluid colle ction GALLBLADDER: Surgically absent. Endoscopically placed common bile duct stent present in good positio n, best shown on coronal reconstruction image 21. ADRENAL GLANDS: No significant masses or asymmetry. RIGHT KIDNEY AND URETER: No solid masses. Left upper pole 3 mm intrarenal nonobstructive stone. N o hydronephrosis or hydroureter. LEFT KIDNEY AND URETER: No solid masses. No significant calcifications. No hydronephrosis or hydr oureter. AORTA AND VESSELS: No aneurysm. No dissection. Renal arteries, SMA, celiac without stenosis. RETROPERITONEUM: No retroperitoneal adenopathy, hemorrhage or masses. BOWEL AND PERITONEAL CAVITY: No masses or inflammatory changes. No free fluid or peritoneal masses. APPENDIX: Normal. PELVIS: No mass. No free fluid. Normal bladder. Normal size female pelvic organs. Clips post tubal ligation ABDOMINAL WALL: No masses. No hernias. BONES: No significant or acute findings. OTHER: No other significant finding. IMPRESSION: Since the prior exams, patient has had endoscopic common bile duct stent placement, curr ently in good positioning. No biliary ductal dilatation or pancreatic ductal dilatation pancreatic s een on MRI 01/13/2020 is no longer identified Minimal inflammatory change along the inferior aspect of the pancreatic head worrisome for acute panc reatitis. TECHNICAL DOCUMENTATION: JOB ID: [id number] Quality ID # [id number]: Final reports with documentation of one or more dose reduction techniques (e.g., Au tomated exposure control, adjustment of the mA and/or kV according to patient size, use of iterative reconstruction technique) 2010 [employer]- All Rights Reserved Reading location - IP/workstation name: [id number]
[2020-05-07] MEDS ORDERED: DIPHENHYDRAMINE HCL 50 MG/ML VIAL IV ONE (17:39)
[2020-05-07] MEDS ORDERED: MORPHINE SULFATE 10 MG/ML INJ IV ONE (18:15)
--- NOTE | 2020-05-07 19:18 | ER Document Report ---
ED GI/ - General Chief Complaint: Abdominal Pain Stated Complaint: ABDOMIAL PAIN/CONSTIPATION Time Seen by Provider: 05/07/20 14:51 Primary Care Provider: PEDRO ORTIZ PA-C [Primary Care Provider] - Follow up as needed Mode of Arrival: Ambulatory Notes: Patient is a 34-year-old female who presents to the emergency department with a chief complaint of upper abdominal pain and possible constipation. Patient states that she had a stent placed in her common bile duct. She states that she has a history of pancreatitis in the past. She has been taking clear liquids to help manage her pancreatitis, as her pain feels like it is pancreatitis. Patient has history of a tubal ligation. Patient states that she has not been drinking alcohol. Her last drink was over a year ago. Patient states that her last menstrual cycle was last week. TRAVEL OUTSIDE OF THE [place] IN LAST 30 DAYS: No - Related Data Allergies/Adverse Reactions: No Known Allergies Allergy (Verified 05/07/20 14:46) Past Medical History - General Information source: Patient - Social History Smoking Status: Current Every Day Smoker Drug Abuse: Marijuana Family History: CAD, CVA - TIAs, Hypertension, Other - Endometriosis. denies: DM, Malignancy Patient has homicidal ideation: No - Past Medical History Cardiac Medical History: Reports: Hx Hypercholesterolemia, Hx Hypertension Denies: Hx Atrial Fibrillation, Hx Coronary Artery Disease, Hx DVT, Hx Heart Attack, Hx Pulmonary Embolism Pulmonary Medical History: Denies: Hx Asthma, Hx Bronchitis, Hx COPD, Hx Pneumonia, Hx Tuberculosis Neurological Medical History: Denies: Hx Cerebrovascular Accident, Hx Seizures Endocrine Medical History: Denies: Hx Diabetes Mellitus Type 1, Hx Diabetes Mellitus Type 2, Hx Hyperthyroidism, Hx Hypothyroidism Renal/ Medical History: Denies: Hx Peritoneal Dialysis, Hx Pelvic Inflammatory Disease GI Medical History: Reports: Hx Cirrhosis - Hepatic steatosis, Hx Gastroesophageal Reflux Disease, Hx Pancreatitis. Denies: Hx Crohn's Disease, Hx Ulcerative Colitis Musculoskeletal Medical History: Denies Hx Arthritis, Denies Hx Gout Skin Medical History: Denies Hx Eczema, Denies Hx Psoriasis Psychiatric Medical History: Reports: Hx Anxiety Denies: Hx Depression Past Surgical History: Reports: Hx Abdominal Surgery - iud retrieval, hernia repair, Hx Cholecystectomy - 07/27, Hx Herniorrhaphy, Hx Pancreatic Surgery - x2 placed a stent, Hx Tubal Ligation, Other - Pancreatic surgery x2, pancreatic stent, laparoscopic IUD retrieval. Denies: Hx Pacemaker - Immunizations Hx Diphtheria, Pertussis, Tetanus Vaccination: Yes Review of Systems - Review of Systems Notes: REVIEW OF SYSTEMS: CONSTITUTIONAL : Denies recent illness. Denies recent unintentional weight loss. Denies fever, chills, or sweats. EENT: Denies eye, ear, throat, or mouth pain, discharge, or symptoms. Denies nasal or sinus congestion. CARDIOVASCULAR: Denies chest pain. RESPIRATORY: Denies shortness of breath, cough, congestion, difficulty breathing, or wheezing. GASTROINTESTINAL: See HPI. GENITOURINARY: Denies difficulty urinating, burning, blood in urine, urgency or frequency. MUSCULOSKELETAL: Denies neck and back pain. Denies joint pain or swelling. SKIN: Denies rash, itchiness, or lesions HEMATOLOGIC : Denies easy bruising or bleeding. LYMPHATIC: Denies swollen, painful, enlarged glands. NEUROLOGICAL: Denies no numbness or tingling denies weakness. Denies headache. Denies altered mental status. Denies alteration in speech. PSYCHIATRIC: Denies stress, anxiety, alteration in sleep patterns, or d epression. All other systems reviewed and negative. Physical Exam - Vital signs Vitals: Temp Pulse Resp BP Pulse Ox 98.5 F 73 18 141/90 H 99 05/07/20 14:06 05/07/20 14:06 05/07/20 14:06 05/07/20 14:06 05/07/20 14:06 - Notes Notes: PHYSICAL EXAMINATION: GENERAL: Appears well, healthy, well-nourished, no acute distress. HEAD: Normocephalic, atraumatic. EYES: PERRL, conjunctiva normal, all extraocular movements intact, sclera nonicteric ENT: Moist mucous membranes. NECK: Supple, no noticeable swelling, redness, rash. Normal range of motion. LUNGS: Equal breath sounds bilaterally and clear to auscultation. No wheezes rales or rhonchi. CARDIOVASCULAR: S1-S2, regular rate, regular rhythm. Radial pulses 2+, normal. ABDOMEN: Normoactive bowel sounds. Soft, moderately tender mid upper abdomen, no guarding, no rebound tenderness, and no masses palpated. EXTREMITIES: Normal strength and range of motion, no pitting or edema. No cyanosis. NEUROLOGICAL: Moves all extremities upon command. Strength 5/5 in all extremities. PSYCH: Normal mood, normal affect. SKIN: Warm, dry. No rash, lesions, ulcerations noted. Normal skin turgor. Course - Re-evaluation Re-evalutation: 05/07/20 18:15 Hematology is unremarkable. No leukocytosis or anemia noted. Chemistries show a slightly low CO2, which is 21. Lipase is 815. CT shows appendicitis. Stents are in proper placement. Patient states that she is still in pain despite receiving Toradol and IV fluids. We will give her a dose of morphine will reevaluate. 05/07/20 19:17 Patient states that she has complete resolution of her pain. Patient will be sent home with pancreatitis precautions. She states that she knows how to manage her pancreatitis. Follow-up precautions were given. Verbal discharge instructions were given to the patient. They verbalized understanding. They are stable for discharge. - Vital Signs Vital signs: Temp Pulse Resp BP Pulse Ox 98.7 F 66 16 106/75 100 05/07/20 19:39 05/07/20 19:39 05/07/20 19:39 05/07/20 19:39 05/07/20 19:39 - Laboratory Result Diagrams: 05/07/20 16:03 05/07/20 16:03 Laboratory results interpreted by me: 05/07/20 05/07/20 05/07/20 14:59 16:03 16:03 RDW 17.7 H Chloride 108 H Carbon Dioxide 21 L Glucose 128 H Lipase 815.2 H Urine Protein 30 H Urine Bilirubin MODERATE H Urine Urobilinogen 2.0 H Ur Leukocyte Esterase TRACE H Discharge - Discharge Clinical Impression: Pancreatitis Qualifiers: Chronicity: acute Pancreatitis type: unspecified pancreatitis type Acute pancreatitis complication: unspecified Qualified Code(s): K85.90 - Acute pancreatitis without necrosis or infection, unspecified Condition: Stable Disposition: HOME, SELF-CARE Additional Instructions: Pancreatitis Pancreatitis is an inflammation of the pancreas, an organ at the back of your abdomen. The pancreas produces insulin and enzymes that digest your food. Pancreatitis can be caused by gallstones in the bile duct, by alcohol or viruse s, or by excess fat or calcium in the blood stream. Occasionally, pancreatitis occurs when a stomach ulcer parrish through into the pancreas. We try to find the cause of pancreatitis, but some tests can't be done until the pancreas heals. The usual symptoms of pancreatitis are pain in the pit of the stomach that goes straight through to the back, vomiting, and low-grade fever. Severe cases require hospital admission, but many patients with mild pancreatitis do well at home. You will probably need medicine for pain and for vomiting. Sometimes we prescribe medicine to decrease stomach acid secretion and to decrease flow of pancreatic juices. Start with a diet of clear liquids (soda pop, juices). When the pain is decreasing, you can add some simple starches (potato, toast, apples auce). Avoid proteins and fats until you are completely painfree. When you're better, your doctor may suggest treatment to prevent future pancreatitis (such as gallbladder removal). Avoid alcohol forever. Get immediate treatment for any future episodes. Contact your doctor at once or return here if you have increasing pain, shortness of breath, general swelling, increasing size of the abdomen, continued vomiting, muscle spasms, or other new symptoms. Prescriptions: Hydrocodone/Acetaminophen [Hahira 5-325 mg Tablet] 1 tab PO Q6HP PRN #10 tablet PRN Reason: Ondansetron [Zofran Odt 4 mg Tablet] 1 - 2 tab PO Q4H PRN #15 tab.rapdis PRN Reason: For Nausea/Vomiting Referrals: PEDRO ORTIZ PA-C [Primary Care Provider] - Follow up as needed
[2020-05-07 19:40] VITALS: BP 106/75
== END 2020-05-07 19:40 | disposition home or self-care (01) ==
LOC: ER 13:44
DX: K85.90 Acute pancreatitis without necrosis or infection, unspecified (principal); R10.10 Upper abdominal pain, unspecified; F17.200 Nicotine dependence, unspecified, uncomplicated; E78.00 Pure hypercholesterolemia, unspecified; I10 Essential (primary) hypertension; Z90.49 Acquired absence of other specified parts of digestive tract
CPT/HCPCS: 99285; 96361; 96374; 96375; 36415; 83690; 85025; 80053; 81001; 74177; J1200; J1885; J2270; J7030

== ENCOUNTER 2020-07-03 19:01 | Emergency (ER) | payer OTHER ==
[2020-07-03] MEDS ORDERED: ONDANSETRON HCL INJ/PF 4 MG/2 ML SDV IV ONE (19:54)
[2020-07-03] MEDS ORDERED: NORMAL SALINE 1000 ML 1,000 ML IV ONE (19:54)
--- NOTE | 2020-07-03 19:55 | ER Document Report ---
ED Medical Screen (RME) - General Chief Complaint: Abdominal Pain Stated Complaint: FLANK PAIN Time Seen by Provider: 07/03/20 19:49 Primary Care Provider: PEDRO ORTIZ PA-C [Primary Care Provider] - Follow up as needed Notes: Presents complaint of epigastric pain for the past 3 days. Patient states occasionally pain radiates to the left side of the chest. Patient reports nausea vomiting diarrhea. Patient is vomited twice and had diarrhea x1 episode. Patient denies any fever. Patient has a history of pancreatitis and suspects the same today. Patient has had previous pancreatic stent placed in a cholecys tectomy. I have greeted and performed a rapid initial assessment of this patient. A comprehensive ED assessment and evaluation of the patient, analysis of test results and completion of the medical decision making process will be conducted by additional ED providers. TRAVEL OUTSIDE OF THE [place] IN LAST 30 DAYS: No - Related Data Allergies/Adverse Reactions: ketorolac [From Toradol] Adverse Reaction (Verified 07/03/20 19:45) Past Medical History - Past Medical History Cardiac Medical History: Reports: Hx Hypercholesterolemia, Hx Hypertension Denies: Hx Atrial Fibrillation, Hx Coronary Artery Disease, Hx DVT, Hx Heart Attack, Hx Pulmonary Embolism Pulmonary Medical History: Denies: Hx Asthma, Hx Bronchitis, Hx COPD, Hx Pneumonia, Hx Tuberculosis Neurological Medical History: Denies: Hx Cerebrovascular Accident, Hx Seizures Endocrine Medical History: Denies: Hx Diabetes Mellitus Type 1, Hx Diabetes Mellitus Type 2, Hx Hyperthyroidism, Hx Hypothyroidism Renal/ Medical History: Denies: Hx Peritoneal Dialysis, Hx Pelvic Inflammatory Disease GI Medical History: Reports: Hx Cirrhosis - Hepatic steatosis, Hx Gastroesophage al Reflux Disease, Hx Pancreatitis. Denies: Hx Crohn's Disease, Hx Ulcerative Colitis Musculoskeltal Medical History: Denies Hx Arthritis, Denies Hx Gout Skin Medical History: Denies Hx Eczema, Denies Hx Psoriasis Psychiatric Medical History: Reports: Hx Anxiety Denies: Hx Depression Past Surgical History: Reports: Hx Abdominal Surgery - iud retrieval, hernia repair, Hx Cholecystectomy - 07/27, Hx Herniorrhaphy, Hx Pancreatic Surgery - x2 placed a stent, Hx Tubal Ligation, Other - Pancreatic surgery x2, pancreatic stent, laparoscopic IUD retrieval. Denies: Hx Pacemaker - Immunizations Hx Diphtheria, Pertussis, Tetanus Vaccination: Yes Physical Exam - Vital signs Vitals: Temp Pulse Resp BP Pulse Ox 98.5 F 74 16 144/99 H 99 07/03/20 19:16 07/03/20 19:16 07/03/20 19:16 07/03/20 19:16 07/03/20 19:16 - Abdominal Tenderness: Tender - upper abdominal, epigastric tenderness Course - Vital Signs Vital signs: Temp Pulse Resp BP Pulse Ox 98.5 F 74 16 144/99 H 99 07/03/20 19:16 07/03/20 19:16 07/03/20 19:16 07/03/20 19:16 07/03/20 19:16 Doctor's Discharge - Discharge Referrals: PEDRO ORTIZ PA-C [Primary Care Provider] - Follow up as needed
[2020-07-03 20:24] LABS: ABSOLUTE BASOPHILS # (AUTO) 0.1 10^3/uL (0.0-0.2); ABSOLUTE EOSINOPHILS # (AUTO) 0.4 10^3/uL (0.0-0.6); ABSOLUTE LYMPHOCYTES (AUTO) 1.8 10^3/uL (0.5-4.7); ABSOLUTE MONOCYTES (AUTO) 0.6 10^3/uL (0.1-1.4); ABSOLUTE NEUT (AUTO) 7.9 10^3/uL (1.7-8.2); BASOPHILS % (AUTO) 1.1 % (0-2); EOSINOPHILS % (AUTO) 3.5 % (0-6); HEMOGLOBIN 12.6 g/dL (12.0-15.5); LYMPHOCYTES % (AUTO) 16.5 % (13-45); MEAN CORPUSCULAR HEMOGLOBIN 30.4 pg (27.0-33.4); MEAN CORPUSCULAR HGB CONC 34.1 g/dL (32.0-36.0); MEAN CORPUSCULAR VOLUME 89 fl (80-97); MONOCYTES % (AUTO) 5.2 % (3-13); PLATELET COUNT 423 10^3/uL (150-450); RED BLOOD COUNT 4.15 10^6/uL (3.72-5.28); RED CELL DISTRIBUTION WIDTH 18.3 % (11.5-14.0); SEGMENTED NEUTROPHILS % (AUTO) 73.7 % (42-78); TOTAL CELLS COUNTED % (AUTO) 100 %; WHITE BLOOD COUNT 10.7 10^3/uL (4.0-10.5)
[2020-07-03 20:41] LABS: ALBUMIN 4.2 g/dL (3.5-5.0); ALKALINE PHOSPHATASE 145 U/L (38-126); ANION GAP 12 (5-19); ASPARTATE AMINO TRANSFERASE 62 U/L (14-36); BILIRUBIN,DIRECT 0.2 mg/dL (0.0-0.4); BILIRUBIN,TOTAL 0.5 mg/dL (0.2-1.3); BLOOD UREA NITROGEN 11 mg/dL (7-20); CALCIUM 9.8 mg/dL (8.4-10.2); CARBON DIOXIDE 18 mmol/L (22-30); CHLORIDE 108 mmol/L (98-107); GLUCOSE 95 mg/dL (75-110); POTASSIUM 3.6 mmol/L (3.6-5.0)
--- NOTE | 2020-07-03 20:44 | RADIOLOGY REPORT (SQ) ---
CHEST X-RAY 1 VIEW on 07/03/2020 at 8:13 PM CLINICAL INDICATION: Chest pain, epigastric pain COMPARISON: 04/11/2014 FINDINGS: The lungs are clear. Mild vascular calcification is noted in the aorta. Cardiac, hilar and mediastinal contours are within normal limits. Pulmonary vascularity is within normal limits. No bony abnormality is noted. IMPRESSION: No active disease.
[2020-07-04] MEDS ORDERED: MORPHINE SULFATE 10 MG/ML INJ IV ONE (03:18)
[2020-07-04] MEDS ORDERED: ONDANSETRON HCL INJ/PF 4 MG/2 ML SDV ONE ×2 (03:57→04:18)
--- NOTE | 2020-07-04 05:09 | ER Document Report ---
ED General - General Chief Complaint: Abdominal Pain Stated Complaint: FLANK PAIN Time Seen by Provider: 07/03/20 19:49 Primary Care Provider: PEDRO ORTIZ PA-C [Primary Care Provider] - Follow up as needed Notes: 34-year-old female with recurrent pancreatitis initially attributed to alcohol but unclear etiology with pancreatic stent, cholecystectomy history, presents with approximately 3 days of severe epigastric pain radiating to back associated with 2 episodes nonbloody nonbilious emesis one episode of loose nonblack nonbloody stool similar to her prior pain she has had from pancreatitis. She has no known cause of pancreatitis, says she was never a heavy drinker and has stopped drinking completely in effort to avoid pancreatitis. Patient denies any black stool, bloody stool, lower abdominal/pelvic pain, flank pain, urinary symptoms, vaginal symptoms TRAVEL OUTSIDE OF THE [place] IN LAST 30 DAYS: No - Related Data Allergies/Adverse Reactions: ketorolac [From Toradol] Adverse Reaction (Verified 07/03/20 19:45) Past Medical History - General Information source: Patient - Social History Smoking Status: Current Every Day Smoker Family History: CAD, CVA - TIAs, Hypertension, Other - Endometriosis. denies: DM, Malignancy - Past Medical History Cardiac Medical History: Reports: Hx Hypercholesterolemia, Hx Hypertension Denies: Hx Atrial Fibrillation, Hx Coronary Artery Disease, Hx DVT, Hx Heart Attack, Hx Pulmonary Embolism Pulmonary Medical History: Denies: Hx Asthma, Hx Bronchitis, Hx COPD, Hx Pneumonia, Hx Tuberculosis Neurological Medical History: Denies: Hx Cerebrovascular Accident, Hx Seizures Endocrine Medical History: Denies: Hx Diabetes Mellitus Type 1, Hx Diabetes Mellitus Type 2, Hx Hyperthyroidism, Hx Hypothyroidism Renal/ Medical History: Denies: Hx Peritoneal Dialysis, Hx Pelvic Inflammatory Disease GI Medical History: Reports: Hx Cirrhosis - Hepatic steatosis, Hx Gastroesophageal Reflux Disease, Hx Pancreatitis. Denies: Hx Crohn's Disease, Hx Ulcerative Colitis Musculoskeletal Medical History: Denies Hx Arthritis, Denies Hx Gout Skin Medical History: Denies Hx Eczema, Denies Hx Psoriasis Psychiatric Medical History: Reports: Hx Anxiety Denies: Hx Depression Past Surgical History: Reports: Hx Abdominal Surgery - iud retrieval, hernia repair, Hx Cholecystectomy - 07/27, Hx Herniorrhaphy, Hx Pancreatic Surgery - x2 placed a stent, Hx Tubal Ligation, Other - Pancreatic surgery x2, pancreatic abisai nt, laparoscopic IUD retrieval. Denies: Hx Pacemaker - Immunizations Hx Diphtheria, Pertussis, Tetanus Vaccination: Yes Review of Systems - Review of Systems Notes: REVIEW OF SYSTEMS: CONSTITUTIONAL : Denies fever, chills, or sweats. EENT: Denies recent cold/sinus symptoms, denies throat pain CARDIOVASCULAR: Denies chest pain, JANNA RESPIRATORY: Denies cough, denies shortness of breath. GASTROINTESTINAL: + abdominal pain, +nausea/vomiting. GENITOURINARY: Denies difficulty urinating, painful urination. FEMALE GENITOURINARY: Denies abnormal vaginal bleeding, vaginal discharge. MUSCULOSKELETAL: Denies neck pain, trauma SKIN: Denies rash or skin lesions. HEMATOLOGIC : Denies easy bruising or bleeding. LYMPHATIC: Denies swollen, enlarged glands. NEUROLOGICAL: Denies headache, denies change in gait. PSYCHIATRIC: Denies anxiety or stress or depression. Physical Exam - Vital signs Vitals: Temp Pulse Resp BP Pulse Ox 98.5 F 74 16 144/99 H 99 07/03/20 19:16 07/03/20 19:16 07/03/20 19:16 07/03/20 19:16 07/03/20 19:16 - Notes Notes: PHYSICAL EXAMINATION: GENERAL: Well-appearing, well-nourished, mildly uncomfortable appearing adult female lying in stretcher in no acute distress. HEAD: Atraumatic, normocephalic. EYES: Pupils equal round and appropriate constriction, sclera anicteric, conjunctiva are normal. ENT: nares patent, moist mucous membranes. NECK: Normal range of motion, supple without lymphadenopathy LUNGS: Breath sounds clear to auscultation bilaterally and equal. No wheezes rales or rhonchi. HEART: Regular rate and rhythm without murmurs ABDOMEN: Soft, nondistended, no masses, mild epigastric tenderness, no rebound, no guarding, no CVA tenderness EXTREMITIES: Normal range of motion, no pitting or edema. No cyanosis. NEUROLOGICAL: Awake, alert, conversing appropriately, moves all extremities sp ontaneously. PSYCH: Normal mood, normal affect. SKIN: Warm, Dry, normal turgor, no rashes or lesions noted. Course - Re-evaluation Re-evalutation: 07/04/20 05:07 Very well-appearing patient, normal vital signs, benign abdominal exam, pain consistent with multiple prior episodes of pancreatitis and no signs of current complications of pancreatitis given pain not severe, and benign abdominal exam, no fever, symptoms consistent with multiple prior episodes. Could possibly be secondary to PUD although less likely given duration of pain and experience with similar symptoms. No signs if it were PUD of any complication such as perforation, abscess, or bleeding. Mildly decreased co2 consistent with vomiting, mild transaminitis less severe than multiple prior abnormal LFTs. After meds, patient feels greatly improved. Gave patient copy of water p.o. which she was able to tolerate. Patient now feels like pain is manageable. Patient appropriate for outpatient management of mild pancreatitis given no signs of infection and tolerating p.o. patient ready for discharge with follow- up with gastroenterology and PCP. Gave patient return to ED precautions which she demonstrated understanding of. - Vital Signs Vital signs: Temp Pulse Resp BP Pulse Ox 98.5 F 93 16 117/88 H 98 07/04/20 00:15 07/04/20 00:15 07/04/20 04:00 07/04/20 04:00 07/04/20 04:00 - Laboratory Result Diagrams: 07/03/20 20:00 07/03/20 20:00 Laboratory results interpreted by me: 07/03/20 07/03/20 20:00 20:00 WBC 10.7 H RDW 18.3 H Chloride 108 H Carbon Dioxide 18 L AST 62 H ALT 51 H Alkaline Phosphatase 145 H Lipase 423.6 H Discharge - Discharge Clinical Impression: Abdominal pain Qualifiers: Abdominal location: epigastric Qualified Code(s): R10.13 - Epigastric pain Disposition: HOME, SELF-CARE Additional Instructions: Pancreatitis Pancreatitis is an inflammation of the pancreas, an organ at the back of your abdomen. The pancreas produces insulin and enzymes that digest your food. Pancreatitis can be caused by gallstones in the bile duct, by alcohol or viruses, or by excess fat or calcium in the blood stream. Occasionally, pancreatitis occurs when a stomach ulcer parrish through into the pancreas. We try to find the cause of pancreatitis, but some tests can't be done until the p ancreas heals. The usual symptoms of pancreatitis are pain in the pit of the stomach that goes straight through to the back, vomiting, and low-grade fever. Severe cases require hospital admission, but many patients with mild pancreatitis do well at home. You will probably need medicine for pain and for vomiting. Sometimes we prescribe medicine to decrease stomach acid secretion and to decrease flow of pancreatic juices. Start with a diet of clear liquids (soda pop, juices). When the pain is decreasing, you can add some simple starches (potato, toast, applesauce). Avoid proteins and fats until you are completely painfree. When you're better, your doctor may suggest treatment to prevent future pancreatitis (such as gallbladder removal). Avoid alcohol forever. Get immedia te treatment for any future episodes. Contact your doctor at once or return here if you have increasing pain, shortness of breath, general swelling, increasing size of the abdomen, continued vomiting, muscle spasms, or other new symptoms. Follow-up with your primary doctor and fuel island attendant within 1 week. You had several mild lab abnormalities which you should discuss with his doctors, bring the copy of your results to your given when you go to your follow-up appointments. Prescriptions: Oxycodone HCl/Acetaminophen [Percocet 5-325 mg Tablet] 1 tab PO Q6HP PRN #6 tablet PRN Reason: Severe Pain Oxycodone HCl/Acetaminophen [Percocet 5-325 mg Tablet] 1 tab PO Q6HP PRN #6 tablet PRN Reason: Severe Pain Ondansetron [Zofran Odt 4 mg Tablet] 1 tab PO Q6HP PRN #6 tab.rapdis PRN Reason: For Nausea/Vomiting Referrals: VICKY CHOUDHARY MD [ACTIVE STAFF] - Follow up in 1 week PEDRO ORTIZ PA-C [Primary Care Provider] - Follow up in 1 week EDY ISSA MD [ACTIVE STAFF] - Follow up in 1 week
[2020-07-04 06:32] VITALS: BP 119/92
--- NOTE | 2020-07-04 07:26 | EKG REPORT ---
SEVERITY:- NORMAL ECG - SINUS RHYTHM : Confirmed by: Dangelo Truong MD 04-Jul-2020 07:26:31
== END 2020-07-04 06:31 | disposition home or self-care (01) ==
LOC: ER 19:01
DX: R10.13 Epigastric pain (principal); R11.2 Nausea with vomiting, unspecified; M54.9 Dorsalgia, unspecified; Z88.8 Allergy status to other drugs, medicaments and biological substances; F17.200 Nicotine dependence, unspecified, uncomplicated; I10 Essential (primary) hypertension
CPT/HCPCS: 93005; 99285; 96361; 96374; 96375; 36415; 83690; 84703; 85025; 80053; 84484; 71045; 93010; J2270; J2405; J7030

== ENCOUNTER 2020-08-16 18:10 | Emergency (ER) | payer OTHER ==
--- NOTE | 2020-08-16 18:23 | ER Document Report ---
ED Medical Screen (RME) - General Chief Complaint: Abdominal Pain Stated Complaint: STOMACH PAIN Time Seen by Provider: 08/16/20 18:21 Primary Care Provider: PEDRO ORTIZ PA-C [Primary Care Provider] - Follow up as needed Mode of Arrival: Ambulatory Information source: Patient Notes: 35-year-old female presented to ED for complaint of abdominal pain. She does have a history of chronic pancreatitis. She states she did see her doctor yesterday and he put her on some kind of medicine for cramps because the pain was lower than her normal pain. She states she was started on Bentyl for the abdominal pain yesterday and it has not helped the pain and now the pain is up and feels like her pancreatitis. She is alert oriented respirations regular nonlabored speaking in full sentences. He denies any nausea or vomiting. We will get blood urine and start some IV fluids when she gets a room and have her seen by one of the providers. I have greeted and performed a rapid initial assessment of this patient. A comprehensive ED assessment and evaluation of the patient, analysis of test results and completion of medical decision making process will be conducted by an additional ED providers. TRAVEL OUTSIDE OF THE [place] IN LAST 30 DAYS: No - Related Data Allergies/Adverse Reactions: ketorolac [From Toradol] Adverse Reaction (Verified 07/03/20 19:45) Past Medical History - Past Medical History Cardiac Medical History: Reports: Hx Hypercholesterolemia, Hx Hypertension Denies: Hx Atrial Fibrillation, Hx Coronary Artery Disease, Hx DVT, Hx Heart Attack, Hx Pulmonary Embolism Pulmonary Medical History: Denies: Hx Asthma, Hx Bronchitis, Hx COPD, Hx Pneumonia, Hx Tuberculosis Neurological Medical History: Denies: Hx Cerebrovascular Accident, Hx Seizures Endocrine Medical History: Denies: Hx Diabetes Mellitus Type 1, Hx Diabetes Mellitus Type 2, Hx Hyperthyroidism, Hx Hypothyroidism Renal/ Medical History: Denies: Hx Peritoneal Dialysis, Hx Pelvic Inflammatory Disease GI Medical History: Reports: Hx Cirrhosis - Hepatic steatosis, Hx Gastroesophageal Reflux Disease, Hx Pancreatitis. Denies: Hx Crohn's Disease, Hx Ulcerative Colitis Musculoskeltal Medical History: Denies Hx Arthritis, Denies Hx Gout Skin Medical History: Denies Hx Eczema, Denies Hx Psoriasis Psychiatric Medical History: Reports: Hx Anxiety Denies: Hx Depression Past Surgical History: Reports: Hx Abdominal Surgery - iud retrieval, hernia repair, Hx Cholecystectomy - 07/27, Hx Herniorrhaphy, Hx Pancreatic Surgery - x2 placed a stent, Hx Tubal Ligation, Other - Pancreatic surgery x2, pancreatic stent, laparoscopic IUD retrieval. Denies: Hx Pacemaker - Immunizations Hx Diphtheria, Pertussis, Tetanus Vaccination: Yes Doctor's Discharge - Discharge Referrals: PEDRO ORTIZ PA-C [Primary Care Provider] - Follow up as needed
[2020-08-16] MEDS ORDERED: NORMAL SALINE 1000 ML 1,000 ML IV ONE (18:27)
--- NOTE | 2020-08-16 18:29 | ER Document Report ---
ED Medical Screen (RME) - General Chief Complaint: Abdominal Pain Stated Complaint: STOMACH PAIN Time Seen by Provider: 08/16/20 18:21 Primary Care Provider: PEDRO ORTIZ PA-C [Primary Care Provider] - Follow up as needed Mode of Arrival: Ambulatory Information source: Patient Notes: 35-year-old female presents to ED for complaint of abdominal pain. She states she saw her doctor yesterday because the pain was lower than it is now and he put her on Bentyl. She states that the Bentyl did not help her pancreatitis and if anything it made it worse. She states she has been taking ibuprofen for the pancreatitis and it has not been helping any. She states the pain is now moved up into her pancreas area. Will order labs urine and IV fluids. She will be seen by another provider. I have greeted and performed a rapid initial assessment of this patient. A comprehensive ED assessment and evaluation of the patient, analysis of test results and completion of medical decision making process will be conducted by an additional ED providers. TRAVEL OUTSIDE OF THE [place] IN LAST 30 DAYS: No - Related Data Allergies/Adverse Reactions: ketorolac [From Toradol] Adverse Reaction (Verified 07/03/20 19:45) Home Medications: lisinopril, propanolol Past Medical History - Social History Chew tobacco use (# tins/day): No Frequency of alcohol use: None Drug Abuse: None - Past Medical History Cardiac Medical History: Reports: Hx Hypercholesterolemia, Hx Hypertension Denies: Hx Atrial Fibrillation, Hx Coronary Artery Disease, Hx DVT, Hx Heart Attack, Hx Pulmonary Embolism Pulmonary Medical History: Denies: Hx Asthma, Hx Bronchitis, Hx COPD, Hx Pneumonia, Hx Tuberculosis Neurological Medical History: Denies: Hx Cerebrovascular Accident, Hx Seizures Endocrine Medical History: Denies: Hx Diabetes Mellitus Type 1, Hx Diabetes Mellitus Type 2, Hx Hyperthyroidism, Hx Hypothyroidism Renal/ Medical History: Denies: Hx Peritoneal Dialysis, Hx Pelvic Inflammatory Disease GI Medical History: Reports: Hx Cirrhosis - Hepatic steatosis, Hx Gastroesophageal Reflux Disease, Hx Pancreatitis. Denies: Hx Crohn's Disease, Hx Ulcerative Colitis Musculoskeltal Medical History: Denies Hx Arthritis, Denies Hx Gout Skin Medical History: Denies Hx Eczema, Denies Hx Psoriasis Psychiatric Medical History: Reports: Hx Anxiety Denies: Hx Depression Past Surgical History: Reports: Hx Abdominal Surgery - iud retrieval, hernia repair, Hx Cholecystectomy - 07/27, Hx Herniorrhaphy, Hx Pancreatic Surgery - x2 placed a stent, Hx Tubal Ligation, Other - Pancreatic surgery x2, pancreatic stent, laparoscopic IUD retrieval. Denies: Hx Pacemaker - Immunizations Hx Diphtheria, Pertussis, Tetanus Vaccination: Yes Physical Exam - Vital signs Vitals: Temp Pulse Resp BP Pulse Ox 98.6 F 86 16 169/101 H 99 08/16/20 18:19 08/16/20 18:19 08/16/20 18:19 08/16/20 18:19 08/16/20 18:19 Course - Vital Signs Vital signs: Temp Pulse Resp BP Pulse Ox 98.6 F 86 16 169/101 H 99 08/16/20 18:19 08/16/20 18:19 08/16/20 18:19 08/16/20 18:19 08/16/20 18:19 Doctor's Discharge - Discharge Referrals: PEDRO ORTIZ PA-C [Primary Care Provider] - Follow up as needed
[2020-08-16 19:12] LABS: ABSOLUTE BASOPHILS # (AUTO) 0.1 10^3/uL (0.0-0.2); ABSOLUTE EOSINOPHILS # (AUTO) 0.4 10^3/uL (0.0-0.6); ABSOLUTE LYMPHOCYTES (AUTO) 1.4 10^3/uL (0.5-4.7); ABSOLUTE MONOCYTES (AUTO) 0.6 10^3/uL (0.1-1.4); ABSOLUTE NEUT (AUTO) 8.2 10^3/uL (1.7-8.2); EOSINOPHILS % (AUTO) 3.4 % (0-6); HEMATOCRIT 38.2 % (36.0-47.0); HEMOGLOBIN 12.5 g/dL (12.0-15.5); LYMPHOCYTES % (AUTO) 13.3 % (13-45); MEAN CORPUSCULAR HEMOGLOBIN 29.1 pg (27.0-33.4); MEAN CORPUSCULAR HGB CONC 32.8 g/dL (32.0-36.0); MEAN CORPUSCULAR VOLUME 89 fl (80-97); MONOCYTES % (AUTO) 5.5 % (3-13); PLATELET COUNT 364 10^3/uL (150-450); RED BLOOD COUNT 4.32 10^6/uL (3.72-5.28); RED CELL DISTRIBUTION WIDTH 16.5 % (11.5-14.0); SEGMENTED NEUTROPHILS % (AUTO) 76.8 % (42-78); TOTAL CELLS COUNTED % (AUTO) 100 %; WHITE BLOOD COUNT 10.7 10^3/uL (4.0-10.5)
[2020-08-16 19:31] LABS: ALBUMIN 4.9 g/dL (3.5-5.0); ALKALINE PHOSPHATASE 196 U/L (38-126); ANION GAP 10 (5-19); ASPARTATE AMINO TRANSFERASE 109 U/L (14-36); BILIRUBIN,DIRECT 0.1 mg/dL (0.0-0.4); BILIRUBIN,TOTAL 0.5 mg/dL (0.2-1.3); BLOOD UREA NITROGEN 10 mg/dL (7-20); CALCIUM 10.1 mg/dL (8.4-10.2); CARBON DIOXIDE 21 mmol/L (22-30); CHLORIDE 106 mmol/L (98-107); GLUCOSE 107 mg/dL (75-110); POTASSIUM 3.7 mmol/L (3.6-5.0); TOTAL PROTEIN 8.6 g/dL (6.3-8.2)
[2020-08-16 19:40] LABS: APPEARANCE,URINE CLEAR; BILIRUBIN,URINE NEGATIVE (NEGATIVE); COLOR,URINE YELLOW; GLUCOSE, URINE NEGATIVE (NEGATIVE); KETONES,URINE 20 mg/dL (NEGATIVE); LEUKOCYTE ESTERASE,URINE NEGATIVE (NEGATIVE); NITRITE,URINE NEGATIVE (NEGATIVE); PROTEIN,URINE 30 mg/dL (NEGATIVE); URINE SPECIFIC GRAVITY 1.024; UROBILINOGEN,URINE NEGATIVE mg/dL (<2.0)
--- NOTE | 2020-08-16 20:10 | ER Document Report ---
ED GI/ - General Chief Complaint: Abdominal Pain Stated Complaint: STOMACH PAIN Time Seen by Provider: 08/16/20 18:21 Primary Care Provider: PEDRO ORTIZ PA-C [Primary Care Provider] - Follow up as needed Mode of Arrival: Ambulatory Information source: Patient Notes: ED Medical Screen ([facility]) - General Chief Complaint: Abdominal Pain Stated Complaint: STOMACH PAIN Time Seen by Provider: 08/16/20 18:21 Primary Care Provider: PEDRO ORTIZ PA-C [Primary Care Provider] - Follow up as needed Mode of Arrival: Ambulatory Information source: Patient Notes: 35-year-old female presented to ED for complaint of abdominal pain. She does have a history of chronic pancreatitis. She states she did see her doctor yesterday and he put her on some kind of medicine for cramps because the pain was lower than her normal pain. She states she was started on Bentyl for the abdominal pain yesterday and it has not helped the pain and now the pain is up and feels like her pancreatitis. She is alert oriented respirations regular nonlabored speaking in full sentences. He denies any nausea or vomiting. We will get blood urine and start some IV fluids when she gets a room and have her seen by one of the providers. MY NOTES 35-year-old female arrives with chief complaint of abdominal pain. She has a history of chronic pancreatitis and is well-known to this ER. I saw her myself in December on and she had a lipase of 1922. We note today that her lipase is within normal limits. She had been taking wine coolers when she last presented on my seeing her in December. Patient reports she last ate 2 days ago because of suprapubic abdominal pain. She saw her PMD yesterday who placed her on Bentyl but this has not helped her abdominal pain now she has diffuse abdominal pain rather than just suprapubic pain. She reports she has not had anything to drink for least 6 months. Her LFTs were mildly elevated tonight as well as total protein. She denies any norovirus vomiting or diarrhea. She reports 2 weeks ago she and her had strep throat and were placed on amoxicillin and she developed vaginal yeast and had to take Diflucan but denies any diarrhea like C. difficile problems. TRAVEL OUTSIDE OF THE [place] IN LAST 30 DAYS: No - Related Data Allergies/Adverse Reactions: ketorolac [From Toradol] Adverse Reaction (Verified 07/03/20 19:45) Home Medications: lisinopril, propanolol Past Medical History - General Information source: Patient - Social History Smoking Status: Current Every Day Smoker Cigarette use (# per day): Yes Chew tobacco use (# tins/day): No Smoking Education Provided: Yes Frequency of alcohol use: None Drug Abuse: None Lives with: Family Family History: CAD, CVA - TIAs, Hypertension, Other - Endometriosis. denies: DM, Malignancy Patient has suicidal ideation: No Patient has homicidal ideation: No - Past Medical History Cardiac Medical History: Reports: Hx Hypercholesterolemia, Hx Hypertension Denies: Hx Atrial Fibrillation, Hx Coronary Artery Disease, Hx DVT, Hx Heart Attack, Hx Pulmonary Embolism Pulmonary Medical History: Denies: Hx Asthma, Hx Bronchitis, Hx COPD, Hx Pneumonia, Hx Tuberculosis Neurological Medical History: Denies: Hx Cerebrovascular Accident, Hx Seizures Endocrine Medical History: Denies: Hx Diabetes Mellitus Type 1, Hx Diabetes Mellitus Type 2, Hx Hyperthyroidism, Hx Hypothyroidism Renal/ Medical History: Denies: Hx Peritoneal Dialysis, Hx Pelvic Inflammatory Disease GI Medical History: Reports: Hx Cirrhosis - Hepatic steatosis, Hx Gastroesophageal Reflux Disease, Hx Pancreatitis. Denies: Hx Crohn's Disease, Hx Ulcerative Colitis Musculoskeletal Medical History: Denies Hx Arthritis, Denies Hx Gout Skin Medical History: Denies Hx Eczema, Denies Hx Psoriasis Psychiatric Medical History: Reports: Hx Anxiety Denies: Hx Depression Past Surgical History: Reports: Hx Abdominal Surgery - iud retrieval, hernia repair, Hx Cholecystectomy - 07/27, Hx Herniorrhaphy, Hx Pancreatic Surgery - x2 placed a stent, Hx Tubal Ligation, Other - Pancreatic surgery x2, pancreatic stent, laparoscopic IUD retrieval. Denies: Hx Pacemaker - Immunizations Hx Diphtheria, Pertussis, Tetanus Vaccination: Yes Review of Systems - Review of Systems Constitutional: See HPI, Recent illness EENT: No symptoms reported Cardiovascular: No symptoms reported Respiratory: No symptoms reported Gastrointestinal: See HPI, Abdominal pain Genitourinary: No symptoms reported Female Genitourinary: No symptoms reported Musculoskeletal: No symptoms reported Skin: No symptoms reported Hematologic/Lymphatic: No symptoms reported Neurological/Psychological: No symptoms reported -: Yes All other systems reviewed and negative Physical Exam - Vital signs Vitals: Temp Pulse Resp BP Pulse Ox 98.6 F 86 16 169/101 H 99 08/16/20 18:19 08/16/20 18:19 08/16/20 18:19 08/16/20 18:19 08/16/20 18:19 Interpretation: Hypertensive - General General appearance: Appears well, Alert - HEENT Head: Normocephalic, Atraumatic Eyes: Normal Pupils: PERRL - Respiratory Respiratory status: No respiratory distress Chest status: Nontender Breath sounds: Normal Chest palpation: Normal - Cardiovascular Rhythm: Regular Heart sounds: Normal auscultation Murmur: No - Abdominal Inspection: Normal Distension: Tympanitic Bowel sounds: Hyperactive Tenderness: Tender - Diffusely Organomegaly: No organomegaly - Rectal Hemorrhoids: Other - Deferred - Genitourinary Bimanuel exam: Other - Deferred - Back Back: Normal, Nontender - Extremities General upper extremity: Normal inspection, Nontender, Normal color, Normal ROM, Normal temperature General lower extremity: Normal inspection, Nontender, Normal color, Normal ROM, Normal temperature, Normal weight bearing. No: Tex's sign - Neurological Neuro grossly intact: Yes Cognition: Normal Orientation: AAOx4 [place] Coma Scale Eye Opening: Spontaneous [place] Coma Scale Verbal: Oriented Curly Coma Scale Motor: Obeys Commands Curly Coma Scale Total: 15 Speech: Normal Motor strength normal: LUE, RUE, LLE, RLE Sensory: Normal - Psychological Associated symptoms: Normal affect, Normal mood - Skin Skin Temperature: Warm Skin Moisture: Dry Skin Color: Normal Course - Vital Signs Vital signs: Temp Pulse Resp BP Pulse Ox 98.6 F 86 16 169/101 H 99 08/16/20 18:19 08/16/20 18:19 08/16/20 18:19 08/16/20 18:19 08/16/20 18:19 - Laboratory Results Result Diagrams: 08/16/20 19:02 08/16/20 19:02 Laboratory Results Interpreted: 08/16/20 08/16/20 08/16/20 18:45 19:02 19:02 WBC 10.7 H RDW 16.5 H Sodium 136.5 L Carbon Dioxide 21 L AST 109 H ALT 131 H Alkaline Phosphatase 196 H Total Protein 8.6 H Urine Protein 30 H Urine Ketones 20 H Critical Laboratory Results Reviewed: Yes Attending or Supervising Physician who Reviewed Labs: GEMMA TROTTER JR - Radiology Results Critical Radiology Results Reviewed: Yes Attending or Supervising Physician who Reviewed Radiology: GEMMA TROTTER JR Critical Care Note - Critical Care Note Comments: This patient was treated for abdominal pain and for hypertension. Labs were negative for pancreatitis but positive for hepatic inflammation but no bilirubin increase. X-ray of KUB was significant for biliary stent otherwise within normal limits. Discharge - Discharge Clinical Impression: Elevated LFTs Abdominal pain Qualifiers: Abdominal location: unspecified location Qualified Code(s): R10.9 - Unspecified abdominal pain Hypertension Qualifiers: Hypertension type: unspecified Qualified Code(s): I10 - Essential (primary) hypertension Condition: Stable Disposition: HOME, SELF-CARE Instructions: Antinausea Medication ([facility]), Abdominal Pain ([facility]) Additional Instructions: Hold using the Bentyl medication for now. May take Carafate and lactobacillus with pectin for now. Liver functions are mildly elevated as well as total protein. Prescriptions: Lactobacillus Acidophilus/Pect [Acidophilus-Pectin Capsule] 1 each PO DAILY 7 Days #1 bottle Sucralfate [Carafate 1 gm Tablet] 1 gm PO TID PRN #60 tablet PRN Reason: Clonidine HCl [Catapres 0.2 mg Tablet] 0.2 mg PO Q12 #30 tab Referrals: PEDRO ORTIZ PA-C [Primary Care Provider] - Follow up as needed
[2020-08-16] MEDS ORDERED: PROMETHAZINE HCL INJ 25 MG/1 ML VIAL IV ONE (20:13)
[2020-08-16] MEDS ORDERED: NORMAL SALINE 1000 ML 1,000 ML IV PRN (20:13)
[2020-08-16] MEDS ORDERED: FENTANYL CITRATE INJ/PF 100 MCG/2 ML AMPUL IV ONE (20:13)
--- NOTE | 2020-08-16 21:27 | RADIOLOGY REPORT (SQ) ---
EXAM DESCRIPTION: KUB/ABDOMEN (SINGLE VIEW) CLINICAL HISTORY: 35 years Female, pain COMPARISON: None. FINDINGS: The lung bases are clear. A biliary stent is present in the common bile duct. Clips are seen consistent with previous cholecystectomy. Clips are noted in the pelvis consistent with tubal ligation. Bowel gas pattern is unremarkable. Small amount of air seen in the rectal vault. No significant stool in the colon. IMPRESSION: Biliary stent in place. No acute process.
[2020-08-16] MEDS ORDERED: HYDROMORPHONE HCL INJ/PF 2 MG/ML AMPULE IV ONE (21:48)
[2020-08-16] MEDS ORDERED: CLONIDINE HCL 0.2 MG TABLET PO ONE (21:54)
[2020-08-16] MEDS ORDERED: HYDROCODONE/ACETAMINOPHEN 5-325 MG (6 TAB/ER DISP) PO PRN (21:57)
[2020-08-16 22:06] VITALS: BP 147/78
== END 2020-08-16 22:17 | disposition home or self-care (01) ==
LOC: ER 18:10
DX: R10.9 Unspecified abdominal pain (principal); R94.5 Abnormal results of liver function studies; I10 Essential (primary) hypertension; Z79.899 Other long term (current) drug therapy; F17.210 Nicotine dependence, cigarettes, uncomplicated
CPT/HCPCS: 99284; 96361; 96374; 96375; 36415; 87070; 87086; 87880; 83690; 85025; 86308; 80053; 81001; 80074; 74018; J3010; J1170; J2550; J7030

== ENCOUNTER → 2020-09-14 | Outpatient (CLI) | payer OTHER ==
--- NOTE | 2020-09-14 12:50 | RADIOLOGY REPORT (SQ) ---
EXAM DESCRIPTION: CT ABDOMEN COMBO IMAGES COMPLETED DATE/TIME: 09/14/2020 10:33 am REASON FOR STUDY: R10.11 RIGHT UPPER QUADRANT PAIN/K86.1 OTHER CHRONIC PANCREATITIS R10.11 RIGHT UP PER QUADRANT PAIN K86.1 OTHER CHRONIC PANCREATITIS R94.5 ABNORMAL RESULTS OF LIVER FUNCTION STUDIES COMPARISON: 05/07/2020 TECHNIQUE: CT scan of the abdomen performed with and without intravenous contrast, and without oral contrast. Contrasted imaging performed using helical scanning technique with dynamic intravenous cont rast injection. Images reviewed with lung, soft tissue, and bone windows. Reconstructed coronal and s agittal MPR images reviewed. Delayed images for evaluation of the urinary system also acquired and ev aluated. All images stored on PACS. All CT scanners at this facility use dose modulation, iterative reconstruction, and/or weight based d osing when appropriate to reduce radiation dose to as low as reasonably achievable (ALARA). [facility]: Dose Right [facility]: CareDose [facility]: Dose Right [facility]: Teradose 4D [facility]: [employer] [facility] CONTRAST TYPE AND DOSE: contrast/concentration: Isovue 350.00 mmol/ml; Total Contrast Delivered: 100 .0 ml; Total Saline Delivered: 65.0 ml RENAL FUNCTION: Creatinine 0.6 RADIATION DOSE: CT Rad equipment meets quality standard of care and radiation dose reduction techniq ues were employed. CTDIvol: 3.6 - 22.5 mGy. DLP: 688 mGy-cm.. LIMITATIONS: None. FINDINGS: NONCONTRASTED IMAGING: There are small nonobstructing intrarenal calculi in each kidney. Common bile duct stent. There are some small calcifications in the pancreas from prior pancreatitis. POSTCONTRASTED IMAGING: LOWER CHEST: No significant findings. No nodules or infiltrates. LIVER: Normal size. No masses. No dilated ducts. SPLEEN: Normal size. No focal lesions. PANCREAS: No definable masses. The head of the pancreas is slightly heterogeneous. There are some s mall calcifications. No adjacent inflammation or peripancreatic fluid collections. Pancreatic duct n ot dilated. GALLBLADDER: Surgically absent. ADRENAL GLANDS: No significant masses or asymmetry. RIGHT KIDNEY AND URETER: No solid masses. Tiny nonobstructing intrarenal calculi. No hydronephros is or hydroureter. LEFT KIDNEY AND URETER: No solid masses. Tiny nonobstructing intrarenal calculi No hydronephrosis or hydroureter. AORTA AND VESSELS: No aneurysm. No dissection. Renal arteries, SMA, celiac without stenosis. RETROPERITONEUM: No retroperitoneal adenopathy, hemorrhage or masses. BOWEL AND PERITONEAL CAVITY: No masses or inflammatory changes. No free fluid or peritoneal masses. APPENDIX: Not included. ABDOMINAL WALL: No masses. No hernias. BONES: No significant or acute findings. OTHER: No other significant finding. IMPRESSION: 1. The head of pancreas is slightly heterogeneous. No definable mass is seen. 2. Common bile duct stent remains in place. There is no intrahepatic ductal dilatation or pancreati c ductal dilatation. 3. There are tiny nonobstructing intrarenal calculi. TECHNICAL DOCUMENTATION: JOB ID: [id number] Quality ID # [id number]: Final reports with documentation of one or more dose reduction techniques (e.g., Au tomated exposure control, adjustment of the mA and/or kV according to patient size, use of iterative reconstruction technique) 2010 [employer]- All Rights Reserved Reading location - IP/workstation name: [email or web address]
== END ==
LOC: RAD 10:03
PROVIDERS: ATTEND Internal Medicine Gastroenterology
DX: K86.1 Other chronic pancreatitis (principal); N20.0 Calculus of kidney; R10.11 Right upper quadrant pain; R94.5 Abnormal results of liver function studies
CPT/HCPCS: 74170; 82565

== ENCOUNTER 2020-09-15 11:59 | Day surgery (SDC) | payer OTHER ==
[2020-09-15 14:11] LABS: ABSOLUTE BASOPHILS # (AUTO) 0.1 10^3/uL (0.0-0.2); ABSOLUTE EOSINOPHILS # (AUTO) 0.3 10^3/uL (0.0-0.6); ABSOLUTE LYMPHOCYTES (AUTO) 2.1 10^3/uL (0.5-4.7); ABSOLUTE MONOCYTES (AUTO) 0.6 10^3/uL (0.1-1.4); ABSOLUTE NEUT (AUTO) 5.9 10^3/uL (1.7-8.2); BASOPHILS % (AUTO) 1.3 % (0-2); EOSINOPHILS % (AUTO) 2.9 % (0-6); HEMATOCRIT 37.8 % (36.0-47.0); HEMOGLOBIN 12.7 g/dL (12.0-15.5); LYMPHOCYTES % (AUTO) 23.3 % (13-45); MEAN CORPUSCULAR HEMOGLOBIN 28.8 pg (27.0-33.4); MEAN CORPUSCULAR HGB CONC 33.6 g/dL (32.0-36.0); MEAN CORPUSCULAR VOLUME 86 fl (80-97); MONOCYTES % (AUTO) 6.8 % (3-13); PLATELET COUNT 237 10^3/uL (150-450); RED BLOOD COUNT 4.41 10^6/uL (3.72-5.28); SEGMENTED NEUTROPHILS % (AUTO) 65.7 % (42-78); TOTAL CELLS COUNTED % (AUTO) 100 %; WHITE BLOOD COUNT 9.1 10^3/uL (4.0-10.5)
[2020-09-15 14:32] LABS: ALBUMIN 4.2 g/dL (3.5-5.0); ALKALINE PHOSPHATASE 95 U/L (38-126); ANION GAP 5 (5-19); ASPARTATE AMINO TRANSFERASE 24 U/L (14-36); BILIRUBIN,DIRECT 0.3 mg/dL (0.0-0.4); BILIRUBIN,TOTAL 0.4 mg/dL (0.2-1.3); BLOOD UREA NITROGEN 14 mg/dL (7-20); CALCIUM 9.5 mg/dL (8.4-10.2); CARBON DIOXIDE 25 mmol/L (22-30); CHLORIDE 104 mmol/L (98-107); GLUCOSE 105 mg/dL (75-110); POTASSIUM 4.7 mmol/L (3.6-5.0)
[2020-09-15] MEDS ORDERED: MIDAZOLAM 2 MG/2 ML INJ IV PRN (14:41)
[2020-09-15] MEDS ORDERED: MIDAZOLAM 2 MG/2 ML INJ ONE ×2 (15:00→16:35)
[2020-09-15] MEDS ORDERED: PROPOFOL INJ 200 MG/20 ML VIAL IV ONE ×2 (15:03→16:35)
[2020-09-15] MEDS ORDERED: FENTANYL CITRATE INJ/PF 100 MCG/2 ML AMPUL ONE (16:35)
[2020-09-15] MEDS ORDERED: DEXAMETHASONE SOD PHOSPHATE INJ 4 MG/1 ML VIAL ONE (16:35)
[2020-09-15] MEDS ORDERED: ONDANSETRON HCL INJ/PF 4 MG/2 ML SDV ONE ×2 (16:35→18:03)
[2020-09-15] MEDS ORDERED: LIDOCAINE 2% INJ-PF (20 MG/ML) 10 ML AMPUL ONE (16:35)
[2020-09-15] MEDS ORDERED: EPINEPHRINE INJ 1 MG/10 ML DISP.SYRIN ONE (16:51)
--- NOTE | 2020-09-15 17:41 | Operative Report ---
Operative Report DATE OF SURGERY: 09/15/20 Operative Report: Pre-op diagnosis: 1. History of biliary stricture s/p stent placement and recurrent abdominal pain 2. History of chronic pancreatitis Post-op diagnosis: 1. Common bile duct sludge with large amount of sludge within the biliary stent Surgery: ERCP with stent removal and balloon sludge extraction Medications: As per anesthesia Tissue removed: None Procedure: After informed consent obtained from patient, patient was placed under general anesthesia. The ERCP endoscope was then inserted into the esophagus blindly and advanced into the stomach. The duodenum was entered and the ampulla was identified. The previously placed biliary stent was identified and was removed using the polypectomy snare. A cholangiogram was then obtained with a 12 mm balloon catheter. The catheter was inflated in the proximal duct and pulled down the duct. Moderate amount of sludge was extracted. There was no significant stricture noted and I was able to pull the balloon without any difficulty. The duct was swept 2 more times. Using the triple-lumen sphincte rotomy catheter the pancreatic duct was cannulated and a partial pancreatogram showed normal proximal pancreatic duct. Patient tolerated procedure well. Findings Common bile duct: Sludge removed with balloon catheter. An old likely occluded stent was removed. Intrahepatic ducts: Normal Pancreatic duct: Normal proximal pancreatic duct Plan: Follow-up LFTs OPERATION: .
[2020-09-15] MEDS ORDERED: FENTANYL CITRATE INJ/PF 100 MCG/2 ML AMPUL IV PRN ×3 (17:52)
[2020-09-15] MEDS ORDERED: OXYCODONE-ACETAMINOPHEN 5-325 MG TABLET PO PRN ×2 (17:52)
[2020-09-15] MEDS ORDERED: MORPHINE SULFATE 10 MG/ML INJ IV PRN (17:52)
[2020-09-15] MEDS ORDERED: PROMETHAZINE HCL INJ 25 MG/1 ML VIAL IV PRN ×2 (17:52)
[2020-09-15] MEDS ORDERED: ONDANSETRON HCL INJ/PF 4 MG/2 ML SDV IV PRN (17:52)
[2020-09-15] MEDS ORDERED: DIPHENHYDRAMINE HCL 50 MG/ML VIAL IV PRN (17:52)
[2020-09-15] MEDS ORDERED: OXYCODONE-ACETAMINOPHEN 5-325 MG TABLET ONE (18:08)
[2020-09-15 19:07] VITALS: BP 147/89
--- NOTE | 2020-09-16 13:36 | RADIOLOGY REPORT (SQ) ---
EXAM DESCRIPTION: ENDO CATH/BILIARY DUCT; NO CHG FLUORO IMAGES COMPLETED DATE/TIME: 09/15/2020 5:58 pm REASON FOR STUDY: ERCP K86.1 OTHER CHRONIC PANCREATITIS R94.5 ABNORMAL RESULTS OF LIVER FUNCTION S TUDIES COMPARISON: None. FLUOROSCOPY TIME: 1.7 minutes 09 images saved to PACS. TECHNIQUE: Intra-operative images acquired during surgical procedure to evaluate progress. NUMBER OF IMAGES: 9 LIMITATIONS: None. FINDINGS: Endoscopic manipulation of the common bile duct. IMPRESSION: IMAGE(S) OBTAINED DURING PROCEDURE. COMMENT: Quality ID 145: Final reports for procedures using fluoroscopy that document radiation exp osure indices, or exposure time and number of fluorographic images (if radiation exposure indices are not available) Please consult full operative report of the attending physician for description of the procedure. TECHNICAL DOCUMENTATION: JOB ID: [id number] 2010 [employer]- All Rights Reserved Reading location - IP/workstation name: [email or web address]
--- NOTE | 2020-09-16 13:36 | RADIOLOGY REPORT (SQ) ---
EXAM DESCRIPTION: ENDO CATH/BILIARY DUCT; NO CHG FLUORO IMAGES COMPLETED DATE/TIME: 09/15/2020 5:58 pm REASON FOR STUDY: ERCP K86.1 OTHER CHRONIC PANCREATITIS R94.5 ABNORMAL RESULTS OF LIVER FUNCTION S TUDIES COMPARISON: None. FLUOROSCOPY TIME: 1.7 minutes 09 images saved to PACS. TECHNIQUE: Intra-operative images acquired during surgical procedure to evaluate progress. NUMBER OF IMAGES: 9 LIMITATIONS: None. FINDINGS: Endoscopic manipulation of the common bile duct. IMPRESSION: IMAGE(S) OBTAINED DURING PROCEDURE. COMMENT: Quality ID 145: Final reports for procedures using fluoroscopy that document radiation exp osure indices, or exposure time and number of fluorographic images (if radiation exposure indices are not available) Please consult full operative report of the attending physician for description of the procedure. TECHNICAL DOCUMENTATION: JOB ID: [id number] 2010 [employer]- All Rights Reserved Reading location - IP/workstation name: [email or web address]
== END 2020-09-15 19:00 | disposition home or self-care (01) ==
LOC: OROUT 11:59
PROVIDERS: ATTEND Internal Medicine Gastroenterology
DX: K83.8 Other specified diseases of biliary tract (principal); K86.1 Other chronic pancreatitis; Z01.812 Encounter for preprocedural laboratory examination; Z20.822 Contact with and (suspected) exposure to COVID-19; F17.210 Nicotine dependence, cigarettes, uncomplicated; I10 Essential (primary) hypertension; E66.9 Obesity, unspecified; Z90.49 Acquired absence of other specified parts of digestive tract; Z79.899 Other long term (current) drug therapy; Z98.890 Other specified postprocedural states; Z87.19 Personal history of other diseases of the digestive system
CPT/HCPCS: 36415; 85025; 0241U ×4; 81025; 80076; 80048; 74328; 43264; 43275; J2250; J1100; J2405; J2704; J3490; C9803; 732; J0171; J3010; Q9967